=== PATIENT | female | born 1955 | race Caucasian/White ===

== ENCOUNTER 2019-02-11 11:15 | Outpatient (CLI) | payer BC, MEDICARE, SELFPAY ==
--- NOTE | 2019-02-11 13:00 | DI.RAD_ITS ---
SYMPTOMS/DIAGNOSIS: CHRONIC COUGH, R05 PA AND LATERAL CHEST: The heart is not enlarged. There appear to be multiple healed rib fracture on the left and there are associated changes of pleural and parenchymal scarring at the left lung base; no gross interval change in appearance in comparison with chest film of 03/13/2016. No new consolidation. Cardiac size is within normal limits. No pleural effusions seen. CONCLUSION: No evidence of acute process.
== END 2019-02-11 11:35 ==
PROVIDERS: PCP Nurse Practitioner Family; Visit Provider Nurse Practitioner Family
DX: R05 Cough (principal); J98.4 Other disorders of lung
CPT/HCPCS: 71046

== ENCOUNTER 2020-02-11 21:00 | Outpatient (REF) | payer BC, MEDICARE, SELFPAY ==
[2020-02-11 19:52] LABS: Anion Gap 9.6 mmol/L (3-11); BUN 15 mg/dL (7-18); CO2 27.4 mmol/L (21.0-32.0); CREATININE 0.85 mg/dL (0.55-1.02); Calcium 9.7 mg/dL (8.5-10.1); Calculated LDL 170 mg/dL (<100); Chloride 103 mmol/L (98-107); Cholesterol 232 mg/dL (<200); Glucose 132 mg/dL (74-106); HDL Cholesterol 40 mg/dL (40-60); Potassium 4.4 mmol/L (3.5-5.1); Sodium 140 mmol/L (136-145); Triglyceride 111 mg/dL (<150)
[2020-02-11 20:10] LABS: Hemoglobin A1C 6.4 % (3.8-5.6)
== END 2020-02-11 21:20 ==
LOC: LBN 21:00
PROVIDERS: PCP Nurse Practitioner Family; Visit Provider Nurse Practitioner Family
DX: E78.5 Hyperlipidemia, unspecified (principal)
CPT/HCPCS: 80048; 80061; 83036

== ENCOUNTER 2020-02-24 04:34 | Outpatient (CLI) | payer BC, MEDICARE, SELFPAY ==
--- NOTE | 2020-02-24 16:15 | DI.MAMMO_ITS ---
EXAM: MG MAMMO SCREENING CLINICAL HISTORY: screening, Z12.39 TECHNIQUE: Bilateral full field digital CC and MLO mammographic images were obtained with 3D tomosyn thesis and utilizing computer aided detection (CAD). COMPARISON: Available for comparison. FINDINGS: Masses/Architectural Distortion: Scattered fibronodular densities are seen in the breasts. Stable as ymmetric density in the central posterior left breast seen on the craniocaudal view. Microcalcifications: No suspicious pleomorphic-type are seen. Skin Thickening/Nipple Retraction: None. IMPRESSION: 1. No significant interval change with no specific features of malignancy noted. 2. Unless there is more urgent need, screening mammography is recommended, as per [employer] guidelines. BI-RADS Category 2 - Benign Findings Breast Density - Category B - Scattered areas of fibroglandular density A negative radiographic report should not delay biopsy if a dominant or clinically suspicious mass is present. Up to ten percent of cancers are not identified on mammography. A negative report may reinforce clinical impression. Adenosis and dense breasts may obscure an underlying neoplasm. False positive reports average 6 to 10%. Patient will receive a letter notifying them of these results.
== END 2020-02-24 04:54 ==
PROVIDERS: PCP Nurse Practitioner Family; Visit Provider Nurse Practitioner Family
DX: Z12.31 Encounter for screening mammogram for malignant neoplasm of breast (principal); R92.2 Inconclusive mammogram
CPT/HCPCS: 77063; 77067

== ENCOUNTER 2020-04-22 08:49 | Outpatient (CLI) | payer BC, MEDICARE, SELFPAY ==
[2020-04-26 23:15] LABS: Patient Race White; SARS-CoV-2 RNA Undetected (Undetected); SARS-CoV-2 Specimen Source Nasal
== END 2020-04-22 09:09 ==
PROVIDERS: PCP Nurse Practitioner Family; Visit Provider Nurse Practitioner Family
DX: R52 Pain, unspecified (principal); R50.9 Fever, unspecified
CPT/HCPCS: U0003

== ENCOUNTER 2020-08-11 02:37 | Outpatient (CLI) | payer BC, MEDICARE, SELFPAY ==
[2020-08-12 13:41] LABS: COVID-19 RT-PCR UVMMC Result Negative (Negative)
== END 2020-08-11 02:38 | disposition home or self-care (01) ==
LOC: LBO 02:37
PROVIDERS: PCP Nurse Practitioner Family; Visit Provider Surgery
DX: Z20.822 Contact with and (suspected) exposure to COVID-19 (principal); Z01.818 Encounter for other preprocedural examination
CPT/HCPCS: U0003

== ENCOUNTER 2020-08-15 06:12 | Day surgery (SDC) | payer BC, MEDICARE, SELFPAY ==
[2020-08-15 06:27] VITALS: BP 166/99; PULSE 96; RESP 18; TEMP 36.3; O2SAT 94
--- NOTE | 2020-08-15 06:42 | W.COLOREPORT ---
Date of service: 08/15/20 Time of Service: :19 Colonoscopy Report Date of procedure: 08/15/20 Pre-op diagnosis general: Hx of colon polyps Post-op diagnosis procedure note: same Procedure: Colonoscopy with polypectomy Surgeon: Jory Leblanc Anesthesia proc note operative: other (General/ ASA 3/Aldair Faye CRNA) Estimated blood loss (mL): 3 Pathology: other (Cecal polyps, descending polyp, sigmoid polyps and rectal polyps) Complications: None Disposition: same day Indications: The patient is here for Colonoscopy pre-op.Her last screening was in 2016, which was remarkable for tubulovillious, tubular adenomatous and hyperplastic polyps. She reports a family history of colon cancer in her sister. She has not had any bowel habit changes. -Discussed colonoscopy bowel prep as well as the procedure. Discussed possible complications of the procedure to include bleeding, pain, perforation, missed small lesion/polyp, sore throat, aspiration and adverse reaction to the medications. Questions were answered to patient?s satisfaction. No guarantees were implied or given. Prep: Miralax/Dulcolax Procedure Start Time: :19 Procedure End Time: 07:56 Retraction Time: 28 minutes Findings: multiple polyps emerson-diverticulosis Procedure Description: After informed consent was obtained the patient was taken to the procedure room and placed in a left decubitous position. Monitors were applied and a time out was done. The patients name, date of , procedure, allergies to medications and metal in their body was reviewed. The patient was then sedated. Once sedated and comfortable a rectal exam was done. External exam was normal. Internal exam revealed a normal sphincter tone and no palpable masses. The scope was then introduced and retro-flexed. No internal hemorrhoids, polyps or masses were identified on retro-flexion. The scope was then advanced to the cecum without difficulty. The ileocecal valve and appendiceal orifice were identified. The prep was good. The scope was then slowly retracted over 28 minutes back into the rectum. Polyps were removed with hot snare in the cecum and with cold forceps in the cecum, descending colon, sigmoid colon and rectum. There was emerson- diverticulosis noted. The scope was removed and the patient was woken up and taken back to Same day surgery in stable condition. The patient tolerated the procedure well and there were no immediate complications. Follow up: The patient should follow up in 3-5 years unless they develop changes in bowel habits or other new gastrointestinal complaints.
--- NOTE | 2020-08-15 06:44 | W.PM.DSUDISC ---
Discharge Plan Disposition Patient Disposition: HOME Condition: Good Discharge Details Reason For Visit: Colonoscopy Attending Provider: Jory Leblanc Primary Care Provider: Lis Millan Home Meds and New Rx's Prescriptions: Continued calcium carbonate-vitamin D3 1 EACH tablet 1 ea PO BID RF: 0 melatonin 5 mg Tablet 5 mg PO HS PRNRF: 0 diphenhydramine-acetaminophen [Tylenol PM Extra Strength] 25-500 mg Tablet 1 tab PO Q4H PRNRF: 0 Discontinued polyethylene glycol 3350 17 gram/dose powder 238 g PO ONCE Qty: 238 RF: 0 bisacodyl [Dulcolax (bisacodyl)] 5 mg tablet,delayed release (DR/EC) 5 mg PO ONCE Qty: 4 RF: 0 Discharge Instructions Instructions: Diverticulosis (DC), Colorectal Polyps (DC) Additional Instructions: Findings: polyps moderate diverticulosis Follow up: 3-5 years Please call if you develop: fevers >101.5 Nausea or Vomiting Abdominal pain that is not transient DAY SURGERY UNIT POST ENDOSCOPY INSTRUCTIONS 1. Because there will be medication in your system for the next 24 hours, you may feel a little sleepy. Your coordination will be affected. Therefore: a. Do not drive or operate dangerous equipment for 24 hours. b. Do not drink alcohol beverages for 24 hours (not even beer). c. Plan to go home and rest for the day. 2. Generally there are no restrictions on your activity after a day or so has gone by, but you may feel a bit fatigued for a few days. 3 After you arrive home you may have a light meal and return to a normal diet as you can tolerate it without feeling sick to your stomach. 4. After surgery, you may feel pain or discomfort. This should be only transient, but if it persists please contact your doctor. 5. If there are any questions regarding the findings of your procedure, please feel free to contact your doctor. 6. If you are unable to contact your doctor with a problem, contact the hospital at [phone]. 7. Continue all your regular medications unless directed otherwise. I understand the above instructions and have no questions. Signature of Patient or Responsible Adult Escort Date/Time Name of Responsible Adult Escort Signature of Nurse Date/Time Activity:: Activity as Tolerated Diet:: High Fiber Discharge Orders Discharge Orders: Discharge Order (Routine); Ordered 08/15/20 Ordered By: Jory Leblanc
[2020-08-15] MEDS: Lactated Ringers 1,000 ML 80 ML IV (06:45)
--- NOTE | 2020-08-15 07:30 | BOWEL_PTH ---
PATIENT: Macy Zhang LOC: [facility] U#:[id number] AGE/SX: 65/F ROOM: RE08/15/[address]: Jory Leblanc MD : [id number] BED: DIS: 08/15/2020 SPEC #: [id number] RECD: 08/15/20 12:39 STATUS: PAOLO REGil #: [id number] CHIQUI: 08/15/20 07:[address]: Jory Leblanc DEPT: Surgical Specimen RECD BY: Alisa Hicks ENTERED: 08/15/20 12:41 SP TYPE: Bowel OTHR DR: Lis Millan, ELOY Tissues: 1 - BIOPSY BOWEL 2 - BIOPSY BOWEL 3 - BIOPSY BOWEL 4 - BIOPSY BOWEL Procedures: GROSS AND MICRO LEVEL 4 Comments: [id number]
[2020-08-15 08:35] VITALS: BP 172/106; PULSE 77; RESP 22; TEMP 36.3; O2SAT 94
[2020-08-15] MEDS: Hyoscyamine 0.125 MG SL/ORAL/CHEW SL (08:39)
[2020-08-15 09:00] VITALS: BP 163/103; PULSE 70; RESP 22; TEMP 36.4; O2SAT 94
[2020-08-15 09:41] VITALS: BP 161/101; PULSE 88; RESP 20; TEMP 36.1; O2SAT 94
== END 2020-08-15 10:07 | disposition home or self-care (01) ==
PROVIDERS: PCP Nurse Practitioner Family; Visit Provider Surgery
PROC: 0DJD8ZZ Inspection of Lower Intestinal Tract, Via Natural or Artificial Opening Endoscopic (ICD-10-PCS; CPT 45378; principal; 2020-08-15 07:30)
DX: Z12.11 Encounter for screening for malignant neoplasm of colon (principal); K62.1 Rectal polyp; D12.5 Benign neoplasm of sigmoid colon; D12.4 Benign neoplasm of descending colon; D12.0 Benign neoplasm of cecum; K57.30 Diverticulosis of large intestine without perforation or abscess without bleeding; Z86.010 Personal history of colon polyps; Z80.0 Family history of malignant neoplasm of digestive organs; R73.03 Prediabetes; E66.9 Obesity, unspecified; E78.5 Hyperlipidemia, unspecified
CPT/HCPCS: 45385; 45380; 88305; J2001; J3490

== ENCOUNTER 2020-10-15 16:52 | Observation (INO) | payer BC, MEDICARE, SELFPAY ==
[2020-10-15] VITALS (35 sets, daily range): BP systolic 108–201; BP diastolic 55–108; PULSE 88–116; RESP 4–40; TEMP 36.4–36.5; O2SAT 87–99
--- NOTE | 2020-10-15 16:45 | RT.EKG_ITS ---
APPROVED REPORT Exam: Resting ECG Patient Location: E HR:111 bpm ECG Measurements Heart Rate 111 AXIS VA 189 P 66 QRSd 94 QRS -4 QT 334 T 77 QTc 455 Conclusion Sinus tachycardia...rate> 99 Inferior infarct, old...Q >35mS, II III aVF
--- NOTE | 2020-10-15 17:00 | ED.GENADUL_ITS ---
Discharge Plan Disposition Patient Disposition: [facility] INPATIENT Condition: Stable Discharge Details Chief Complaint: Dizzy/Sync Clinical Impression: Hypoxia Primary Care Provider: Lis Millan ED Provider: Jeff Garsia Home Meds and New Rx's Prescriptions: No Action calcium carbonate-vitamin D3 1 EACH tablet 1 ea PO BID RF: 0 melatonin 5 mg Tablet 10 mg PO HS PRNRF: 0 diphenhydramine-acetaminophen [Tylenol PM Extra Strength] 25-500 mg Tablet 1 tab PO Q4H PRNRF: 0 Medical Decision Making 65 yo female with hx of prior smoking, hyperlipidemia per chart review, who was sitting at home aroud 1500 when she had the sudden onset of dyspnea, lightheadedness, and upper back pain that was sharp and lasted a few minutes. She continues to feel short of breath and lightheaded. She denies chest pain or pressure, abdomeinal pain, vomit, or recent fevers. She did get her 2nd covid vaccine last week and since then hasn't felt great and states her energy has not been that high. She states she thinks she has had similar symptoms like this once years ago and was diagnosed with a panic attack. She does arrive appearing anxious. She has clear lung sounds on exam at the apices though diminished at the base, no chest or back tenderness or abdominal tenderness, no calf tenderness, no leg swelling, no jvd. Given how anxious she feels will try anxiolysis with ativan. She has a heart score of 3, will send troponin. Given her primary complaint is dyspnea and she does have mild tachycardia at 110 on exam will obtain CTA to evaluate for PE. No tearing back pain and normal vascular exam and no chest pain so doubt dissection pt seen after ct and appears much less anxious. She apparently did desaturate to the high 80s when going to the bedside commode and did on repeat exam with full deep breaths now have bilateral apical and lower lung wheezing. Will treat with duoneb and reassess. ct shows no PE but does have possible infection with opacities in the right middle lobe, continues to have hypoxia to the high 80's with movement otherwise stable. Spoke with Dr. Gonzalez who accepts for admission for hypoxia likely secondary to undiagnosed copd and possible pe. Pt updated and agrees with plan Differential Diagnosis Differential Diagnosis: nstemi, PE, pneumonia, anxiety Imaging Data Radiologic Study: Attestation: I personally reviewed and interpreted this imaging study as follows: Imaging: CT Scan Radiologist's impression: IMPRESSION: 1. No central/discrete pulmonary embolism identified. Evaluation for more peripheral PEs (small segmental/subsegmental) is limited secondary to motion and mixing artifact. 2. Scattered nodular densities in the right upper lobe with a clustering nodular densities in the medial aspect of the right upper lobe. These could be infectious or inflammatory. True pulmonary nodules are not excluded. Consider 3 month follow-up. 3. Mild opacities in the right middle lobe and lingula which could represent atelectasis or infection. Other findings/details as above ECG Data Attestation: I personally reviewed and interpreted this ECG (s) as follows: Prior ECG tracings: not available for review Interpretation: sinus tachycardia, rate of 111, pr 189, qtc 455, poor r wave progression HPI General Mode of arrival: wheelchair . Date/Time Provider Initiated Documentation: 10/15/20 16:54 . Limitations to Documentation: no limitations . Information obtained by: patient . History of Present Illness 65 year old F presents to the emergency department with the chief complaint of shortness of breath, described as moderate, Patient started experiencing this hour(s) (2) and it has been constant. No relieving factors improve symptom(s), No exacerbating factors reported . Patient notes denies chest pain. Patient did receive the following treatments prior to arrival, none Related Data Home Medications Medication Instructions Recorded Confirmed calcium carbonate-vitamin D3 1 ea PO BID 08/16/17 10/15/20 diphenhydramine-acetaminophen 1 tab PO Q4H PRN 08/15/20 10/15/20 [Tylenol PM Extra Strength] melatonin 10 mg PO HS PRN 08/15/20 08/15/20 Allergies Allergy/AdvReac Type Severity Reaction Status Date / Time Penicillins Allergy Severe Hives Unverified 10/15/20 16:59 metronidazole [From Flagyl] Allergy Unknown Unverified 10/15/20 16:59 adhesive AdvReac REDNESS Unverified 10/15/20 16:59 General Stated Complaint: Dizzy/Sync MICHELLE: 2 Review of Systems All systems reviewed & are unremarkable except as noted in HPI and below Constitutional Constitutional: Denies chills and Denies fever(s) Cardiovascular Cardiovascular: Denies chest pain Gastrointestinal Gastrointestinal: Denies abdominal pain, Denies nausea and Denies vomiting Musculoskeletal Musculoskeletal: Denies joint swelling Integumentary/Breasts Skin/Breast: Denies rash PENDING SALE TO [facility] Medical History (Updated 10/15/20 @ 19:02 by Jeff Garsia MD) BCC (basal cell carcinoma), arm Left upper arm Diverticulosis of colon Former cigarette smoker 90pack/yr hx Hyperlipidemia Obesity Osteopenia Dexa 06/09 Prediabetes Tubular adenoma of colon Tubulovillous adenoma of colon Surgical History History of bilateral tubal ligation History of section (01/05/83) 01/05/83 and 06/20/84 History of wisdom tooth extraction S/P colonoscopy (04/02/16) Family History Mother Hypertension Dementia Atrial fibrillation Father , at 59 of lung cancer Lung cancer Sister Rectal cancer metastasized to liver Hypertension Brother Alcohol abuse Daughter No problems noted. Daughter No problems noted. Maternal Grandfather No problems noted. Maternal Grandmother No problems noted. Paternal Grandfather , in his 70s Myocardial infarction Heart disease Alcohol abuse Paternal Grandmother Emphysema of lung Social History Smoking/Tobacco Use Status: Former Tobacco Use Quit Date: 06/24/13 Pack-years: 90 Tobacco: How many years used: 45 Second Hand Exposure: No Smoking risk assessment performed?: Yes Alcohol Intake: current Alcohol Intake frequency: holidays/special occasions only Alcohol type: hard liquor Drug use: Never Substance use type: does not use Details: alcohol: t-7 Caregiver/Support person: No Household members: spouse Housing: apartment Communication Needs: None Do you need help understanding health information?: Never Pets and animals: Yes Pets and animals: cat(s) and dog(s) Sexually active: Yes Do you think of yourself as: straight/heterosexual Current gender identity: female What is your relationship status?: How often do you talk on the phone with friends or family?: three or more times per week How often do you get together with friends or relatives?: decline to answer How often do you attend hoahaoism or zoroastrianism services?: decline to answer Do you belong to any clubs or organized social groups?: decline to answer Panel score (0-1 are the most socially isolated patients): 2 Duration: < 15 minutes/day Frequency: 1-2 times per week Guerita/Lutheran: None Special guerita needs: No Seatbelt use: always Helmet use: Yes Helmet use: always Drive intox or ride w/intox nascar driver: No Do you feel safe at home: Yes Do you feel safe in your relationship?: Yes Female Reproductive History Menstrual Menopause type: natural History History 2 Para 2 Hx # Term Pregnancies Multiple births Hx # Pregnancies Ectopic pregnancies AB induced Hx Number of Living Children 2 AB spontaneous Exam Const General: anxious Orientation: alert HENMT Head: normal to inspection Ears: external ears normal General nose exam: external nose normal Mouth: moist mucous membranes Eyes General: appearance normal, both eyes and all related structures Neck Neck: normal visual inspection Chest Chest: no tenderness Resp Effort & Inspection: no stridor and no use of accessory muscles Cardio Rate: regular rate GI Palpation: soft and nontender Skin General skin exam: no rashes or lesions noted Neuro General: patient alert and patient oriented x3 Extrem General: normal to inspection Psych Mental Status: mental status grossly normal Course Vital Signs Vital signs: Vital Signs Temperature 36.4 C L 10/15/20 16:55 Pulse 116 H 10/15/20 16:55 Respiratory Rate 39 H 10/15/20 16:55 Pulse Oximetry 95 10/15/20 16:55 Temperature 36.4 C L 10/15/20 16:55 Temperature Source Skin 10/15/20 16:55 Pulse 116 H 10/15/20 16:55 Respiratory Rate 39 H 10/15/20 16:55 Blood Pressure Position Sitting 10/15/20 16:55 Pulse Oximetry 95 10/15/20 16:55 Oxygen Delivery Method Room Air 10/15/20 16:55 Oxygen Flow Rate 0 10/15/20 16:55 Pain Level 0 10/15/20 16:55
[2020-10-15] MEDS: LORazepam 2 MG/ML VIAL 0.5 MG IVP (17:17)
[2020-10-15 17:18] LABS: Abs Immature Grans 0.06 10^3/uL (0.0-0.06); Absolute Eosinophil Count 0.32 10^3/uL (0.0-0.7); Absolute Monocyte Count 0.79 10^3/uL (0.1-0.8); Absolute Neutrophil Count 9.83 10^3/uL (1.2-6.7); Basophils % 0.6; Eosinophils % 2.5; HCT 48.7 % (36.0-46.0); HGB 15.8 g/dL (11.2-15.7); Immature Grans % 0.5; Lymphocytes % 12.6; MCH 33.3 pg (27.0-33.0); MCHC 32.4 % (32.0-36.0); MCV 102.7 fL (80-95); MPV 9.2 fL (8.0-11.0); Monocytes % 6.2; Neutrophils % 77.6; Nucleated RBC 0 %; Platelet Count 324 10^3/uL (130-400); RBC 4.74 10^6/uL (3.93-5.22); RDW 14.2 % (11.7-14.6); WBC 12.67 10^3/uL (4.4-10.8)
[2020-10-15] MEDS: Aspirin 81 MG CHEW 324 MG CH (17:18)
[2020-10-15 17:22] LABS: Absolute Basophil Count 0.08 10^3/uL (0.0-0.2)
[2020-10-15 17:33] LABS: PTT Activated 23.8 sec (21.0-27.5); Prothrombin Time 10.3 sec (9.3-11.0)
[2020-10-15 17:38] LABS: ALT 23 U/L (14-59); AST 12 U/L (15-37); Albumin 4.1 g/dL (3.4-5.0); Alkaline Phosphatase 134 U/L (46-116); Anion Gap 8.5 mmol/L (3-11); BUN 16 mg/dL (7-18); Bilirubin, Direct 0.2 mg/dL (0.0-0.2); Bilirubin, Total 0.5 mg/dL (0.2-1.0); CO2 29.5 mmol/L (21.0-32.0); CREATININE 0.9 mg/dL (0.55-1.02); Calcium 9.2 mg/dL (8.5-10.1); Chloride 103 mmol/L (98-107); Glucose 184 mg/dL (74-106); Lipase 94 U/L (73-393); Magnesium 2.1 mg/dL (1.8-2.4); Potassium 3.8 mmol/L (3.5-5.1); Sodium 141 mmol/L (136-145); Total Protein 8.5 g/dL (6.4-8.2)
--- NOTE | 2020-10-15 17:47 | DI.CT_ITS ---
EXAM: CT CHEST PE CTA CLINICAL HISTORY: shortness of breath. TECHNIQUE: Imaging Protocol: CT angiography of the chest was performed using pulmonary embolus oksana col. Multi planar reconstructions were performed. CONTRAST MATERIAL: Intravenous: Omnipaque 350 Contrast volume: 100 cc COMPARISON: No exams were available for comparison FINDINGS: CHEST: PULMONARY ARTERIES: Less than optimal bolus injection. No central pulmonary emboli. LUNGS: Although somewhat limited by motion artifact, there is subtle infiltrates also some infiltrate in the lateral segment left upper lobe and lingular segment left lung. No pleural effusion. No sig nificant focal findings in trachea and mainstem bronchi. In right upper and right middle lobe. No p leural effusion.. MEDIASTINUM: There is no hilar nor mediastinal adenopathy. Visualized thyroid unremarkable. CARDIAC: Heart size is upper normal. There is no pericardial effusion.Caliber of the thoracic aorta is within normal limits. There is no significant shift of the interventricular septum. PARTIALLY VISUALIZED UPPERMOST ABDOMEN: No obvious findings OSSEOUS: No significant osseous lesions.. IMPRESSION: 1. No evidence of acute pulmonary emboli. No evidence of pulmonary infarction.No pleural effusions. 2. However, there is subtle infiltrates in the right upper lobe left upper lobe. Recommend 3 month f ollow-up CT scan. 3. No evidence of aortic dissection. No pericardial effusion. RADIATION DOSE DELIVERED: 486.67mGy.cm Total DLP DATA REPOSITORY: All CT scans at this facility are submitted to the National Radiology Data Registry (NRDR) Dose Index Registry (DIR) with the [employer] (ACR). RADIATION OPTIMIZATION: All CT scans at this facility use at least one of these dose optimization te chniques: automated exposure control; mA and/or kV adjustment per patient size (includes targeted exa ms where dose is matched to clinical indication); or iterative reconstruction.
[2020-10-15 17:50] LABS: Troponin I < 0.05 ng/mL (<0.06)
[2020-10-15] MEDS: Normal Saline - Diluent 50 ML VIAL IV (17:55)
[2020-10-15] MEDS: Albuterol/Ipratropium 3 ML UPD VIAL UPD ×2 (18:04→19:19)
[2020-10-15] MEDS: methylPREDNISolone SUCC 125 MG VIAL IVP (18:23)
--- NOTE | 2020-10-15 18:47 | DI.VRAD_ITS ---
PROCEDURE INFORMATION: Exam: CTA Chest With Contrast Exam date and time: 10/15/2020 5:38 PM Age: 65 years old Clinical indication: Shortness of breath TECHNIQUE: Imaging protocol: Computed tomographic angiography of the chest with contrast. 3D rendering (Not supervised by radiologist): MIP and/or 3D reconstructed images were created by the technologist. Radiation optimization: All CT scans at this facility use at least one of these dose optimization techniques: automated exposure control; mA and/or kV adjustment per patient size (includes targeted exams where dose is matched to clinical indication); or iterative reconstruction. Contrast material: VISIPAQUE [id number]; Contrast route: INTRAVENOUS (IV); COMPARISON: CR XR CHEST 2V PA LATERAL 02/11/2019 12:55 PM FINDINGS: Limitations: Compromised examination secondary to significant respiratory motion and quantum mottle. Pulmonary arteries: No central pulmonary embolism identified. Evaluation for more peripheral PEs (segmental/subsegmental) is limited secondary to motion and mixing artifact. Aorta: Evaluation of the ascending thoracic aorta is limited secondary to motion. No aneurysm identified. There are mild vascular calcifications. Lungs: There are scattered nodular densities in the right upper lobe with a clustering of nodular densities in the medial aspect of the right upper lobe measuring up to 6 mm (series 8, image 53). These could be infectious or inflammatory. True pulmonary nodules are not excluded. There are also mild opacities in the right middle lobe and lingula which could represent atelectasis or infection. Pleural spaces: Unremarkable. No pneumothorax. No pleural effusion. Heart: No pericardial effusion. Lymph nodes: Unremarkable. No enlarged lymph nodes. Bones/joints: Old-appearing left-sided rib fractures are identified. One appears nonunionized, series 4, image 37. No acute fractures are appreciated. Skeletal degenerative changes. Soft tissues: The soft tissues are incompletely imaged on this exam. The adrenal glands have a bulky appearance bilaterally but are not well assessed secondary to motion. IMPRESSION: 1. No central/discrete pulmonary embolism identified. Evaluation for more peripheral PEs (small segmental/subsegmental) is limited secondary to motion and mixing artifact. 2. Scattered nodular densities in the right upper lobe with a clustering nodular densities in the medial aspect of the right upper lobe. These could be infectious or inflammatory. True pulmonary nodules are not excluded. Consider 3 month follow-up. 3. Mild opacities in the right middle lobe and lingula which could represent atelectasis or infection. Other findings/details as above. References: Brit Kaplan, et al. Guidelines for Management of Incidental Pulmonary Nodules Detected on CT Images: From the Fleischner Society 2017. Radiology. 2017;284(1):228-243. Dictated and Authenticated by: Danielle Gerard MD. Ordering:MARLENE Aguilar MD
[2020-10-15] MEDS: levoFLOXacin 750 MG/150 ML BAG 100 MG IVPB (19:54)
[2020-10-15 19:56] LABS: Source Nasal/Nares
[2020-10-15 20:21] LABS: Troponin I < 0.05 ng/mL (<0.06)
[2020-10-15 20:35] LABS: COVID-19 PCR Negative (Negative)
--- NOTE | 2020-10-15 21:20 | W.PM.HP.N ---
Date of service: 10/15/20 Time of Service: 21:28 Assessment and Plan Assessment and plan (1) Hypoxia: Status: Acute Assessment and plan: This is likely due to chronic obstructive lung disease. Hypoxia is mild at this time. Coronavirus testing is negative. We will continue IV steroids and ipratropium that are scheduled and albuterol nebulizers as needed. She should have ambulatory oximetry testing tomorrow. (2) Lung nodule: Status: Acute Assessment and plan: This will need follow-up as an outpatient. (3) Pneumonia: Status: Acute Assessment and plan: She was started on levofloxacin in the emergency department and this will be continued. History of Present Illness History of Present Illness Chief Complaint: Dyspnea Narrative: This 65-year-old female is here because of shortness of breath. This came on suddenly about 3:00 this afternoon. She also felt lightheaded. She said her just got home from the trip to [place] and they laid down to rest and she became very short of breath. She has had a cough for about 2 days. She did receive her second coronavirus vaccine 6 days ago had some fever from this for couple days but went to work last 2 days. She did receive a flu shot this flu season. She has not been around anyone else has been sick except she tripped school has had a sore throat. There is no Covid exposure that she is aware of nor she had any travel. She been coughing CLEAR sputum. There has been no hemoptysis. She does quit smoking about 4 5 years ago but her father well lives in a downstairs apartment with her home and does smoke regularly. She was evaluated emergency department and it was noted that she has some hypoxia with oxygen saturations in the high 80s. She had CT scan of her chest which showed some infiltrates as well as some possible nodules and was recommended that she have follow-up films in about 3 months. She says she thinks she probably gets short of breath if she ran upstairs and has no shortness of breath when she walks upstairs. 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 She says that she has had the pneumonia vaccine. Review of Systems Constitutional Constitutional: Denies chills, Denies fever(s) and Denies malaise Cardiovascular Cardiovascular: Denies chest pain, Reports lightheadedness and Reports dyspnea Respiratory Respiratory: Reports cough, Denies hemoptysis, Reports dyspnea and Denies wheezing Gastrointestinal Gastrointestinal: Denies diarrhea, Denies nausea and Denies vomiting Genitourinary Genitourinary: Denies difficulty voiding and Denies urinary urgency Allergic/Immunologic Allergic/Immunologic: Denies wheezing [facility] Medical History (Updated 10/15/20 @ 21:36 by Rubio Gonzalez MD) BCC (basal cell carcinoma), arm Left upper arm Diverticulosis of colon Former cigarette smoker 90pack/yr hx Hyperlipidemia Obesity Osteopenia Dexa 06/09 Prediabetes Tubular adenoma of colon Tubulovillous adenoma of colon Surgical History History of bilateral tubal ligation History of section (01/05/83) 01/05/83 and 06/20/84 History of wisdom tooth extraction S/P colonoscopy (04/02/16) Family History Mother Hypertension Dementia Atrial fibrillation Father , at 59 of lung cancer Lung cancer Sister Rectal cancer metastasized to liver Hypertension Brother Alcohol abuse Daughter No problems noted. Daughter No problems noted. Maternal Grandfather No problems noted. Maternal Grandmother No problems noted. Paternal Grandfather , in his 70s Myocardial infarction Heart disease Alcohol abuse Paternal Grandmother Emphysema of lung Social History Smoking/Tobacco Use Status: Former Tobacco Use Quit Date: 06/24/13 Pack-years: 90 Tobacco: How many years used: 45 Second Hand Exposure: No Smoking risk assessment performed?: Yes Alcohol Intake: current Alcohol Intake frequency: holidays/special occasions only Alcohol type: hard liquor Drug use: Never Substance use type: does not use Details: alcohol: t-7 Caregiver/Support person: No Household members: spouse Housing: apartment Communication Needs: None Do you need help understanding health information?: Never Pets and animals: Yes Pets and animals: cat(s) and dog(s) Sexually active: Yes Do you think of yourself as: straight/heterosexual Current gender identity: female What is your relationship status?: How often do you talk on the phone with friends or family?: three or more times per week How often do you get together with friends or relatives?: decline to answer How often do you attend jain or adventism services?: decline to answer Do you belong to any clubs or organized social groups?: decline to answer Panel score (0-1 are the most socially isolated patients): 2 Duration: < 15 minutes/day Frequency: 1-2 times per week Guerita/Pentecostal: None Special guerita needs: No Seatbelt use: always Helmet use: Yes Helmet use: always Drive intox or ride w/intox 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: No Do you feel safe at home: Yes Do you feel safe in your relationship?: Yes Female Reproductive History Menstrual Menopause type: natural History History 2 Para 2 Hx # Term Pregnancies Multiple births Hx # Pregnancies Ectopic pregnancies AB induced Hx Number of Living Children 2 AB spontaneous Meds Allergies and Home Medications Allergies Allergy/AdvReac Type Severity Reaction Status Date / Time Penicillins Allergy Severe Hives Unverified 10/15/20 16:59 metronidazole [From Flagyl] Allergy Unknown Unverified 10/15/20 16:59 adhesive AdvReac REDNESS Unverified 10/15/20 16:59 Home Medications Medication Instructions Recorded Confirmed Type calcium carbonate-vitamin D3 1 ea PO BID 08/16/17 10/15/20 History diphenhydramine-acetaminophen 1 tab PO Q4H PRN 08/15/20 10/15/20 History [Tylenol PM Extra Strength] melatonin 10 mg PO HS PRN 08/15/20 08/15/20 History Exam Const General: cooperative and well hydrated Nutritional Appearance: overweight Orientation: alert and awake HENTX Head: normal to inspection Eyes General: appearance normal, both eyes and all related structures Sclera: sclerae normal Neck Neck: normal visual inspection, trachea midline and no lymphadenopathy noted Resp Effort & Inspection: normal respiratory effort Auscultation: rales (Bilateral lower lung romero.), no rhonchi, no wheezes and no rubs Tactile Fremitus: tactile fremitus absent Cardio Jugular venous pressure: no JVD Rhythm: regular rhythm Heart Sounds: S1 normal, S2 normal, no gallops and no murmurs GI Inspection: normal to inspection Palpation: no hepatosplenomegaly, no masses and nontender Auscultation: bowels sounds normal Extrem Right lower extremity: no edema Left lower extremity: no edema Psych Appearance: grossly normal Mental Status: mental status grossly normal Attitude: cooperative Results Labs Result diagrams: 10/15/20 17:05 10/15/20 17:05 Labs: Laboratory Results - last 24 hr 10/15/20 10/15/20 10/15/20 17:05 17:05 17:05 WBC 12.67 H RBC 4.74 Hgb 15.8 H Hct 48.7 H MCV 102.7 H MCH 33.3 H MCHC 32.4 RDW 14.2 Plt Count 324 MPV 9.2 Immature Gran % 0.5 Neutrophils % 77.6 Lymphocytes % 12.6 Monocytes % 6.2 Eosinophils % 2.5 Basophils % 0.6 Nucleated RBC % 0 Absolute Neutrophils 9.83 H Absolute Lymphocytes 1.60 Absolute Monocytes 0.79 Absolute Eosinophils 0.32 Absolute Basophils 0.08 PT 10.3 INR 1.0 APTT 23.8 Sodium 141 Potassium 3.8 Chloride 103 Carbon Dioxide 29.5 Anion Gap 8.5 BUN 16 Creatinine 0.9 Estimated GFR/1.73 m2 >= 60.00 Glucose 184 H Calcium 9.2 Magnesium 2.1 Total Bilirubin 0.5 Conjugated Bilirubin 0.2 AST 12 L ALT 23 Alkaline Phosphatase 134 H Troponin I < 0.05 Total Protein 8.5 H Albumin 4.1 Lipase 94 COVID-19 Source SARS-CoV-2 (PCR) 10/15/20 10/15/20 19:10 19:42 WBC RBC Hgb Hct MCV MCH MCHC RDW Plt Count MPV Immature Gran % Neutrophils % Lymphocytes % Monocytes % Eosinophils % Basophils % Nucleated RBC % Absolute Neutrophils Absolute Lymphocytes Absolute Monocytes Absolute Eosinophils Absolute Basophils PT INR APTT Sodium Potassium Chloride Carbon Dioxide Anion Gap BUN Creatinine Estimated GFR/1.73 m2 Glucose Calcium Magnesium Total Bilirubin Conjugated Bilirubin AST ALT Alkaline Phosphatase Troponin I < 0.05 Total Protein Albumin Lipase COVID-19 Source Nasal/nares SARS-CoV-2 (PCR) Negative Last Vital Signs Temp 36.5 C 10/15/20 20:25 Pulse 101 H 10/15/20 20:25 Resp 20 10/15/20 20:25 BP 144/85 H 10/15/20 20:25 Pulse Ox 93 10/15/20 20:25 COVID-19 Screening Have you, or household traveled for leisure in last 14 days?: No Had IN PERSON contact w/suspected or confirmed C-19 person: No
[2020-10-15] MEDS: Normal Saline Flush 10 ML SYR IVP (21:49)
[2020-10-15] MEDS: Benzonatate 200 MG CAP PO (22:31)
[2020-10-16] VITALS: BP 165/84; PULSE 100; RESP 24; TEMP 36.2; O2SAT 93
[2020-10-16] MEDS: Albuterol/Ipratropium 3 ML UPD VIAL UPD ×3 (00:02→13:11)
[2020-10-16 04:20] VITALS: BP 137/84; PULSE 99; RESP 18; TEMP 36.7; O2SAT 92
[2020-10-16] MEDS: Benzonatate 200 MG CAP PO (06:10)
[2020-10-16 07:05] LABS: Abs Immature Grans 0.03 10^3/uL (0.0-0.06); Absolute Lymphocyte Count 0.52 10^3/uL (1.2-3.4); Absolute Monocyte Count 0.11 10^3/uL (0.1-0.8); Basophils % 0.2; HCT 43.9 % (36.0-46.0); HGB 14.6 g/dL (11.2-15.7); Immature Grans % 0.2; Lymphocytes % 4.1; MCH 33.6 pg (27.0-33.0); MCHC 33.3 % (32.0-36.0); MCV 100.9 fL (80-95); MPV 9.7 fL (8.0-11.0); Monocytes % 0.9; Neutrophils % 94.6; Nucleated RBC 0 %; Platelet Count 328 10^3/uL (130-400); RBC 4.35 10^6/uL (3.93-5.22); RDW 14.2 % (11.7-14.6); RDW-SD 51.5 fL; WBC 12.74 10^3/uL (4.4-10.8)
[2020-10-16 07:07] LABS: Absolute Basophil Count 0.03 10^3/uL (0.0-0.2); Absolute Neutrophil Count 12.05 10^3/uL (1.2-6.7)
[2020-10-16 07:16] LABS: BUN 13 mg/dL (7-18); CREATININE 0.8 mg/dL (0.55-1.02); Calcium 9.1 mg/dL (8.5-10.1); Chloride 104 mmol/L (98-107); Glucose 197 mg/dL (74-106); Potassium 3.9 mmol/L (3.5-5.1); Sodium 142 mmol/L (136-145)
[2020-10-16] MEDS: Enoxaparin 40 MG/0.4 ML SYR SC (08:00)
[2020-10-16] MEDS: levoFLOXacin 500 MG, levoFLOXacin 250 MG 750 MG PO (08:01)
[2020-10-16] MEDS: methylPREDNISolone SUCC 125 MG VIAL 80 MG IVP (08:01)
[2020-10-16 08:10] VITALS: BP 154/81; PULSE 102; RESP 19; TEMP 36.5; O2SAT 96
[2020-10-16] MEDS: Omeprazole 20 MG CAPCR PO (10:59)
--- NOTE | 2020-10-16 11:38 | W.PM.DS.N ---
Date of service: 10/16/20 Time of Service: 11:38 DS: Diagnosis Discharge Diagnosis (1) Hypoxia: Start date: 10/16/20 Start time: 11:38 Status: Resolved Asessment and Plan: 96% on RA. Ambulatory in the [address], [facility] likely she has COPD longer than 20 year smoker, quit 4 years ago but she did vape for a couple of years. She was placed on high dose steroids, levaquin po Today she feels great she is being discharged home She will need PFTs and follow up with pulmonology Will discharge on steroids, levaquin 10 day dosing and omeprazole (2) Lung nodule: Start date: 10/16/20 Start time: 11:44 Status: Acute Asessment and Plan: No central/discrete pulmonary embolism identified. Evaluation for more peripheral PEs (small segmental/subsegmental) is limited secondary to motion and mixing artifact. Scattered nodular densities in the right upper lobe with a clustering nodular densities in the medial aspect of the right upper lobe. These could be infectious or inflammatory. True pulmonary nodules are not excluded. Consider 3 month follow-up. Mild opacities in the right middle lobe and lingula which could represent atelectasis or infection. Other findings/details as above. Recommend 3 month imaging for f/u (3) Pneumonia: Start date: 10/16/20 Start time: 11:46 Status: Acute Asessment and Plan: as above treatment with levaquin for 10 days above case discussed with Dr. Campbell Discharge Plan Disposition Patient Disposition: HOME Condition: Improving Discharge Details Reason For Visit: HYPOXIA, PNEUMONIA Admit Date/Time: 10/15/20 18:59 Admit Provider: Rubio Gonzalez Attending Provider: Rubio Gonzalez [facility] Hospital Course: 65 y.o female with PMH of HLD, former 20+ year tobacco user quit approx 4-5 yrs ago but started vaping, diverticulosis, was admitted to [facility]/s for SOB on admission. In the ED she was found to be hypoxic in the 80's requiring oxygen. Given high dose steroids and started on levaquin. Today she is doing loops around the hospital floor, not requiring oxygen RA saturation is 96%, [facility], she states she feels great. She did reveal nodules by CT questioning inflammatory vs infectious, true pulmonary could not be excluded therefore 3 month follow up recommended. She has also never had any PFTs therefore this likely is COPD exacerbation, she will need outpatient PFT's. She is being discharged home on levaquin 10 day course, steroids, and omeprazole. Denies CP, SOB, N/v/D. Home Meds and New Rx's Prescriptions: New benzonatate 200 mg Capsule 200 mg PO QID PRN PRN (Reason: Cough) Qty: 20 RF: 0 omeprazole 20 mg Capsule,Delayed Release(Dr/Ec) 20 mg PO DAILY@0730 Qty: 30 RF: 0 levofloxacin 750 mg Tablet 750 mg PO QAM Qty: 10 RF: 0 prednisone 20 mg tablet 60 mg PO DAILY Qty: 15 RF: 0 Continued calcium carbonate-vitamin D3 1 EACH tablet 1 ea PO BID RF: 0 melatonin 5 mg Tablet 10 mg PO HS PRNRF: 0 diphenhydramine-acetaminophen [Tylenol PM Extra Strength] 25-500 mg Tablet 1 tab PO Q4H PRNRF: 0 Discharge Instructions Activity:: Activity as Tolerated Equipment/Supplies:: No Equipment Needed Diet:: Carb Counting Discharge Orders Discharge Orders: Discharge Order (Routine); Ordered 10/16/20 Ordered By: Lili Doss DS: Summary Time Spent with Patient providing and/or coordinating discharge services: Less than 30 minutes (approx 20 mins) Status at Discharge Functional status at discharge: independent ambulation Overall status at discharge: patient is back to baseline Mental Status: mental status grossly normal Speech and Movement: speech and movement normal Mood: congruent mood Affect: normal affect Exam Const General: cooperative and well hydrated Nutritional Appearance: overweight Orientation: alert and awake [facility] Head: normal to inspection Eyes General: appearance normal, both eyes and all related structures Sclera: sclerae normal Neck Neck: normal visual inspection, trachea midline and no lymphadenopathy noted Resp Effort & Inspection: normal respiratory effort and able to speak in complete sentences Auscultation: clear to auscultation bilaterally Cardio Jugular venous pressure: no JVD Rhythm: regular rhythm Heart Sounds: S1 normal, S2 normal, no gallops and no murmurs GI Inspection: normal to inspection Palpation: no hepatosplenomegaly, no masses and nontender Auscultation: bowels sounds normal Extrem Right lower extremity: no edema Left lower extremity: no edema Psych Appearance: grossly normal Mental Status: mental status grossly normal Speech and Movement: speech and movement normal Mood: congruent mood Affect: normal affect Attitude: cooperative DS: Data Vitals/I&O Vitals and I&O: Vital Signs Temperature 36.5 C 10/16/20 08:10 Temperature Source Tympanic 10/16/20 08:10 Pulse 102 H 10/16/20 08:10 Pulse Rhythm Regular 10/16/20 08:06 Pulse 97 H 10/15/20 20:02 Respiratory Rate 19 10/16/20 08:10 Respiratory Effort Non-Labored 10/16/20 08:06 Respiratory Depth Normal 10/16/20 08:06 Respiratory Pattern Normal 10/16/20 08:06 Blood Pressure 154/81 H 10/16/20 08:10 Blood Pressure Mean 77 10/15/20 20:02 Blood Pressure Position Sitting 10/15/20 16:55 Pulse Oximetry 96 10/16/20 08:10 Oxygen Delivery Method Room Air 10/16/20 08:10 Oxygen Flow Rate 0 10/16/20 08:10 Pain Level 0 10/16/20 08:10 Intake & Output 10/15/20 10/15/20 10/16/20 11:59 23:59 11:59 Intake Total 1110 / 1110 Output Total 1025 / 1025 Balance 80 85 / 85 Weight 95.254 kg Intake: IV 10 / 10 Oral 1100 / 1100 Output: Urine 1025 / 1025 Other: Urine Color Yellow Yellow Urine Appearance Clear Clear Urine Odor Normal Normal Comment per pt report patient also voided in toilet pt voids independently Voiding Methods Toilet Toilet Data Completed and Pending Completed studies during hospitalization [Text1]: Exam(s) PROCEDURE INFORMATION: Exam: CTA Chest With Contrast Exam date and time: 10/15/2020 5:38 PM Age: 65 years old Clinical indication: Shortness of breath TECHNIQUE: Imaging protocol: Computed tomographic angiography of the chest with contrast. 3D rendering (Not supervised by radiologist): MIP and/or 3D reconstructed images were created by the technologist. Radiation optimization: All CT scans at this facility use at least one of these dose optimization techniques: automated exposure control; mA and/or kV adjustment per patient size (includes targeted exams where dose is matched to clinical indication); or iterative reconstruction. Contrast material: VISIPAQUE [id number]; Contrast route: INTRAVENOUS (IV); COMPARISON: CR XR CHEST 2V PA LATERAL 02/11/2019 12:55 PM FINDINGS: Limitations: Compromised examination secondary to significant respiratory motion and quantum mottle. Pulmonary arteries: No central pulmonary embolism identified. Evaluation for more peripheral PEs (segmental/subsegmental) is limited secondary to motion and mixing artifact. Aorta: Evaluation of the ascending thoracic aorta is limited secondary to motion. No aneurysm identified. There are mild vascular calcifications. Lungs: There are scattered nodular densities in the right upper lobe with a clustering of nodular densities in the medial aspect of the right upper lobe measuring up to 6 mm (series 8, image 53). These could be infectious or inflammatory. True pulmonary nodules are not excluded. There are also mild opacities in the right middle lobe and lingula which could represent atelectasis or infection. Pleural spaces: Unremarkable. No pneumothorax. No pleural effusion. Heart: No pericardial effusion. Lymph nodes: Unremarkable. No enlarged lymph nodes. Bones/joints: Old-appearing left-sided rib fractures are identified. One appears nonunionized, series 4, image 37. No acute fractures are appreciated. Skeletal degenerative changes. Soft tissues: The soft tissues are incompletely imaged on this exam. The adrenal glands have a bulky appearance bilaterally but are not well assessed secondary to motion. IMPRESSION: 1. No central/discrete pulmonary embolism identified. Evaluation for more peripheral PEs (small segmental/subsegmental) is limited secondary to motion and mixing artifact. 2. Scattered nodular densities in the right upper lobe with a clustering nodular densities in the medial aspect of the right upper lobe. These could be infectious or inflammatory. True pulmonary nodules are not excluded. Consider 3 month follow-up. 3. Mild opacities in the right middle lobe and lingula which could represent atelectasis or infection. Other findings/details as above. Labs on day of discharge: Labs from last 24 hours 10/16/20 10/16/20 10/15/20 06:18 06:18 23:30 WBC 12.74 H RBC 4.35 Hgb 14.6 Hct 43.9 MCV 100.9 H MCH 33.6 H MCHC 33.3 RDW 14.2 Plt Count 328 MPV 9.7 Immature Gran % 0.2 Neutrophils % 94.6 Lymphocytes % 4.1 Monocytes % 0.9 Eosinophils % 0.0 Basophils % 0.2 Nucleated RBC % 0 Absolute Neutrophils 12.05 H Absolute Lymphocytes 0.52 L Absolute Monocytes 0.11 Absolute Eosinophils 0.00 Absolute Basophils 0.03 PT INR APTT Sodium 142 Potassium 3.9 Chloride 104 Carbon Dioxide 26.0 Anion Gap 12.0 H BUN 13 Creatinine 0.8 Estimated GFR/1.73 m2 >= 60.00 Glucose 197 H Calcium 9.1 Magnesium Total Bilirubin Conjugated Bilirubin AST ALT Alkaline Phosphatase Troponin I Total Protein Albumin Lipase COVID-19 Source SARS-CoV-2 (PCR) Urine Legionella Ag Pending 10/15/20 10/15/20 10/15/20 19:42 19:10 17:05 WBC RBC Hgb Hct MCV MCH MCHC RDW Plt Count MPV Immature Gran % Neutrophils % Lymphocytes % Monocytes % Eosinophils % Basophils % Nucleated RBC % Absolute Neutrophils Absolute Lymphocytes Absolute Monocytes Absolute Eosinophils Absolute Basophils PT 10.3 INR 1.0 APTT 23.8 Sodium Potassium Chloride Carbon Dioxide Anion Gap BUN Creatinine Estimated GFR/1.73 m2 Glucose Calcium Magnesium Total Bilirubin Conjugated Bilirubin AST ALT Alkaline Phosphatase Troponin I < 0.05 Total Protein Albumin Lipase COVID-19 Source Nasal/nares SARS-CoV-2 (PCR) Negative Urine Legionella Ag 10/15/20 10/15/20 17:05 17:05 WBC 12.67 H RBC 4.74 Hgb 15.8 H Hct 48.7 H MCV 102.7 H MCH 33.3 H MCHC 32.4 RDW 14.2 Plt Count 324 MPV 9.2 Immature Gran % 0.5 Neutrophils % 77.6 Lymphocytes % 12.6 Monocytes % 6.2 Eosinophils % 2.5 Basophils % 0.6 Nucleated RBC % 0 Absolute Neutrophils 9.83 H Absolute Lymphocytes 1.60 Absolute Monocytes 0.79 Absolute Eosinophils 0.32 Absolute Basophils 0.08 PT INR APTT Sodium 141 Potassium 3.8 Chloride 103 Carbon Dioxide 29.5 Anion Gap 8.5 BUN 16 Creatinine 0.9 Estimated GFR/1.73 m2 >= 60.00 Glucose 184 H Calcium 9.2 Magnesium 2.1 Total Bilirubin 0.5 Conjugated Bilirubin 0.2 AST 12 L ALT 23 Alkaline Phosphatase 134 H Troponin I < 0.05 Total Protein 8.5 H Albumin 4.1 Lipase 94 COVID-19 Source SARS-CoV-2 (PCR) Urine Legionella Ag 10/15/20 19:42 Blood Blood Culture - Pending 10/15/20 19:33 Blood Blood Culture - Pending Preliminary micro results at discharge 10/15/20 19:42 Blood Culture - Pending Blood 10/15/20 19:33 Blood Culture - Pending Blood [facility] Medical History BCC (basal cell carcinoma), arm Left upper arm Diverticulosis of colon Former cigarette smoker 90pack/yr hx Hyperlipidemia Obesity Osteopenia Dexa 06/09 Prediabetes Tubular adenoma of colon Tubulovillous adenoma of colon Surgical History History of bilateral tubal ligation History of section (01/05/83) 01/05/83 and 06/20/84 History of wisdom tooth extraction S/P colonoscopy (04/02/16) Family History Mother Hypertension Dementia Atrial fibrillation Father , at 59 of lung cancer Lung cancer Sister Rectal cancer metastasized to liver Hypertension Brother Alcohol abuse Daughter No problems noted. Daughter No problems noted. Maternal Grandfather No problems noted. Maternal Grandmother No problems noted. Paternal Grandfather , in his 70s Myocardial infarction Heart disease Alcohol abuse Paternal Grandmother Emphysema of lung Social History Smoking/Tobacco Use Status: Former Tobacco Use Quit Date: 06/24/13 Pack-years: 90 Tobacco: How many years used: 45 Second Hand Exposure: No Smoking risk assessment performed?: Yes Alcohol Intake: current Alcohol Intake frequency: holidays/special occasions only Alcohol type: hard liquor Drug use: Never Substance use type: does not use Details: alcohol: t-7 Caregiver/Support person: No Household members: spouse Housing: apartment Communication Needs: None Do you need help understanding health information?: Never Pets and animals: Yes Pets and animals: cat(s) and dog(s) Sexually active: Yes Do you think of yourself as: straight/heterosexual Current gender identity: female What is your relationship status?: How often do you talk on the phone with friends or family?: three or more times per week How often do you get together with friends or relatives?: decline to answer How often do you attend sabianism or church services?: decline to answer Do you belong to any clubs or organized social groups?: decline to answer Panel score (0-1 are the most socially isolated patients): 2 Duration: < 15 minutes/day Frequency: 1-2 times per week Guerita/Baptist: None Special guerita needs: No Seatbelt use: always Helmet use: Yes Helmet use: always Drive intox or ride w/intox 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
[2020-10-16 13:11] VITALS: PULSE 92; RESP 18; RESP 8; O2SAT 95
--- NOTE | 2020-10-16 17:11 | PDOC.CMPRO ---
- If Service Date Differs Date of service: 10/16/20 Time of Service: 17:11 Care Management Progress Note S/O: Macy was sitting up in bed when CM met with her. She has been walking around the halls on room air, and reported that she is feeling much better today. She stated that she is hoping to return home. She was pleasant and engaged in conversation, telling CM about her two children, who are both RN's, and she is very proud of. She discussed how Covid has affected her and her family through the last year, and is very happy that she has recently had her second Covid vaccine. During the conversation, the provider arrived and cleared her for discharge. She reported that her will drive her home when she is ready. She is independent at baseline, and does not require any services at this time. A: Macy is a 65 year old female admitted to [facility] on 10/15/20 with hypoxia, pneumonia. P: Macy was discharged home this morning with no services at this time. Her drove her home via private vehicle. She will follow up with her PCP and discharge plan of care.
[2020-10-16 22:52] LABS: Legionella Ag Detection Urine Negative (Negative)
== END 2020-10-16 14:37 | disposition home or self-care (01) ==
LOC: ER 19:52 → MS 20:14
PROVIDERS: Admitting Provider Family Medicine; Emergency Provider Emergency Medicine; PCP Nurse Practitioner Family; Visit Provider Family Medicine
DX: J18.9 Pneumonia, unspecified organism (principal); R09.02 Hypoxemia; R06.02 Shortness of breath; E78.5 Hyperlipidemia, unspecified; Z87.891 Personal history of nicotine dependence; K57.90 Diverticulosis of intestine, part unspecified, without perforation or abscess without bleeding; R91.8 Other nonspecific abnormal finding of lung field; R73.03 Prediabetes; M85.80 Other specified disorders of bone density and structure, unspecified site
CPT/HCPCS: 36415; 71275; 80048; 80053; 83690; 87040; 87077; 87449; 87635; 93005; 94640; 96365; 96375; 99222; 99285; J1650; 82248; 83735; 84484; 85025; 85610; 85730; 93010; 99217; 99219; G0378; J1956; J2060; J2930; J7620

== ENCOUNTER 2020-11-03 02:30 | Outpatient (CLI) | payer BC, MEDICARE, SELFPAY | END 2020-11-03 02:31 | disposition home or self-care (01) | LOC: DS 02:30 | PROVIDERS: PCP Nurse Practitioner Family; Visit Provider Dietitian, Registered | DX: E11.9 Type 2 diabetes mellitus without complications (principal); Z71.3 Dietary counseling and surveillance | CPT/HCPCS: 97802 ==

== ENCOUNTER 2020-11-06 16:08 | Observation (INO) | payer BC, MEDICARE, SELFPAY ==
[2020-11-06] VITALS (40 sets, daily range): BP systolic 107–169; BP diastolic 63–90; PULSE 86–111; RESP 8–38; TEMP 36.5–37; O2SAT 85–99
--- NOTE | 2020-11-06 16:00 | RT.EKG_ITS ---
APPROVED REPORT Exam: Resting ECG Reason for Exam: SOB Patient Location: E HR:88 bpm ECG Measurements Heart Rate 88 AXIS DE 153 P 89 QRSd 99 QRS -8 QT 357 T 73 QTc 433 Conclusion Sinus rhythm...normal P axis, V-rate 60- 99
--- NOTE | 2020-11-06 16:15 | DI.RAD_ITS ---
Exam(s) XR PORTABLE CHEST AP EXAM: XR PORTABLE CHEST AP CLINICAL HISTORY: cough, hypoxic. TECHNIQUE: 2D digital imaging was performed. COMPARISON: CR XR CHEST 2V PA LATERAL from 02/11/2019 FINDINGS: Heart size is normal. The mediastinum is not widened. Chest leads in place. Multiple healed left-sided rib fractures are again noted. There are no infiltrates nor pleural effusions. No pulmonary edema. No pneumothorax IMPRESSION: No acute pulmonary findings on this single AP portable view of the chest. DATA REPOSITORY: RADIATION DOSE DELIVERED: All CT scans at this facility use at least one of these dose optimization techniques: automated exposure control; mA and/or kV adjustment per patient size (includes targeted e xams where dose is matched to clinical indication); or iterative reconstruction.
--- NOTE | 2020-11-06 16:29 | ED.GENADUL_ITS ---
Discharge Plan Disposition Patient Disposition: [facility] INPATIENT Condition: Improving Discharge Details Chief Complaint: SOB Clinical Impression: Pneumonitis Admit Date/Time: 11/06/20 18:37 Admit Provider: Aldair Pardo Attending Provider: Aldair Pardo Primary Care Provider: Lis Millan ED Provider: Jaciel Bowers Discharge Instructions Activity:: Activity as Tolerated Equipment/Supplies:: No Equipment Needed Diet:: Normal Diet Discharge Data Discharge Date/Time-TO BE ENTERED AT DEPARTURE: 11/06/20 19:40 Medical Decision Making 65-year old female presents via EMS. She is a former smoker who had a history of pneumonia requiring hospitalization at the end of September. She was discharged 02/15 and treated with a 10-day course of Levaquin. She felt improved but has noted some mild left Achilles tendinitis which she has been seen in urgent care. Today, she presents via EMS for shortness of breath with congestion. She was noted to be hypoxic to 85% and responded to supplemental oxygen. She arrives with a temperature of 36.5, tachypnea, with a blood pressure 169/90. She has significantly diminished breath sounds throughout and rhonchi at the left base. Different diagnosis includes pneumonia, reactive airway disease exacerbation/COPD. Must exclude CHF and at least consideration of PE. Patient IV access established, placed on a monitor car operator, given DuoNeb updraft. Portable chest x-ray reveals bilateral lower lung field infiltrates. Left greater than right. Laboratories note a white count of 9, hematocrit 44, platelets 253. D-dimer is negative at 441. Chemistries reassuring, troponin negative and BNP negative at 119. Discussed with and patient admitted to Dr Pardo. HPI General Mode of arrival: EMS . Date/Time Provider Initiated Documentation: 11/06/20 16:29 . Limitations to Documentation: no limitations . Information obtained by: patient and EMS . History of Present Illness 65 year old F presents to the emergency department with the chief complaint of Shortness of breath, recurrent, described as similar to prior episodes, Quality is described as dull and constant, and is localized to the chest. Patient reports no radiation. Patient started experiencing this hour(s) and it has been constant. No relieving factors improve symptom(s), No exacerbating factors reported . Patient notes cough and shortness of breath; denies chest pain, fever/chills and syncope. Patient did receive the following treatments prior to arrival, none Related Data Home Medications Medication Instructions Recorded Confirmed calcium carbonate-vitamin D3 1 ea PO BID 08/16/17 11/06/20 melatonin 10 mg PO HS PRN 08/15/20 11/06/20 blood sugar diagnostic #200 ea 10/20/20 10/20/20 blood-glucose meter #1 ea 10/20/20 10/20/20 lancets 33 gauge #200 ea 10/20/20 10/20/20 azithromycin 250 mg PO DAILY 5 Days #5 tab 11/07/20 ipratropium-albuterol [Combivent 1 puff INHALATION QID #4 g 11/07/20 Respimat] prednisone 60 mg PO DAILY 5 Days #15 tab 11/07/20 Previous Rx's Medication Instructions Recorded blood sugar diagnostic #200 ea 10/20/20 blood-glucose meter #1 ea 10/20/20 lancets 33 gauge #200 ea 10/20/20 azithromycin 250 mg PO DAILY 5 Days #5 tab 11/07/20 ipratropium-albuterol [Combivent 1 puff INHALATION QID #4 g 11/07/20 Respimat] prednisone 60 mg PO DAILY 5 Days #15 tab 11/07/20 Allergies Allergy/AdvReac Type Severity Reaction Status Date / Time Penicillins Allergy Severe Hives Unverified 11/06/20 16:26 metronidazole [From Flagyl] Allergy Unknown Unverified 11/06/20 16:26 adhesive AdvReac REDNESS Unverified 11/06/20 16:26 General Stated Complaint: SOB MICHELLE: 2 Review of Systems Narrative: Patient notes recent left Achilles tendinitis, questionably due to recent fluoroquinolone. [place] she had improvement from pneumonia at the end of September. Denies chest pain. States she has had COVID-19 immunization. 6 systems reviewed and otherwise negative [facility] Medical History BCC (basal cell carcinoma), arm Left upper arm Diverticulosis of colon Former cigarette smoker 90pack/yr hx Hyperlipidemia Obesity Osteopenia Dexa 06/09 Prediabetes Tubular adenoma of colon Tubulovillous adenoma of colon Type 2 diabetes mellitus Surgical History History of bilateral tubal ligation History of section (01/05/83) 01/05/83 and 06/20/84 History of wisdom tooth extraction S/P colonoscopy (04/02/16) Family History Mother Hypertension Dementia Atrial fibrillation Father , at 59 of lung cancer Lung cancer Sister Rectal cancer metastasized to liver Hypertension Brother Alcohol abuse Daughter No problems noted. Daughter No problems noted. Maternal Grandfather No problems noted. Maternal Grandmother No problems noted. Paternal Grandfather , in his 70s Myocardial infarction Heart disease Alcohol abuse Paternal Grandmother Emphysema of lung Social History Smoking/Tobacco Use Status: Former Tobacco Use Quit Date: 06/24/13 Pack-years: 90 Tobacco: How many years used: 45 Second Hand Exposure: No Smoking risk assessment performed?: Yes Alcohol Intake: current Alcohol Intake frequency: holidays/special occasions only Alcohol type: hard liquor Drug use: Never Substance use type: does not use Caregiver/Support person: No Household members: spouse Housing: apartment Communication Needs: None Do you need help understanding health information?: Never Pets and animals: Yes Pets and animals: cat(s) and dog(s) Sexually active: Yes Do you think of yourself as: straight/heterosexual Current gender identity: female What is your relationship status?: How often do you talk on the phone with friends or family?: three or more times per week How often do you get together with friends or relatives?: decline to answer How often do you attend confucianism or worship services?: decline to answer Do you belong to any clubs or organized social groups?: decline to answer Panel score (0-1 are the most socially isolated patients): 2 Duration: < 15 minutes/day Frequency: 1-2 times per week Guerita/Yarsanism: None Special guerita needs: No Seatbelt use: always Helmet use: Yes Helmet use: always Drive intox 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 Pleasant, well groomed, interactive. HEAD: Normocephalic, atraumatic ENT: Mucous membranes moist, oropharynx unremarkable, External ear exam unremarkable EYES: PERRL, EOMI NECK: Full ROM, no RADHA, no menigismus CHEST/RESP: Nontender, diminished throughout, left base rhonchi CARDIOVASCULAR: RRR, no murmur, rub chacho. 2+ Rad pulse bilateral ABDOMEN: Soft, nontender, no mass. +Bowel sounds EXT: Full ROM, no edema, no rash Neuro: Grossly normal neurologic exam, conversant, interactive. Psych: Speech fluent, thoughts congruent, affect normal Course Vital Signs Vital signs: Vital Signs Temperature 36.5 C 11/06/20 16:09 Pulse 97 H 11/06/20 16:09 Respiratory Rate 36 H 11/06/20 16:09 Blood Pressure 169/90 H 11/06/20 16:09 Pulse Oximetry 85 L 11/06/20 16:09 Temperature 36.5 C 11/06/20 16:09 Temperature Source Temporal Artery Scan 11/06/20 16:09 Pulse 97 H 11/06/20 16:09 Respiratory Rate 36 H 11/06/20 16:24 Respiratory Effort Accessory Muscle Use 11/06/20 16:23 Respiratory Depth Shallow 11/06/20 16:24 Respiratory Pattern Tachypnea 11/06/20 16:24 Blood Pressure 169/90 H 11/06/20 16:09 Blood Pressure Position Sitting 11/06/20 16:09 Pulse Oximetry 85 L 11/06/20 16:09 Oxygen Delivery Method Room Air 11/06/20 16:09 Oxygen Flow Rate 0 11/06/20 16:09
[2020-11-06 16:39] LABS: Source Nasal/Nares
[2020-11-06] MEDS: Albuterol/Ipratropium 3 ML UPD VIAL UPD ×3 (16:42→23:24)
[2020-11-06 16:44] LABS: Abs Immature Grans 0.02 10^3/uL (0.0-0.06); Absolute Basophil Count 0.06 10^3/uL (0.0-0.2); Absolute Lymphocyte Count 0.98 10^3/uL (1.2-3.4); Absolute Monocyte Count 0.56 10^3/uL (0.1-0.8); Basophils % 0.7; Eosinophils % 3.3; HCT 44.3 % (36.0-46.0); HGB 14.6 g/dL (11.2-15.7); Immature Grans % 0.2; Lymphocytes % 10.6; MCH 33.6 pg (27.0-33.0); MCV 102.1 fL (80-95); MPV 10.2 fL (8.0-11.0); Monocytes % 6.1; Neutrophils % 79.1; Nucleated RBC 0 %; Platelet Count 253 10^3/uL (130-400); RBC 4.34 10^6/uL (3.93-5.22); RDW 13.6 % (11.7-14.6); WBC 9.22 10^3/uL (4.4-10.8)
[2020-11-06 17:04] LABS: ALT 18 U/L (14-59); AST 10 U/L (15-37); Albumin 3.8 g/dL (3.4-5.0); Alkaline Phosphatase 121 U/L (46-116); Anion Gap 6.3 mmol/L (3-11); BUN 13 mg/dL (7-18); Bilirubin, Total 0.6 mg/dL (0.2-1.0); CO2 30.7 mmol/L (21.0-32.0); CREATININE 0.8 mg/dL (0.55-1.02); Calcium 8.9 mg/dL (8.5-10.1); Chloride 106 mmol/L (98-107); Glucose 126 mg/dL (74-106); Magnesium 2.1 mg/dL (1.8-2.4); NT-proBNP 119 pg/mL (<300); Potassium 3.8 mmol/L (3.5-5.1); Sodium 143 mmol/L (136-145); Total Protein 7.6 g/dL (6.4-8.2)
[2020-11-06 17:08] LABS: Troponin I < 0.05 ng/mL (<0.06)
[2020-11-06 17:26] LABS: COVID-19 PCR Negative (Negative)
[2020-11-06 17:30] LABS: D-Dimer 441 ng/mlFEU (<500)
--- NOTE | 2020-11-06 17:30 | DI.VRAD_ITS ---
PROCEDURE INFORMATION: Exam: XR Chest Exam date and time: 11/06/2020 4:26 PM Age: 65 years old Clinical indication: Other: Cough, hypoxic TECHNIQUE: Imaging protocol: XR of the chest. Views: 1 view. COMPARISON: CT CHEST PE CTA 10/15/2020 5:41 PM FINDINGS: Lungs: There is suspicion of mild opacity in the bilateral lower lungs, left greater than right. Pleural spaces: No pleural effusion. No pneumothorax. Heart/Mediastinum: No cardiomegaly. Bones/joints: There are chronic fractures of the left mid to lower ribcage. IMPRESSION: There are faint opacities in the bilateral lower lungs left greater than right suspicious of infiltrates. Dictated and Authenticated by: Paul Pina MD. Ordering:HARDIK Grissom MD
[2020-11-06] MEDS: methylPREDNISolone SUCC 125 MG VIAL IVP (17:43)
--- NOTE | 2020-11-06 18:26 | HPE_ITS ---
Date of service: 11/06/20 Time of Service: 18:26 Assessment and Plan Assessment and plan (1) COPD (chronic obstructive pulmonary disease): Status: Chronic Assessment and plan: COPD exacerbation, unclear if infectious component is URI (bronchitis) or LRI (pneumonia); given absence of fever and leukocytosis, questionable CXR findings, and prompt response to inhalers I am inclined to favor the former. In any case will continue updrafts and steroids and add Zithromax (note h/o severe allergy to PCN so will avoid Cephalosporins; and h/o tendinitis form Levaquin). Reviewed ADs, requests Full Code. History of Present Illness History of Present Illness Chief Complaint: cough, SOB Narrative: 65 female former smoker, h/o bronchospasm, here with 2-3 days of cough productive of white sputum and one day of SOB, with O2 sats at home in 80s. Here in ER findings of note for diminished breath sounds, absence of fever, normal white count and CXR with conflicting readings -- per vRads negative, per in house faint bibasilar opacities. Covid is negative. Patient received updraft x 2, plus steroids, and states she feels much better. Review of Systems All systems reviewed & are unremarkable except as noted in HPI and below PFSH Medical History BCC (basal cell carcinoma), arm Left upper arm Diverticulosis of colon Former cigarette smoker 90pack/yr hx Hyperlipidemia Obesity Osteopenia Dexa 06/09 Prediabetes Tubular adenoma of colon Tubulovillous adenoma of colon Type 2 diabetes mellitus Surgical History History of bilateral tubal ligation History of section (01/05/83) 01/05/83 and 06/20/84 History of wisdom tooth extraction S/P colonoscopy (04/02/16) Family History Mother Hypertension Dementia Atrial fibrillation Father , at 59 of lung cancer Lung cancer Sister Rectal cancer metastasized to liver Hypertension Brother Alcohol abuse Daughter No problems noted. Daughter No problems noted. Maternal Grandfather No problems noted. Maternal Grandmother No problems noted. Paternal Grandfather , in his 70s Myocardial infarction Heart disease Alcohol abuse Paternal Grandmother Emphysema of lung Social History Smoking/Tobacco Use Status: Former Tobacco Use Quit Date: 06/24/13 Pack-years: 90 Tobacco: How many years used: 45 Second Hand Exposure: No Smoking risk assessment performed?: Yes Alcohol Intake: current Alcohol Intake frequency: holidays/special occasions only Alcohol type: hard liquor Drug use: Never Substance use type: does not use Caregiver/Support person: No Household members: spouse Housing: apartment Communication Needs: None Do you need help understanding health information?: Never Pets and animals: Yes Pets and animals: cat(s) and dog(s) Sexually active: Yes Do you think of yourself as: straight/heterosexual Current gender identity: female What is your relationship status?: How often do you talk on the phone with friends or family?: three or more times per week How often do you get together with friends or relatives?: decline to answer How often do you attend quaker or buddhism services?: decline to answer Do you belong to any clubs or organized social groups?: decline to answer Panel score (0-1 are the most socially isolated patients): 2 Duration: < 15 minutes/day Frequency: 1-2 times per week Guerita/Sabianist: None Special guerita needs: No Seatbelt use: always Helmet use: Yes Helmet use: always Drive intox or 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 w/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: No Do you feel safe at home: Yes Do you feel safe in your relationship?: Yes Female Reproductive History Menstrual Menopause type: natural History History 2 Para 2 Hx # Term Pregnancies Multiple births Hx # Pregnancies Ectopic pregnancies AB induced Hx Number of Living Children 2 AB spontaneous Meds Allergies and Home Medications Allergies Allergy/AdvReac Type Severity Reaction Status Date / Time Penicillins Allergy Severe Hives Unverified 11/06/20 16:26 metronidazole [From Flagyl] Allergy Unknown Unverified 11/06/20 16:26 adhesive AdvReac REDNESS Unverified 11/06/20 16:26 Home Medications Medication Instructions Recorded Confirmed Type calcium carbonate-vitamin D3 1 ea PO BID 08/16/17 11/06/20 History melatonin 10 mg PO HS PRN 08/15/20 11/06/20 History blood sugar diagnostic #200 ea 10/20/20 10/20/20 Rx blood-glucose meter #1 ea 10/20/20 10/20/20 Rx lancets 33 gauge #200 ea 10/20/20 10/20/20 Rx Exam Narrative Exam Narrative: 152/71, 96, 36.5, 23, 94% (2L). HEENT atraumatic; neck supple; lungs very diminished; heart distant, RRR; abdomen soft and NT; extremities w/o edema, MIKE left ankle; neuro Ox3, moves all 4s Results Labs Result diagrams: 11/06/20 16:22 11/06/20 16:22 Labs: Laboratory Results - last 24 hr 11/06/20 11/06/20 11/06/20 16:22 16:22 16:22 WBC 9.22 RBC 4.34 Hgb 14.6 Hct 44.3 MCV 102.1 H MCH 33.6 H MCHC 33.0 RDW 13.6 Plt Count 253 MPV 10.2 Immature Gran % 0.2 Neutrophils % 79.1 Lymphocytes % 10.6 Monocytes % 6.1 Eosinophils % 3.3 Basophils % 0.7 Nucleated RBC % 0 Absolute Neutrophils 7.30 H Absolute Lymphocytes 0.98 L Absolute Monocytes 0.56 Absolute Eosinophils 0.30 Absolute Basophils 0.06 D-Dimer 441 Sodium 143 Potassium 3.8 Chloride 106 Carbon Dioxide 30.7 Anion Gap 6.3 BUN 13 Creatinine 0.8 Estimated GFR/1.73 m2 >= 60.00 Glucose 126 H Calcium 8.9 Magnesium 2.1 Total Bilirubin 0.6 AST 10 L ALT 18 Alkaline Phosphatase 121 H Troponin I < 0.05 NT-Pro-B Natriuret Pep 119 Total Protein 7.6 Albumin 3.8 COVID-19 Source SARS-CoV-2 (PCR) 11/06/20 16:30 WBC RBC Hgb Hct MCV MCH MCHC RDW Plt Count MPV Immature Gran % Neutrophils % Lymphocytes % Monocytes % Eosinophils % Basophils % Nucleated RBC % Absolute Neutrophils Absolute Lymphocytes Absolute Monocytes Absolute Eosinophils Absolute Basophils D-Dimer Sodium Potassium Chloride Carbon Dioxide Anion Gap BUN Creatinine Estimated GFR/1.73 m2 Glucose Calcium Magnesium Total Bilirubin AST ALT Alkaline Phosphatase Troponin I NT-Pro-B Natriuret Pep Total Protein Albumin COVID-19 Source Nasal/nares SARS-CoV-2 (PCR) Negative Last Vital Signs Temp 36.5 C 11/06/20 16:09 Pulse 99 H 11/06/20 18:01 Resp 32 H 11/06/20 18:01 BP 167/69 H 11/06/20 18:01 Pulse Ox 97 11/06/20 18:01 COVID-19 Screening Have you, or household traveled for leisure in last 14 days?: No Had IN PERSON contact w/suspected or confirmed C-19 person: No
[2020-11-06 19:57] LABS: Troponin I < 0.05 ng/mL (<0.06)
[2020-11-06] MEDS: Albuterol 2.5 MG/3 ML INH SOLN VIAL UPD ×2 (20:23→23:50)
[2020-11-06] MEDS: Normal Saline Flush 10 ML SYR IVP ×2 (20:45→23:28)
[2020-11-06] MEDS: AZITHROMYCIN 500 MG in Normal Saline 250 ML 250 MG IVPB (20:45)
[2020-11-06] MEDS: methylPREDNISolone SUCC 40 MG VIAL IVP (23:28)
[2020-11-07] VITALS (7 sets, daily range): BP systolic 131–153; BP diastolic 71–83; PULSE 97–130; RESP 1–24; TEMP 36.8–36.9; O2SAT 90–99
[2020-11-07] MEDS: Albuterol 2.5 MG/3 ML INH SOLN VIAL UPD ×2 (03:49→08:48)
[2020-11-07] MEDS: Albuterol/Ipratropium 3 ML UPD VIAL UPD ×2 (05:28→13:02)
[2020-11-07] MEDS: methylPREDNISolone SUCC 40 MG VIAL IVP (07:59)
[2020-11-07] MEDS: Normal Saline Flush 10 ML SYR IVP (08:00)
--- NOTE | 2020-11-07 08:14 | W.NUTCONSULT ---
Date of service: 11/03/20 Time of Service: 14:00 Nutritional Consult ASSESSMENT: ASSESSMENT: Macy (65 F) presents with referral for DM new dx. She is on no DM meds at this time and stated that she was advised by her PCP to make an effort to manage her BG with diet. She was prescribed a glucometer, lancets and strips which she report the provider advised her to use at her discretion. She reports that she decided not to get? the glucometer. Both recommendations seem appropriate given that she was on steroids recently r/t an ER visit for SOB and difficulty breathing. This was one cause of her elevated BG. Documentation shows pre-DM escalated to a dx of DM ( 197 mg/dl) with A1c 6.7 on 10/20. Macy reports no breakfast today and having a vanilla yogurt and PB crackers for a mid-morning snack. Her lunch was a salad and a cookie along with an Atkins bar.? She drinks water and tea with honey.Random BG taken at this encounter was 121mg/dl ~ 3-4 hrs postprandial. Noted: she is apprehensive about using finger sticks and exhibits mild signs of orthorexia. Noted: she became emotional and slightly agitated as she discussed her food choices. She expressed a desire to lose weight which could be beneficial. she is currently ~ 200 lbs. INTERVENTION: Reviewed CHO counting to help with weight loss and prevent glycemic spikes. Discussed desired BG ranges. Recommended carbs and cals phone geri and demonstrated.. Explained benefits of 7% weight loss to lower A1c by 1%. Recommend ~1800 k/jarrett /day for weight loss. provided literature on CHO counting and reviewed principals. Recommend finger sticks 2x/day and metformin 500mg BID per MD approval and patient authorization to mitigate further progression of elevated BG and potential ad terminal makeup operator complications. MONITOR/EVAL: Macy has contact info and family members with medical experience. 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 She has contact info for this RD and is aware of the unintended consequences of long-term elevated BG levels. She has agreed to self manage and reach out for further assistance, support? and education from this RD at her discretion. ? Time Spent Face to face: 2 units/ 30 minutes. Time Spent in Nutritional Counseling and Treatment: 15 minutes/2 units
[2020-11-07] MEDS: predniSONE 20 MG TAB 60 MG PO (10:37)
--- NOTE | 2020-11-07 11:42 | CHAPLAIN ---
Macy was pleasant and polite but did not seem interested in a longer conversation. I explained my role and offered support.
--- NOTE | 2020-11-07 13:40 | PDOC.CMIN ---
- If Service Date Differs Date of service: 11/07/20 Time of Service: 13:40 Care Management Initial Assess REASON FOR HOSPITALIZATION:: COPD PAST MEDICAL HISTORY/PAST SURGICAL HISTORY:: Medical History . BCC (basal cell carcinoma), arm. Left upper arm. Diverticulosis of colon. Former cigarette smoker. 90pack/yr hx. Hyperlipidemia. Obesity. Osteopenia. Dexa 06/09. Prediabetes. Tubular adenoma of colon. Tubulovillous adenoma of colon. Type 2 diabetes mellitus. Surgical History . History of bilateral tubal ligation. History of section (01/05/83). 01/05/83 and 06/20/84. History of wisdom tooth extraction. S/P colonoscopy (04/02/16) PREVIOUS FUNCTIONAL STATUS/SOCIAL/FAMILY SUPPORTS:: Macy lives in [facility] apartment in [place] that she and her own. They live upstairs and her [id number] lives downstairs. Macy and her Ernst have 2 daughters, both nurses. One daughter lives locally and works at [employer] and the other lives in [place]. They have 6 grandchildren. 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 CURRENT FUNCTIONAL STATUS:: Macy was sitting up in a chair when CM met with her. She was pleasant and engaged readily with CM. Macy talked a lot about her daughters and their families. Each of her 2 daughters has 3 children and Macy shared that she just loves being a grandmother. She also talked about her job and how much she enjoys the work that she does. Macy is here with COPD and maintains that she is feeling much better. She is hoping to be able to go home later today. ADVANCE DIRECTIVES:: Has not completed. Given 2 copies of Vt. AD forms Has patient been provided with info about the portal/API?: Yes Did the patient sign up for the portal?: Yes (previously) CODE STATUS:: Full Code INSURANCE COVERAGE / FINANCIAL ISSUES:: Medicare. BC BS CURRENT HOME/COMMUNITY SERVICES/EQUIPMENT:: none PRIMARY CARE PHYSICIAN:: Xiomy Millan POTENTIAL DISCHARGE NEEDS:: follow up with PCP and plan of care PATIENT/FAMILY EDUCATION NEEDS:: Review of discharge instructons, medications, activity, limitations, follow up plan, Ask Me Three TRANSPORTATION:: via private vehicle with family PLAN:: Macy will likely be discharged home with no new services. She will follow up with her PCP and discharge plan of care. CM will continue to support Macy and her dscharge planning needs.
--- NOTE | 2020-11-07 14:11 | PGE_ITS ---
Date of Service Date of service: 11/07/20 Time of Service: 14:11 Assessment and Plan Assessment and plan (1) COPD (chronic obstructive pulmonary disease): Status: Chronic Assessment and plan: I think that she can be managed at home w/ combivent w/ spacer, prednisone and Zpack. She should have follow up PFT in 2 to 4 weeks and be referred to pulmonology for follow up. In the immediate future she ought to see her PCP in the next week. Patient states that she has been fully vaccinated for Covid-19 and prior to that she has had her pneumonia vaccine and she gets her annual influenza vaccines every fall. She no longer smokes (quit about 5 yrs ago after 40+ pack years). Qualifiers: COPD type: COPD with acute exacerbation Qualified Code(s): J44.1 - Chronic obstructive pulmonary disease with (acute) exacerbation Subjective Subjective Interval history since last seen: Patient is feeling markedly better. She has a cough that initially was nonproductive but now is becoming more productive of yellowish mucous. She is afebrile and she has not been hypoxemic today. She would like to go home. 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 I will send her home on a Z-pack and 5 day course of prednisone along w/ Combivent inhaler. She has been given a diagnosis of COPD although she has had no formal PFT's. She would like to see the new middle or intermediate school principal this summer. I will order a PFT to be done in couple of weeks after she has recovered from her exacerbation. Exam Narrative Exam Narrative: Pleasant white female sitting up in her chair talking in complete sentences w/out dyspnea. Patient states that she has been walking around the nursing floor w/out dyspnea Lungs w/ left basilar rales; upper romero are clear although w/ forceful exhalation she has some end expiratory wheezing Heart is RRR Objective Last Vital Signs Temp 36.8 C 11/07/20 08:38 Pulse 109 H 11/07/20 13:03 Resp 18 11/07/20 13:03 BP 131/71 11/07/20 08:38 Pulse Ox 99 11/07/20 13:03 Laboratory Results - last 24 hr 11/06/20 11/06/20 11/06/20 16:22 16:22 16:22 WBC 9.22 RBC 4.34 Hgb 14.6 Hct 44.3 MCV 102.1 H MCH 33.6 H MCHC 33.0 RDW 13.6 Plt Count 253 MPV 10.2 Immature Gran % 0.2 Neutrophils % 79.1 Lymphocytes % 10.6 Monocytes % 6.1 Eosinophils % 3.3 Basophils % 0.7 Nucleated RBC % 0 Absolute Neutrophils 7.30 H Absolute Lymphocytes 0.98 L Absolute Monocytes 0.56 Absolute Eosinophils 0.30 Absolute Basophils 0.06 D-Dimer 441 Sodium 143 Potassium 3.8 Chloride 106 Carbon Dioxide 30.7 Anion Gap 6.3 BUN 13 Creatinine 0.8 Estimated GFR/1.73 m2 >= 60.00 Glucose 126 H Calcium 8.9 Magnesium 2.1 Total Bilirubin 0.6 AST 10 L ALT 18 Alkaline Phosphatase 121 H Troponin I < 0.05 NT-Pro-B Natriuret Pep 119 Total Protein 7.6 Albumin 3.8 COVID-19 Source SARS-CoV-2 (PCR) 11/06/20 11/06/20 16:30 19:31 WBC RBC Hgb Hct MCV MCH MCHC RDW Plt Count MPV Immature Gran % Neutrophils % Lymphocytes % Monocytes % Eosinophils % Basophils % Nucleated RBC % Absolute Neutrophils Absolute Lymphocytes Absolute Monocytes Absolute Eosinophils Absolute Basophils D-Dimer Sodium Potassium Chloride Carbon Dioxide Anion Gap BUN Creatinine Estimated GFR/1.73 m2 Glucose Calcium Magnesium Total Bilirubin AST ALT Alkaline Phosphatase Troponin I < 0.05 NT-Pro-B Natriuret Pep Total Protein Albumin COVID-19 Source Nasal/nares SARS-CoV-2 (PCR) Negative
--- NOTE | 2020-11-07 14:38 | PHA.REVIEW ---
Pharmacy Admission Review - Admission Clinical Review Penicillins Allergy (Severe, Unverified 11/06/20 16:26) Hives metronidazole [From Flagyl] Allergy (Unknown, Unverified 11/06/20 16:26) adhesive Adverse Reaction (Unverified 11/06/20 16:26) REDNESS Height 5 ft 7 in Weight 36.5 kg - Renal Dosing Renal Dosing: BUN 13 mg/dL (7-18) 11/06/20 16: Creatinine 0.8 mg/dL (0.55-1.02) 11/06/20 16:22 Medications needing adjustments: Reviewed (Crcl ~39.31 mL/min current meds okay.) - Anticoagulation Anticoagulation: Hgb 14.6 g/dL (11.2-15.7) 11/06/20 16: Hct 44.3 % (36.0-46.0) 11/06/20 16: Plt Count 253 10^3/uL (130-400) 11/06/20 16: Creatinine 0.8 mg/dL (0.55-1.02) 11/06/20 16: DVT Prohphylaxis: Intervened (Mentioned to provider, but patient has been mobile and wants to go home per progress note so likely not needed.) Therapeutic Anticoagulation: N/A - Opiate Usage Evaluate Pain Scale/Pains Meds: N/A - Relevant Labs Sodium 143 mmol/L (136-145) 11/06/20 16: Potassium 3.8 mmol/L (3.5-5.1) 11/06/20 16: Chloride 106 mmol/L (98-107) 11/06/20 16: Magnesium 2.1 mg/dL (1.8-2.4) 11/06/20 16:22 Electrolytes, C-Reactive P, ESR: Reviewed - DM Control DM Control: Glucose 126 mg/dL (74-106) H 11/06/20 16:22 Insulin Dosing: Intervened (Prediabetic per medical history, no monitoring ordered. Will mention to provider.) - Heart Failure/TX Heart Failure/TX: Troponin I < 0.05 ng/mL (<0.06) 11/06/20 19:31 NT-Pro-B Natriuret Pep 119 pg/mL (<300) 11/06/20 16:22 EF%, MIKE's, B-Blockers, Diuretics: Reviewed - BP Control BP Control: Blood Pressure 131/71 If elevated: Reviewed (mostly elevated so far this admission, no BP meds ordered. Will mention to provider.) - Qtc Review If Elevated: N/A (QTc 433 on admission) - IV to PO Switch IV Medications: Reviewed - Home Meds Home Med List reviewed: Reviewed Relevent Home Meds Not ordered & why?: calcium/vit D - Current meds Current Medication Order Review: Reviewed - Comments Comments/Follow Ups: Watch BP, HR, BG, labs and for med changes (possible renal dose adjustments). Antibiotic Activity - Pharmacy Antibiotic Review Pharmacy Antibiotic Activity: Reviewed, no change (Azithromycin continues (day 2 starts tonight).)
--- NOTE | 2020-11-07 15:27 | DSE_ITS ---
Date of service: 11/07/20 Time of Service: 15:27 DS: Diagnosis Discharge Diagnosis (1) COPD (chronic obstructive pulmonary disease): Status: Chronic Asessment and Plan: Patient presented w/ acute dyspnea and cough initially minimally productive of white mucous but now more purulent and hypoxemia SPO2 85%. CXR read by ER as showing bilateral basilar infiltrates but official read by radiologist said no acute pulmonary findings. Patient had no fever and no leukocytosis. Patient was treated w/ DuoNeb aerosols and started on methylprednisolone and azithromycin. This afternoon patient has felt improved although still dyspneic w/ prolonged walking. Ambulatory pulse oximetry (done by myself) demonstrated resting SPO2 93% w/ no lower than 92% w/ ambulation. Patient was walked around the nursing station and back to her room. Her HR did get up to 120 bpm but quickly declined to low 100's at rest. Patient is discharged home on continued azithromycin 250 mg daily for 4 more days along w/ prednisone 60 mg daily x 4 more days. She will have follow up PFT in 3 weeks. Family is getting her a pulse oximetry to monitor her oxygen saturation at home. Discharge Plan Disposition Patient Disposition: HOME Condition: Improving Discharge Details Reason For Visit: copd Admit Date/Time: 11/06/20 18:37 Admit Provider: Aldair Pardo Attending Provider: Aldair Pardo Primary Care Provider: [facility] Hospital Course Hospital Course: Patient was admitted with COPD exacerbation with symptoms of wheezing and productive cough and dyspnea. Patient had been hospitalized last month with pneumonia and was treated with Levaquin for 10 days along with prednisone. This was complicated by development of Achilles tendinitis. Current evaluation in the ER included chest x-ray which was officially read as showing no infiltrates. CBC showed no leukocytosis and patient had no fever although she had hypoxemia with SPO2 85% on room air. She was placed on supplemental oxygen and given DuoNeb treatments and started on IV Solu-Medrol. The next morning she was switched to prednisone 60 mg daily. She was also started on azithromycin 250 mg IV daily beginning on the evening of her admission. The next day she was no longer requiring supplemental oxygen. She is made a few walks around the nursing station with only mild increased dyspnea but no oxygen desaturation. Her care was discussed with the patient as well as the patient's daughter both of whom are nurses. Family is going to get her home pulse oximeter to monitor her oxygen level. Patient will be continued on azithromycin 2 or 50 mg orally daily for 4 more days along with prednisone 60 mg daily for 5 more days. Follow-up PFTs been ordered to be done in 3 weeks. It is recommended she be referred to a airport operations duty manager for follow-up. Home Meds and New Rx's Prescriptions: New prednisone 20 mg tablet 60 mg PO DAILY 5 Days Qty: 15 RF: 0 Combivent Respimat 20-100 mcg/actuation mist 1 puff inhalation QID Qty: 4 RF: 0 azithromycin 250 mg tablet 250 mg PO DAILY 5 Days Qty: 5 RF: 0 Continued (DME) blood-glucose meter [Sighteruch Ultra2 Meter] Kit See Rx Instructions .ROUTE .MEDSUPPLY Qty: 1 RF: 2 (DME) OneTouch Ultra Blue Test Strip Strip See Rx Instructions .ROUTE .MEDSUPPLY Qty: 200 RF: 4 (DME) lancets [OneTouch Delica Plus Lancet] 33 gauge misc See Rx Instructions .ROUTE .MEDSUPPLY Qty: 200 RF: 4 calcium carbonate-vitamin D3 1 EACH tablet 1 ea PO BID RF: 0 melatonin 5 mg Tablet 10 mg PO HS PRNRF: 0 Discharge Instructions Instructions: Chronic Bronchitis (DC), Chronic Lung Disease and Infection Prevention (DC), Pulmonary Rehabilitation (DC), Dyspnea Scale and Exercise (DC), Nutrition Guidelines for People with COPD (DC) Additional Instructions: take your prednisone and azithromycin until completed. Use your Combivent w/ spacer device 4 x per day for the few days then you can decrease to 4 x per day prn dyspnea or wheezing. You should have follow up pulmonary function testing in couple of weeks. Talk with your primary care provider about getting a referral to a airport operations duty manager to reveiw your PFT and medications and to consider pulmonary rehab. Monitor your oxygen levels w/ a finger pulse oximeter. Return to ER if fever, shaking chills, severe dyspnea or oxygen saturations lower than 88% Stand Alone Forms: Nursing Discharge Form Referrals: Lis Millan NP [Primary Care Provider] - Activity:: Activity as Tolerated Equipment/Supplies:: No Equipment Needed Diet:: Normal Diet Discharge Orders Discharge Orders: Discharge Order (Routine); Ordered 11/07/20 Ordered By: Jesús Stranathan Other Ambulatory Orders: PFT (Chuy/DLCO/Volumes) (Outpt) (ONCE) Timeframe: [id number] Facility: [facility] - Location: Respiratory Therapy Ordered By: Jesús Bañuelos DS: Summary Time Spent with Patient providing and/or coordinating discharge services: Greater than 30 minutes Status at Discharge Functional status at discharge: independent ambulation Overall status at discharge: patient is progressing back to baseline Mental Status: mental status grossly normal Speech and Movement: speech and movement normal Mood: congruent mood Affect: normal affect Exam Narrative Exam Narrative: Pleasant white female sitting up in her chair talking in complete sentences w/out dyspnea. Patient states that she has been walking around the nursing floor w/out dyspnea Lungs w/ left basilar rales; upper romero are clear w/ quiet breathing although w/ forceful exhalation she has some end expiratory wheezing Heart is RRR Psych Mental Status: mental status grossly normal Speech and Movement: speech and movement normal Mood: congruent mood Affect: normal affect DS: Data Vitals/I&O Vitals and I&O: Vital Signs Temperature 36.8 C 11/07/20 08:38 Temperature Source Temporal Artery Scan 11/07/20 08:38 Pulse 109 H 11/07/20 13:03 Pulse Rhythm Regular 11/07/20 07:55 Pulse 101 H 11/06/20 19:16 Respiratory Rate 18 11/07/20 13:03 Respiratory Effort Non-Labored 11/07/20 07:55 Respiratory Depth Normal 11/07/20 07:55 Respiratory Pattern Normal 11/07/20 07:55 Blood Pressure 131/71 11/07/20 08:38 Blood Pressure Mean 91 11/06/20 19:16 Blood Pressure Position Sitting 11/06/20 16:09 Pulse Oximetry 99 11/07/20 13:03 Oxygen Delivery Method Room Air 11/07/20 13:02 Oxygen Flow Rate 0 11/07/20 13:02 Pain Level 0 11/07/20 08:38 Intake & Output 11/06/20 11/07/20 11/07/20 23:59 11:59 23:59 Intake Total 250 / 250 1091 / 1151 60 / 1151 Output Total 100 / 100 800 / 800 Balance 150 / 150 291 / 351 60 / 351 Weight 36.5 kg Intake: IV 250 / 250 Oral 1080 / 1140 60 / 1140 Output: Urine 100 / 100 800 / 800 Other: Urine Color Light Korina Light Korina Urine Appearance Clear Clear Urine Odor Normal Normal Voiding Methods Toilet Toilet Data Completed and Pending Labs on day of discharge: Labs from last 24 hours 11/06/20 11/06/20 11/06/20 19:31 16:30 16:22 WBC RBC Hgb Hct MCV MCH MCHC RDW Plt Count MPV Immature Gran % Neutrophils % Lymphocytes % Monocytes % Eosinophils % Basophils % Nucleated RBC % Absolute Neutrophils Absolute Lymphocytes Absolute Monocytes Absolute Eosinophils Absolute Basophils D-Dimer 441 Sodium Potassium Chloride Carbon Dioxide Anion Gap BUN Creatinine Estimated GFR/1.73 m2 Glucose Calcium Magnesium Total Bilirubin AST ALT Alkaline Phosphatase Troponin I < 0.05 NT-Pro-B Natriuret Pep Total Protein Albumin COVID-19 Source Nasal/nares SARS-CoV-2 (PCR) Negative 11/06/20 11/06/20 16:22 16:22 WBC 9.22 RBC 4.34 Hgb 14.6 Hct 44.3 MCV 102.1 H MCH 33.6 H MCHC 33.0 RDW 13.6 Plt Count 253 MPV 10.2 Immature Gran % 0.2 Neutrophils % 79.1 Lymphocytes % 10.6 Monocytes % 6.1 Eosinophils % 3.3 Basophils % 0.7 Nucleated RBC % 0 Absolute Neutrophils 7.30 H Absolute Lymphocytes 0.98 L Absolute Monocytes 0.56 Absolute Eosinophils 0.30 Absolute Basophils 0.06 D-Dimer Sodium 143 Potassium 3.8 Chloride 106 Carbon Dioxide 30.7 Anion Gap 6.3 BUN 13 Creatinine 0.8 Estimated GFR/1.73 m2 >= 60.00 Glucose 126 H Calcium 8.9 Magnesium 2.1 Total Bilirubin 0.6 AST 10 L ALT 18 Alkaline Phosphatase 121 H Troponin I < 0.05 NT-Pro-B Natriuret Pep 119 Total Protein 7.6 Albumin 3.8 COVID-19 Source SARS-CoV-2 (PCR) [facility] Medical History BCC (basal cell carcinoma), arm Left upper arm Diverticulosis of colon Former cigarette smoker 90pack/yr hx Hyperlipidemia Obesity Osteopenia Dexa 06/09 Prediabetes Tubular adenoma of colon Tubulovillous adenoma of colon Type 2 diabetes mellitus Surgical History History of bilateral tubal ligation History of section (01/05/83) 01/05/83 and 06/20/84 History of wisdom tooth extraction S/P colonoscopy (04/02/16) Family History Mother Hypertension Dementia Atrial fibrillation Father , at 59 of lung cancer Lung cancer Sister Rectal cancer metastasized to liver Hypertension Brother Alcohol abuse Daughter No problems noted. Daughter No problems noted. Maternal Grandfather No problems noted. Maternal Grandmother No problems noted. Paternal Grandfather , in his 70s Myocardial infarction Heart disease Alcohol abuse Paternal Grandmother Emphysema of lung Social History Smoking/Tobacco Use Status: Former Tobacco Use Quit Date: 06/24/13 Pack-years: 90 Tobacco: How many years used: 45 Second Hand Exposure: No Smoking risk assessment performed?: Yes Alcohol Intake: current Alcohol Intake frequency: holidays/special occasions only Alcohol type: hard liquor Drug use: Never Substance use type: does not use Caregiver/Support person: No Household members: spouse Housing: apartment Communication Needs: None Do you need help understanding health information?: Never Pets and animals: Yes Pets and animals: cat(s) and dog(s) Sexually active: Yes Do you think of yourself as: straight/heterosexual Current gender identity: female What is your relationship status?: How often do you talk on the phone with friends or family?: three or more times per week How often do you get together with friends or relatives?: decline to answer How often do you attend latter day or orthodox services?: decline to answer Do you belong to any clubs or organized social groups?: decline to answer Panel score (0-1 are the most socially isolated patients): 2 Duration: < 15 minutes/day Frequency: 1-2 times per week Guerita/Lutheran: None Special guerita needs: No Seatbelt use: always Helmet use: Yes Helmet use: always Drive intox or ride w/intox parts delivery driver: No Do you feel safe at home: Yes Do you feel safe in your relationship?: Yes Female Reproductive History Menstrual Menopause type: natural History History 2 Para 2 Hx # Term Pregnancies Multiple births Hx # Pregnancies Ectopic pregnancies AB induced Hx Number of Living Children 2 AB spontaneous
== END 2020-11-07 17:11 | disposition home or self-care (01) ==
LOC: ER 18:55 → MS 19:35
PROVIDERS: Admitting Provider General Practice; Emergency Provider Emergency Medicine; PCP Nurse Practitioner Family; Visit Provider General Practice
DX: J44.1 Chronic obstructive pulmonary disease with (acute) exacerbation (principal); R09.02 Hypoxemia; Z87.891 Personal history of nicotine dependence; E78.5 Hyperlipidemia, unspecified; E11.9 Type 2 diabetes mellitus without complications; M85.88 Other specified disorders of bone density and structure, other site; Z20.822 Contact with and (suspected) exposure to COVID-19
CPT/HCPCS: 80053; 87635; 93005; 94618; 96365; 96366; 99285; 71045; 83735; 83880; 84484; 85025; 85379; 93010; 94640; 99217; 99219; 99283; G0378; J0456; J2930; J7512; J7613; J7620

== ENCOUNTER 2020-12-12 03:34 | Outpatient (CLI) | payer BC, MEDICARE, SELFPAY ==
[2020-12-12] MEDS: Albuterol HFA 18 GM 200 PUFF INH IH (13:50)
[2020-12-12] MEDS: Inhaler, Assist Device 1 EACH MC (13:51)
--- NOTE | 2020-12-12 19:52 | W.PFT ---
Date of service: 12/12/20 Time of Service: 01:02 Pulmonary Function Test Result Interpretation Spirometry: Mild obstructive airways disease with no bronchodilator response Lung Volumes: No evidence of restriction Diffusion Capacity: Poor patient effort. Moderate diffusion defect, which is mild when corrected to alveolar volume Airway Pressure: Normal Impression Mild obstructive airways disease, no bronchodilator response. The diffusion capacity maneuver did not meet acceptability criteria by ATS. Clinical Correlation therefore is recommended.
== END 2020-12-12 03:35 | disposition home or self-care (01) ==
LOC: RT 03:34
PROVIDERS: PCP Nurse Practitioner Family; Visit Provider Nurse Practitioner Family
DX: J44.9 Chronic obstructive pulmonary disease, unspecified (principal)
CPT/HCPCS: 94060; 94726; 94729

== ENCOUNTER 2022-06-13 09:57 | Outpatient (REF) | payer MEDICARE, SELFPAY ==
[2022-06-13 15:24] LABS: Anion Gap 6.6 mmol/L (3-11); BUN 20 mg/dL (7-18); CO2 29.4 mmol/L (21.0-32.0); Calcium 9.2 mg/dL (8.5-10.1); Calculated LDL 123 mg/dL (<100); Chloride 107 mmol/L (98-107); Cholesterol 181 mg/dL (<200); Estimated GFR 60.98 (mL/min/1.73m2); Glucose 128 mg/dL (74-106); HDL Cholesterol 43 mg/dL (40-60); Potassium 4.2 mmol/L (3.5-5.1); Sodium 143 mmol/L (136-145); Triglyceride 75 mg/dL (<150)
[2022-06-13 16:41] LABS: Hemoglobin A1C 5.9 % (<5.7)
== END 2022-06-13 09:58 | disposition home or self-care (01) ==
LOC: NCHCN 09:57
PROVIDERS: Visit Provider Physician Assistant
DX: E78.5 Hyperlipidemia, unspecified (principal); R73.03 Prediabetes
CPT/HCPCS: 80048; 80061; 83036

== ENCOUNTER 2022-06-29 06:29 | Day surgery (SDC) | payer MEDICARE, SELFPAY ==
[2022-06-29] MEDS: Tropicam./Phenyleph. (1/2.5%) 5 ML BTL OD ×3 (06:48→07:02)
[2022-06-29 06:50] VITALS: BP 150/83; PULSE 67; RESP 16; TEMP 36.4; O2SAT 95
--- NOTE | 2022-06-29 07:06 | ANES.PREOP_ITS ---
General Info Date of Service Date Performed: 06/29/22 Height: 5 ft 7.5 in Weight: 96.2 kg Body Mass Index (BMI): 32.7 Surgical Procedure: Operation Date: 06/29/22 07:40 Proposed Procedure Side Surgeon p Cataract Extraction with IOL Implant Right Zac Watson MD Meds Allergies and Home Medications Allergies Allergy/AdvReac Type Severity Reaction Status Date / Time Penicillins Allergy Severe Hives Verified 06/29/22 06:50 metronidazole [From Flagyl] Allergy Unknown Verified 06/29/22 06:50 adhesive AdvReac REDNESS Verified 06/29/22 06:50 Home Medication Medication Instructions Recorded calcium carbonate 600 mg-vitamin 1 ea PO BID 08/16/17 D3 20 mcg (800 unit) tablet melatonin 5 mg tablet 10 mg PO HS PRN 08/15/20 blood sugar diagnostic (Vaughn BurtonTouch #200 ea 10/20/20 Ultra Blue Test Strip) blood-glucose meter (Vaughn BurtonTouch #1 ea 10/20/20 Ultra2 Meter kit) lancets 33 gauge (OneTouch Delica #200 ea 10/20/20 Plus Lancet) tiotropium bromide 2.5 2 inh inhalation DAILY #3 ea 12/05/20 mcg/actuation mist for inhalation (Spiriva Respimat) albuterol sulfate 90 mcg/actuation 2 inh inhalation Q6H PRN shortness 11/24/21 aerosol inhaler of breath or wheezing #18 grams Current Visit Medications: Current Medications Generic Name Dose Route Start Last Admin Trade Name Freq PRN Reason Stop Dose Admin Acetaminophen 1,000 mg 06/29/22 06:00 Acetaminophen 500 Mg Tab PO Q4H PRN PRN Miscellaneous Medication 0 ml 06/29/22 06:00 Prednisolone 1%, Moxifloxacin 0.5%, Nepafenac 0.1% 5ml Btl OD DIRECTED [facility] Miscellaneous Medication 0 ml 06/29/22 06:00 06/29/22 07:02 Tropicam./Phenyleph. (1/2.5%) 5 Ml Btl OD 1 drp DIRECTED [facility] Administration Tetracaine HCl 0 ml 06/29/22 06:00 Tetracaine 0.5% 4 Ml Btl OD DIRECTED [facility] PFSH Active Problems Active Problems: Problem Status Onset Code Nuclear sclerotic cataract of right eye H25.11 NAFLD (nonalcoholic fatty liver disease) K76.0 Elevated BP without diagnosis of hypertension R03.0 COPD (chronic obstructive pulmonary disease) J44.9 Type 2 diabetes mellitus E11.9 Hyperlipidemia E78.5 Osteopenia M85.80 Prediabetes R73.03 Obesity Tubulovillous adenoma of colon D12.6 Serrated adenoma of colon ~07/2020 D12.6 Medical History Medical History BCC (basal cell carcinoma), arm Left upper arm Surgical History Surgical History History of bilateral tubal ligation History of section (01/05/83) 01/05/83 and 06/20/84 History of wisdom tooth extraction S/P colonoscopy (04/02/16) Tobacco Smoking/Tobacco Use Status: Former Tobacco Use Passive smoking exposure: Yes Second hand exposure: No Alcohol Alcohol Intake: current Alcohol intake frequency: holidays/special occasions only Alcohol type: hard liquor Substance Use Substance use: Never Substance use type: does not use Prental History History 2 Para 2 Hx # Term Pregnancies Multiple births Hx # Pregnancies Ectopic pregnancies AB induced Hx Number of Living Children 2 AB spontaneous Vital Signs and Lab Results Vital Signs Most Recent Vital Signs in EMR: Most Recent Vital Signs Temp Pulse Resp BP Pulse Ox 36.4 C L 67 16 150/83 H 95 06/29/22 06:50 06/29/22 06:50 06/29/22 06:50 06/29/22 06:50 06/29/22 06:50 Lab Results Blood Type / Crossmatch: No Data to Display Complete Blood Count: No Data to Display Complete Metabolic Panel: Sodium 143 mmol/L (136-145) 06/13/22 08:00 Potassium 4.2 mmol/L (3.5-5.1) 06/13/22 08:00 Chloride 107 mmol/L (98-107) 06/13/22 08:00 Carbon Dioxide 29.4 mmol/L (21.0-32.0) 06/13/22 08:00 BUN 20 mg/dL (7-18) H 06/13/22 08:00 Creatinine 1.0 mg/dL (0.55-1.02) 06/13/22 08:00 Est GFR (CKD-EPI 2020) 60.98 (mL/min/1.73m2) 06/13/22 08:00 Calcium 9.2 mg/dL (8.5-10.1) 06/13/22 08:00 Glucose 128 mg/dL (74-106) H 06/13/22 08:00 Hemoglobin A1c 5.9 % (<5.7) H 06/13/22 08:00 Liver Function Panel: No Data to Display Coagulation Panel: No Data to Display Cardiac Panel: No Data to Display Arterial Blood Gas: No Data to Display Venous Blood Gas: No Data to Display Pancreas Panel: No Data to Display Thyroid Panel: No Data to Display Infectious Disease: No Data to Display Blood Cultures: No Data to Display Toxicology Panel: No Data to Display Imaging and Studies Imaging and Studies Study information below may be from another EMR and interpreted by another provider. Please see original notes in EMR for more complete details. EKG Summary: Sinus rhythm...normal P axis, V-rate 60- 99 I have reviewed and I agree with the emergency room physician's ECG interpretation.11/06/20 Pulmonary Function Summary: Impression Mild obstructive airways disease, no bronchodilator response. The diffusion capacity maneuver did not meet acceptability criteria by ATS. 12/12/20 Anesthesia Assessment and Plan Anesthesia History Personal History: No History of Anesthesia Complications Family History: No Family History of Anesthesia Complications Exercise Tolerance Exercise Tolerance: Metabolic Equivalents>4 Pertinent Negatives Pertinent Negatives: No Symptoms of GERD, No Major Cardiovascular Symptoms or Complaints, No Major Pulmonary Symptoms or Complaints and No History of CVA/TIA Cardiac & Pulmonary Exam Cardiac Exam: Normal S1/S2 Heart Sounds Pulmonary Exam: Clear Bilateral Breath Sounds Implantable Cardiac Device Does patient have a Pacemaker or an ICD?: No Airway Exam Known Difficult Airway: No Mallampati Class: 2 Mouth Opening: Normal (> 3cm) Thyromental Distance: Greater than 3 cm Neck Range of Motion: Full ROM Neck Circumference: Thick Teeth Condition: Normal Dentition ASA Classification ASA Score: ASA 2 Emergency Case?: No NPO Status NPO Status: NPO Clears >2 hours, Solids >8 hours Anesthesia Plan Resuscitation Status: Full Code Anesthesia Technique: MAC Anesthesia Airway Planned: Natural Airway Monitors Used: Standard Monitors Preoperative Comments:: Prediabetic does not check sugars. Claustrophobic
[2022-06-29 07:17] VITALS: BMI 32.7
[2022-06-29] MEDS: Balanced Salt Soln.-PLUS 500 ML BAG (07:51)
[2022-06-29] MEDS: Lidocaine 1% Pres-Free 5 ML VIAL (07:51)
[2022-06-29] MEDS: Duovisc Viscoelastic System EACH 1 EACH (07:53)
[2022-06-29] MEDS: Povidone-Iodine Ophth 30 ML BTL (07:53)
[2022-06-29] MEDS: Lidocaine 2% Jelly 6 ML SYR (07:53)
[2022-06-29] MEDS: Tetracaine 0.5% 4 ML BTL OD (07:54)
[2022-06-29 08:22] VITALS: BP 130/69; PULSE 64; RESP 16; TEMP 36.5; O2SAT 97
--- NOTE | 2022-06-29 08:27 | W.PM.DSUDISC ---
Date of service: 06/29/22 Time of Service: 08:27 Discharge Plan Disposition Patient Disposition: Home Discharge Details Attending Provider: Zac Watson Primary Care Provider: Unknown,Unknown Home Meds and New Rx's Prescriptions: No Action Spiriva Respimat 2.5 mcg/actuation mist 2 inh inhalation DAILY Qty: 3 4RF (DME) blood-glucose meter [OneTouch Ultra2 Meter] Kit See Rx Instructions .ROUTE .MEDSUPPLY Qty: 1 2RF Rx Instructions: Check blood sugar twice a day (DME) OneTouch Ultra Blue Test Strip Strip See Rx Instructions .ROUTE .MEDSUPPLY Qty: 200 4RF Rx Instructions: Check blood sugar twice a day (DME) lancets [OneTouch Delica Plus Lancet] 33 gauge misc See Rx Instructions .ROUTE .MEDSUPPLY Qty: 200 4RF Rx Instructions: Check blood sugar twice a day calcium carbonate-vitamin D3 1 EACH tablet 1 ea PO BID albuterol sulfate 90 mcg/actuation HFA aerosol inhaler 2 inh inhalation Q6H PRN (Reason: shortness of breath or wheezing) Qty: 18 4RF melatonin 5 mg Tablet 10 mg PO HS PRN Discharge Instructions Stand Alone Forms: Post-op Topical Cataract, Laine Belle (DSU) Discharge Orders Discharge Orders: Discharge Order (Routine); Ordered 06/29/22 Ordered By: Zac Watson DS: Diagnosis Discharge Diagnosis (1) Nuclear sclerotic cataract of right eye: Status: Resolved (2) Posterior subcapsular age-related cataract, right eye: Status: Resolved
--- NOTE | 2022-06-29 08:28 | W.PM.OP ---
Date of service: 06/29/22 Time of Service: 08:28 Operative Note Operative Note DATE OF PROCEDURE: 06/29/22 PRE-OP DIAGNOSIS: Nuclear/posterior subcapsular cataract, right eye POST-OP DIAGNOSIS: same PROCEDURE: Cataract extraction using phacoemulsification with intraocular lens implant, right eye SURGEON: Zac Watson ANESTHESIA TYPE: Local By Surgeon and MAC Refer to Anesthesia Record ESTIMATED BLOOD LOSS: 0 PATHOLOGY: none sent COMPLICATIONS: None Patient was transported to: same day Patient's condition: stable Implants: Michael & Michael/KITTY Tecnis [id number] Indications: Progressive visual loss due to cataract, right eye Procedure Description: CATARACT SURGERY OPERATIVE REPORT PREOPERATIVE DIAGNOSIS: 1. Dense nuclear/posterior subcapsular cataract, right eye POSTOPERATIVE DIAGNOSIS: Same OPERATION: 1. Cataract extraction using phacoemulsification with posterior chamber intraocular lens implant, right eye. IOL: IOL [employer] Supervisor/Model: Michael & Michael / KITTY Tecnis [id number] IOL Power: + 23.0 diopters IOL Serial Number: [id number] Optic Diameter: 6.0mm Haptic/Overall Diameter: 13.0mm PHACO INFO: Vladimir [employer]ve Networksurion Vision System with OZil and Active Fluidics Cumulative Dispersed Energy (CDE): 31.53 seconds SURGEON: Zac Watson MD, POOJA ANESTHESIA: Monitored Anesthesia Care (MAC), with local sub-tenon's anesthetic infiltration COMPLICATIONS: None SPECIMENS: None INDICATIONS FOR PROCEDURE: The patient is a 67-year-old lady with history of diminished visual acuity in her right eye secondary to the development of significant nuclear cataract. She also has a dense posterior subcapsular cataract as well. The option of cataract surgery was offered to the patient and she felt she was symptomatic enough that she wished to proceed. PROCEDURE: The correct surgical eye was identified and marked as the right eye and the pupil was dilated in the preoperative area using mydriatics and cycloplegics. The dilated pupil size was 7.0 mm. Oral sedation was administered in the form of an Imprimis MKO Melt (midazolam 3mg/ketamine 25mg/ondansetron 2mg). The patient elected to proceed without oral sedation. The patient was brought to the operating room where cardiopulmonary monitoring was instituted and surgical time-out was performed, confirming the correct operative eye and IOL power. Topical anesthesia was administered and ophthalmic povidone-iodine 5% was instilled into the conjunctival fornices. Lidocaine gel was applied to the cornea and the nehemias-ocular area was prepped with Betadine 10% solution and draped in the usual sterile fashion for intraocular surgery, including an aperture drape. A Tegaderm transparent film dressing was cut in half and used to cover the lashes and lid margins. Care was taken to sequester the lashes and lid margins under the Tegaderm dressing. A lid speculum was placed between the lids of the operative eye and the Vladimir LuxOR Revalia operating microscope was maneuvered into position. Jessica scissors were then used to make a conjunctival buttonhole approximately 6mm posterior to the limbus in the inferonasal quadrant. Blunt dissection was carried out to expose bare sclera, and a blunt-tipped sub-tenon?s anesthesia cannula was introduced and passed posteriorly along the globe where non-preserved plain lidocaine was injected into posterior sub-Tenon?s space. A sideport knife was used to make a paracentesis port inferotemporally. Intraocular phenylephrine/lidocaine was injected into the anterior chamber. The anterior chamber was filled with viscoelastic. A keratome knife was used to construct a 2-plane near-clear corneal tunnel extending 2.0mm into clear cornea superiortemporally. A flap was raised on the anterior capsule and capsulorhexis forceps were used to complete a continuous curvilinear capsulorhexis of 5.0 mm. Balanced salt solution was then used to perform cortical cleaving hydrodissection and nuclear hydrodelineation until the lens could be freely rotated within the capsular bag. The lens nucleus was then disassembled and removed within the capsular bag and iris plane using phacoemulsification. The nucleus was noted to be quite dense. Residual cortical material was removed using the I/A handpiece. The posterior capsule was carefully polished to remove as much residual lens epithelial cells as safely possible. There was some residual posterior subcapsular plaque which could not be safely removed despite extensive polishing. The capsular bag was then inflated and the anterior chamber deepened with viscoelastic. The lens implant described above was inserted into the capsular bag using the KITTY [place] Injector. A Kuglen hook was used to dial the IOL into position. Residual viscoelastic was then removed first from posterior to the IOL, then from the anterior chamber using the I/A handpiece. The lens implant was noted to center nicely within the capsular bag. The incisions were stromally hydrated, and the anterior chamber was reformed using BSS. Then 0.5cc of moxifloxacin 1.0mg/ml were injected into the capsular bag and anterior chamber. The incisions were checked with a Weck spear and found to be secure. Several drops of ophthalmic povidone-iodine 5% were then applied to the eye followed by two drops of Imprimis combination prednisolone/moxifloxacin/nepafenac solution. The drapes were removed and a clear plastic protective eye shield was placed over the eye. The patient was then returned to Same Day Surgery in stable condition.
[2022-06-29 08:49] VITALS: BP 135/79; PULSE 64; RESP 16; TEMP 36.2; O2SAT 99
--- NOTE | 2022-06-29 09:14 | W.ANESPOSTOP ---
Postoperative Evaluation Date, Time and Location Date Performed: 06/29/22 Time Performed: 08:52 Patient Location: Day Surgery Unit Vital Signs Most Recent Imported Vital Signs: Most Recent Vital Signs Temp Pulse Resp BP Pulse Ox 36.2 C L 64 16 135/79 99 06/29/22 08:49 06/29/22 08:49 06/29/22 08:49 06/29/22 08:49 06/29/22 08:49 Pain Score Most Recent Pain Score: Most Recent Pain Score Pain Level 0 06/29/22 08:49 Assessment Mental Status: Awake (Alert & Oriented to Patient Baseline) Airway and Respiratory Function: Patent airway with normal (patient baseline) respiratory exam Cardiovascular Function: Hemodynamically Stable Hydration Status: Adequately Hydrated Nausea & Vomiting: No Nausea or Vomiting Pain: Pt. Denies Any Pain Peripheral Nerve Block: Patient did not receive a nerve block
== END 2022-06-29 09:01 | disposition home or self-care (01) ==
LOC: SUR 06:31
PROVIDERS: Visit Provider Ophthalmology
PROC: (CPT 66984; principal; 2022-06-29 07:30)
DX: H25.041 Posterior subcapsular polar age-related cataract, right eye (principal); E11.9 Type 2 diabetes mellitus without complications
CPT/HCPCS: 66984; V2632

== ENCOUNTER 2022-07-09 06:56 | Day surgery (SDC) | payer MEDICARE, SELFPAY ==
--- NOTE | 2022-07-09 06:31 | W.ANESPRE ---
General Info Date of Service Date Performed: 07/09/22 Height: 5 ft 7.5 in Weight: 96.2 kg Body Mass Index (BMI): 32.7 Surgical Procedure: Operation Date: 07/09/22 08:25 Proposed Procedure Side Surgeon p Cataract Extraction with IOL Implant Left Zac Watson MD Meds Allergies and Home Medications Allergies Allergy/AdvReac Type Severity Reaction Status Date / Time Penicillins Allergy Severe Hives Verified 07/09/22 07:11 metronidazole [From Flagyl] Allergy Unknown Verified 07/09/22 07:11 adhesive AdvReac REDNESS Verified 07/09/22 07:11 Home Medication Medication Instructions Recorded calcium carbonate 600 mg-vitamin 1 ea PO BID 08/16/17 D3 20 mcg (800 unit) tablet melatonin 5 mg tablet 10 mg PO HS PRN 08/15/20 blood sugar diagnostic (OneTouch #200 ea 10/20/20 Ultra Blue Test Strip) blood-glucose meter (OneTouch #1 ea 10/20/20 Ultra2 Meter kit) lancets 33 gauge (OneTouch Delica #200 ea 10/20/20 Plus Lancet) tiotropium bromide 2.5 2 inh inhalation DAILY #3 ea 12/05/20 mcg/actuation mist for inhalation (Spiriva Respimat) albuterol sulfate 90 mcg/actuation 2 inh inhalation Q6H PRN shortness 11/24/21 aerosol inhaler of breath or wheezing #18 grams Current Visit Medications: Current Medications Generic Name Dose Route Start Last Admin Trade Name Freq PRN Reason Stop Dose Admin Acetaminophen 1,000 mg 07/09/22 06:00 Acetaminophen 500 Mg Tab PO Q4H PRN PRN Miscellaneous Medication 0 ml 07/09/22 06:00 Prednisolone 1%, Moxifloxacin 0.5%, Nepafenac 0.1% 5ml Btl OS DIRECTED CLEMENTE Miscellaneous Medication 0 ml 07/09/22 06:00 Tropicam./Phenyleph. (1/2.5%) 5 Ml Btl OS DIRECTED CLEMENTE Tetracaine HCl 0 ml 07/09/22 06:00 Tetracaine 0.5% 4 Ml Btl OS DIRECTED CLEMENTE PFSH Active Problems Active Problems: Problem Status Onset Code Nuclear sclerotic cataract of left eye H25.12 Posterior subcapsular age-related cataract, right eye H25.041 Nuclear sclerotic cataract of right eye H25.11 NAFLD (nonalcoholic fatty liver disease) K76.0 Elevated BP without diagnosis of hypertension R03.0 COPD (chronic obstructive pulmonary disease) J44.9 Type 2 diabetes mellitus E11.9 Hyperlipidemia E78.5 Osteopenia M85.80 Prediabetes R73.03 Obesity Tubulovillous adenoma of colon D12.6 Serrated adenoma of colon ~07/2020 D12.6 Medical History Medical History BCC (basal cell carcinoma), arm Left upper arm Surgical History Surgical History History of bilateral tubal ligation History of section (01/05/83) 01/05/83 and 06/20/84 History of wisdom tooth extraction S/P colonoscopy (04/02/16) Tobacco Smoking/Tobacco Use Status: Former Tobacco Use Passive smoking exposure: Yes Second hand exposure: No Alcohol Alcohol Intake: current Alcohol intake frequency: holidays/special occasions only Alcohol type: hard liquor Substance Use Substance use: Never Substance use type: does not use Prental History History 2 Para 2 Hx # Term Pregnancies Multiple births Hx # Pregnancies Ectopic pregnancies AB induced Hx Number of Living Children 2 AB spontaneous Vital Signs and Lab Results Lab Results Blood Type / Crossmatch: No Data to Display Complete Blood Count: No Data to Display Complete Metabolic Panel: Sodium 143 mmol/L (136-145) 06/13/22 08:00 Potassium 4.2 mmol/L (3.5-5.1) 06/13/22 08:00 Chloride 107 mmol/L (98-107) 06/13/22 08:00 Carbon Dioxide 29.4 mmol/L (21.0-32.0) 06/13/22 08:00 BUN 20 mg/dL (7-18) H 06/13/22 08:00 Creatinine 1.0 mg/dL (0.55-1.02) 06/13/22 08:00 Est GFR (CKD-EPI 2020) 60.98 (mL/min/1.73m2) 06/13/22 08:00 Calcium 9.2 mg/dL (8.5-10.1) 06/13/22 08:00 Glucose 128 mg/dL (74-106) H 06/13/22 08:00 Hemoglobin A1c 5.9 % (<5.7) H 06/13/22 08:00 Liver Function Panel: No Data to Display Coagulation Panel: No Data to Display Cardiac Panel: No Data to Display Arterial Blood Gas: No Data to Display Venous Blood Gas: No Data to Display Pancreas Panel: No Data to Display Thyroid Panel: No Data to Display Infectious Disease: No Data to Display Blood Cultures: No Data to Display Toxicology Panel: No Data to Display Imaging and Studies Imaging and Studies Study information below may be from another EMR and interpreted by another provider. Please see original notes in EMR for more complete details. EKG Summary: 10/2020: Sinus rhythm...normal P axis, V-rate 60- 99 Pulmonary Function Summary: 11/2020: Mild obstructive airways disease, no bronchodilator response. The diffusion capacity maneuver did not meet acceptability criteria by ATS. Anesthesia Assessment and Plan Anesthesia History Personal History: No History of Anesthesia Complications Family History: No Family History of Anesthesia Complications Exercise Tolerance Exercise Tolerance: Metabolic Equivalents>4 Cardiac & Pulmonary Exam Cardiac Exam: Normal S1/S2 Heart Sounds Pulmonary Exam: Clear Bilateral Breath Sounds Implantable Cardiac Device Does patient have a Pacemaker or an ICD?: No Airway Exam Known Difficult Airway: No Mallampati Class: 2 Mouth Opening: Normal (> 3cm) Thyromental Distance: Greater than 3 cm Neck Range of Motion: Full ROM Neck Circumference: Thick Teeth Condition: Normal Dentition ASA Classification ASA Score: ASA 2 Emergency Case?: No NPO Status NPO Status: NPO Clears >2 hours, Solids >8 hours Anesthesia Plan Resuscitation Status: Full Code Anesthesia Technique: MAC Anesthesia Airway Planned: Natural Airway Monitors Used: Standard Monitors Preoperative Comments:: 67 yo female for repeat cataract removal. Would like MKO again. no health history change. Sig PMHx: COPD, DM2, NAFLD, former smoker, occ etoh, claustrophobic. Previous Anes: - colo prop without issues x 2. - last cataract with MKO.
[2022-07-09 07:00] VITALS: BP 149/91; PULSE 75; RESP 18; TEMP 36.2; O2SAT 97
[2022-07-09] MEDS: Tropicam./Phenyleph. (1/2.5%) 5 ML BTL OS ×3 (07:10→07:20)
[2022-07-09 07:24] VITALS: BMI 32.7
[2022-07-09] MEDS: Povidone-Iodine Ophth 30 ML BTL (08:19)
[2022-07-09] MEDS: Tetracaine 0.5% 4 ML BTL OS (08:20)
[2022-07-09] MEDS: Lidocaine 2% Jelly 6 ML SYR (08:20)
[2022-07-09] MEDS: Balanced Salt Soln.-PLUS 500 ML BAG (08:27)
[2022-07-09] MEDS: Duovisc Viscoelastic System EACH 1 EACH (08:27)
[2022-07-09] MEDS: Trypan Blue 0.06% 0.5 ML SYR (08:27)
[2022-07-09] MEDS: Lidocaine 1% Pres-Free 5 ML VIAL (08:29)
[2022-07-09 08:48] VITALS: BP 130/81; PULSE 74; RESP 16; TEMP 36.5; O2SAT 97
--- NOTE | 2022-07-09 08:49 | W.PM.DSUDISC ---
Date of service: 07/09/22 Time of Service: 08:49 Discharge Plan Disposition Patient Disposition: Home Discharge Details Attending Provider: Zac Watson Primary Care Provider: Unknown,Unknown Home Meds and New Rx's Prescriptions: No Action Spiriva Respimat 2.5 mcg/actuation mist 2 inh inhalation DAILY Qty: 3 4RF (DME) blood-glucose meter [OneTouch Ultra2 Meter] Kit See Rx Instructions .ROUTE .MEDSUPPLY Qty: 1 2RF Rx Instructions: Check blood sugar twice a day (DME) OneTouch Ultra Blue Test Strip Strip See Rx Instructions .ROUTE .MEDSUPPLY Qty: 200 4RF Rx Instructions: Check blood sugar twice a day (DME) lancets [OneTouch Delica Plus Lancet] 33 gauge misc See Rx Instructions .ROUTE .MEDSUPPLY Qty: 200 4RF Rx Instructions: Check blood sugar twice a day calcium carbonate-vitamin D3 1 EACH tablet 1 ea PO BID albuterol sulfate 90 mcg/actuation HFA aerosol inhaler 2 inh inhalation Q6H PRN (Reason: shortness of breath or wheezing) Qty: 18 4RF melatonin 5 mg Tablet 10 mg PO HS PRN Discharge Instructions Stand Alone Forms: Post-op Topical Cataract, Laine Belle (DSU) Discharge Orders Discharge Orders: Discharge Order (Routine); Ordered 07/09/22 Ordered By: Zac Watson DS: Diagnosis Discharge Diagnosis (1) Nuclear sclerotic cataract of left eye: Status: Resolved
--- NOTE | 2022-07-09 08:52 | W.PM.OP ---
Date of service: 07/09/22 Time of Service: 08:52 Operative Note Operative Note DATE OF PROCEDURE: 07/09/22 PRE-OP DIAGNOSIS: Dense nuclear cataract, left eye Poor red reflex, left eye secondary to cataract POST-OP DIAGNOSIS: same PROCEDURE: Cataract extraction using phacoemulsification with intraocular lens implant, left eye, using capsular staining with Vision Blue SURGEON: Zac Watson ANESTHESIA TYPE: Local By Surgeon and MAC Refer to Anesthesia Record COMPLICATIONS: None Patient was transported to: same day Patient's condition: stable Implants: Michael and Michael / [employer] Tecnis [id number] Indications: Progressive decreased vision due to cataract, left eye, with poor red reflex Procedure Description: CATARACT SURGERY OPERATIVE REPORT PREOPERATIVE DIAGNOSIS: 1. Dense nuclear cataract, left eye 2. Poor red reflex secondary to #1 POSTOPERATIVE DIAGNOSIS: Same OPERATION: 1. Cataract extraction using phacoemulsification with posterior chamber intraocular lens implant, left eye. 2. Capsular staining with Vision Blue IOL: IOL Elementary Educator/Model: Michael & Michael / KITTY Tecnis [id number] IOL Power: + 22.5 diopters IOL Serial Number: [id number] Optic Diameter: 6.0 mm Haptic/Overall Diameter: 13.0 mm PHACO INFO: Vladimir [employer] Vision System with OZil and Active Fluidics Cumulative Dispersed Energy (CDE): 15.60 seconds SURGEON: Zac Watson MD, POOJA ANESTHESIA: Monitored A [facility] (MAC), with local sub-tenon's anesthetic infiltration COMPLICATIONS: None SPECIMENS: None INDICATIONS FOR PROCEDURE: The patient is a 67-year-old lady with history of diminished visual acuity in her left eye secondary to the development of dense nuclear cataract. She has already undergone cataract surgery in the right eye to remove a dense cataract there. She is doing well postoperatively. She now presents for cataract surgery in the left eye. PROCEDURE: The correct surgical eye was identified and marked as the left eye and the pupil was dilated in the preoperative area using mydriatics and cycloplegics. The dilated pupil size was 6.5 mm. Oral sedation was administered in the form of an Imprimis MKO Melt (midazolam 3mg/ketamine 25mg/ondansetron 2mg). . The patient was brought to the operating room where cardiopulmonary monitoring was instituted and surgical time-out was performed, confirming the correct operative eye and IOL power. Topical anesthesia was administered and ophthalmic povidone-iodine 5% was instilled into the conjunctival fornices. Lidocaine gel was applied to the cornea and the nehemias-ocular area was prepped with Betadine 10% solution and draped in the usual sterile fashion for intraocular surgery, including an aperture drape. A Tegaderm transparent film dressing was cut in half and used to cover the lashes and lid margins. Care was taken to sequester the lashes and lid margins under the Tegaderm dressing. A lid speculum was placed between the lids of the operative eye and the Vladimir LuxOR Revalia operating microscope was maneuvered into position. Jessica scissors were then used to make a conjunctival buttonhole approximately 6mm posterior to the limbus in the inferonasal quadrant. Blunt dissection was carried out to expose bare sclera, and a blunt-tipped sub-tenon?s anesthesia cannula was introduced and passed posteriorly along the globe where non-preserved plain lidocaine was injected into posterior sub-Tenon?s space. A sideport knife was used to make a paracentesis port superiorly/superiortemporally. Intraocular phenylephrine/lidocaine was injected int the anterior chamber.. Air was then injected into the anterior chamber, followed by Vision Blue, which was painted over the anterior capsule and then irrigated out using BSS. The anterior chamber was filled with viscoelastic. A keratome knife was used to create a 2-plane near clear corneal tunnel extending approximately 2 mm into clear cornea temporally. A flap was raised on the anterior capsule and capsulorhexis forceps were used to complete a continuous curvilinear capsulorhexis of 5.0 mm. Balanced salt solution was then used to perform cortical cleaving hydrodissection and nuclear hydrodelineation until the lens could be freely rotated within the capsular bag. The lens nucleus was then disassembled and removed within the capsular bag and iris plane using phacoemulsification. Residual cortical material was removed using the 45-degree angled silicone I/A tip with 0.3mm port. The posterior capsule was carefully polished to remove as much residual lens epithelial cells as safely possible. The capsular bag was then inflated and the anterior chamber deepened with viscoelastic. The lens implant described above was inserted into the capsular bag using the KITTY [place] Injector. A Kuglen hook was used to dial the IOL into position. Residual viscoelastic was then removed first from posterior to the IOL, then from the anterior chamber using the I/A handpiece. The lens implant was noted to center nicely within the capsular bag. The incisions were stromally hydrated, and the anterior chamber was reformed using BSS. Then 0.5cc of moxifloxacin 1.0mg/ml were injected into the capsular bag and anterior chamber. The incisions were checked with a Weck spear and found to be secure. Several drops of ophthalmic povidone-iodine 5% were then applied to the eye followed by two drops of Imprimis combination prednisolone/moxifloxacin/nepafenac solution. The drapes were removed and a clear plastic protective eye shield was placed over the eye. The patient was then returned to Same Day Surgery in stable condition.
--- NOTE | 2022-07-09 08:56 | W.ANESPOSTOP ---
Postoperative Evaluation Date, Time and Location Date Performed: 07/09/22 Time Performed: 08:56 Patient Location: Day Surgery Unit Vital Signs Most Recent Imported Vital Signs: Most Recent Vital Signs Temp Pulse Resp BP Pulse Ox 36.5 C 74 16 130/81 97 07/09/22 08:48 07/09/22 08:48 07/09/22 08:48 07/09/22 08:48 07/09/22 08:48 Pain Score Most Recent Pain Score: Most Recent Pain Score Pain Level 0 07/09/22 08:48 Assessment Mental Status: Awake (Alert & Oriented to Patient Baseline) Airway and Respiratory Function: Patent airway with normal (patient baseline) respiratory exam Cardiovascular Function: Hemodynamically Stable Hydration Status: Adequately Hydrated Nausea & Vomiting: No Nausea or Vomiting Pain: Pt. Denies Any Pain Peripheral Nerve Block: Patient did not receive a nerve block
[2022-07-09 09:14] VITALS: BP 135/79; PULSE 69; RESP 16; TEMP 36.4; O2SAT 98
== END 2022-07-09 09:16 | disposition home or self-care (01) ==
LOC: SUR 06:57
PROVIDERS: Visit Provider Ophthalmology
PROC: (CPT 66982; principal; 2022-07-09 08:15)
DX: H25.12 Age-related nuclear cataract, left eye (principal); H26.8 Other specified cataract
CPT/HCPCS: 66982; V2632

== ENCOUNTER 2022-07-24 01:41 | Outpatient (CLI) | payer MEDICARE, SELFPAY ==
--- NOTE | 2022-07-24 | DI.MAMMO_ITS ---
Exam(s) MAMMO SCREENING EXAM: MAMMO SCREENING CLINICAL HISTORY: SCREENING, Z12.39 TECHNIQUE: Bilateral full field digital CC and MLO mammographic images were obtained with 3D tomosyn thesis and utilizing computer aided detection (CAD). COMPARISON: Available for comparison. FINDINGS: Masses/Architectural Distortion: There are several small well-circumscribed nodules in both breasts. No suspicious masses or areas of architectural distortion are present. Microcalcifications: No suspicious pleomorphic-type are seen. Skin Thickening/Nipple Retraction: None. IMPRESSION: 1. No significant interval change with no specific features of malignancy noted. 2. Unless there is more urgent need, screening mammography is recommended, as per [employer] guidelines. BI-RADS Category 2 - Benign Findings Breast Density - Category B - Scattered areas of fibroglandular density Breast density category C or D implies that the patient has dense breast tissue. Dense breast tissue is very common and is not abnormal but dense breast tissue can make it harder to find cancer on a ma mmogram. Also, dense breast tissue may increase their breast cancer risk. This information about the result of the mammogram report was provided to the patient to raise their awareness. Use this report when you speak with the patient about their risks for breast cancer, which includes their family hist ory. At that time, you may recommend for more screening tests (Ultrasound or MRI) as they might be us eful based on their risk. A negative radiographic report should not delay biopsy if a dominant or clinically suspicious mass is present. Up to ten percent of cancers are not identified on mammography. A negative report may reinforce clinical impression. Adenosis and dense breasts may obscure an underlying neoplasm. False positive reports average 6 to 10%. Patient will receive a letter notifying them of these results.
== END 2022-07-24 02:01 ==
LOC: DI 01:41
PROVIDERS: Visit Provider Physician Assistant
DX: Z12.31 Encounter for screening mammogram for malignant neoplasm of breast (principal)
CPT/HCPCS: 77063; 77067

== ENCOUNTER 2023-04-01 17:27 | Emergency (ER) | payer MEDICARE, SELFPAY ==
[2023-04-01] VITALS (18 sets, daily range): BP systolic 150–200; BP diastolic 70–94; PULSE 82–85; RESP 16–18; TEMP 36.8; O2SAT 90–96
--- NOTE | 2023-04-01 17:45 | DI.CT_ITS ---
Exam(s) CT ABDOMEN PELVIS W EXAM: CT ABDOMEN PELVIS W CLINICAL HISTORY: LLQ pain TECHNIQUE: Imaging Protocol: Axial computed tomography images with coronal and sagittal reformatted images were created and reviewed CONTRAST MATERIAL: Intravenous: Omnipaque 350 Contrast volume:100 mL Oral: No COMPARISON: CT CT CHEST PE CTA from 10/15/[address] CHEST WO from 04/14/2021 FINDINGS: ABDOMEN: Lung Bases: There is stable scarring again seen in the right middle lobe and left lingula. Liver: Normal density. No measurable mass. Portal, Superior Mesenteric, and Splenic Veins: Unremarkable. Gallbladder and Biliary Tract: No radiodense calculus or dilation. Pancreas: Normal density, no abnormal calcifications or inflammatory process. Spleen: Normal. Adrenals: No masses seen. Kidneys: Normal size, contour and axis. There is a 9 mm stone in the left UPJ causing marked hydronep hrosis. There is a nonobstructing 8 mm stone in the lower pole of the left kidney. There is decreas ed attenuation of the left kidney consistent with obstruction. There is mild enhancement of the wall of the renal pelvis and the secondary infection cannot be excluded. No masses seen. Abdominal Aorta: Abdominal portion non-dilated. Atherosclerosis is present. Bowel: There is diverticulosis in the colon but no evidence of acute diverticulitis. There is no leeanne dence of bowel obstruction or bowel wall thickening. Appendix is unremarkable. Peritoneal Cavity: No ascites, collection or mesenteric inflammatory response. No free air. Lymph Nodes: Within normal limits. Bones: Within normal limits for the patient's age. There is an old left rib fracture. Soft Tissues: Unremarkable. PELVIS: Bladder: Symmetric distention, no gross wall thickening. Reproductive Organs: Unremarkable as visualized. Lymph Nodes: Within normal limits. Bones: Within normal limits for the patient's age. IMPRESSION: 1. Marked left hydronephrosis secondary to a 9 mm stone at the left UPJ. 2. Left nephrolithiasis. 3. Mild enhancement of the wall of the left renal pelvis. Infection cannot be excluded. Please ramo elate clinically. 4. Colonic diverticulosis without evidence of acute diverticulitis. RADIATION DOSE DELIVERED: Total DLP DATA REPOSITORY: All CT scans at this facility are submitted to the National Radiology Data Registry (NRDR) Dose Index Registry (DIR) with the [employer] (ACR). RADIATION OPTIMIZATION: All CT scans at this facility use at least one of these dose optimization te chniques: automated exposure control; mA and/or kV adjustment per patient size (includes targeted exa ms where dose is matched to clinical indication); or iterative reconstruction.
--- NOTE | 2023-04-01 17:55 | W.ED.GENAD ---
Discharge Plan Disposition Patient Disposition: Home Discharge Details Clinical Impression: Hydronephrosis with urinary obstruction due to ureteral calculus, Acute kidney insufficiency Primary Care Provider: Kalpesh Saucedo ED Provider: Erik Shah Home Meds and New Rx's Prescriptions: New tamsulosin [Flomax] 0.4 mg capsule 0.4 mg PO QHS Qty: 14 0RF ondansetron 4 mg tablet,disintegrating 4 mg PO Q8H PRN (Reason: nausea and vomiting) Qty: 10 0RF ibuprofen 400 mg tablet 400 mg PO Q6H PRN (Reason: pain) Qty: 20 0RF Continued (DME) blood-glucose meter [OneTouch Ultra2 Meter] Kit See Rx Instructions .ROUTE .MEDSUPPLY Qty: 1 2RF Rx Instructions: Check blood sugar twice a day (DME) OneTouch Ultra Blue Test Strip Strip See Rx Instructions .ROUTE .MEDSUPPLY Qty: 200 4RF Rx Instructions: Check blood sugar twice a day (DME) lancets [OneTouch Delica Plus Lancet] 33 gauge misc See Rx Instructions .ROUTE .MEDSUPPLY Qty: 200 4RF Rx Instructions: Check blood sugar twice a day calcium carbonate-vitamin D3 1 EACH tablet 1 ea PO DAILY albuterol sulfate 90 mcg/actuation HFA aerosol inhaler 2 inh inhalation Q6H PRN (Reason: shortness of breath or wheezing) Qty: 18 4RF melatonin 5 mg Tablet 10 mg PO HS PRN Incruse Ellipta 62.5 mcg/actuation blister with device 1 inh INHALATION DAILY Patient Comments: Inhale 1 puff as directed once a day Discharge Instructions Instructions: Kidney Stones (ED) Additional Instructions: Please stay well-hydrated to help your kidney function while you are trying to pass this kidney stone. We have put in for an urgent referral to urology office and feel free to contact them tomorrow afternoon for arrangement of your follow-up appointment. If you develop any new or significant worsening of symptoms including uncontrollable pain, uncontrollable vomiting, fever, or other concerns feel free to return the emergency department for reassessment. Please take the Flomax at night before bed as this may cause a drop in blood pressure and some lightheadedness. You have been given a limited supply of narcotic and please take for severe pain only otherwise you may take the prescribed ibuprofen as directed along with [id number] acetaminophen/Tylenol no greater than 3000 mg in a 24-hour period. Referrals: [facility] [Provider Group] - 5 days Discharge Data Discharge Date/Time-TO BE ENTERED AT DEPARTURE: 04/01/23 20:40 Medical Decision Making Patient presenting to the emergency department for chief complaint of left-sided abdominal pain. Patient in moderate to severe distress secondary to pain. She states that this started yesterday evening after dinner. Patient denies any injury or trauma, does state history of diverticulitis but is never felt like this when she has had a flareup. Patient has significant past medical history of noted elevated blood pressure reading without diagnosis of hypertension, diabetes, obesity, diverticulosis. Physical exam somewhat limited due to patient's pain and discomfort but only finding was noted left lower quadrant tenderness to palpation but abdomen was otherwise soft, no peritoneal findings noted. We will continue with labs, CT imaging, pain and nausea control along with fluids. Reviewed patient's labs and she is fairly hemoconcentrated given elevation of WBC along with RBC and hemoglobin also showing elevation. Patient does have some elevated neutrophils and monocytes with low lymphocytes. CMP reviewed and does show creatinine of 1.5 with a GFR of 37, glucose slightly elevated at 145, remainder of labs are otherwise noncontributory. I do feel that patient may have a component of dehydration with the given CBC findings along with the decreased renal function. Will give additional liter of fluids. Urinalysis was reviewed and does show some blood and ketones but does not appear to have any signs of infection. Reviewed CT imaging along with radiologist interpretation that does show a marked Moderate left obstructive uropathy with calculus at the ureteropelvic junction measuring 8 x 7 mm. Perinephric stranding evident. Reassessed patient and patient's pain was more controlled. Patient given Flomax and to go bottle of narcotic for severe pain. Otherwise patient to continue use of [id number] medications, and hydration. Did place patient on urgent referral list to follow-up with urology given size of stone along with the acute renal insufficiency and some of the perinephric stranding I feel that this may be a difficult stone for her to pass. Did inform patient have a low threshold to return for worsening symptoms, uncontrollable pain or nausea, or fever or UTI type symptoms. After discussion of diagnosis and plan of care patient and significant other has no further needs, questions, or concerns and states clear understanding to return to the emergency department for any worsening symptoms. This documentation was generated using [employer] dictation system, please disregard any oddities of phrase or misspellings. Imaging Data Radiologic Study: Imaging: CT Scan Radiologist's impression: Exam(s) PROCEDURE INFORMATION: Exam: CT Abdomen And Pelvis With Contrast Exam date and time: 04/01/2023 6:58 PM Age: 67 years old Clinical indication: Abdominal pain; Localized; Left lower quadrant (llq); Prior surgery; Surgery date: 6+ months; Surgery type: Tubal ligation, ; Patient HX: Llq pain TECHNIQUE: Imaging protocol: Computed tomography of the abdomen and pelvis with contrast. Radiation optimization: All CT scans at this facility use at least one of these dose optimization techniques: automated exposure control; mA and/or kV adjustment per patient size (includes targeted exams where dose is matched to clinical indication); or iterative reconstruction. Contrast material: OMNIPAQUE 350; Contrast volume: 100 ml; Contrast route: INTRAVENOUS (IV); COMPARISON: CT CHEST WO 04/14/2021 4:07 PM FINDINGS: Liver: Normal. No mass. Gallbladder and bile ducts: Normal. No calcified stones. No ductal dilation. Pancreas: Normal. No ductal dilation. Spleen: Normal. No splenomegaly. Adrenal glands: Normal. No mass. Kidneys and ureters: Moderate left obstructive uropathy with calculus at the ureteropelvic junction measuring 8 x 7 mm. Perinephric stranding evident. Nonobstructing renal calculus in the inferior pole left kidney measures 10 mm. No right hydronephrosis. Stomach and bowel: Colonic diverticulosis without CT evidence of diverticulitis. Appendix: No evidence of appendicitis. Intraperitoneal space: Unremarkable. No free air. No significant fluid collection. Vasculature: Unremarkable. No abdominal aortic aneurysm. Lymph nodes: Unremarkable. No enlarged lymph nodes. Urinary bladder: Unremarkable as visualized. Reproductive: Unremarkable as visualized. Bones/joints: Unremarkable. No acute fracture. Soft tissues: Unremarkable. IMPRESSION: 1. Moderate left obstructive uropathy with calculus at the ureteropelvic junction measuring 8 x 7 mm. Perinephric stranding evident. 2. Nonobstructing renal calculus in the inferior pole left kidney measures 10 mm. Lab Data Lab results reviewed: Yes I reviewed the patient's lab results. HPI General Mode of arrival: ambulatory. Date/Time Provider Initiated Documentation: 04/01/23 17:30. Limitations to Documentation: no limitations. Information obtained by: patient, family and RN notes reviewed. History of Present Illness 67 year old F presents to the emergency department with the chief complaint of Left-sided abdominal pain, described as moderate and severe, Quality is described as sharp, and is localized to the abdomen. Patient reports no radiation. Patient started experiencing this day(s) (1) and it has been constant. No relieving factors improve symptom(s), No exacerbating factors reported . Patient notes nausea/vomiting. Patient did receive the following treatments prior to arrival, none Related Data Home Medications Medication Instructions Recorded Confirmed calcium carbonate 600 mg-vitamin 1 ea PO DAILY 08/16/17 04/01/23 D3 20 mcg (800 unit) tablet melatonin 5 mg tablet 10 mg PO HS PRN 08/15/20 04/01/23 blood sugar diagnostic (OneTouch #200 ea 10/20/20 07/06/22 Ultra Blue Test Strip) blood-glucose meter (OneTouch #1 ea 10/20/20 07/06/22 Ultra2 Meter kit) lancets 33 gauge (OneTouch Delica #200 ea 10/20/20 07/06/22 Plus Lancet) albuterol sulfate 90 mcg/actuation 2 inh inhalation Q6H PRN shortness 11/24/21 04/01/23 aerosol inhaler of breath or wheezing #18 grams ibuprofen 400 mg tablet 400 mg PO Q6H PRN pain #20 tabs 04/01/23 ondansetron 4 mg disintegrating 4 mg PO Q8H PRN nausea and 04/01/23 tablet vomiting #10 tabs tamsulosin 0.4 mg capsule (Flomax) 0.4 mg PO QHS #14 caps 04/01/23 umeclidinium 62.5 mcg/actuation 1 inh inhalation DAILY 04/01/23 04/01/23 blister powder for inhalation (Incruse Ellipta) Previous Rx's Medication Instructions Recorded blood sugar diagnostic (OneTouch #200 ea 10/20/20 Ultra Blue Test Strip) blood-glucose meter (OneTouch #1 ea 10/20/20 Ultra2 Meter kit) lancets 33 gauge (OneTouch Delica #200 ea 10/20/20 Plus Lancet) albuterol sulfate 90 mcg/actuation 2 inh inhalation Q6H PRN shortness 11/24/21 aerosol inhaler of breath or wheezing #18 grams ibuprofen 400 mg tablet 400 mg PO Q6H PRN pain #20 tabs 04/01/23 ondansetron 4 mg disintegrating 4 mg PO Q8H PRN nausea and 04/01/23 tablet vomiting #10 tabs tamsulosin 0.4 mg capsule (Flomax) 0.4 mg PO QHS #14 caps 04/01/23 Allergies Allergy/AdvReac Type Severity Reaction Status Date / Time Penicillins Allergy Severe Hives Verified 04/01/23 17:40 metronidazole [From Flagyl] Allergy Unknown Verified 04/01/23 17:40 adhesive AdvReac REDNESS Verified 04/01/23 17:40 General Stated Complaint: Abd Prob MICHELLE: 3 Review of Systems Constitutional Constitutional: Denies chills, Denies fever(s) and Reports poor appetite Cardiovascular Cardiovascular: Denies chest pain and Denies dyspnea Respiratory Respiratory: Denies cough and Denies dyspnea Gastrointestinal Gastrointestinal: Reports as per HPI, Reports abdominal pain, Denies melena, Denies change in bowel habits, Denies constipation, Denies diarrhea, Reports nausea and Reports vomiting Genitourinary Genitourinary: Denies hematuria and Denies dysuria Integumentary/Breasts Skin/Breast: Denies rash PFSH All Active Problems Hydronephrosis with urinary obstruction due to ureteral calculus (Acute) Acute kidney insufficiency (Acute) NAFLD (nonalcoholic fatty liver disease) (Chronic) Elevated BP without diagnosis of hypertension (Acute) COPD (chronic obstructive pulmonary disease) (Chronic) Type 2 diabetes mellitus (Acute) Hyperlipidemia (Chronic) Osteopenia (Chronic) Dexa 06/09 Prediabetes (Chronic) Obesity (Chronic) Tubulovillous adenoma of colon (Chronic) Serrated adenoma of colon (Acute ~07/2020) Medical History BCC (basal cell carcinoma), arm Left upper arm Surgical History History of bilateral tubal ligation History of section (01/05/83) 01/05/83 and 06/20/84 History of wisdom tooth extraction S/P colonoscopy (04/02/16) Family History Mother Hypertension Dementia Atrial fibrillation Father , at 59 of lung cancer Lung cancer Sister Rectal cancer metastasized to liver Hypertension Brother Alcohol abuse Daughter No problems noted. Daughter No problems noted. Maternal Grandfather No problems noted. Maternal Grandmother No problems noted. Paternal Grandfather , in his 70s Myocardial infarction Heart disease Alcohol abuse Paternal Grandmother Emphysema of lung Social History Smoking/Tobacco Use Status: Former Tobacco Use Quit Date: 06/24/13 Pack-years: 90 Tobacco: How many years used: 45 Second Hand Exposure: No Smoking risk assessment performed?: Yes Alcohol Intake: current Alcohol Intake frequency: holidays/special occasions only Alcohol type: hard liquor Drug use: Never Substance use type: does not use Caregiver/Support person: No Household members: spouse Housing: apartment Communication Needs: None Do you need help understanding health information?: Never Pets and animals: Yes Pets and animals: cat(s) and dog(s) Sexually active: Yes Do you think of yourself as: straight/heterosexual Current gender identity: female What is your relationship status?: How often do you talk on the phone with friends or family?: three or more times per week How often do you get together with friends or relatives?: decline to answer How often do you attend rastafarian or christianity services?: decline to answer Do you belong to any clubs or organized social groups?: decline to answer Panel score (0-1 are the most socially isolated patients): 2 Duration: < 15 minutes/day Frequency: 1-2 times per week Guerita/Hinduism: None Special guerita needs: No Seatbelt use: always Helmet use: Yes Helmet use: always Drive intox or ride 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: No Do you feel safe at home: Yes Do you feel safe in your relationship?: Yes Female Reproductive History Menstrual Menopause type: natural History History 2 Para 2 Hx # Term Pregnancies Multiple births Hx # Pregnancies Ectopic pregnancies AB induced Hx Number of Living Children 2 AB spontaneous Exam Const General: cooperative and acute distress moderate Orientation: alert, awake and oriented x3 Resp Effort & Inspection: normal respiratory effort and able to speak in complete sentences Auscultation: clear to auscultation bilaterally Cardio Rate: regular rate Rhythm: regular rhythm Heart Sounds: S1 normal and S2 normal GI Palpation: soft, no hepatosplenomegaly, not firm, no guarding, no masses, no pulsatile masses, not rigid, no splenomegaly and tender in the LLQ and in the LUQ Auscultation: normal bowel sounds Back/Spine/Pelvis Back: no CVA tenderness Neuro General: patient alert, patient awake, patient oriented x3, gait normal and moves all extremities Course Vital Signs Vital signs: Vital Signs Temperature 36.8 C 04/01/23 17:36 Pulse 82 04/01/23 17:36 Respiratory Rate 18 04/01/23 17:36 Blood Pressure 200/94 H 04/01/23 17:36 Pulse Oximetry 94 04/01/23 17:36 Temperature 36.8 C 04/01/23 17:53 Temperature Source Skin 04/01/23 17:53 Pulse 82 04/01/23 17:53 Respiratory Rate 18 04/01/23 17:53 Respiratory Effort Normal, Non-Labored 04/01/23 17:52 Blood Pressure 200/94 H 04/01/23 17:53 Blood Pressure Position Sitting 04/01/23 17:53 Pulse Oximetry 94 04/01/23 17:53 Oxygen Delivery Method Room Air 04/01/23 17:53 Oxygen Flow Rate 0 04/01/23 17:53 Pain Level 8 04/01/23 17:53 PAWSS Have you Been Recently Intoxicated or Drunk Within the Last 30 days?: No Have you Ever Experienced Previous Episodes of Alcohol Withdrawal?: No Have you ever Experienced Withdrawal Seizures?: No Have you ever Experienced Delirium Tremens(DT)s?: No Have you ever undergone Alcohol Rehabilitation Treatment (i.e, inpt ot outpatient treatment programs)?: No Have you ever Experienced Blackouts?: No Have you ever Combined Alcohol with other Downers within the last 90 days?: No Have you ever Combined Alcohol with any other Substance of Abuse during the last 90 days?: No Positive Blood Alcohol level on Presentation? [PCS.BAL]: No Evidence of Increased Autonomic Activity (i.e. HR>120, tremor, sweating, agitation, nausea)?: No Result: 0
[2023-04-01] MEDS: Ondansetron 4 MG/2 ML VIAL IVP (18:01)
[2023-04-01] MEDS: Normal Saline 1,000 ML 1000 ML IV ×2 (18:01→19:15)
[2023-04-01] MEDS: ACETAMINOPHEN 1,000 MG/100 ML BTL 400 MG IVPB (18:07)
[2023-04-01 18:12] LABS: Abs Immature Grans 0.05 10^3/uL (0.0-0.06); Absolute Lymphocyte Count 0.93 10^3/uL (1.2-3.4); Basophils % 0.6; Eosinophils % 0.4; HCT 52.2 % (36.0-46.0); HGB 17.3 g/dL (11.2-15.7); Immature Grans % 0.3; Lymphocytes % 5.9; MCH 32.9 pg (27.0-33.0); MCHC 33.1 % (32.0-36.0); MCV 99 fL (80-95); MPV 10.8 fL (8.0-11.0); Neutrophils % 85.8; Platelet Count 235 10^3/uL (130-400); RBC 5.26 10^6/uL (3.93-5.22); RDW-SD 47.9 fL; WBC 15.68 10^3/uL (4.4-10.8)
[2023-04-01 18:13] LABS: Absolute Basophil Count 0.09 10^3/uL (0.0-0.2); Absolute Eosinophil Count 0.06 10^3/uL (0.0-0.7); Absolute Neutrophil Count 13.45 10^3/uL (1.2-6.7)
[2023-04-01 18:26] LABS: Lipase 23 U/L (16-77)
[2023-04-01 18:29] LABS: ALT 16 U/L (14-59); AST 14 U/L (15-37); Alkaline Phosphatase 114 U/L (46-116); Anion Gap 9.2 mmol/L (3-11); BUN 18 mg/dL (7-18); CO2 28.8 mmol/L (21.0-32.0); CREATININE 1.5 mg/dL (0.55-1.02); Calcium 9.7 mg/dL (8.5-10.1); Chloride 99 mmol/L (98-107); Estimated GFR 37.49 (mL/min/1.73m2); Glucose 145 mg/dL (74-106); Potassium 3.5 mmol/L (3.5-5.1); Sodium 137 mmol/L (136-145); Total Protein 8.5 g/dL (6.4-8.2)
[2023-04-01] MEDS: HYDROmorphone 2 MG/ML SYR 0.5 MG IVP (18:40)
[2023-04-01] MEDS: Omnipaque 350 MG/ML 100 ML BTL IJ (18:57)
[2023-04-01] MEDS: Normal Saline - Diluent 50 ML VIAL IJ (18:58)
[2023-04-01] MEDS: Normal Saline Flush 10 ML SYR IVP (18:59)
--- NOTE | 2023-04-01 19:41 | DI.VRAD_ITS ---
PROCEDURE INFORMATION: Exam: CT Abdomen And Pelvis With Contrast Exam date and time: 04/01/2023 6:58 PM Age: 67 years old Clinical indication: Abdominal pain; Localized; Left lower quadrant (llq); Prior surgery; Surgery date: 6+ months; Surgery type: Tubal ligation, ; Patient HX: Llq pain TECHNIQUE: Imaging protocol: Computed tomography of the abdomen and pelvis with contrast. Radiation optimization: All CT scans at this facility use at least one of these dose optimization techniques: automated exposure control; mA and/or kV adjustment per patient size (includes targeted exams where dose is matched to clinical indication); or iterative reconstruction. Contrast material: OMNIPAQUE 350; Contrast volume: 100 ml; Contrast route: INTRAVENOUS (IV); COMPARISON: CT CHEST WO 04/14/2021 4:07 PM FINDINGS: Liver: Normal. No mass. Gallbladder and bile ducts: Normal. No calcified stones. No ductal dilation. Pancreas: Normal. No ductal dilation. Spleen: Normal. No splenomegaly. Adrenal glands: Normal. No mass. Kidneys and ureters: Moderate left obstructive uropathy with calculus at the ureteropelvic junction measuring 8 x 7 mm. Perinephric stranding evident. Nonobstructing renal calculus in the inferior pole left kidney measures 10 mm. No right hydronephrosis. Stomach and bowel: Colonic diverticulosis without CT evidence of diverticulitis. Appendix: No evidence of appendicitis. Intraperitoneal space: Unremarkable. No free air. No significant fluid collection. Vasculature: Unremarkable. No abdominal aortic aneurysm. Lymph nodes: Unremarkable. No enlarged lymph nodes. Urinary bladder: Unremarkable as visualized. Reproductive: Unremarkable as visualized. Bones/joints: Unremarkable. No acute fracture. Soft tissues: Unremarkable. IMPRESSION: 1. Moderate left obstructive uropathy with calculus at the ureteropelvic junction measuring 8 x 7 mm. Perinephric stranding evident. 2. Nonobstructing renal calculus in the inferior pole left kidney measures 10 mm. Dictated and Authenticated by: Melissa Rodriguez MD. Ordering:INOCENCIO Valencia MD
[2023-04-01 19:51] LABS: Bilirubin Negative (Negative); Blood Trace-intact (Negative); Clarity Clear (Clear); Glucose Negative (Negative); Ketones Trace mg/dL (Negative); Leukocyte Esterase Trace (Negative); Nitrite Negative (Negative); Specific Gravity 1.015 (1.005-1.025); Urobilinogen 0.2 mg/dL (Up to 0.2)
[2023-04-01 20:07] LABS: Bacteria Negative HPF (Negative); C & S Indicated? No; Crystals Negative HPF (Negative); Epithelial Cells Few HPF (Negative); Mucus Negative (Negative); Other Cells Rare Transitional (Negative); RBC 0-2 HPF (0-2)
--- NOTE | 2023-04-01 20:25 | NUR.NOTE ---
Pt placed on care management list for Urology to be seen within 1-2 weeks for 8mm kidney stone, obstructed nephropathy, and acute [place] insufficiency.
[2023-04-01] MEDS: Tamsulosin 0.4 MG CAPCR PO (20:30)
[2023-04-01] MEDS: oxyCODONE 5 MG TAB PO (20:30)
[2023-04-01] MEDS: Ondansetron O.D.T. 4 MG TABEF, 3 TABS/BTL PO (20:30)
== END 2023-04-01 20:40 | disposition home or self-care (01) ==
PROVIDERS: Emergency Provider Nurse Practitioner Family; PCP Physician Assistant
DX: N28.9 Disorder of kidney and ureter, unspecified (principal); N13.2 Hydronephrosis with renal and ureteral calculous obstruction
CPT/HCPCS: 80053; 83690; 96360; 99285; 74177; 81003; 81015; 83735; 85025; 99284; J0131; J1170; J2405; J3490

== ENCOUNTER → 2023-04-09 10:47 | Outpatient (BNVA) | payer MEDICARE, SELFPAY | PROVIDERS: PCP Physician Assistant; Referring Provider Physician Assistant; Visit Provider Nurse Practitioner Gerontology | DX: R31.9 Hematuria, unspecified (principal); N13.2 Hydronephrosis with renal and ureteral calculous obstruction | CPT/HCPCS: 81003; 99215 ==

== ENCOUNTER 2023-04-09 13:29 | Outpatient (REF) | payer MEDICARE, SELFPAY | END 2023-04-09 13:30 | disposition home or self-care (01) | LOC: LBN 13:29 | PROVIDERS: PCP Physician Assistant; Visit Provider Nurse Practitioner Gerontology | DX: R31.9 Hematuria, unspecified (principal) | CPT/HCPCS: 87077; 87086 ==

== ENCOUNTER 2023-04-15 16:39 | Observation (INO) | payer MEDICARE, SELFPAY ==
[2023-04-15] VITALS (11 sets, daily range): BP systolic 112–210; BP diastolic 80–118; PULSE 62–85; RESP 16–25; TEMP 35.8–36.6; O2SAT 48–97; BMI 33.3
[2023-04-15] MEDS: Lactated Ringers 1,000 ML 80 ML IV (09:45)
[2023-04-15] MEDS: Normal Saline Flush 10 ML SYR IV ×5 (10:50→17:35)
[2023-04-15] MEDS: CIPROFLOXACIN 400 MG/200 ML BAG 200 MG IVPB (10:52)
--- NOTE | 2023-04-15 11:23 | ANES.PREOP_ITS ---
General Info Date of Service Date Performed: 04/15/23 Height: 5 ft 7 in Weight: 96.7 kg Body Mass Index (BMI): 33.3 Surgical Procedure: Operation Date: 04/15/23 11:10 Proposed Procedure Side Surgeon p Cystoscopy/Laser/Retrograde/Ureteroscopy/ Stone Manipulation/? Stent Left Silas Morejon MD Meds Allergies and Home Medications Allergies Allergy/AdvReac Type Severity Reaction Status Date / Time Penicillins Allergy Severe Hives Verified 04/15/23 09:03 metronidazole [From Flagyl] Allergy Unknown Verified 04/15/23 09:03 adhesive AdvReac REDNESS Verified 04/15/23 09:03 Home Medication Medication Instructions Recorded calcium carbonate 600 mg-vitamin 1 ea PO DAILY 08/16/17 D3 20 mcg (800 unit) tablet blood sugar diagnostic (OneTouch #200 ea 10/20/20 Ultra Blue Test Strip) blood-glucose meter (Green Dot CorporationTouch #1 ea 10/20/20 Ultra2 Meter kit) lancets 33 gauge (OneTouch Delica #200 ea 10/20/20 Plus Lancet) albuterol sulfate 90 mcg/actuation 2 inh inhalation Q6H PRN shortness 11/24/21 aerosol inhaler of breath or wheezing #18 grams ibuprofen 400 mg tablet 400 mg PO Q6H PRN pain #20 tabs 04/01/23 tamsulosin 0.4 mg capsule (Flomax) 0.4 mg PO QHS #14 caps 04/01/23 umeclidinium 62.5 mcg/actuation 1 inh inhalation DAILY 04/01/23 blister powder for inhalation (Incruse Ellipta) ondansetron 4 mg disintegrating 4 mg PO TID PRN 04/15/23 tablet oxycodone 5 mg tablet 5 mg PO Q6H 04/15/23 Current Visit Medications: Current Medications Generic Name Dose Route Start Last Admin Trade Name Freq PRN Reason Stop Dose Admin Ringer's Solution 1,000 mls @ 80 mls/hr 04/15/23 06:00 04/15/23 10:52 IV 05/12/23 23:59 0 mls/hr INFUSION CLE[facility]E Infusion Ciprofloxacin 400 mg in 200 mls @ 200 mls/hr 04/15/23 06:00 04/15/23 11:10 Cipro I.V. IVPB 04/15/23 18:00 0 mls/hr PREOP [facility] Infusion IV Miscellaneous Supplies 1 each 04/15/23 06:00 Iv Access IV 05/12/23 23:59 DIRECTED CLEMENTE Sodium Chloride 0 ml 04/15/23 06:00 04/15/23 10:50 Normal Saline Flush 10 Ml Syr IV 05/12/23 23:59 10 ml PRN PRN Administration Sodium Chloride 0 ml 04/15/23 06:00 Normal Saline 10 Ml Vial IJ 05/12/23 23:59 DIRECTED PRN Sterile Water 0 ml 04/15/23 06:00 Water,Injection,Sterile 10 Ml Vial IJ 05/12/23 23:59 DIRECTED PRN PFSH Active Problems Active Problems: Problem Status Onset Code Acute kidney insufficiency N28.9 Hydronephrosis with urinary obstruction due to ureteral calculus N13.2 Nuclear sclerotic cataract of left eye H25.12 Posterior subcapsular age-related cataract, right eye H25.041 Nuclear sclerotic cataract of right eye H25.11 NAFLD (nonalcoholic fatty liver disease) K76.0 Elevated BP without diagnosis of hypertension R03.0 COPD (chronic obstructive pulmonary disease) J44.9 Type 2 diabetes mellitus E11.9 Hyperlipidemia E78.5 Osteopenia M85.80 Prediabetes R73.03 Obesity Tubulovillous adenoma of colon D12.6 Serrated adenoma of colon ~07/2020 D12.6 Medical History Medical History BCC (basal cell carcinoma), arm Left upper arm Medical History Comments:: Reports having had MAYA after surgery; even with colonoscopy Surgical History Surgical History History of wisdom tooth extraction S/P colonoscopy (04/02/16) History of bilateral tubal ligation History of section (01/05/83) 01/05/83 and 06/20/84 Tobacco Smoking/Tobacco Use Status: Former Tobacco Use Passive smoking exposure: Yes Second hand exposure: No Alcohol Alcohol Intake: current Alcohol intake frequency: holidays/special occasions only Alcohol type: hard liquor Substance Use Substance use: Never Substance use type: does not use Prental History History 2 Para 2 Hx # Term Pregnancies Multiple births Hx # Pregnancies Ectopic pregnancies AB induced Hx Number of Living Children 2 AB spontaneous Vital Signs and Lab Results Vital Signs Most Recent Vital Signs in EMR: Most Recent Vital Signs Temp Pulse Resp BP Pulse Ox 36.1 C L 72 16 167/87 H 94 04/15/23 09:05 04/15/23 09:05 04/15/23 09:05 04/15/23 09:05 04/15/23 09:05 Lab Results Blood Type / Crossmatch: No Data to Display Complete Blood Count: White Blood Count 15.68 10^3/uL (4.4-10.8) H 04/01/23 17:48 Red Blood Count 5.26 10^6/uL (3.93-5.22) H 04/01/23 17:48 Hemoglobin 17.3 g/dL (11.2-15.7) H 04/01/23 17:48 Hematocrit 52.2 % (36.0-46.0) H 04/01/23 17:48 Platelet Count 235 10^3/uL (130-400) 04/01/23 17:48 Complete Metabolic Panel: Sodium 137 mmol/L (136-145) 04/01/23 17:48 Potassium 3.5 mmol/L (3.5-5.1) 04/01/23 17:48 Chloride 99 mmol/L (98-107) 04/01/23 17:48 Carbon Dioxide 28.8 mmol/L (21.0-32.0) 04/01/23 17:48 BUN 18 mg/dL (7-18) 04/01/23 17:48 Creatinine 1.5 mg/dL (0.55-1.02) H 04/01/23 17:48 Est GFR (CKD-EPI 2020) 37.49 (mL/min/1.73m2) 04/01/23 17:48 Magnesium 2.0 mg/dL (1.8-2.4) 04/01/23 17:48 Calcium 9.7 mg/dL (8.5-10.1) 04/01/23 17:48 Albumin 4.0 g/dL (3.4-5.0) 04/01/23 17:48 Glucose 145 mg/dL (74-106) H 04/01/23 17:48 Liver Function Panel: Alanine Aminotransferase (ALT/SGPT) 16 U/L (14-59) 04/01/23 17: 48 Aspartate Amino Transf (AST/SGOT) 14 U/L (15-37) L 04/01/23 17: 48 Coagulation Panel: No Data to Display Cardiac Panel: No Data to Display Arterial Blood Gas: No Data to Display Venous Blood Gas: No Data to Display Pancreas Panel: Lipase 23 U/L (16-77) 04/01/23 17:48 Thyroid Panel: No Data to Display Infectious Disease: No Data to Display Blood Cultures: No Data to Display Toxicology Panel: No Data to Display Imaging and Studies Imaging and Studies Study information below may be from another EMR and interpreted by another provider. Please see original notes in EMR for more complete details. EKG Summary: 10/2020: Sinus rhythm...normal P axis, V-rate 60- 99 Pulmonary Function Summary: 11/2020: Mild obstructive airways disease, no bronchodilator response. The diffusion capacity maneuver did not meet acceptability criteria by ATS. Anesthesia Assessment and Plan Anesthesia History Personal History: Other Family History: No Family History of Anesthesia Complications Exercise Tolerance Exercise Tolerance: Metabolic Equivalents>4 Pertinent Negatives Pertinent Negatives: No Symptoms of GERD and No Major Cardiovascular Symptoms or Complaints Cardiac & Pulmonary Exam Cardiac Exam: Normal S1/S2 Heart Sounds Pulmonary Exam: Clear Bilateral Breath Sounds Implantable Cardiac Device Does patient have a Pacemaker or an ICD?: No Airway Exam Known Difficult Airway: No Mallampati Class: 2 Mouth Opening: Normal (> 3cm) Thyromental Distance: Greater than 3 cm Neck Range of Motion: Full ROM Neck Circumference: Thick Teeth Condition: Normal Dentition ASA Classification ASA Score: ASA 2 Emergency Case?: No NPO Status NPO Status: NPO Clears >2 hours, Solids >8 hours Anesthesia Plan Resuscitation Status: Full Code Anesthesia Technique: General Anesthesia Airway Planned: Natural Airway Monitors Used: Standard Monitors Preoperative Comments:: 67 yo female for cystoscopy. No health history change. Sig PMHx: COPD, DM2, NAFLD, former smoker, occ etoh, claustrophobic. Previous Anes: - colo prop without issues x 2. - last two cataracts with MKO.
--- NOTE | 2023-04-15 11:45 | HPE_ITS ---
Date of service: 04/15/23 Time of Service: 11:45 Assessment and Plan Assessment and plan (1) Hydronephrosis with urinary obstruction due to ureteral calculus: Status: Acute (2) Kidney stones: Status: Chronic Assessment and plan: We will perform cystoscopy, left retrograde pyelogram, left ureteroscopy with holmium laser lithotripsy of the obstructing ureteral stone. If successful and if our visibility remains good, we will attempt to address the lower pole kidney stone as well. History of Present Illness History of Present Illness Chief Complaint: Left ureteral stone Narrative: Macy is a 67 y/o female referred to urology by the ER due to kidney stones. She was seen in the emergency room approximately a week ago related to left flank pain. Imaging noted large stone in the left UPJ. She reports that she has had a few twinges of left renal colic concerns. She is not consistently taking any pain medication. She is taking the tamsulosin. She denies dysuria, gross hematuria, suprapubic discomfort or change in her LUTS. She notes this is her first kidney stone. She does not history of gout or parathyroid disease. He does not recall prior to developing the left flank pain having some pink- tinged blood on the toilet tissue. She also did experience this after flank pain. She has not seen any recently. Review of Systems Narrative: No fevers or chills Hx cataracts. No vision change or dysphasia Hx diabetes. No thyroid dysfunction Hx COPD. No cough or hemoptysis No chest pain or palpitations No nausea, vomiting, ulcers, jaundice No seizures, strokes or peripheral neuropathy No bleeding disorders or anemia Osteopenia. No gout PFSH All Active Problems (Updated 04/15/23 @ 11:46 by Silas Morejon MD) Kidney stones (Chronic) Acute kidney insufficiency (Acute) Hydronephrosis with urinary obstruction due to ureteral calculus (Acute) NAFLD (nonalcoholic fatty liver disease) (Chronic) Elevated BP without diagnosis of hypertension (Acute) COPD (chronic obstructive pulmonary disease) (Chronic) Type 2 diabetes mellitus (Acute) Hyperlipidemia (Chronic) Osteopenia (Chronic) Dexa 06/09 Prediabetes (Chronic) Obesity (Chronic) Tubulovillous adenoma of colon (Chronic) Serrated adenoma of colon (Acute ~07/2020) Medical History BCC (basal cell carcinoma), arm Left upper arm Surgical History History of wisdom tooth extraction S/P colonoscopy (04/02/16) History of bilateral tubal ligation History of section (01/05/83) 01/05/83 and 06/20/84 Family History Mother Hypertension Dementia Atrial fibrillation Father , at 59 of lung cancer Lung cancer Sister Rectal cancer metastasized to liver Hypertension Brother Alcohol abuse Daughter No problems noted. Daughter No problems noted. Maternal Grandfather No problems noted. Maternal Grandmother No problems noted. Paternal Grandfather , in his 70s Myocardial infarction Heart disease Alcohol abuse Paternal Grandmother Emphysema of lung Social History Smoking/Tobacco Use Status: Former Tobacco Use Quit Date: 06/24/13 Pack-years: 90 Tobacco: How many years used: 45 Second Hand Exposure: No Smoking risk assessment performed?: Yes Alcohol Intake: current Alcohol Intake frequency: holidays/special occasions only Alcohol type: hard liquor Drug use: Never Substance use type: does not use Caregiver/Support person: No Household members: spouse Housing: apartment Communication Needs: None Do you need help understanding health information?: Never Pets and animals: Yes Pets and animals: cat(s) and dog(s) Sexually active: Yes Do you think of yourself as: straight/heterosexual Current gender identity: female What is your relationship status?: How often do you talk on the phone with friends or family?: three or more times per week How often do you get together with friends or relatives?: decline to answer How often do you attend gnosticist or congregational services?: decline to answer Do you belong to any clubs or organized social groups?: decline to answer Panel score (0-1 are the most socially isolated patients): 2 Duration: < 15 minutes/day Frequency: 1-2 times per week Guerita/Synagogue: None Special guerita needs: No Seatbelt use: always Helmet use: Yes Helmet use: always Drive intox or ride w/intox 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: No Do you feel safe at home: Yes Do you feel safe in your relationship?: Yes Female Reproductive History Menstrual Menopause type: natural History History 2 Para 2 Hx # Term Pregnancies Multiple births Hx # Pregnancies Ectopic pregnancies AB induced Hx Number of Living Children 2 AB spontaneous Meds Allergies and Home Medications Allergies Allergy/AdvReac Type Severity Reaction Status Date / Time Penicillins Allergy Severe Hives Verified 04/15/23 09:03 metronidazole [From Flagyl] Allergy Unknown Verified 04/15/23 09:03 adhesive AdvReac REDNESS Verified 04/15/23 09:03 Home Medications Medication Instructions Recorded Confirmed Type calcium carbonate 600 mg-vitamin 1 ea PO DAILY 08/16/17 04/15/23 History D3 20 mcg (800 unit) tablet blood sugar diagnostic (LeafTouch #200 ea 10/20/20 07/06/22 Rx Ultra Blue Test Strip) blood-glucose meter (LeafTouch #1 ea 10/20/20 07/06/22 Rx Ultra2 Meter kit) lancets 33 gauge (OneTouch Delica #200 ea 10/20/20 07/06/22 Rx Plus Lancet) albuterol sulfate 90 mcg/actuation 2 inh inhalation Q6H PRN shortness 11/24/21 04/15/23 Rx aerosol inhaler of breath or wheezing #18 grams ibuprofen 400 mg tablet 400 mg PO Q6H PRN pain #20 tabs 04/01/23 04/15/23 Rx tamsulosin 0.4 mg capsule (Flomax) 0.4 mg PO QHS #14 caps 04/01/23 04/15/23 Rx umeclidinium 62.5 mcg/actuation 1 inh inhalation DAILY 04/01/23 04/15/23 History blister powder for inhalation (Incruse Ellipta) ondansetron 4 mg disintegrating 4 mg PO TID PRN 04/15/23 04/15/23 History tablet oxycodone 5 mg tablet 5 mg PO Q6H 04/15/23 04/15/23 History Exam Const General: cooperative Neck Neck: supple Resp Effort & Inspection: normal respiratory effort Auscultation: clear to auscultation bilaterally Cardio Rate: regular rate Rhythm: regular rhythm GI Inspection: obesity Palpation: soft Neuro General: patient alert, patient awake and patient oriented x3 Results Last Vital Signs Temp 36.1 C L 04/15/23 09:05 Pulse 72 04/15/23 09:05 Resp 16 04/15/23 09:05 BP 167/87 H 04/15/23 09:05 Pulse Ox 94 04/15/23 09:05 Time Spent Time spent with Patient: <40 minutes Time was spent: other
--- NOTE | 2023-04-15 11:45 | DI.RAD_ITS ---
Exam(s) XR RETROGRADE IN OR EXAM: XR RETROGRADE IN OR CLINICAL HISTORY: KIDNEY STONES. TECHNIQUE: Fluoroscopy was provided for the referring physician for guidance with performing retrog rade procedure. COMPARISON: CT CT ABDOMEN PELVIS W from 04/01/2023 FINDINGS: Please see procedure note for details. Fluoro time: 2 minutes 33 seconds RADIATION DOSE DELIVERED: xiomara Armenta=73.3 mGy
[2023-04-15] MEDS: Lidocaine 2% Jelly 6 ML SYR (12:40)
[2023-04-15] MEDS: Omnipaque 300 MG/ML 50 ML BTL (13:42)
--- NOTE | 2023-04-15 13:48 | ROE_ITS ---
Date of service: 04/15/23 Time of Service: 13:49 Operative Note Operative Note DATE OF PROCEDURE: 04/15/23 PRE-OP DIAGNOSIS: Left renal stone POST-OP DIAGNOSIS: same PROCEDURE: cystoscopy, left retrograde pyelogram, left ureteroscopy with holmium laser lithotripsy, stone fragment extraction, insert left ureteral stent SURGEON: Silas Morejon ANESTHESIA TYPE: General LMA/ETT Refer to Anesthesia Record ESTIMATED BLOOD LOSS: 20 PATHOLOGY: other (stone for chemical analysis) COMPLICATIONS: Other (extravasation of contrast from proximal ureter) Patient was transported to: same day Patient's condition: stable Implants: 7 yi by 22 to 30 cm left ureteral stent Indications: This is a 67-year-old woman who presented to the emergency department with renal colic. She was found to have a proximal left ureteral/UPJ stone that was causing obstruction. She had a second nonobstructing stone in the lower pole calyx. She presents for stone manipulation Findings: Large stone in the renal pelvis Second large stone in lower pole calyx Procedure Description: The patient was brought to the operating room on 04/15/2023. She was given preoperative IV antibiotics. After successful induction of general anesthesia, she was placed in the dorsal lithotomy position. Her genitalia was prepped and draped. 2% Xylocaine jelly was instilled into the urethra to act as a local anesthetic. The 22 Vincentian rigid cystoscope was passed through the urethra into the bladder. The bladder was inspected with a 30 degree lens. Both ureteral orifices appeared normal with no blood coming from either side. The left ureteral orifice was cannulated with a 5 Vincentian access catheter and a retrograde pyelogram was obtained. Large filling defects were identified in the renal pelvis and in the lower pole calyx. I passed a guidewire through the lumen of the access catheter and removed the catheter. I then attempted to pass a dual-lumen catheter but was not successful due to a narrowing in the distal ureter. I performed balloon dilation using a UroMax balloon. The dual-lumen catheter was then advanced up the remainder of the ureter and a second wire was positioned. One of the wires was chosen as a working wire and the other as a safety wire. I passed the ureteral access sheath over the working wire leaving the safety wire in place. Flexible ureteroscopy was then performed and the 2 large stones were identified. We then treated the stone in the renal pelvis with a 272 ?m holmium laser fiber. We fragmented the stone using a dusting setting of 0.3 with a rate of 8. Stone fragments were then grasped in a 0 tip stone basket and removed. This stone fragments were sent for chemical analysis. Visibility became difficult so I then did a retrograde pyelogram and some extravasation of contrast was found from the proximal ureter/renal pelvis. We then elected to place a ureteral stent and make a return trip to the operating room to remove any residual fragments. We passed a 7 Vincentian variable length stent over the safety wire. The proximal end was positioned in the renal pelvis and the distal end was positioned in the bladder. The patient tolerated this procedure well with no complications. She was taken back to the day surgery unit in stable condition.
--- NOTE | 2023-04-15 13:53 | W.PM.DSUDISC ---
Date of service: 04/15/23 Time of Service: 13:53 Discharge Plan Disposition Patient Disposition: Home Condition: Stable Discharge Details Attending Provider: Silas Morejon Primary Care Provider: Kalpesh Saucedo Home Meds and New Rx's Prescriptions: No Action (DME) blood-glucose meter [OneTouch Ultra2 Meter] Kit See Rx Instructions .ROUTE .MEDSUPPLY Qty: 1 2RF Rx Instructions: Check blood sugar twice a day (DME) OneTouch Ultra Blue Test Strip Strip See Rx Instructions .ROUTE .MEDSUPPLY Qty: 200 4RF Rx Instructions: Check blood sugar twice a day (DME) lancets [OneTouch Delica Plus Lancet] 33 gauge misc See Rx Instructions .ROUTE .MEDSUPPLY Qty: 200 4RF Rx Instructions: Check blood sugar twice a day calcium carbonate-vitamin D3 1 EACH tablet 1 ea PO DAILY albuterol sulfate 90 mcg/actuation HFA aerosol inhaler 2 inh inhalation Q6H PRN (Reason: shortness of breath or wheezing) Qty: 18 4RF ondansetron 4 mg tablet,disintegrating 4 mg PO TID PRN Patient Comments: DISSOLVE ONE TABLET ON THE TONGUE EVERY 8 HOURS NEEDED FOR NAUSEA AND VOMITING oxycodone 5 mg tablet 5 mg PO Q6H Patient Comments: Pt states she received at ER visit but has not used. Incruse Ellipta 62.5 mcg/actuation blister with device 1 inh INHALATION DAILY Patient Comments: Inhale 1 puff as directed once a day tamsulosin [Flomax] 0.4 mg capsule 0.4 mg PO QHS Qty: 14 0RF ibuprofen 400 mg tablet 400 mg PO Q6H PRN (Reason: pain) Qty: 20 0RF Discharge Instructions Additional Instructions: no need to strain urine my office will contact pt to arrange return to OR for cystoscopy, stent removal and repeat ureteroscopy to remove any remaining stone fragments you may have blood in the urine, urinary frequency and pain with urination as long as stent is in place Activity:: Activity as Tolerated Shower/Bathe:: 24 hours Diet:: As Tolerated Discharge Orders Discharge Orders: Discharge Order (Routine); Ordered 04/15/23 Ordered By: Silas Morejon DS: Diagnosis Discharge Diagnosis (1) Hydronephrosis with urinary obstruction due to ureteral calculus: Status: Acute (2) Kidney stones: Status: Chronic
[2023-04-15] MEDS: Phenazopyridine 200 MG TAB PO (14:20)
--- NOTE | 2023-04-15 14:57 | W.ANESPOSTOP ---
Postoperative Evaluation Date, Time and Location Date Performed: 04/15/23 Time Performed: 14:57 Patient Location: Day Surgery Unit Vital Signs Most Recent Imported Vital Signs: Most Recent Vital Signs Temp Pulse Resp BP Pulse Ox 36.3 C L 62 16 137/93 H 97 04/15/23 14:39 04/15/23 14:39 04/15/23 14:39 04/15/23 14:39 04/15/23 14:39 Pain Score Most Recent Pain Score: Most Recent Pain Score Pain Level 0 04/15/23 14:39 Assessment Mental Status: Awake (Alert & Oriented to Patient Baseline) Airway and Respiratory Function: Patent airway with normal (patient baseline) respiratory exam (Considerable irritability was seen on end of the anesthetic requiring O2 for a short period of time. Patient now back at baseline. ) Cardiovascular Function: Hemodynamically Stable Hydration Status: Adequately Hydrated Nausea & Vomiting: No Nausea or Vomiting Pain: Pt. Denies Any Pain Peripheral Nerve Block: Patient did not receive a nerve block
[2023-04-15] MEDS: Ondansetron 4 MG/2 ML VIAL IVP ×2 (15:29→21:33)
[2023-04-15] MEDS: Droperidol 5 MG/2 ML VIAL 1.25 MG IVP (16:00)
[2023-04-15] MEDS: Ketorolac 15 MG/ML VIAL IVP (16:47)
[2023-04-15] MEDS: Prochlorperazine 10 MG/2 ML VIAL 5 MG IVP (16:50)
[2023-04-15] MEDS: HYDROmorphone 2 MG/ML SYR IVP ×2 (17:34→21:33)
[2023-04-15] MEDS: Lactated Ringers 1,000 ML 100 ML IV (17:38)
--- NOTE | 2023-04-15 18:14 | PDOC.ANES ---
Date of service: 04/15/23 Time of Service: 17:00 Anesthesia Note Report Anesthesia Note: Called to assess Macy for PONV that suddenly started after a period of feeling fine. Arrived to find Macy actively vomiting repeatedly. At 1600, she was given 1.25mg droperidol with some relief reducing frequency of vomiting/dry heaving but not completely relieved. Later she received a dose of 5mg IV compazine with nausea and vomiting relief, but now has post surgical pain 6/10 for which she was given 15mg toradol. Vital signs obtained and noted SpO2 87%. She has no SOB but does appear tired now with eyes closed. She was placed on 2LPM NC with improvement to 92%. The plan is to be admitted for observation until nausea, pain, and oxygenation are improved. I think her desaturation is related to her now being sleepy as well as the anesthetics still on board given her COPD. and her agree to plan and will discharge when criteria met. Dr. Morejon present and aware of plan.
[2023-04-15] MEDS: traMADol 50 MG TAB PO (22:30)
[2023-04-16] MEDS: Prochlorperazine 10 MG/2 ML VIAL IVP (00:12)
[2023-04-16] MEDS: Oxybutynin 5 MG TAB PO (00:12)
[2023-04-16 02:15] VITALS: BP 139/74; PULSE 74; RESP 16; TEMP 36; O2SAT 93
[2023-04-16] MEDS: Lactated Ringers 1,000 ML 100 ML IV (04:00)
--- NOTE | 2023-04-16 07:04 | W.PM.DS.N ---
Date of service: 04/16/23 Time of Service: 07:04 DS: Diagnosis Discharge Diagnosis (1) Hydronephrosis with urinary obstruction due to ureteral calculus: Status: Acute (2) Kidney stones: Status: Chronic Discharge Plan Disposition Condition: Stable Discharge Details Reason For Visit: Kidney Stones Admit Date/Time: 04/15/23 16:39 Admit Provider: Silas Morejon Attending Provider: Silas Morejon Primary Care Provider: Kalpesh Saucedo Hospital Course Hospital Course: The patient was taken to the operating room on 04/15/2023. She underwent ureteroscopy and holmium laser lithotripsy of kidney stones. We were able to treat and extract multiple stone fragments, but there was some extravasation of contrast from her renal pelvis. We placed a 7 [place] ureteral stent. We planned on sending her home from the day surgery unit, but the patient had increased nausea and pain. We sent her up to the medical surgical unit for IV fluids hydration, antiemetics and pain management. The following morning, she felt back to baseline. She was able to tolerate oral medications and nutrition. She is voiding without problems. She will be discharged to home. Home Meds and New Rx's Prescriptions: Continued (DME) blood-glucose meter [OneTouch Ultra2 Meter] Kit See Rx Instructions .ROUTE .MEDSUPPLY Qty: 1 2RF Rx Instructions: Check blood sugar twice a day (DME) OneTouch Ultra Blue Test Strip Strip See Rx Instructions .ROUTE .MEDSUPPLY Qty: 200 4RF Rx Instructions: Check blood sugar twice a day (DME) lancets [OneTouch Delica Plus Lancet] 33 gauge misc See Rx Instructions .ROUTE .MEDSUPPLY Qty: 200 4RF Rx Instructions: Check blood sugar twice a day tramadol 50 mg tablet 50 mg PO Q6H PRN (Reason: pain) Qty: 20 0RF Rx Instructions: may take along with NSAIDS/Tylenol oxybutynin chloride 5 mg tablet 5 mg PO TID PRN (Reason: bladder spasms) Qty: 20 0RF calcium carbonate-vitamin D3 1 EACH tablet 1 ea PO DAILY albuterol sulfate 90 mcg/actuation HFA aerosol inhaler 2 inh inhalation Q6H PRN (Reason: shortness of breath or wheezing) Qty: 18 4RF ondansetron 4 mg tablet,disintegrating 4 mg PO TID PRN Patient Comments: DISSOLVE ONE TABLET ON THE TONGUE EVERY 8 HOURS NEEDED FOR NAUSEA AND VOMITING Incruse Ellipta 62.5 mcg/actuation blister with device 1 inh INHALATION DAILY Patient Comments: Inhale 1 puff as directed once a day ibuprofen 400 mg tablet 400 mg PO Q6H PRN (Reason: pain) Qty: 20 0RF Discontinued tamsulosin [Flomax] 0.4 mg capsule 0.4 mg PO QHS Qty: 14 0RF Discharge Instructions Additional Instructions: no need to strain urine my office will contact pt to arrange return to OR for cystoscopy, stent removal and repeat ureteroscopy to remove any remaining stone fragments you may have blood in the urine, urinary frequency and pain with urination as long as stent is in place Call our office if your pain or nausea returns. We will then arrange for nephrostomy tube to be placed as an alternative to your ureteral stent. Stand Alone Forms: Anesthesia Discharge Inst., [facility] L[facility] Patricio ([facility]) Activity:: Activity as Tolerated Shower/Bathe:: 24 hours Diet:: As Tolerated DS: Summary Time Spent with Patient providing and/or coordinating discharge services: Less than 30 minutes Status at Discharge Functional status at discharge: independent ambulation Overall status at discharge: patient is back to baseline Mental Status: mental status grossly normal Speech and Movement: speech and movement normal Mood: congruent mood Affect: normal affect Exam Narrative Exam Narrative: On the morning of disc charge, she looks much more comfortable than she did yesterday Her vital signs are documented elsewhere Her abdomen is soft with no guarding or rebound tenderness Her cardiac exam shows a regular rate and rhythm She is awake and alert Psych Mental Status: mental status grossly normal Speech and Movement: speech and movement normal Mood: congruent mood Affect: normal affect DS: Data Vitals/I&O Vitals and I&O: Vital Signs Temperature 36 C L 04/16/23 02:15 Temperature Source Tympanic 04/16/23 02:15 Pulse 74 04/16/23 02:15 Pulse Rhythm Regular 04/15/23 17:30 Respiratory Rate 16 04/16/23 02:15 Respiratory Effort Normal 04/15/23 22:15 Respiratory Depth Normal 04/15/23 22:15 Respiratory Pattern Normal 04/15/23 22:15 Blood Pressure 139/74 04/16/23 02:15 Pulse Oximetry 93 04/16/23 02:15 Oxygen Delivery Method Nasal Cannula 04/16/23 02:15 Oxygen Flow Rate 2 04/16/23 02:15 Pain Level 2 04/16/23 02:15 Comment weaned pt to 2l @ 2230. SPO2 maintaining low 90s. 04/15/23 23:42 Intake & Output 04/15/23 04/15/23 04/16/23 11:59 23:59 11:59 Intake Total 149.333 / 1070.000 920.667 / 5536.754 5811 / 1000 Output Total 200 / 200 Balance 149.333 / 870.000 720.667 / 384.736 5466 / 1000 Weight 96.7 kg Intake: IV 149.333 / 950.000 800.667 / 216.881 2568 / 1000 Oral 120 / 120 Output: Urine 200 / 200 Other: Urine Color [place] Yellow Urine Appearance Clear Urine Odor None Normal Stool Size Small Stool Characteristics Soft Emesis Description None Voiding Methods Bedpan Bedside Commode Data Completed and Pending Labs on day of discharge: Labs from last 24 hours 04/16/23 05:35 Sodium Pending Potassium Pending Chloride Pending Carbon Dioxide Pending Anion Gap Pending BUN Pending Creatinine Pending Est GFR (CKD-EPI 2020) Pending Glucose Pending Calcium Pending PFSH All Active Problems Kidney stones (Chronic) Acute kidney insufficiency (Acute) Hydronephrosis with urinary obstruction due to ureteral calculus (Acute) NAFLD (nonalcoholic fatty liver disease) (Chronic) Elevated BP without diagnosis of hypertension (Acute) COPD (chronic obstructive pulmonary disease) (Chronic) Type 2 diabetes mellitus (Acute) Hyperlipidemia (Chronic) Osteopenia (Chronic) Dexa 06/09 Prediabetes (Chronic) Obesity (Chronic) Tubulovillous adenoma of colon (Chronic) Serrated adenoma of colon (Acute ~07/2020) Medical History PONV (postoperative nausea and vomiting) With every anesthetic, even TIVA. Responds well to IV Compazine. BCC (basal cell carcinoma), arm Left upper arm Surgical History History of wisdom tooth extraction S/P colonoscopy (04/02/16) History of bilateral tubal ligation History of section (01/05/83) 01/05/83 and 06/20/84 Family History Mother Hypertension Dementia Atrial fibrillation Father , at 59 of lung cancer Lung cancer Sister Rectal cancer metastasized to liver Hypertension Brother Alcohol abuse Daughter No problems noted. Daughter No problems noted. Maternal Grandfather No problems noted. Maternal Grandmother No problems noted. Paternal Grandfather , in his 70s Myocardial infarction Heart disease Alcohol abuse Paternal Grandmother Emphysema of lung Social History Smoking/Tobacco Use Status: Former Tobacco Use Quit Date: 06/24/13 Pack-years: 90 Tobacco: How many years used: 45 Second Hand Exposure: No Smoking risk assessment performed?: Yes Alcohol Intake: current Alcohol Intake frequency: holidays/special occasions only Alcohol type: hard liquor Drug use: Never Substance use type: does not use Caregiver/Support person: No Household members: spouse Housing: house Communication Needs: None Do you need help understanding health information?: Never Pets and animals: Yes Pets and animals: cat(s) and dog(s) Sexually active: Yes Do you think of yourself as: straight/heterosexual Current gender identity: female What is your relationship status?: How often do you talk on the phone with friends or family?: three or more times per week How often do you get together with friends or relatives?: decline to answer How often do you attend latter-day or mormon services?: decline to answer Do you belong to any clubs or organized social groups?: decline to answer Panel score (0-1 are the most socially isolated patients): 2 Duration: < 15 minutes/day Frequency: 1-2 times per week Guerita/Oriental Orthodox: None Special guerita needs: No Seatbelt use: always Helmet use: Yes Helmet use: always Drive intox or ride w/intox petrol 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
--- NOTE | 2023-04-16 07:11 | W.PM.PROGNOT ---
Date of Service Date of service: 04/16/23 Time of Service: 07:11 Assessment and Plan Assessment and plan (1) Kidney stones: Status: Chronic Assessment and plan: I suspect her symptoms are related to her ureteral stent. If her symptoms recur or worsen, she may do better with a nephrostomy tube instead of her stent. Her symptoms are well controlled and we will go ahead and discharge her today. We will plan to bring her back to the operating room in about 2 weeks for stent removal and follow-up ureteroscopy. Subjective Subjective Interval history since last seen: She feels much improved from yesterday afternoon. As she was preparing to go home from the day surgery unit, she developed increasing nausea, dry heaves and pain. We then transferred her up to the medical surgical unit for hydration, antiemetics and pain control. She tells me she feels like a new woman this morning. She has no nausea or pain. She has been able to tolerate liquids through the night and will attempt breakfast this morning. Exam Narrative Exam Narrative: She looks comfortable Her vital signs are documented elsewhere She is awake and alert Objective Last Vital Signs Temp 36 C L 04/16/23 02:15 Pulse 74 04/16/23 02:15 Resp 16 04/16/23 02:15 BP 139/74 04/16/23 02:15 Pulse Ox 93 04/16/23 02:15 Time Spent with Patient Time Spent with Patient: <25 minutes Time was spent: other
[2023-04-16 07:26] LABS: Anion Gap 10.8 mmol/L (3-11); BUN 19 mg/dL (7-18); CO2 26.2 mmol/L (21.0-32.0); CREATININE 1.3 mg/dL (0.55-1.02); Calcium 8.9 mg/dL (8.5-10.1); Chloride 104 mmol/L (98-107); Estimated GFR 44.51 (mL/min/1.73m2); Glucose 116 mg/dL (74-106); Potassium 4.3 mmol/L (3.5-5.1); Sodium 141 mmol/L (136-145)
[2023-04-16 07:42] VITALS: BP 133/80; PULSE 63; RESP 18; TEMP 36; O2SAT 94
[2023-04-16] MEDS: Umeclidinium 7 CAP INHALER IH (07:59)
[2023-04-16 08:01] VITALS: O2SAT 94
--- NOTE | 2023-04-16 09:00 | PDOC.CMDIS ---
Date of service: 04/16/23 Time of Service: 09:00 LACE Index Scoring Tool Questions: Length of Stay (in days): 1 Was the patient admitted via the E.D.?: No Comorbidities: Chronic Pulmonary Disease E.D. Visits: 1 Answers: Total Score: 4 Risk of Readmission: Low Risk Care Management Discharge Plan Reason for Hospitalization: Kidney Stones Discharge Plan: Macy will be discharged home via private vehicle with family. She will follow up with Dr. Morejon and her PCP and discharge plan of care as instructed. No new services are ordered at the time of discharge. Patient/Family Education Needs: Review discharge instructions, limitations, medications and plan to follow up with community providers. Discuss ask me three.
[2023-04-22 13:35] LABS: Source: Left Kidney
== END 2023-04-16 10:21 | disposition home or self-care (01) ==
LOC: MS 04-16 07:38
PROVIDERS: Admitting Provider Urology; PCP Physician Assistant; Visit Provider Urology
DX: N13.2 Hydronephrosis with renal and ureteral calculous obstruction (principal); K76.0 Fatty (change of) liver, not elsewhere classified; E66.9 Obesity, unspecified; E78.5 Hyperlipidemia, unspecified; J44.9 Chronic obstructive pulmonary disease, unspecified; E11.9 Type 2 diabetes mellitus without complications; M85.80 Other specified disorders of bone density and structure, unspecified site
CPT/HCPCS: 52356; 36415; 80048; 94640; 96361; 96365; 96375; 96376; 99238; 74420; 82365; 94664; 94760; G0378; J0744; J0780; J1100; J1170; J1790; J1885; J2001; J2405; Q9967

== ENCOUNTER 2023-04-29 06:13 | Day surgery (SDC) | payer MEDICARE, SELFPAY ==
[2023-04-29] VITALS (12 sets, daily range): BP systolic 94–204; BP diastolic 55–82; PULSE 73–91; RESP 15–20; TEMP 36–36.7; O2SAT 92–99; BMI 32.2
--- NOTE | 2023-04-29 06:37 | HPE_ITS ---
Date of service: 04/29/23 Time of Service: 06:37 Assessment and Plan Assessment and plan (1) Kidney stones: Status: Chronic Assessment and plan: We will plan to remove the stent and possibly repeat ureteroscopy and holmium laser lithotripsy. As we have already tested her stone fragments at the time of her first surgery, I would not expect to send any additional specimen today. History of Present Illness History of Present Illness Chief Complaint: Left kidney stones Narrative: This is a 68-year-old woman who has a history of left-sided kidney stones. One of the stones migrated to the UPJ and caused renal colic and hydronephrosis. She was treated with ureteroscopy and holmium laser lithotripsy of the UPJ stone. Her stone fragments were 100% calcium oxalate monohydrate. We placed a ureteral stent. She presents now for stent removal and possible ureteroscopy and treatment of the residual lower pole stone Following her initial procedure, she had quite a bit of nausea and pain. She stayed in the hospital overnight for IV analgesics and antiemetics. We will be prepared for an admission after this procedure as well should her symptoms recur. She has had intermittent pain, nausea and bleeding since her discharge, but none of these symptoms have been severe enough that she required a return trip to the hospital. Review of Systems Narrative: No fevers or chills No vision change or dysphasia No diabetes or thyroid Shortness of breath with COPD. No hemoptysis No chest pain or palpitations No hepatitis, ulcers, jaundice, diarrhea or constipation No seizures, strokes or peripheral neuropathy No bleeding disorders or anemia No gout PFSH All Active Problems (Updated 04/26/23 @ 09:03 by Lilia Stewart RN) Kidney stones (Chronic) Acute kidney insufficiency (Acute) NAFLD (nonalcoholic fatty liver disease) (Chronic) Elevated BP without diagnosis of hypertension (Acute) COPD (chronic obstructive pulmonary disease) (Chronic) Type 2 diabetes mellitus (Acute) Per Patient pre diabetes Serrated adenoma of colon (Acute ~07/2020) Prediabetes (Chronic) Tubulovillous adenoma of colon (Chronic) Osteopenia (Chronic) Dexa 06/09 Hyperlipidemia (Chronic) Obesity (Chronic) Medical History (Updated 04/26/23 @ 09:03 by Lilia Stewart RN) Hydronephrosis with urinary obstruction due to ureteral calculus PONV (postoperative nausea and vomiting) With every anesthetic, even TIVA. Responds well to IV Compazine. BCC (basal cell carcinoma), arm Left upper arm Surgical History (Updated 04/26/23 @ 09:24 by Lilia Stewart RN) History of surgery kidney stone extraction w/ stent History of wisdom tooth extraction S/P colonoscopy (04/02/16) History of bilateral tubal ligation History of section (01/05/83) 01/05/83 and 06/20/84 Family History Mother Hypertension Dementia Atrial fibrillation Father , at 59 of lung cancer Lung cancer Sister Rectal cancer metastasized to liver Hypertension Brother Alcohol abuse Daughter No problems noted. Daughter No problems noted. Maternal Grandfather No problems noted. Maternal Grandmother No problems noted. Paternal Grandfather , in his 70s Myocardial infarction Heart disease Alcohol abuse Paternal Grandmother Emphysema of lung Social History Smoking/Tobacco Use Status: Former Tobacco Use Quit Date: 06/24/13 Pack-years: 90 Tobacco: How many years used: 45 Second Hand Exposure: No Smoking risk assessment performed?: Yes Alcohol Intake: current Alcohol Intake frequency: holidays/special occasions only Alcohol type: hard liquor Drug use: Never Substance use type: does not use Caregiver/Support person: No Household members: spouse Housing: house Communication Needs: None Do you need help understanding health information?: Never Pets and animals: Yes Pets and animals: cat(s) and dog(s) Sexually active: Yes Do you think of yourself as: straight/heterosexual Current gender identity: female What is your relationship status?: How often do you talk on the phone with friends or family?: three or more times per week How often do you get together with friends or relatives?: decline to answer How often do you attend adventist or mandaeism services?: decline to answer Do you belong to any clubs or organized social groups?: decline to answer Panel score (0-1 are the most socially isolated patients): 2 Duration: < 15 minutes/day Frequency: 1-2 times per week Guerita/Yarsani: None Special guerita needs: No Seatbelt use: always Helmet use: Yes Helmet use: always Drive intox or ride w/intox feeder driver: No Do you feel safe at home: Yes Do you feel safe in your relationship?: Yes Female Reproductive History Menstrual Menopause type: natural History History 2 Para 2 Hx # Term Pregnancies Multiple births Hx # Pregnancies Ectopic pregnancies AB induced Hx Number of Living Children 2 AB spontaneous Meds Allergies and Home Medications Allergies Allergy/AdvReac Type Severity Reaction Status Date / Time Penicillins Allergy Severe Hives Verified 04/29/23 06:22 metronidazole [From Flagyl] Allergy Unknown Verified 04/29/23 06:22 adhesive AdvReac REDNESS Verified 04/29/23 06:22 Home Medications Medication Instructions Recorded Confirmed Type calcium carbonate 600 mg-vitamin 1 ea PO DAILY 08/16/17 04/29/23 History D3 20 mcg (800 unit) tablet blood sugar diagnostic (OneTouch #200 ea 10/20/20 07/06/22 Rx Ultra Blue Test Strip) blood-glucose meter ([employer] SensorsTouch #1 ea 10/20/20 07/06/22 Rx Ultra2 Meter kit) lancets 33 gauge (OneTouch Delica #200 ea 10/20/20 07/06/22 Rx Plus Lancet) albuterol sulfate 90 mcg/actuation 2 inh inhalation Q6H PRN shortness 11/24/21 04/29/23 Rx aerosol inhaler of breath or wheezing #18 grams ibuprofen 400 mg tablet 400 mg PO Q6H PRN pain #20 tabs 04/01/23 04/29/23 Rx umeclidinium 62.5 mcg/actuation 1 inh inhalation DAILY 04/01/23 04/29/23 History blister powder for inhalation (Incruse Ellipta) ondansetron 4 mg disintegrating 4 mg PO TID PRN 04/15/23 04/29/23 History tablet oxybutynin chloride 5 mg tablet 5 mg PO TID PRN bladder spasms #20 04/15/23 04/29/23 Rx tabs tramadol 50 mg tablet 50 mg PO Q6H PRN pain #20 tabs 04/15/23 04/29/23 Rx Exam Const General: cooperative Neck Neck: supple Resp Effort & Inspection: normal respiratory effort Auscultation: clear to auscultation bilaterally Cardio Rate: regular rate Rhythm: regular rhythm GI Inspection: obesity Palpation: soft Neuro General: patient alert, patient awake and patient oriented x3 Results Last Vital Signs Temp 36.6 C 04/29/23 06:26 Pulse 79 04/29/23 06:26 Resp 16 04/29/23 06:26 BP 135/65 04/29/23 06:26 Pulse Ox 94 04/29/23 06:26 Time Spent Time spent with Patient: <40 minutes Time was spent: other
[2023-04-29] MEDS: Lactated Ringers 1,000 ML 80 ML IV (06:57)
--- NOTE | 2023-04-29 07:00 | DI.RAD_ITS ---
Exam(s) XR RETROGRADE IN OR EXAM: XR RETROGRADE IN OR CLINICAL HISTORY: Left kidney stones TECHNIQUE: 2D and realtime digital imaging was performed. CONTRAST MATERIAL: Refer to procedure report. COMPARISON: CT CT ABDOMEN PELVIS W from 04/01/2023 FINDINGS: Fluoroscopy was provided for Dr. Morejon during the performance of a evaluation of the left renal maximus ecting system. A left nephroureteral stent is identified. Please refer to the procedure report for complete details. Ka,r=1.29 mGy IMPRESSION: RADIATION DOSE DELIVERED:
--- NOTE | 2023-04-29 07:13 | ANES.PREOP_ITS ---
General Info Date of Service Date Performed: 04/29/23 Height: 5 ft 7 in Weight: 93.3 kg Body Mass Index (BMI): 32.2 Surgical Procedure: Operation Date: 04/29/23 07:40 Proposed Procedure Side Surgeon p Cystoscopy/Laser/Ureteroscopy/Stent Removal/Removal of Residual Stone Fragments Left Silas Morejon MD Actual Procedure Side Surgeon p Cystoscopy/Laser/Ureteroscopy/Stent Removal/Removal of Residual Stone Fragments Left Silas Morejon MD Pre-Op Diagnosis Post-Op Diagnosis Left kidney stones Meds Allergies and Home Medications Allergies Allergy/AdvReac Type Severity Reaction Status Date / Time Penicillins Allergy Severe Hives Verified 04/29/23 06:22 metronidazole [From Flagyl] Allergy Unknown Verified 04/29/23 06:22 adhesive AdvReac REDNESS Verified 04/29/23 06:22 Home Medication Medication Instructions Recorded calcium carbonate 600 mg-vitamin 1 ea PO DAILY 08/16/17 D3 20 mcg (800 unit) tablet blood sugar diagnostic (OneTouch #200 ea 10/20/20 Ultra Blue Test Strip) blood-glucose meter (OneTouch #1 ea 10/20/20 Ultra2 Meter kit) lancets 33 gauge (OneTouch Delica #200 ea 10/20/20 Plus Lancet) albuterol sulfate 90 mcg/actuation 2 inh inhalation Q6H PRN shortness 11/24/21 aerosol inhaler of breath or wheezing #18 grams ibuprofen 400 mg tablet 400 mg PO Q6H PRN pain #20 tabs 04/01/23 umeclidinium 62.5 mcg/actuation 1 inh inhalation DAILY 04/01/23 blister powder for inhalation (Incruse Ellipta) ondansetron 4 mg disintegrating 4 mg PO TID PRN 04/15/23 tablet oxybutynin chloride 5 mg tablet 5 mg PO TID PRN bladder spasms #20 04/15/23 tabs tramadol 50 mg tablet 50 mg PO Q6H PRN pain #20 tabs 04/15/23 Current Visit Medications: Current Medications Generic Name Dose Route Start Last Admin Trade Name Freq PRN Reason Stop Dose Admin Ringer's Solution 1,000 mls @ 80 mls/hr 04/29/23 06:00 04/29/23 06:57 IV 05/26/23 23:59 80 mls/hr INFUSION CLEMENTE Administration Ciprofloxacin 400 mg in 200 mls @ 200 mls/hr 04/29/23 06:00 Cipro I.V. IVPB 04/29/23 16:00 PREOP CLEMENTE IV Miscellaneous Supplies 1 each 04/29/23 06:00 Iv Access IV 05/26/23 23:59 DIRECTED CLEMENTE Sodium Chloride 0 ml 04/29/23 06:00 Normal Saline Flush 10 Ml Syr IV 05/26/23 23:59 PRN PRN Sodium Chloride 0 ml 04/29/23 06:00 Normal Saline 10 Ml Vial IJ 05/26/23 23:59 DIRECTED PRN Sterile Water 0 ml 04/29/23 06:00 Water,Injection,Sterile 10 Ml Vial IJ 05/26/23 23:59 DIRECTED PRN PFSH Active Problems Active Problems: Problem Status Onset Code Kidney stones N20.0 Acute kidney insufficiency N28.9 Nuclear sclerotic cataract of left eye H25.12 Posterior subcapsular age-related cataract, right eye H25.041 Nuclear sclerotic cataract of right eye H25.11 NAFLD (nonalcoholic fatty liver disease) K76.0 Elevated BP without diagnosis of hypertension R03.0 COPD (chronic obstructive pulmonary disease) J44.9 Type 2 diabetes mellitus E11.9 Serrated adenoma of colon ~07/2020 D12.6 Prediabetes R73.03 Tubulovillous adenoma of colon D12.6 Osteopenia M85.80 Hyperlipidemia E78.5 Obesity Medical History Medical History (Updated 04/26/23 @ 09:03 by Lilia Stewart RN) Hydronephrosis with urinary obstruction due to ureteral calculus PONV (postoperative nausea and vomiting) With every anesthetic, even TIVA. Responds well to IV Compazine. BCC (basal cell carcinoma), arm Left upper arm Medical History Comments:: Reports having had MAYA after surgery; even with colonoscopy. Per patient was admitted after last cysto w/ kidney stone extraction d/t severe PONV. Surgical History Surgical History (Updated 04/26/23 @ 09:24 by Lilia Stewart RN) History of surgery kidney stone extraction w/ stent History of wisdom tooth extraction S/P colonoscopy (04/02/16) History of bilateral tubal ligation History of section (01/05/83) 01/05/83 and 06/20/84 Tobacco Smoking/Tobacco Use Status: Former Tobacco Use Passive smoking exposure: Yes Second hand exposure: No Alcohol Alcohol Intake: current Alcohol intake frequency: holidays/special occasions only Alcohol type: hard liquor Substance Use Substance use: Never Substance use type: does not use Prental History History 2 Para 2 Hx # Term Pregnancies Multiple births Hx # Pregnancies Ectopic pregnancies AB induced Hx Number of Living Children 2 AB spontaneous Vital Signs and Lab Results Vital Signs Most Recent Vital Signs in EMR: Most Recent Vital Signs Temp Pulse Resp BP Pulse Ox 36.6 C 79 16 135/65 94 04/29/23 06:26 04/29/23 06:26 04/29/23 06:26 04/29/23 06:26 04/29/23 06:26 Lab Results Blood Type / Crossmatch: No Data to Display Complete Blood Count: White Blood Count 15.68 10^3/uL (4.4-10.8) H 04/01/23 17:48 Red Blood Count 5.26 10^6/uL (3.93-5.22) H 04/01/23 17:48 Hemoglobin 17.3 g/dL (11.2-15.7) H 04/01/23 17:48 Hematocrit 52.2 % (36.0-46.0) H 04/01/23 17:48 Platelet Count 235 10^3/uL (130-400) 04/01/23 17:48 Complete Metabolic Panel: Sodium 141 mmol/L (136-145) 04/16/23 06:43 Potassium 4.3 mmol/L (3.5-5.1) 04/16/23 06:43 Chloride 104 mmol/L (98-107) 04/16/23 06:43 Carbon Dioxide 26.2 mmol/L (21.0-32.0) 04/16/23 06:43 BUN 19 mg/dL (7-18) H 04/16/23 06:43 Creatinine 1.3 mg/dL (0.55-1.02) H 04/16/23 06:43 Est GFR (CKD-EPI 2020) 44.51 (mL/min/1.73m2) 04/16/23 06:43 Magnesium 2.0 mg/dL (1.8-2.4) 04/01/23 17:48 Calcium 8.9 mg/dL (8.5-10.1) 04/16/23 06:43 Albumin 4.0 g/dL (3.4-5.0) 04/01/23 17:48 Glucose 116 mg/dL (74-106) H 04/16/23 06:43 Liver Function Panel: Alanine Aminotransferase (ALT/SGPT) 16 U/L (14-59) 04/01/23 17: 48 Aspartate Amino Transf (AST/SGOT) 14 U/L (15-37) L 04/01/23 17: 48 Coagulation Panel: No Data to Display Cardiac Panel: No Data to Display Arterial Blood Gas: No Data to Display Venous Blood Gas: No Data to Display Pancreas Panel: Lipase 23 U/L (16-77) 04/01/23 17:48 Thyroid Panel: No Data to Display Infectious Disease: No Data to Display Blood Cultures: No Data to Display Toxicology Panel: No Data to Display Imaging and Studies Imaging and Studies Study information below may be from another EMR and interpreted by another provider. Please see original notes in EMR for more complete details. EKG Summary: 10/2020: Sinus rhythm...normal P axis, V-rate 60- 99 Pulmonary Function Summary: 11/2020: Mild obstructive airways disease, no bronchodilator response. The diffusion capacity maneuver did not meet acceptability criteria by ATS. Anesthesia Assessment and Plan Anesthesia History Personal History: PONV Family History: No Family History of Anesthesia Complications Exercise Tolerance Exercise Tolerance: Metabolic Equivalents>4 Pertinent Negatives Pertinent Negatives: No Symptoms of GERD Cardiac & Pulmonary Exam Cardiac Exam: Normal S1/S2 Heart Sounds Pulmonary Exam: Clear Bilateral Breath Sounds Implantable Cardiac Device Does patient have a Pacemaker or an ICD?: No Airway Exam Known Difficult Airway: No Mallampati Class: 2 Mouth Opening: Normal (> 3cm) Thyromental Distance: Greater than 3 cm Neck Range of Motion: Full ROM Neck Circumference: Thick Teeth Condition: Normal Dentition ASA Classification ASA Score: ASA 2 Emergency Case?: No NPO Status NPO Status: NPO Clears >2 hours, Solids >8 hours Anesthesia Plan Resuscitation Status: Full Code Anesthesia Technique: General Anesthesia Airway Planned: Natural Airway Monitors Used: Standard Monitors
[2023-04-29] MEDS: CIPROFLOXACIN 400 MG/200 ML BAG 200 MG IVPB (07:35)
[2023-04-29] MEDS: Lidocaine 2% Jelly 6 ML SYR (08:02)
--- NOTE | 2023-04-29 08:15 | W.PM.DSUDISC ---
Date of service: 04/29/23 Time of Service: 08:15 Discharge Plan Disposition Patient Disposition: Home Condition: Stable Discharge Details Reason For Visit: kidney stone Attending Provider: Silas Morejon Primary Care Provider: Kalpesh Saucedo Home Meds and New Rx's Prescriptions: No Action (DME) blood-glucose meter [OneTouch Ultra2 Meter] Kit See Rx Instructions .ROUTE .MEDSUPPLY Qty: 1 2RF Rx Instructions: Check blood sugar twice a day (DME) OneTouch Ultra Blue Test Strip Strip See Rx Instructions .ROUTE .MEDSUPPLY Qty: 200 4RF Rx Instructions: Check blood sugar twice a day (DME) lancets [OneTouch Delica Plus Lancet] 33 gauge misc See Rx Instructions .ROUTE .MEDSUPPLY Qty: 200 4RF Rx Instructions: Check blood sugar twice a day tramadol 50 mg tablet 50 mg PO Q6H PRN (Reason: pain) Qty: 20 0RF Rx Instructions: may take along with NSAIDS/Tylenol oxybutynin chloride 5 mg tablet 5 mg PO TID PRN (Reason: bladder spasms) Qty: 20 0RF calcium carbonate-vitamin D3 1 EACH tablet 1 ea PO DAILY albuterol sulfate 90 mcg/actuation HFA aerosol inhaler 2 inh inhalation Q6H PRN (Reason: shortness of breath or wheezing) Qty: 18 4RF ondansetron 4 mg tablet,disintegrating 4 mg PO TID PRN Patient Comments: DISSOLVE ONE TABLET ON THE TONGUE EVERY 8 HOURS NEEDED FOR NAUSEA AND VOMITING Incruse Ellipta 62.5 mcg/actuation blister with device 1 inh INHALATION DAILY Patient Comments: Inhale 1 puff as directed once a day ibuprofen 400 mg tablet 400 mg PO Q6H PRN (Reason: pain) Qty: 20 0RF Discharge Instructions Additional Instructions: no need to strain urine followup @ 6 weeks for renal US to be done in office Activity:: Activity as Tolerated Shower/Bathe:: 24 hours Diet:: As Tolerated Discharge Orders Discharge Orders: Discharge Order (Routine); Ordered 04/29/23 Ordered By: Silas Morejon DS: Diagnosis Discharge Diagnosis (1) Kidney stones: Status: Chronic
--- NOTE | 2023-04-29 08:18 | W.PM.OP ---
Date of service: 04/29/23 Time of Service: 08:18 Operative Note Operative Note PRE-OP DIAGNOSIS: left kidney stone POST-OP DIAGNOSIS: same PROCEDURE: cystoscopy, remove left ureteral stent, left ureteroscopy SURGEON: Silas Morejon ANESTHESIA TYPE: Local By Surgeon and Spinal Refer to Anesthesia Record ESTIMATED BLOOD LOSS: 0 PATHOLOGY: none sent COMPLICATIONS: None Patient was transported to: PACU Patient's condition: stable Implants: none Indications: This is a 68-year-old woman who has a history of left-sided kidney stones. She had undergone ureteroscopy and holmium laser lithotripsy of her stones. I was not certain that I extracted all of her stone fragments. I placed a ureteral stent. She presents now for stent removal and repeat ureteroscopy with possible stone manipulation Findings: No large stone fragments visualized Procedure Description: The patient was brought to the operating room on 04/29/2023. She was given preoperative antibiotics. After successful induction of spinal anesthesia, she was placed in the dorsal lithotomy position. Her genitalia was prepped. 2% Xylocaine jelly was instilled into the urethra to act as a local anesthetic. A 22 [place] rigid cystoscope was passed through the urethra into the bladder. The urethra and bladder were inspected with a 30 degree lens. The stent could be seen protruding from the left ureteral orifice. The stent was grasped and alligator forceps and brought out to the level of the urethral meatus. A guidewire was then passed through the lumen of the stent and the stent was removed leaving the wire in place. Flexible ureteroscopy was then performed over the wire and the ureter and collecting system were inspected. No ureteral strictures were encountered. Upon entering the renal pelvis, there were inflammatory changes consistent with stent irritation, but I did not visualize any large stone fragments. The scope was removed and the wire was removed. The patient tolerated this procedure well with no complications.
[2023-04-29] MEDS: Phenazopyridine 200 MG TAB PO (09:17)
--- NOTE | 2023-04-29 11:12 | W.ANESPOSTOP ---
Postoperative Evaluation Date, Time and Location Date Performed: 04/29/23 Time Performed: 11:12 Patient Location: Day Surgery Unit Vital Signs Most Recent Imported Vital Signs: Most Recent Vital Signs Temp Pulse Resp BP Pulse Ox 36.4 C L 84 16 137/63 98 04/29/23 09:15 04/29/23 10:13 04/29/23 10:13 04/29/23 10:13 04/29/23 10:13 Pain Score Most Recent Pain Score: Most Recent Pain Score Pain Level 0 04/29/23 09:15 Assessment Mental Status: Awake (Alert & Oriented to Patient Baseline) Airway and Respiratory Function: Patent airway with normal (patient baseline) respiratory exam Cardiovascular Function: Hemodynamically Stable Hydration Status: Adequately Hydrated Nausea & Vomiting: No Nausea or Vomiting Pain: Pt. Denies Any Pain Peripheral Nerve Block: Patient did not receive a nerve block
[2023-04-29] MEDS: Prochlorperazine 10 MG/2 ML VIAL 5 MG IM (11:21)
[2023-04-29] MEDS: Ketorolac 15 MG/ML VIAL IVP (12:10)
[2023-04-29] MEDS: Normal Saline Flush 10 ML SYR IV (12:14)
[2023-04-29] MEDS: fentaNYL 100 MCG/2 ML VIAL IVP (12:18)
[2023-04-29] MEDS: ACETAMINOPHEN 1,000 MG/100 ML BTL 400 MG IVPB (12:21)
== END 2023-04-29 06:14 | disposition home or self-care (01) ==
PROVIDERS: PCP Physician Assistant; Visit Provider Urology
PROC: (CPT 52310; principal; 2023-04-29 07:30)
DX: N20.0 Calculus of kidney (principal)
CPT/HCPCS: 52310; 96365; 74420; J0131; J0744; J0780; J1170; J1885; J2250; J2405; J3010; Q9967

== ENCOUNTER 2023-05-25 17:24 | Emergency (ER) | payer MEDICARE, SELFPAY ==
[2023-05-25] VITALS (35 sets, daily range): BP systolic 125–181; BP diastolic 53–102; PULSE 79–98; RESP 20; TEMP 36.7–37.8; O2SAT 91–99
--- NOTE | 2023-05-25 17:45 | DI.CT_ITS ---
Exam(s) CT CHEST/ABD/PEL W EXAM: CT CHEST/ABD/PEL W CLINICAL HISTORY: cough, fever, left flank pain, hx of divertic. TECHNIQUE: Imaging Protocol: Axial computed tomography images with coronal and sagittal reformatted images were created and reviewed CONTRAST MATERIAL: Intravenous: Omnipaque 350 Contrast volume:100 ml Oral: None COMPARISON: CT CT ABDOMEN PELVIS W from 04/01/2023 FINDINGS: CHEST: LUNGS: Mild infiltrate in the lingular segment of the left lung. Also at junction of right upper and right middle lobes. No pleural effusions. No findings in the trachea and mainstem bronchi.. MEDIASTINUM: There is no hilar nor mediastinal adenopathy. No axillary adenopathy. Partially visuali zed thyroid unremarkable CARDIAC: Heart size is normal. There is no pericardial effusion.Caliber of the thoracic aorta is wit hin normal limits. OSSEOUS: No significant osseous lesions.Healed left-sided rib fractures noted.. ABDOMEN: There is no ascites. LIVER: There are no focal hepatic lesions nor dilatation of intrahepatic ducts. GALLBLADDER/BILIARY: No obvious gallbladder pathology. CBD is not dilated. PANCREAS: No evidence of pancreatic mass nor dilatation of the pancreatic duct. SPLEEN: Spleen is not enlarged. There are no intrasplenic lesions. Splenic and portal veins are ludwig nt. ADRENALS: There are no significant adrenal masses. KIDNEYS: Right kidney unremarkable.. In left kidney the calculus which was previously present at the UPJ is now in the renal pelvis along the posterior wall. There are multiple calculi in the lower po le calices of the left kidney. There is a smaller 2 millimeter calculus at the ureteropelvic junctio n. There are abnormal fluid collections the-probable abscess is anterior to the left psoas muscle no w evident, extending for a cephalocaudal length of 5.5 cm by 3.8 cm wide by 5.5 cm AP. The ipsilater al left the distal left ureter is not dilated. The left ureter is difficult to locate is a separate structure. There are no calculi at the UVJ nor in the urinary bladder lumen. The bladder is collaps ed. ABDOMINAL AORTA: Calcified upper normal diameter. LYMPH NODES: There is no retroperitoneal nor paraaortic adenopathy. ABDOMINAL WALL: No evidence of significant anterior abdominal wall nor inguinal hernia. GI: There is diverticulosis of the left side of the colon as well as the sigmoid. PELVIS: LYMPH NODES: There is no intrapelvic nor inguinal adenopathy. GI: No evidence of appendicitis.There is sigmoid diverticulosis. URINARY BLADDER: Bladder is collapsed. REPRODUCTIVE: Uterus and adnexal regions unremarkable. No free fluid. OSSEOUS: No significant osseous lesions. IMPRESSION: 1. Compared to the prior CT scan of 04/01/2023 there has been significant deterioration in that there are now multiple contiguous abscesses along the course of the left ureter at and below the UPJ level . Measurements as above. There is a 2 millimeter calculus at the left UPJ with dilatation left maximus ecting system above this level. The previously present larger calculus at the UPJ location on 2022 is now on the dependent wall of the dilated ipsilateral left renal pelvis and there are still re maining calculi in the left kidney lower pole calyx region. Urology consultation recommended. 2. Sigmoid diverticulosis. No obvious acute diverticulitis no acute findings in the opposite-right k idney. 3. Other findings as above. 4. RADIATION DOSE DELIVERED: Total DLP DATA REPOSITORY: All CT scans at this facility are submitted to the National Radiology Data Registry (NRDR) Dose Index Registry (DIR) with the [employer] (ACR). RADIATION OPTIMIZATION: All CT scans at this facility use at least one of these dose optimization te chniques: automated exposure control; mA and/or kV adjustment per patient size (includes targeted exa ms where dose is matched to clinical indication); or iterative reconstruction.
--- NOTE | 2023-05-25 17:51 | W.ED.GENAD ---
Discharge Plan Disposition Patient Disposition: Transfer-Acute Inpatient Care Specific Acute Inpt Facility: [facility] Condition: Improving Discharge Details Clinical Impression: Acute pyelonephritis, Left flank pain, Psoas abscess, left, Abscess of left kidney Primary Care Provider: Kalpesh Saucedo ED Provider: Rl Goldstein Home Meds and New Rx's Prescriptions: No Action (DME) blood-glucose meter [OneTouch Ultra2 Meter] Kit See Rx Instructions .ROUTE .MEDSUPPLY Qty: 1 2RF Rx Instructions: Check blood sugar twice a day (DME) OneTouch Ultra Blue Test Strip Strip See Rx Instructions .ROUTE .MEDSUPPLY Qty: 200 4RF Rx Instructions: Check blood sugar twice a day (DME) lancets [OneTouch Delica Plus Lancet] 33 gauge misc See Rx Instructions .ROUTE .MEDSUPPLY Qty: 200 4RF Rx Instructions: Check blood sugar twice a day tramadol 50 mg tablet 50 mg PO Q6H PRN (Reason: pain) Qty: 20 0RF Rx Instructions: may take along with NSAIDS/Tylenol oxybutynin chloride 5 mg tablet 5 mg PO TID PRN (Reason: bladder spasms) Qty: 20 0RF calcium carbonate-vitamin D3 1 EACH tablet 1 ea PO DAILY albuterol sulfate 90 mcg/actuation HFA aerosol inhaler 2 inh inhalation Q6H PRN (Reason: shortness of breath or wheezing) Qty: 18 4RF ondansetron 4 mg tablet,disintegrating 4 mg PO TID PRN Patient Comments: DISSOLVE ONE TABLET ON THE TONGUE EVERY 8 HOURS NEEDED FOR NAUSEA AND VOMITING Incruse Ellipta 62.5 mcg/actuation blister with device 1 inh INHALATION DAILY Patient Comments: Inhale 1 puff as directed once a day ibuprofen 400 mg tablet 400 mg PO Q6H PRN (Reason: pain) Qty: 20 0RF Medical Decision Making 68-year-old female with a past medical history of diabetes mellitus, COPD, previous kidney stone, previous diverticulitis, high cholesterol, presents today for 4 to 6 weeks of intermittent fevers and left flank pain. Patient states that over the last few weeks she has had intermittent fevers, the first occurred after a kidney stone procedure which then subsequently resolved, week or so later she developed a fever after getting her flu and COVID shot, then over the last few days she has had a mild upper respiratory infection, minimal cough, then over the last 24 hours she has developed left flank pain. She denies vomiting or diarrhea but does admit to nausea. She denies any dysuria or urinary frequency or hematuria. She denies any hematochezia melena or acholic stool. She states the pain feels similar to her previous kidney stone and her previous diverticulitis. No other complaints at this time. No other modifying factors. Exam demonstrates left lower quadrant tenderness. No guarding or rebound. No right-sided tenderness. Lung sounds are clear. Differential is highest for diverticulitis, kidney stone with potential UTI. Less likely tickborne illness however we will check for this. Will gently rehydrate, evaluate for abnormalities, get a CT scan of the abdomen chest and pelvis to rule out these acute etiologies as well as evaluate for pneumonia, monitor closely and reassess. Of note, upon review of records, patient had her kidney stone evaluated by urology on 04/15/23 and at that time underwent ureteroscopy and holmium laser lithotripsy of her left-sided stones, stent was placed at that time. Repeat cystoscopy and ureteroscopy was performed on 04/29/2023 at the time of stent removal. The renal pelvis was evaluated and the collecting system and ureter was evaluated, and per postoperative report there was no evidence of stony fragments or obstructing stone at that time. 8:54 PM Laboratory work-up is returned, patient demonstrates elevated white count of 13, mild left shift. Lactate normal though. Electrolytes stable, renal function demonstrates a creatinine of 1.4 which appears to be stable. Urinalysis is positive for nitrites, negative leuk esterase, small amount of RBCs and WBCs. CT scan results have returned and demonstrate evidence of a 7 m calculus is now present at the ureteropelvic junction with layering and a severely distended left renal pelvis, there is also evidence of a 6 x 4 x 4 cm abscess anterior to the left ureteropelvic junction indistinguishable from ureteropelvic junction in the ureter. There is notable edema. Some smaller abscesses in the retroperitoneal area, there is also a dominant left retroperitoneal abscess anterior to the left psoas muscle. Levofloxacin and vancomycin have been administered. Patient does have penicillin allergy. We have reached out to Dr. Morejon, unfortunately it is the weekend and he is not on-call or reachable at this time. We will reach out to [facility]. [facility] is currently full. 9:44 PM We did contact [facility], and discussed the case with urology Dr. Lopez, he agrees with the plan for transfer. Levaquin has already been given, vancomycin has been started. Discussed the plan also with the [facility] ED Dr. Gonzalez, he agrees with the plan. Patient will be transferred. I have extensively reviewed the treatment plan with the patient. I have addressed all patient concerns at this time. I have also discussed the plan with the admitting physician and they agree with the current assessment and plan and have agreed to assume responsibility for the patient. All parties demonstrate verbal understanding and agreement with our assessment and plan at this time. The documentation in this chart was dictated using [employer] dictation software. Please excuse any dictation errors. At time of transfer the patient was reassessed and continued to demonstrate No signs of acute respiratory distress requiring intubation, hemodynamic instability requiring pressor support, or rapidly declining mental status. FINDINGS: Liver: No mass. Gallbladder and bile ducts: No calcified stones. No ductal dilation. Pancreas: No ductal dilation. No masses. Spleen: No splenomegaly or focal lesions. Adrenal glands: No mass. Kidneys and ureters: No right hydronephrosis. The 7 mm calculus previously in the left UPJ is now layering in the dependent severely distended left renal pelvis. 2 mm calculus in the left UPJ. Increased severe left hydronephrosis. New peripherally enhancing 6 x 4 x 4 cm abscess, anterior to the left UPJ indistinguishable from portions of UPJ and ureter, with moderate surrounding edema. Additional smaller peripherally enhancing fluid collection mid left retroperitoneum likely an additional abscess also in close proximity to the left ureter. Generalized enhancement of the left collecting system is much more pronounced than prior. Stomach and bowel: Colonic diverticulosis without diverticulitis. No focal pathology in the small bowel. Appendix: No evidence of appendicitis. Intraperitoneal space: No free air. No significant fluid collection. Vasculature: No abdominal aortic aneurysm. Lymph nodes: No significantly enlarged lymph nodes. Urinary bladder: The bladder is decompressed and the wall is not well assessed. Reproductive: Unremarkable as visualized. Bones/joints: Minor lumbar spondylosis. No acute fracture or subluxation. Soft tissues: The dominant left retroperitoneal abscess involves the anterior left psoas musculature. New edema draping over the left psoas. IMPRESSION: 1. The 7 mm calculus previously in the left UPJ is now layering in the dependent severely distended left renal pelvis. 2. 2 mm calculus in the left UPJ. Increased severe left hydronephrosis. 3. New 6 x 4 x 4 cm abscess, anterior to the left UPJ indistinguishable from portions of UPJ and ureter, with moderate surrounding edema. Additional smaller abscess in the mid left retroperitoneum also in close proximity to the left ureter. 4. The dominant left retroperitoneal abscess involves the anterior left psoas musculature. New edema draping over the left psoas. 5. Additional findings as described. Thank you for allowing us to participate in the care of your patient. Dictated and Authenticated by: Joann Escalante MD 05/25/2023 7:52 PM Eastern Time ([place] & [place]) HPI General Date/Time Provider Initiated Documentation: 05/25/23 17:39. HPI Narrative: 68-year-old female with a past medical history of diabetes mellitus, COPD, previous kidney stone, previous diverticulitis, high cholesterol, presents today for 4 to 6 weeks of intermittent fevers and left flank pain. Patient states that over the last few weeks she has had intermittent fevers, the first occurred after a kidney stone procedure which then subsequently resolved, week or so later she developed a fever after getting her flu and COVID shot, then over the last few days she has had a mild upper respiratory infection, minimal cough, then over the last 24 hours she has developed left flank pain. She denies vomiting or diarrhea but does admit to nausea. She denies any dysuria or urinary frequency or hematuria. She denies any hematochezia melena or acholic stool. She states the pain feels similar to her previous kidney stone and her previous diverticulitis. No other complaints at this time. No other modifying factors. Related Data Home Medications Medication Instructions Recorded Confirmed calcium carbonate 600 mg-vitamin 1 ea PO DAILY 08/16/17 05/25/23 D3 20 mcg (800 unit) tablet blood sugar diagnostic (High Performance SmarteBuildingTouch #200 ea 10/20/20 07/06/22 Ultra Blue Test Strip) blood-glucose meter (Orbit Minder Limiteduch #1 ea 10/20/20 07/06/22 Ultra2 Meter kit) lancets 33 gauge (OneTouch Delica #200 ea 10/20/20 07/06/22 Plus Lancet) albuterol sulfate 90 mcg/actuation 2 inh inhalation Q6H PRN shortness 11/24/21 05/25/23 aerosol inhaler of breath or wheezing #18 grams ibuprofen 400 mg tablet 400 mg PO Q6H PRN pain #20 tabs 04/01/23 05/25/23 umeclidinium 62.5 mcg/actuation 1 inh inhalation DAILY 04/01/23 05/25/23 blister powder for inhalation (Incruse Ellipta) ondansetron 4 mg disintegrating 4 mg PO TID PRN 04/15/23 05/25/23 tablet oxybutynin chloride 5 mg tablet 5 mg PO TID PRN bladder spasms #20 04/15/23 05/25/23 tabs tramadol 50 mg tablet 50 mg PO Q6H PRN pain #20 tabs 04/15/23 05/25/23 Previous Rx's Medication Instructions Recorded blood sugar diagnostic (OneTouch #200 ea 10/20/20 Ultra Blue Test Strip) blood-glucose meter (OneTouch #1 ea 10/20/20 Ultra2 Meter kit) lancets 33 gauge (OneTouch Delica #200 ea 10/20/20 Plus Lancet) albuterol sulfate 90 mcg/actuation 2 inh inhalation Q6H PRN shortness 11/24/21 aerosol inhaler of breath or wheezing #18 grams ibuprofen 400 mg tablet 400 mg PO Q6H PRN pain #20 tabs 04/01/23 oxybutynin chloride 5 mg tablet 5 mg PO TID PRN bladder spasms #20 04/15/23 tabs tramadol 50 mg tablet 50 mg PO Q6H PRN pain #20 tabs 04/15/23 Allergies Allergy/AdvReac Type Severity Reaction Status Date / Time Penicillins Allergy Severe Hives Verified 05/25/23 17:32 metronidazole [From Flagyl] Allergy Unknown Verified 05/25/23 17:32 adhesive AdvReac REDNESS Verified 05/25/23 17:32 General Stated Complaint: FlankPain MICHELLE: 3 Review of Systems All systems reviewed & are unremarkable except as noted in HPI and below PFSH All Active Problems (Updated 05/25/23 @ 21:47 by Rl Goldstein DO) Abscess of left kidney (Acute) Psoas abscess, left (Acute) Left flank pain (Acute) Acute pyelonephritis (Acute) Kidney stones (Chronic) Acute kidney insufficiency (Acute) NAFLD (nonalcoholic fatty liver disease) (Chronic) Elevated BP without diagnosis of hypertension (Acute) COPD (chronic obstructive pulmonary disease) (Chronic) Type 2 diabetes mellitus (Acute) Per Patient pre diabetes Serrated adenoma of colon (Acute ~07/2020) Prediabetes (Chronic) Tubulovillous adenoma of colon (Chronic) Osteopenia (Chronic) Dexa 06/09 Hyperlipidemia (Chronic) Obesity (Chronic) Medical History Hydronephrosis with urinary obstruction due to ureteral calculus PONV (postoperative nausea and vomiting) With every anesthetic, even TIVA. Responds well to IV Compazine. BCC (basal cell carcinoma), arm Left upper arm Surgical History History of surgery kidney stone extraction w/ stent History of wisdom tooth extraction S/P colonoscopy (04/02/16) History of bilateral tubal ligation History of section (01/05/83) 01/05/83 and 06/20/84 Family History Mother Hypertension Dementia Atrial fibrillation Father , at 59 of lung cancer Lung cancer Sister Rectal cancer metastasized to liver Hypertension Brother Alcohol abuse Daughter No problems noted. Daughter No problems noted. Maternal Grandfather No problems noted. Maternal Grandmother No problems noted. Paternal Grandfather , in his 70s Myocardial infarction Heart disease Alcohol abuse Paternal Grandmother Emphysema of lung Social History Smoking/Tobacco Use Status: Former Tobacco Use Quit Date: 06/24/13 Pack-years: 90 Tobacco: How many years used: 45 Second Hand Exposure: No Smoking risk assessment performed?: Yes Alcohol Intake: current Alcohol Intake frequency: holidays/special occasions only Alcohol type: hard liquor Drug use: Never Substance use type: does not use Caregiver/Support person: No Household members: spouse Housing: house Communication Needs: None Do you need help understanding health information?: Never Pets and animals: Yes Pets and animals: cat(s) and dog(s) Sexually active: Yes Do you think of yourself as: straight/heterosexual Current gender identity: female What is your relationship status?: How often do you talk on the phone with friends or family?: three or more times per week How often do you get together with friends or relatives?: decline to answer How often do you attend scientologist or mormon services?: decline to answer Do you belong to any clubs or organized social groups?: decline to answer Panel score (0-1 are the most socially isolated patients): 2 Duration: < 15 minutes/day Frequency: 1-2 times per week Guerita/Evangelical: None Special guerita needs: No Seatbelt use: always Helmet use: Yes Helmet use: always Drive intox 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 3.ENT: Atraumatic external nose and ears. Moist MM. Neck: Symmetric, trachea midline, No thyromegaly. 4.CVS: +S1/S2, No murmurs or gallops. Peripheral pulses 2+ and equal in all extremities. Brisk capillary refill in all extremities. 5.RESP: Unlabored respiratory effort. Clear to auscultation bilaterally. No wheezes rales or rhonchi 6.GI: Soft, nondistended. No guarding or rebound. Mild left-sided abdominal tenderness on palpation. No CVA tenderness. No right-sided or suprapubic tenderness. No epigastric tenderness. 7.MSK: Normocephalic/Atraumatic, Extremities w/o deformity or ttp No cyanosis or clubbing, Normal movement of all extremities 8.Skin: Warm, Dry. No rashes or lesions. 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 Sensation grossly intact, no focal neurologic deficits. 10.Psych: (AAO) x3. Appropriate mood and affect Course Vital Signs Vital signs: Vital Signs Temperature 36.7 C 05/25/23 17:32 Pulse 98 H 05/25/23 17:32 Respiratory Rate 20 05/25/23 17:32 Blood Pressure 166/75 H 05/25/23 17:32 Pulse Oximetry 99 05/25/23 17:32 Temperature 36.7 C 05/25/23 17:32 Temperature Source Oral 05/25/23 17:32 Pulse 98 H 05/25/23 17:32 Respiratory Rate 20 05/25/23 17:32 Blood Pressure 166/75 H 05/25/23 17:32 Blood Pressure Position Sitting 05/25/23 17:32 Pulse Oximetry 99 05/25/23 17:32 Oxygen Delivery Method Room Air 05/25/23 17:32 Oxygen Flow Rate 0 05/25/23 17:32 Pain Level 5 05/25/23 17:32 Lab/Test Results Lab/Test Results: 05/25/23 17:46 Blood Blood Culture - Pending 05/25/23 17:46 Blood Blood Culture - Pending
[2023-05-25] MEDS: Ketorolac 15 MG/ML VIAL IVP (18:08)
[2023-05-25] MEDS: Normal Saline 500 ML IV (18:08)
[2023-05-25 18:14] LABS: Lactate 1.1 mmol/L (0.6-1.4)
[2023-05-25 18:18] LABS: Abs Immature Grans 0.05 10^3/uL (0.0-0.06); Absolute Eosinophil Count 0.12 10^3/uL (0.0-0.7); Absolute Lymphocyte Count 1.12 10^3/uL (1.2-3.4); Absolute Monocyte Count 0.91 10^3/uL (0.1-0.8); Basophils % 0.5; Eosinophils % 0.9; HGB 10.1 g/dL (11.2-15.7); Immature Grans % 0.4; Lymphocytes % 8.5; MCH 29.5 pg (27.0-33.0); MCHC 31.6 % (32.0-36.0); MCV 94 fL (80-95); MPV 9.5 fL (8.0-11.0); Monocytes % 6.9; Neutrophils % 82.8; Platelet Count 474 10^3/uL (130-400); RBC 3.42 10^6/uL (3.93-5.22); RDW 12.8 % (11.7-14.6); RDW-SD 44.4 fL; WBC 13.19 10^3/uL (4.4-10.8)
[2023-05-25 18:20] LABS: Absolute Basophil Count 0.07 10^3/uL (0.0-0.2); Absolute Neutrophil Count 10.92 10^3/uL (1.2-6.7)
[2023-05-25 18:31] LABS: ALT 10 U/L (14-59); AST 9 U/L (15-37); Albumin 2.5 g/dL (3.4-5.0); Alkaline Phosphatase 128 U/L (46-116); Anion Gap 10.8 mmol/L (3-11); BUN 18 mg/dL (7-18); Bilirubin, Total 0.8 mg/dL (0.2-1.0); CO2 27.2 mmol/L (21.0-32.0); CREATININE 1.4 mg/dL (0.55-1.02); Calcium 9.6 mg/dL (8.5-10.1); Chloride 98 mmol/L (98-107); Estimated GFR 40.47 (mL/min/1.73m2); Glucose 122 mg/dL (74-106); Potassium 3.6 mmol/L (3.5-5.1); Sodium 136 mmol/L (136-145); Total Protein 8.6 g/dL (6.4-8.2)
[2023-05-25 19:01] LABS: Procalcitonin 0.2 ng/mL
[2023-05-25 19:08] LABS: Bilirubin Small (Negative); Blood Trace-intact (Negative); Clarity Turbid (Clear); Glucose 100 mg/dL (Negative); Ketones 15 mg/dL (Negative); Leukocyte Esterase Negative (Negative); Nitrite Positive (Negative); Specific Gravity >= 1.030 (1.005-1.025); Urobilinogen >=8.0 mg/dL (Up to 0.2)
[2023-05-25] MEDS: Normal Saline - Diluent 50 ML VIAL IJ (19:17)
[2023-05-25] MEDS: Omnipaque 350 MG/ML 100 ML BTL IJ (19:18)
[2023-05-25] MEDS: Normal Saline Flush 10 ML SYR IVP (19:19)
[2023-05-25 19:20] LABS: Bacteria Few HPF (Negative); C & S Indicated? Yes; Casts Negative LPF (Negative); Crystals Many Amorphous HPF (Negative); Epithelial Cells Few HPF (Negative); Mucus Negative (Negative); RBC 0-2 HPF (0-2); WBC 0-2 HPF (0-5)
[2023-05-25] MEDS: levoFLOXacin 750 MG/150 ML BAG 100 MG IVPB (19:38)
--- NOTE | 2023-05-25 19:52 | DI.VRAD_ITS ---
PROCEDURE INFORMATION: Exam: CT Chest With Contrast; Diagnostic Exam date and time: 05/25/2023 7:07 PM Age: 68 years old Clinical indication: Other: Cough, fever, left flank pain, HX of divertic TECHNIQUE: Imaging protocol: Diagnostic computed tomography of the chest with contrast. 3D rendering (Not supervised by radiologist): MIP and/or 3D reconstructed images were created by the technologist. Contrast material: OMNIPAQUE 350; Contrast volume: 100 ml; Contrast route: INTRAVENOUS (IV); COMPARISON: CT CHEST WO 04/14/2021 4:07 PM FINDINGS: Lungs: Mild pulmonary emphysema. Tiny clusters of centrilobular pattern nodules in the right upper lobe. No airspace consolidation. Scattered microatelectasis. Pleural spaces: No pneumothorax. No pleural effusion. Heart: No cardiomegaly. No pericardial effusion. Lymph nodes: No enlarged lymph nodes. Vasculature: No aortic aneurysm. Bones/joints: Chronic bony changes with no acute fracture. No acute fracture or subluxation. Soft tissues: No suspicious lesions. IMPRESSION: 1. Mild pulmonary emphysema. Tiny clusters of centrilobular pattern nodules in the right upper lobe may be acute or chronic depending on the clinical scenario. 2. Incidental findings as described. PROCEDURE INFORMATION: Exam: CT Abdomen And Pelvis With Contrast Exam date and time: 05/25/2023 7:07 PM Age: 68 years old Clinical indication: Other: Cough, fever, left flank pain, HX of divertic TECHNIQUE: Imaging protocol: Computed tomography of the abdomen and pelvis with contrast. 3D rendering (Not supervised by radiologist): MIP and/or 3D reconstructed images were created by the technologist. Contrast material: OMNIPAQUE 350; Contrast volume: 100 ml; Contrast route: INTRAVENOUS (IV); COMPARISON: CT ABDOMEN PELVIS W 04/01/2023 6:58 PM FINDINGS: Liver: No mass. Gallbladder and bile ducts: No calcified stones. No ductal dilation. Pancreas: No ductal dilation. No masses. Spleen: No splenomegaly or focal lesions. Adrenal glands: No mass. Kidneys and ureters: No right hydronephrosis. The 7 mm calculus previously in the left UPJ is now layering in the dependent severely distended left renal pelvis. 2 mm calculus in the left UPJ. Increased severe left hydronephrosis. New peripherally enhancing 6 x 4 x 4 cm abscess, anterior to the left UPJ indistinguishable from portions of UPJ and ureter, with moderate surrounding edema. Additional smaller peripherally enhancing fluid collection mid left retroperitoneum likely an additional abscess also in close proximity to the left ureter. Generalized enhancement of the left collecting system is much more pronounced than prior. Stomach and bowel: Colonic diverticulosis without diverticulitis. No focal pathology in the small bowel. Appendix: No evidence of appendicitis. Intraperitoneal space: No free air. No significant fluid collection. Vasculature: No abdominal aortic aneurysm. Lymph nodes: No significantly enlarged lymph nodes. Urinary bladder: The bladder is decompressed and the wall is not well assessed. Reproductive: Unremarkable as visualized. Bones/joints: Minor lumbar spondylosis. No acute fracture or subluxation. Soft tissues: The dominant left retroperitoneal abscess involves the anterior left psoas musculature. New edema draping over the left psoas. IMPRESSION: 1. The 7 mm calculus previously in the left UPJ is now layering in the dependent severely distended left renal pelvis. 2. 2 mm calculus in the left UPJ. Increased severe left hydronephrosis. 3. New 6 x 4 x 4 cm abscess, anterior to the left UPJ indistinguishable from portions of UPJ and ureter, with moderate surrounding edema. Additional smaller abscess in the mid left retroperitoneum also in close proximity to the left ureter. 4. The dominant left retroperitoneal abscess involves the anterior left psoas musculature. New edema draping over the left psoas. 5. Additional findings as described. Dictated and Authenticated by: Joann Escalante MD. Ordering:GEOVANI Shine MD
[2023-05-27 10:27] LABS: Lyme Ab w Rflx to Lyme Confirm Negative (Negative)
[2023-05-29 00:14] LABS: Anaplasma phagocytophilum Negative (Negative); B. miyamotoi PCR Negative (Negative); Babesia divergens/MO-1 Negative (Negative); Babesia duncani Negative (Negative); Babesia microti Negative (Negative); Ehrlichia chaffeensis Negative (Negative); Ehrlichia ewingii/canis Negative (Negative); Ehrlichia muris eauclairensis Negative (Negative)
== END 2023-05-25 22:19 | disposition short-term general hospital (02) ==
PROVIDERS: Emergency Provider Student in an Organized Health Care Education/Training Program; PCP Physician Assistant
DX: N10 Acute pyelonephritis; K68.12 Psoas muscle abscess; R10.32 Left lower quadrant pain; N15.1 Renal and perinephric abscess; E11.9 Type 2 diabetes mellitus without complications; Z87.442 Personal history of urinary calculi; J44.9 Chronic obstructive pulmonary disease, unspecified
CPT/HCPCS: 36415; 74177; 80053; 84145; 87040; 87798; 96361; 96365; 96366; 96368; 96375; 99285; 71260; 81003; 81015; 83605; 85025; 86618; 87086; J1885; J1956; J3490

== ENCOUNTER 2023-07-16 14:54 | Outpatient (REF) | payer MEDICARE, SELFPAY | END 2023-07-16 14:55 | disposition home or self-care (01) | LOC: LBN 14:54 | PROVIDERS: PCP Physician Assistant; Visit Provider Urology | DX: N13.5 Crossing vessel and stricture of ureter without hydronephrosis (principal) | CPT/HCPCS: 87086 ==

== ENCOUNTER 2023-11-20 10:00 | Outpatient (REF) | payer MEDICARE, SELFPAY | END 2023-11-20 10:01 | disposition home or self-care (01) | LOC: LBN 10:00 | PROVIDERS: PCP Physician Assistant; Visit Provider Urology | DX: R30.0 Dysuria (principal); R39.89 Other symptoms and signs involving the genitourinary system | CPT/HCPCS: 87077; 87086 ==

== ENCOUNTER 2024-04-01 00:51 | Outpatient (CLI) | payer MEDICARE, SELFPAY ==
--- NOTE | 2024-04-01 | DI.CTLCSR_ITS ---
Exam(s) CT CHEST LUNG CANCER SCREEN EXAM: CT CHEST LUNG CANCER SCREEN CLINICAL HISTORY: EX SMOKER, Z87.891, SCREENING FOR LUNG CANCER TECHNIQUE: Imaging Protocol: Axial computed tomography images with coronal and sagittal reformatted images were created and reviewed. Low dose screening protocol. COMPARISON: CT CT CHEST WO from 04/14/[address] CHEST/ABD/PEL W from 05/25/2023 FINDINGS: Tracheobronchial tree: No bronchiectasis or mucus plugging. Mediastinum and Millicent: No dominant adenopathy or fluid collection. Pulmonary parenchyma: No consolidation or dominant measurable mass. [id number] emphysematous ch anges, greater in the upper lobes. Stable appearance of right upper lobe scarring. Stable scarring adjacent to fissures at right middle lobe and lingula. Lung Nodules: Stable 4 x 5 millimeter nodule right middle lobe above right major fissure in right mid dle lobe. Stable tiny peripheral nodules in the right upper lobe. Multiple tiny peripheral nodules right lower lobe, largest 4 millimeters diameter. Pleura: No effusion. No pneumothorax. Heart: The heart is not dilated. Mild coronary artery calcifications are seen. No pericardial effusio n. Aorta: Thoracic aorta non-dilated. Upper abdomen: Mild left hydronephrosis. Appears improved from prior exam. Only the upper pole is included on the exam. Bones: Old left rib fractures. Soft Tissues: Unremarkable. IMPRESSION: No suspicious pulmonary nodules. Lung RADS Cat 2 - Benign Appearance / Behavior: Nodules with a very low likelihood of becoming a clin ically active cancer due to size or lack of growth Lung-RADS 1.0 CATEGORIES: Category 0 - Prior chest CT exam(s) being located for comparison. Category 1 - Annual screening in 12 months. No nodules or definitely benign nodules. Category 2 - Annual screening in 12 months. Benign appearance. Nodules with low likelihood of becomin g active cancer. Category 3 - 6-month follow-up. Probably benign. Short-term follow-up suggested. Nodules with low lik elihood of becoming active cancer. Category 4A - 3-month follow-up and CT/PET if >8 mm in size. Suspicious finding. Findings which requi re additional testing. Category 4B - Findings which require additional testing and tissue sampling. Category 4X - Category 3 or 4 nodules with additional features or imaging findings that increases the suspicion of malignancy. Modifier S- Potentially clinically significant findings (non lung cancer) RADIATION DOSE DELIVERED: !Error Total DLP DATA REPOSITORY: All CT scans at this facility are submitted to the National Radiology Data Registry (NRDR) Dose Index Registry (DIR) with the [employer] (ACR). RADIATION OPTIMIZATION: All CT scans at this facility use at least one of these dose optimization te chniques: automated exposure control; mA and/or kV adjustment per patient size (includes targeted exa ms where dose is matched to clinical indication); or iterative reconstruction.
--- NOTE | 2024-04-01 13:20 | DI.RAD_ITS ---
Exam(s) XR KNEE LT 3V AP,LAT,QUEENIE EXAM: XR KNEE LT 3V AP,LAT,QUEENIE CLINICAL HISTORY: CHRONIC SLOWLY PROGRESSIVE PAIN LT KNEE, M25.562, NO TRAUMA. TECHNIQUE: 2D digital imaging was performed. COMPARISON: CT CT CHEST/ABD/PEL W from 05/25/2023 FINDINGS: 3 views No evidence of acute fracture. There does appear to be a small amount of increased joint fluid as se en on the lateral view. No joint space narrowing nor osteophytes. Slight lateral position of the pa tella noted. No osteochondral defects. No osseous lesions. Prominent subcutaneous soft tissue medi ally is probably just adipose tissue. IMPRESSION: No acute osseous findings but there does appear to be a small joint effusion. This may signify inter nal derangement. DATA REPOSITORY: RADIATION DOSE DELIVERED:
== END 2024-04-01 01:11 ==
PROVIDERS: PCP Physician Assistant; Visit Provider Physician Assistant
DX: Z87.891 Personal history of nicotine dependence (principal); Z12.2 Encounter for screening for malignant neoplasm of respiratory organs; M25.562 Pain in left knee
CPT/HCPCS: 71271; 73562

== ENCOUNTER 2024-04-17 08:11 | Outpatient (REF) | payer MEDICARE, SELFPAY | END 2024-04-17 08:12 | disposition home or self-care (01) | LOC: LBN 08:11 | PROVIDERS: PCP Physician Assistant; Visit Provider Urology | DX: R30.0 Dysuria (principal) | CPT/HCPCS: 87077; 87086; 87186 ==

== ENCOUNTER 2024-05-05 11:48 | Outpatient (CLI) | payer MEDICARE, SELFPAY ==
--- NOTE | 2024-05-05 11:06 | DI.RAD_ITS ---
Exam(s) XR CHEST 2V PA LATERAL EXAM: XR CHEST 2V PA LATERAL CLINICAL HISTORY: ACUTE BRONCHITIS, J20.9 TECHNIQUE: 2D digital imaging was performed. Two views. COMPARISON: CT CT CHEST LUNG CANCER SCREEN from 04/01/2024 FINDINGS: HEART: Normal size. Aorta: Not dilated. PULMONARY VASCULATURE: Normal. MEDIASTINUM: Unremarkable. LUNGS: Fibrotic changes. Right middle lobe and lingular scarring. No focal area of consolidation. PLEURAL SPACE: No pleural effusion or pneumothorax. BONE:Old left rib fractures. SOFT TISSUES: Unremarkable. IMPRESSION: No acute abnormality. DATA REPOSITORY: RADIATION DOSE DELIVERED:
== END 2024-05-05 12:08 ==
LOC: DI 11:50
PROVIDERS: PCP Physician Assistant; Visit Provider Family Medicine
DX: J20.9 Acute bronchitis, unspecified (principal)
CPT/HCPCS: 71046

== ENCOUNTER 2024-05-07 22:20 | Inpatient (IN) | payer MEDICARE, SELFPAY ==
[2024-05-07] VITALS (18 sets, daily range): BP systolic 118–246; BP diastolic 63–97; PULSE 73–98; RESP 18–40; O2SAT 90–98
--- NOTE | 2024-05-07 22:15 | RT.EKG_ITS ---
APPROVED REPORT Exam: Resting ECG Reason for Exam: PULSE Patient Location: E HR:84 bpm ECG Measurements Heart Rate 84 AXIS HI 145 P 57 QRSd 102 QRS -7 QT 371 T 75 QTc 440 Conclusion Sinus rhythm 84 bigeminy no stemi
--- NOTE | 2024-05-07 22:45 | DI.RAD_ITS ---
Exam(s) XR PORTABLE CHEST AP EXAM: XR PORTABLE CHEST AP CLINICAL HISTORY: cough, shortness of breath TECHNIQUE: 2D digital imaging was performed. COMPARISON: CR XR CHEST 2V PA LATERAL from 05/05/2024 FINDINGS: Exam limited by under penetration and poor pulmonary inflation. LUNGS: Pulmonary vascular prominence. Question increased density laterally in the right upper lobe c ompared to the prior exam. Question tiny pleural effusions although there is overlying abdominal sof t tissues partially obscuring the lung bases.. HEART: Normal size. AORTA: Normal diameter. BONES: Old left rib fractures. Soft tissues: Unremarkable. IMPRESSION: Limited exam. Question of right upper lobe infiltrate. DATA REPOSITORY: RADIATION DOSE DELIVERED:
[2024-05-07 23:03] LABS: BE (Venous) -1 mmol/L (-2-3); HCO3 (Venous) 25 mmol/L (23-28); O2 Sat (Venous) 78 %; TCO2 (Venous) 22 mmol/L (24-29); pCO2 (Venous) 46 mmHg (41-51); pH (Venous) 7.34 (7.31-7.41); pO2 (Venous) 44 mmHg
[2024-05-07 23:05] LABS: Absolute Eosinophil Count 0.69 10^3/uL (0.0-0.7); Absolute Lymphocyte Count 1.55 10^3/uL (1.2-3.4); Absolute Monocyte Count 0.78 10^3/uL (0.1-0.8); Basophils % 0.4 %; Eosinophils % 6.1 %; HCT 42.3 % (36.0-46.0); HGB 13.5 g/dL (11.2-15.7); Immature Grans % 0.6 %; Lymphocytes % 13.7 %; MCH 31.2 pg (27.0-33.0); MCHC 31.9 % (32.0-36.0); MCV 98 fL (80-95); MPV 10.2 fL (8.0-11.0); Monocytes % 6.9 %; Neutrophils % 72.3 %; Platelet Count 332 10^3/uL (130-400); RBC 4.33 10^6/uL (3.93-5.22); RDW 12.9 % (11.7-14.6); WBC 11.33 10^3/uL (4.4-10.8)
[2024-05-07 23:06] LABS: Abs Immature Grans 0.07 10^3/uL (0.0-0.06); Absolute Basophil Count 0.05 10^3/uL (0.0-0.2); Absolute Neutrophil Count 8.19 10^3/uL (1.2-6.7)
[2024-05-07] MEDS: Albuterol/Ipratropium 3 ML UPD VIAL UPD (23:12)
[2024-05-07] MEDS: methylPREDNISolone SUCC 125 MG VIAL IM (23:13)
[2024-05-07 23:16] LABS: Anion Gap 9.6 mmol/L (3-11); BUN 26 mg/dL (7-18); CO2 26.4 mmol/L (21.0-32.0); CREATININE 1.4 mg/dL (0.55-1.02); Calcium 9.3 mg/dL (8.5-10.1); Chloride 107 mmol/L (98-107); Estimated GFR 40.22 (mL/min/1.73m2); Glucose 149 mg/dL (74-106); Potassium 3.8 mmol/L (3.5-5.1); Sodium 143 mmol/L (136-145)
[2024-05-07 23:25] LABS: Troponin I 11 ng/L (<or=51)
[2024-05-07 23:30] LABS: NT-proBNP 443 pg/mL (<300)
--- NOTE | 2024-05-07 23:48 | ED.GENADUL_ITS ---
Discharge Plan Disposition Patient Disposition: Admit to [facility] Condition: Improving Discharge Details Chief Complaint: RespSymp Clinical Impression: Acute exacerbation of chronic obstructive pulmonary disease, Frequent unifocal PVCs, COPD with hypoxia Primary Care Provider: Kalpesh Saucedo ED Provider: Petros Tavarez Home Meds and New Rx's Prescriptions: No Action calcium carbonate-vitamin D3 1 EACH tablet 1 ea PO DAILY albuterol sulfate 90 mcg/actuation HFA aerosol inhaler 2 inh inhalation Q6H PRN (Reason: shortness of breath or wheezing) Qty: 18 4RF Incruse Ellipta 62.5 mcg/actuation blister with device 1 inh INHALATION DAILY Patient Comments: Inhale 1 puff as directed once a day ibuprofen 400 mg tablet 400 mg PO Q6H PRN (Reason: pain) Qty: 20 0RF HPI General Date/Time Provider Initiated Documentation: 05/07/24 22:22 . HPI Narrative: The patient is a 69-year-old female, with a past medical history significant for likely mild COPD, who complains that she began to experience respiratory symptoms with a cough and some difficulty breathing over the weekend last weekend. She was seen by her primary care doctor on the (2 days ago) and was started on oral Tessalon, oral Zithromax, and oral cefpodoxime. The patient reports that she has been having fevers and chills every night and has been having progressively worsening difficulty breathing. She states that she now has problems walking around her house without developing shortness of breath. She has bronchospastic coughing fits that leave her breathless. The patient denies any sore throat, runny nose, ear pain, or facial congestion. Likewise the patient denies any nausea, vomiting, diarrhea, or constipation. Related Data Home Medications ?Medication ?Instructions ?Recorded ?Confirmed calcium 600 mg (as 1 ea PO DAILY 08/16/17 05/07/24 carbonate)-vitamin D3 20 mcg (800 unit) tablet albuterol sulfate 90 mcg/actuation 2 inh inhalation Q6H PRN shortness 11/24/21 05/07/24 aerosol inhaler of breath or wheezing #18 grams ibuprofen 400 mg tablet 400 mg PO Q6H PRN pain #20 tabs 04/01/23 05/07/24 umeclidinium 62.5 mcg/actuation 1 inh inhalation DAILY 04/01/23 05/07/24 blister powder for inhalation (Incruse Ellipta) Previous Rx's ?Medication ?Instructions ?Recorded albuterol sulfate 90 mcg/actuation 2 inh inhalation Q6H PRN shortness 11/24/21 aerosol inhaler of breath or wheezing #18 grams ibuprofen 400 mg tablet 400 mg PO Q6H PRN pain #20 tabs 04/01/23 Allergies Allergy/AdvReac Type Severity Reaction Status Date / Time Penicillins Allergy Severe Hives Verified 05/25/23 17:32 metronidazole (From Flagyl) Allergy Unknown Verified 05/25/23 17:32 adhesive AdvReac REDNESS Verified 05/25/23 17:32 General Stated Complaint: RespSymp MICHELLE: 3 Exam Const General: cooperative and acute distress moderate Orientation: alert, awake and oriented x3 Neck Neck: normal visual inspection, full ROM and no JVD Resp Effort & Inspection: cough Quality of cough: actively coughing, labored, tachypneic and uses accessory muscles Auscultation: diminished lung sounds bilaterally and wheezes scattered wheezes Cardio Rate: regular rate Rhythm: abnormal rhythm with ectopic beats GI Palpation: soft Auscultation: normal bowel sounds Skin General skin exam: no rashes or lesions noted and turgor normal Neuro Cranial Nerves: CN's II-XI intact bilaterally Motor: muscle tone normal throughout and strength 5/5 throughout Sensory Exam: no sensory deficits noted Course Vital Signs Vital signs: Vital Signs Pulse 98 H 05/07/24 22:24 Respiratory Rate 28 H 05/07/24 22:24 Blood Pressure 246/97 H 05/07/24 22:24 Pulse Oximetry 94 05/07/24 22:24 Pulse 79 05/07/24 23:32 Pulse 88 05/07/24 23:40 Respiratory Rate 19 05/07/24 23:40 Respiratory Effort Short of Breath, Labored 05/07/24 23:00 Respiratory Depth Shallow 05/07/24 23:00 Blood Pressure 118/63 05/07/24 23:32 Blood Pressure Mean 78 05/07/24 23:32 Blood Pressure Position Supine 05/07/24 22:24 Pulse Oximetry 96 05/07/24 23:40 Oxygen Delivery Method Nasal Cannula 05/07/24 22:48 Oxygen Flow Rate 2 05/07/24 22:48 Pain Level 0 05/07/24 22:24 Lab/Test Results Lab/Test Results: Laboratory Tests Range/Units 05/07/ 22:55 WBC (4.4-10.8) 10^3/uL 11.33 H RBC (3.93-5.22) 10^6/uL 4.33 Hgb (11.2-15.7) g/dL 13.5 Hct (36.0-46.0) % 42.3 MCV (80-95) fL 98 H MCH (27.0-33.0) pg 31.2 MCHC (32.0-36.0) % 31.9 L RDW (11.7-14.6) % 12.9 Plt Count (130-400) 10^3/uL 332 MPV (8.0-11.0) fL 10.2 Immature Gran % % 0.6 Neutrophils % % 72.3 Lymphocytes % % 13.7 Monocytes % % 6.9 Eosinophils % % 6.1 Basophils % % 0.4 Nucleated RBC % (0.0-0.3) % 0.0 Absolute Neutrophils (1.2-6.7) 10^3/uL 8.19 H Absolute Lymphocytes (1.2-3.4) 10^3/uL 1.55 Absolute Monocytes (0.1-0.8) 10^3/uL 0.78 Absolute Eosinophils (0.0-0.7) 10^3/uL 0.69 Absolute Basophils (0.0-0.2) 10^3/uL 0.05 VBG pH (7.31-7.41) 7.34 VBG pCO2 (41-51) mmHg 46 VBG pO2 mmHg 44 VBG HCO3 (23-28) mmol/L 25 VBG Total CO2 (24-29) mmol/L 22 L VBG O2 Saturation % 78 VBG Base Excess (-2-3) mmol/L -1 Sodium (136-145) mmol/L 143 Potassium (3.5-5.1) mmol/L 3.8 Chloride (98-107) mmol/L 107 Carbon Dioxide (21.0-32.0) mmol/L 26.4 Anion Gap (3-11) mmol/L 9.6 BUN (7-18) mg/dL 26 H Creatinine (0.55-1.02) mg/dL 1.4 H Est GFR (CKD-EPI 2020) (mL/min/1.73m2) 40.22 Glucose (74-106) mg/dL 149 H Calcium (8.5-10.1) mg/dL 9.3 Troponin I (<or=51) ng/L 11 NT-Pro-B Natriuret Pep (<300) pg/mL 443 H Medical Decision Making The patient was seen and examined. She is in a mild amount of respiratory distress and was hypoxic on my arrival to the room with an oxygen saturation of 89% on room air. Her initial respiratory rate when I went into see the patient was in the mid 40s. The patient's auscultation reveals markedly diminished air exchange with some scattered wheezes in the bases. The patient was given a DuoNeb treatment shortly after arrival and placed on supplemental oxygen by n aimee cannula. This did significantly improve her symptoms. She is now saturating in the mid 90s with a respiratory rate in the upper 20s. She continues to have intermittent bronchospastic coughing. The prior ectopy seen on her EKG has improved significantly. Although there are still some occasional PVCs, the bigeminy has significantly improved. Likewise, the patient has better air exchange on auscultation after her DuoNeb treatment here in the emergency room. There is still some relatively diminished lung sounds bilaterally. The patient's chest x-ray appears underinflated and there may be some airspace disease in the left lower lobe. The patient was given some IV steroids here in the emergency room to help improve her lung compliance. I feel at this point in time, the patient has failed outpatient therapy for this chronic bronchitis/COPD exacerbation with or without some airspace disease. I feel like the patient could benefit from admission for respiratory supportive care including supplemental oxygen, serial nebulizer treatments, ongoing steroid treatment, and continuation of antibiotic therapy. I will be discussing the case with the hospitalist service for admission. Quality:SDOH Health Related Social Needs: No Data to Display PFSH All Active Problems (Updated 05/08/24 @ 00:07 by Petros Tavarez MD) COPD with hypoxia (Acute) Frequent unifocal PVCs (Acute) Acute exacerbation of chronic obstructive pulmonary disease (Acute) Bilateral hearing loss (Acute) Kidney stones (Chronic) Acute kidney insufficiency (Acute) NAFLD (nonalcoholic fatty liver disease) (Chronic) Elevated BP without diagnosis of hypertension (Acute) COPD (chronic obstructive pulmonary disease) (Chronic) Type 2 diabetes mellitus (Acute) Per Patient pre diabetes Serrated adenoma of colon (Acute ~07/2020) Prediabetes (Chronic) Tubulovillous adenoma of colon (Chronic) Osteopenia (Chronic) Dexa 06/09 Hyperlipidemia (Chronic) Obesity (Chronic) Medical History (Updated 05/08/24 @ 00:07 by Petros Tavarez MD) Tinea pedis Hydronephrosis with urinary obstruction due to ureteral calculus PONV (postoperative nausea and vomiting) With every anesthetic, even TIVA. Responds well to IV Compazine. BCC (basal cell carcinoma), arm Left upper arm Surgical History History of surgery kidney stone extraction w/ stent History of wisdom tooth extraction S/P colonoscopy (04/02/16) History of bilateral tubal ligation History of section (01/05/83) 01/05/83 and 06/20/84 Family History Mother Hypertension Dementia Atrial fibrillation Father , at 59 of lung cancer Lung cancer Sister Rectal cancer metastasized to liver Hypertension Brother Alcohol abuse Daughter No problems noted. Daughter No problems noted. Maternal Grandfather No problems noted. Maternal Grandmother No problems noted. Paternal Grandfather , in his 70s Myocardial infarction Heart disease Alcohol abuse Paternal Grandmother Emphysema of lung Social History Smoking/Tobacco Use Status: Former Tobacco Use Quit Date: 06/24/13 Pack-years: 90 Tobacco: How many years used: 45 Second Hand Exposure: No Smoking risk assessment performed?: Yes Alcohol Intake: current Alcohol Intake frequency: holidays/special occasions only Alcohol type: hard liquor Drug use: Never Substance use type: does not use Caregiver/Support person: No Household members: spouse Housing: house Communication Needs: None Do you need help understanding health information?: Never Pets and animals: Yes Pets and animals: cat(s) and dog(s) Sexually active: Yes Do you think of yourself as: straight/heterosexual Current gender identity: female What is your relationship status?: How often do you talk on the phone with friends or family?: three or more times per week How often do you get together with friends or relatives?: decline to answer How often do you attend orthodox or temple services?: decline to answer Do you belong to any clubs or organized social groups?: decline to answer Panel score (0-1 are the most socially isolated patients): 2 Duration: < 15 minutes/day Frequency: 1-2 times per week Guerita/Islam: None Special guerita needs: No Seatbelt use: always Helmet use: Yes Helmet use: always Drive intox or ride w/intox pick up and delivery driver: No Do you feel safe at home: Yes Do you feel safe in your relationship?: Yes Female Reproductive History Menstrual Menopause type: natural History History 2 Para 2 Hx # Term Pregnancies Multiple births Hx # Pregnancies Ectopic pregnancies AB induced Hx Number of Living Children 2 AB spontaneous
[2024-05-08] VITALS (18 sets, daily range): BP systolic 133–166; BP diastolic 59–99; PULSE 71–92; RESP 2–34; TEMP 35.7–36.5; O2SAT 88–94
--- NOTE | 2024-05-08 00:05 | W.PM.HP.N ---
Date of service: 05/08/24 Time of Service: 00:05 Assessment and Plan Assessment and plan (1) Acute hypoxic respiratory failure: Start date: 05/08/24 Status: Acute Assessment and plan: This is a 69-year-old lady with a long history of smoking quitting about 15 years ago though by charting it was in 2013, presenting with new oxygen requirements and COPD exacerbation. She has had a recent URI with fever which at first responded to Zithromax orally but now is exacerbating with hypoxemia but no CO2 retention. She will be admitted with aggressive nebulizer treatments and IV antibiotic coverage for community-acquired pneumonia. She has failed outpatient therapy. As she improves she should return home. She is a full code. (2) Acute exacerbation of chronic obstructive pulmonary disease: Start date: 05/08/24 Status: Acute Assessment and plan: IV Solu-Medrol with nebulizer treatments. Antibiotic coverage for possible pneumonia. (3) Frequent unifocal PVCs: Start date: 05/08/24 Status: Acute Assessment and plan: No ischemic changes and negative troponins. Continue cardiac monitoring while aggressively treating COPD exacerbation with hypoxemia and respiratory failure. BNP was elevated and patient may have increased PA pressures with no previous echocardiogram to compare. (4) Pneumonia: Status: Acute Assessment and plan: Bilateral infiltrates possible with possible effusions as well. Her BNP is elevated and echocardiogram will be followed up. No IV fluid resuscitation for her mild CKD and possible dehydration with acute illness. Increase oral intake if possible. Monitor for fluid overload. Qualifiers: Laterality: bilateral Lung location: unspecified part of lung Pneumonia type: due to unspecified organism Qualified Code(s): J18.9 - Pneumonia, unspecified organism (5) CKD (chronic kidney disease) stage 3, GFR 30-59 ml/min: Status: Chronic Assessment and plan: Slightly exacerbated the patient will be encouraged to have oral rehydration pending echocardiogram with elevated BNP. Qualifiers: Chronic kidney disease stage 3 subtype: stage 3b (GFR 30-44) Qualified Code(s): N18.32 - Chronic kidney disease, stage 3b (6) Type 2 diabetes mellitus: Status: Chronic Assessment and plan: Glucometer checks before meals and at bedtime with sliding scale coverage. Qualifiers: Diabetes mellitus complication status: without complication Diabetes mellitus detention insulin use: without buttermaker continuous churn use Qualified Code(s): E11.9 - Type 2 diabetes mellitus without complications History of Present Illness History of Present Illness Chief Complaint: Fever, shortness of breath and cough with palpitations. Narrative: This is a 69-year-old female patient who is on minimal medical therapy other than inhalers and has a history of smoking but not active, quitting in 2013 after a [id number] history, presents today to the ED with failed outpatient therapy for COPD exacerbation without steroid treatment having continued fever at home with cough and palpitations. She has had a 10-day history of URI symptoms with fever up to 101 at 1 time but improved after being started on Zithromax 4 days ago without prednisone pulse. She is up-to-date with all of her immunizations including flu and COVID but not RSV secondary to cost. She continues with a low-grade fever. She also has a productive cough. She is currently not on oxygen at home. She denies any significant chest pain or discomfort with her cough. She was having palpitations with frequent PVCs improving as her respiratory status improved. Her troponins were negative. She is not having hemoptysis. In the ED she was found to have new onset hypoxemia but no CO2 retention by VBG and slightly elevated WBC with question of left infiltrates on portable chest x-ray. She did respond to nebulizer treatments and was initiated on IV's steroids. She slightly improved air movement with decreased wheezing but still requiring oxygen and will be admitted for exacerbation with continued aggressive respiratory treatment an expanded d IV antibiotic therapy for possible community-acquired pneumonia. Her BNP is slightly elevated from her previous measurements and echocardiogram should be updated with no previous echo available. She does have a history of CKD which appears stable. She also has a history of type 2 diabetes mellitus which appears to be diet controlled and is exacerbated with steroid treatment requiring glucometer measurements before meals and at bedtime with sliding scale insulin coverage while hospitalized. Patient does have a history of recurrent UTIs status post left ureteral stenting which cause disruption of the ureter requiring [place] [facility] [place] has no back pain or urinary symptoms with this illness. She will have viral screening. Her ectopy did improve in the ED and she will be monitored with telemetry while hospitalized. She is a full code. Review of Systems Narrative: 13 point review of systems otherwise unrevealing or stable. Patient is chronically overweight. PFSH All Active Problems (Updated 05/08/24 @ 06:29 by Aldair Aguilar) CKD (chronic kidney disease) stage 3, GFR 30-59 ml/min (Chronic) Pneumonia (Acute) Acute hypoxic respiratory failure (Acute) COPD with hypoxia (Acute) Frequent unifocal PVCs (Acute) Acute exacerbation of chronic obstructive pulmonary disease (Acute) Bilateral hearing loss (Acute) Kidney stones (Chronic) Acute kidney insufficiency (Acute) NAFLD (nonalcoholic fatty liver disease) (Chronic) Elevated BP without diagnosis of hypertension (Acute) COPD (chronic obstructive pulmonary disease) (Chronic) Type 2 diabetes mellitus (Chronic) Per Patient pre diabetes Serrated adenoma of colon (Acute ~07/2020) Prediabetes (Chronic) Tubulovillous adenoma of colon (Chronic) Osteopenia (Chronic) Dexa 06/09 Hyperlipidemia (Chronic) Obesity (Chronic) Medical History Tinea pedis Hydronephrosis with urinary obstruction due to ureteral calculus PONV (postoperative nausea and vomiting) With every anesthetic, even TIVA. Responds well to IV Compazine. BCC (basal cell carcinoma), arm Left upper arm Surgical History History of surgery kidney stone extraction w/ stent History of wisdom tooth extraction S/P colonoscopy (04/02/16) History of bilateral tubal ligation History of section (01/05/83) 01/05/83 and 06/20/84 Family History Mother Hypertension Dementia Atrial fibrillation Father , at 59 of lung cancer Lung cancer Sister Rectal cancer metastasized to liver Hypertension Brother Alcohol abuse Daughter No problems noted. Daughter No problems noted. Maternal Grandfather No problems noted. Maternal Grandmother No problems noted. Paternal Grandfather , in his 70s Myocardial infarction Heart disease Alcohol abuse Paternal Grandmother Emphysema of lung Social History Smoking/Tobacco Use Status: Former Tobacco Use Quit Date: 06/24/13 Pack-years: 90 Tobacco: How many years used: 45 Second Hand Exposure: No Smoking risk assessment performed?: Yes Alcohol Intake: current Alcohol Intake frequency: holidays/special occasions only Alcohol type: hard liquor Drug use: Never Substance use type: does not use Caregiver/Support person: No Household members: spouse Housing: apartment Communication Needs: None Do you need help understanding health information?: Never Pets and animals: Yes Pets and animals: cat(s) and dog(s) Sexually active: Yes Do you think of yourself as: straight/heterosexual Current gender identity: female What is your relationship status?: How often do you talk on the phone with friends or family?: three or more times per week How often do you get together with friends or relatives?: decline to answer How often do you attend tenriism or shinto services?: decline to answer Do you belong to any clubs or organized social groups?: decline to answer Panel score (0-1 are the most socially isolated patients): 2 Duration: < 15 minutes/day Frequency: 1-2 times per week Guerita/Congregation: None Special guerita needs: No Seatbelt use: always Helmet use: Yes Helmet use: always Drive intox or ride w/intox truck driver 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: No Do you feel safe at home: Yes Do you feel safe in your relationship?: Yes Female Reproductive History Menstrual Menopause type: natural History History 2 Para 2 Hx # Term Pregnancies Multiple births Hx # Pregnancies Ectopic pregnancies AB induced Hx Number of Living Children 2 AB spontaneous Meds Allergies and Home Medications Allergies Allergy/AdvReac Type Severity Reaction Status Date / Time Penicillins Allergy Severe Hives Verified 05/25/23 17:32 metronidazole (From Flagyl) Allergy Unknown Verified 05/25/23 17:32 adhesive AdvReac REDNESS Verified 05/25/23 17:32 Home Medications ?Medication ?Instructions ?Recorded ?Confirmed ?Type calcium 600 mg (as 1 ea PO DAILY 08/16/17 05/07/24 History carbonate)-vitamin D3 20 mcg (800 unit) tablet albuterol sulfate 90 mcg/actuation 2 inh inhalation Q6H PRN shortness 11/24/21 05/07/24 Rx aerosol inhaler of breath or wheezing #18 grams ibuprofen 400 mg tablet 400 mg PO Q6H PRN pain #20 tabs 04/01/23 05/07/24 Rx umeclidinium 62.5 mcg/actuation 1 inh inhalation DAILY 04/01/23 05/07/24 History blister powder for inhalation (Incruse Ellipta) Exam Narrative Exam Narrative: General: Patient is morbidly obese, comfortable sitting in bed with her head elevated at 45 degree angle, alert and oriented x 3 and in no acute distress. He speaks in full sentences. No pursed lip breathing. HEENT: Normocephalic, eyes with pupils equal and reactive light symmetrically, extraocular movement intact and sclera anicteric. Oropharynx with dry mucosa. Fair dentition. Neck: Supple without JVD. Back: Kyphotic without CVA tenderness. Lungs: Poor aeration with poor air movement bilaterally, increased expiratory phase but no expiratory wheeze. Occasional scattered crackle with no focalizing rales. No intercostal retractions. Bronchovesicular breath sounds diffusely. Breast: Exam deferred. Heart: Regular rate with irregular rhythm, no murmurs or gallops appreciated. Abdomen: Obese contour, soft and nontender to palpation with no palpable hepatosplenomegaly. Bowel sounds positive all quadrants. Genitalia/rectal: Exam deferred. Extremities: No clubbing, cyanosis or grossly pitting edema.. Capillary refill. Skin: Normal color, warm and dry. Neuro: Cranial nerves II through XII gross intact, no focalized motor deficits or tremor. Psych: Normal affect and mood. No abnormal thought processes. Remote and recent memory intact. Results Imaging Imaging Studies: Exam: XR Chest Exam date and time: 05/07/2024 11:13 PM Age: 69 years old Clinical indication: Cough and shortness of breath; Additional info: Cough, shortness of breath TECHNIQUE: Imaging protocol: Radiologic exam of the chest. Views: 1 view. COMPARISON: CR XR CHEST 2V PA LATERAL 05/05/2024 10:53 AM FINDINGS: Lungs: Patchy bilateral airspace opacities more prominent on the right may represent pneumonia. Pleural spaces: Trace effusions, [id number]-[id number]-right versus pleural thickening. Heart/Mediastinum: No cardiomegaly or pericardial effusion. Bones/joints: Old left mid rib fractures. Soft tissues: Soft tissues are unremarkable as visualized. IMPRESSION: Trace effusions, [id number]-[id number]-[id number]-right versus pleural thickening. Patchy bilateral airspace opacities more prominent on the right may represent pneumonia. Labs 05/08/24 03:41 05/08/24 03:41 Labs: Laboratory Results - last 24 hr 05/07/24 22:55 WBC 11.33 H RBC 4.33 Hgb 13.5 Hct 42.3 MCV 98 H MCH 31.2 MCHC 31.9 L RDW 12.9 Plt Count 332 MPV 10.2 Immature Gran % 0.6 Neutrophils % 72.3 Lymphocytes % 13.7 Monocytes % 6.9 Eosinophils % 6.1 Basophils % 0.4 Nucleated RBC % 0.0 Absolute Neutrophils 8.19 H Absolute Lymphocytes 1.55 Absolute Monocytes 0.78 Absolute Eosinophils 0.69 Absolute Basophils 0.05 VBG pH 7.34 VBG pCO2 46 VBG pO2 44 VBG HCO3 25 VBG Total CO2 22 L VBG O2 Saturation 78 VBG Base Excess -1 Sodium 143 Potassium 3.8 Chloride 107 Carbon Dioxide 26.4 Anion Gap 9.6 BUN 26 H Creatinine 1.4 H Est GFR (CKD-EPI 2020) 40.22 Glucose 149 H Calcium 9.3 Troponin I 11 NT-Pro-B Natriuret Pep 443 H Last Vital Signs Pulse 79 05/07/24 23:32 Resp 19 05/07/24 23:40 BP 118/63 05/07/24 23:32 Pulse Ox 96 05/07/24 23:40 Time Spent Time spent with Patient: >75 minutes Time was spent: preparing to see the patient(eg.review tests), obtaining and/or reviewing separately otained hiistory, ordering medications,tests, procedures, indepentently interpreting results and counseling the patient
--- NOTE | 2024-05-08 00:24 | DI.VRAD_ITS ---
PROCEDURE INFORMATION: Exam: XR Chest Exam date and time: 05/07/2024 11:13 PM Age: 69 years old Clinical indication: Cough and shortness of breath; Additional info: Cough, shortness of breath TECHNIQUE: Imaging protocol: Radiologic exam of the chest. Views: 1 view. COMPARISON: CR XR CHEST 2V PA LATERAL 05/05/2024 10:53 AM FINDINGS: Lungs: Patchy bilateral airspace opacities more prominent on the right may represent pneumonia. Pleural spaces: Trace effusions, fmhy-rpvyapz-tjct-right versus pleural thickening. Heart/Mediastinum: No cardiomegaly or pericardial effusion. Bones/joints: Old left mid rib fractures. Soft tissues: Soft tissues are unremarkable as visualized. IMPRESSION: Trace effusions, zrhu-zonabwo-nbhx-right versus pleural thickening. Patchy bilateral airspace opacities more prominent on the right may represent pneumonia. Dictated and Authenticated by: Sabine Stephen MD. Ordering:KEYSHAWN Morrell MD
[2024-05-08 00:55] LABS: Troponin I 12 ng/L (<or=51)
--- NOTE | 2024-05-08 00:59 | W.PC.ACHO ---
Registration Status: Primary Language: Preferred Language: ED Information & Data Chief Complaint RespSymp 05/07/24 23:56 Other Complaint GenMedical 05/07/24 22:24 Triage Note Pt was diagnosed on Saturday05/07/24 22:24 with bronchitis, tonight started feeling weird and reports heart rate is irregular. Pt SOB with exertion which is new since bronchitis. Denies CP. Medical / Surgical History (Last Reviewed 05/08/24 @ 00:10 by Aldair Aguilar) Tinea pedis Hydronephrosis with urinary obstruction due to ureteral calculus PONV (postoperative nausea and vomiting) BCC (basal cell carcinoma), arm (Last Reviewed 05/08/24 @ 00:10 by Aldair Aguilar) History of surgery History of wisdom tooth extraction S/P colonoscopy (04/02/16) History of bilateral tubal ligation History of section (01/05/83) Most Recent Vital Signs Pulse 76 05/08/24 00:17 Pulse 88 05/08/24 00:51 Respiratory Rate 32 H 05/08/24 00:51 Respiratory Effort Short of Breath, Labored 05/07/24 23:00 Respiratory Depth Shallow 05/07/24 23:00 Blood Pressure 166/97 H 05/08/24 00:50 Blood Pressure Mean 123 05/08/24 00:50 Blood Pressure Position Supine 05/07/24 22:24 Pulse Oximetry 93 05/08/24 00:51 Oxygen Delivery Method Nasal Cannula 05/07/24 22:48 Oxygen Flow Rate 2 05/07/24 22:48 Pain Level 0 05/07/24 22:24 Allergies Penicillins Allergy (Severe, Verified 05/25/23 17:32) Hives metronidazole (From Flagyl) Allergy (Unknown, Verified 05/25/23 17:32) pt. reports taking at same time as PCN adhesive Adverse Reaction (Verified 05/25/23 17:32) REDNESS Precautions Isolation PUI 05/07/24 22:29 IV IV Catheter Type [Left Forearm Peripheral IV ] IV Catheter Gauge [Left 20 Forearm] Diagnostics 05/08/24 05/08/24 05/08/24 Range/Units 01:54 00:29 00:21 WBC (4.4-10.8) 10^3/uL RBC (3.93-5.22) 10^6/uL Hgb (11.2-15.7) g/dL Hct (36.0-46.0) % MCV (80-95) fL MCH (27.0-33.0) pg MCHC (32.0-36.0) % RDW (11.7-14.6) % Plt Count (130-400) 10^3/uL MPV (8.0-11.0) fL Immature Gran % % Neutrophils % % Lymphocytes % % Monocytes % % Eosinophils % % Basophils % % Nucleated RBC % (0.0-0.3) % Absolute Neutrophils (1.2-6.7) 10^3/uL Absolute Lymphocytes (1.2-3.4) 10^3/uL Absolute Monocytes (0.1-0.8) 10^3/uL Absolute Eosinophils (0.0-0.7) 10^3/uL Absolute Basophils (0.0-0.2) 10^3/uL VBG pH (7.31-7.41) VBG pCO2 (41-51) mmHg VBG pO2 mmHg VBG HCO3 (23-28) mmol/L VBG Total CO2 (24-29) mmol/L VBG O2 Saturation % VBG Base Excess (-2-3) mmol/L Sodium (136-145) mmol/L Potassium (3.5-5.1) mmol/L Chloride (98-107) mmol/L Carbon Dioxide (21.0-32.0) mmol/L Anion Gap (3-11) mmol/L BUN (7-18) mg/dL Creatinine (0.55-1.02) mg/dL Est GFR (CKD-EPI 2020) (mL/min/1.73m2) Glucose (74-106) mg/dL Calcium (8.5-10.1) mg/dL Troponin I Pending Pending (<or=51) ng/L NT-Pro-B Natriuret Pep (<300) pg/mL COVID-19 Source Pending SARS-CoV-2 (PCR) Pending Influenza Type A (PCR) Pending Influenza Type B (PCR) Pending RSV (PCR) Pending 05/07/24 Range/Units 22:55 WBC 11.33 H (4.4-10.8) 10^3/uL RBC 4.33 (3.93-5.22) 10^6/uL Hgb 13.5 (11.2-15.7) g/dL Hct 42.3 (36.0-46.0) % MCV 98 H (80-95) fL MCH 31.2 (27.0-33.0) pg MCHC 31.9 L (32.0-36.0) % RDW 12.9 (11.7-14.6) % Plt Count 332 (130-400) 10^3/uL MPV 10.2 (8.0-11.0) fL Immature Gran % 0.6 % Neutrophils % 72.3 % Lymphocytes % 13.7 % Monocytes % 6.9 % Eosinophils % 6.1 % Basophils % 0.4 % Nucleated RBC % 0.0 (0.0-0.3) % Absolute Neutrophils 8.19 H (1.2-6.7) 10^3/uL Absolute Lymphocytes 1.55 (1.2-3.4) 10^3/uL Absolute Monocytes 0.78 (0.1-0.8) 10^3/uL Absolute Eosinophils 0.69 (0.0-0.7) 10^3/uL Absolute Basophils 0.05 (0.0-0.2) 10^3/uL VBG pH 7.34 (7.31-7.41) VBG pCO2 46 (41-51) mmHg VBG pO2 44 mmHg VBG HCO3 25 (23-28) mmol/L VBG Total CO2 22 L (24-29) mmol/L VBG O2 Saturation 78 % VBG Base Excess -1 (-2-3) mmol/L Sodium 143 (136-145) mmol/L Potassium 3.8 (3.5-5.1) mmol/L Chloride 107 (98-107) mmol/L Carbon Dioxide 26.4 (21.0-32.0) mmol/L Anion Gap 9.6 (3-11) mmol/L BUN 26 H (7-18) mg/dL Creatinine 1.4 H (0.55-1.02) mg/dL Est GFR (CKD-EPI 2020) 40.22 (mL/min/1.73m2) Glucose 149 H (74-106) mg/dL Calcium 9.3 (8.5-10.1) mg/dL Troponin I 11 (<or=51) ng/L NT-Pro-B Natriuret Pep 443 H (<300) pg/mL COVID-19 Source SARS-CoV-2 (PCR) Influenza Type A (PCR) Influenza Type B (PCR) RSV (PCR) Intake and Output - 24 Hour Total 05/07/24 22:20 thru 05/07/24 23:00 Intake Total 10 Balance 10 Weight 92.986 kg Intake: IV 10 Falls Risk Assessment History of Falls No History 05/07/24 23:00 Contributing Factors No Factors 05/07/24 23:00 Ambulatory Aids Independent 05/07/24 23:00 Tubes/Lines None 05/07/24 23:00 Gait Evaluation No gait disturbance 05/07/24 23:00 Cognition No cognitive impairment 05/07/24 23:00 Fall Total Score 0 05/07/24 23:00 Level of Risk Standard/Low Risk 05/07/24 23:00 Problems (Last Reviewed 05/08/24 @ 00:10 by Aldair Aguilar) CKD (chronic kidney disease) stage 3, GFR 30-59 ml/min (Chronic) Pneumonia (Acute) Acute hypoxic respiratory failure (Acute) COPD with hypoxia (Acute) Frequent unifocal PVCs (Acute) Acute exacerbation of chronic obstructive pulmonary disease (Acute) Type 2 diabetes mellitus (Chronic) v v v v v v v v v Sending and/or Receiving Nurses: Please use comment section below to note any information pertinent to the patient hand-off not included above. Information / Comments: Patient diagnosed with bronchitis on Saturday. Came to ED with increased SOB. Patient utilized home SpO2 monitor and showed irregular HR. Patient suffering from frequent PVC's. Short of breath with exertion. Patient saturated down into high 80's on room air, placed on 2L/min nasal cannula and saturating at 93. Patient 26-30 respirations per minute. Patient has 20 in left forearm. Patient ambulated independently. Report received from:JESSEE Giraldo
[2024-05-08] MEDS: cefTRIAXone 1 GM/50 ML BAG IVPB (01:54)
[2024-05-08 02:48] LABS: Bilirubin Negative (Negative); Blood Trace-intact (Negative); Clarity Clear (Clear); Glucose Negative (Negative); Ketones Negative (Negative); Leukocyte Esterase Small (Negative); Nitrite Negative (Negative); Specific Gravity 1.025 (1.005-1.025)
[2024-05-08 02:53] LABS: Epithelial Cells Rare HPF (Negative); RBC 0-2 HPF (0-2); WBC >50 HPF (0-5)
[2024-05-08 02:54] LABS: Bacteria Few HPF (Negative); C & S Indicated? Yes; Casts Negative LPF (Negative); Crystals Negative HPF (Negative); Mucus Negative (Negative)
[2024-05-08] MEDS: AZITHROMYCIN 500 MG in Normal Saline 250 ML 250 MG IVPB (03:33)
[2024-05-08] MEDS: Water,Injection,Sterile 10 ML VIAL (03:35)
[2024-05-08 03:56] LABS: HCT 44.2 % (36.0-46.0); HGB 14.2 g/dL (11.2-15.7); MCH 31.2 pg (27.0-33.0); MCHC 32.1 % (32.0-36.0); MCV 97 fL (80-95); MPV 10.1 fL (8.0-11.0); Platelet Count 336 10^3/uL (130-400); RBC 4.55 10^6/uL (3.93-5.22); RDW 12.9 % (11.7-14.6); RDW-SD 46.5 fL; WBC 11.13 10^3/uL (4.4-10.8)
[2024-05-08 04:28] LABS: ALT 25 U/L (14-59); AST 21 U/L (15-37); Alkaline Phosphatase 138 U/L (46-116); Anion Gap 11.5 mmol/L (3-11); BUN 24 mg/dL (7-18); Bilirubin, Total 0.28 mg/dL (0.2-1.0); CO2 23.5 mmol/L (21.0-32.0); CREATININE 1.3 mg/dL (0.55-1.02); Calcium 8.9 mg/dL (8.5-10.1); Chloride 107 mmol/L (98-107); Estimated GFR 43.96 (mL/min/1.73m2); Glucose 189 mg/dL (74-106); Magnesium 2.1 mg/dL (1.8-2.4); Potassium 4.2 mmol/L (3.5-5.1); Sodium 142 mmol/L (136-145); Total Protein 8.1 g/dL (6.4-8.2)
[2024-05-08 04:35] LABS: Troponin I 9 ng/L (<or=51)
[2024-05-08 04:40] LABS: TSH (W/Ref FT4) 0.35 uIU/mL (0.36-3.74)
[2024-05-08] MEDS: Albuterol/Ipratropium 3 ML UPD VIAL UPD (05:26)
[2024-05-08] MEDS: methylPREDNISolone SUCC 125 MG VIAL 80 MG IVP ×3 (05:50→20:39)
[2024-05-08] MEDS: Normal Saline Flush 10 ML SYR IVP ×4 (05:52→20:38)
[2024-05-08 06:23] LABS: COVID-19 PCR Negative (Negative); Influenza A PCR Negative (Negative); Influenza B PCR Negative (Negative); RSV PCR Negative (Negative)
[2024-05-08 06:26] LABS: Source Nasopharynx
[2024-05-08] MEDS: Enoxaparin 40 MG/0.4 ML SYR SC (08:12)
[2024-05-08] MEDS: Insulin Aspart 300 UNITS/3 ML PEN SC ×4 (08:22→20:38)
--- NOTE | 2024-05-08 09:30 | DI.US_ITS ---
APPROVED REPORT EXAM: Comprehensive 2D, Doppler, and color-flow Echocardiogram Patient Location: Out-Patient [facility] Tester: Elijah Marks RDCS (AE) Indications: Frequent PVCs with elevated BNP Conclusion Normal left ventricular wall thickness and chamber size. Ejection fraction is 55 to 60%. Wall motio n is normal. Diastolic function is normal for age Normal right ventricular size and function Both atria are normal in size There is no structural or hemodynamically significant valvular disease Wall motion Left Ventricle The left ventricle is normal size. The left ventricular systolic function is normal. The left ventric ular ejection fraction is within the normal range. There is normal left ventricular wall thickness. T here is normal LV segmental wall motion. There is no ventricular septal defect visualized. LVEF is 55 -60%. Right Ventricle The right ventricle is normal size. The right ventricular systolic function is normal. Atria The left atrium size is normal. The right atrium size is normal. The interatrial septum is intact wit h no evidence for an atrial septal defect. Aortic Valve The aortic valve is normal in structure. Aortic valve is trileaflet. There is no aortic valvular sten osis. No aortic regurgitation is present. Mitral Valve The mitral valve is normal in structure. No evidence of mitral valve stenosis. Trace mitral regurgita tion. Tricuspid Valve The tricuspid valve is normal in structure. There is no tricuspid valve stenosis. Trace tricuspid reg urgitation. The RVSP is 10.8 mmHg. Pulmonic Valve The pulmonary valve is normal in structure. There is no pulmonic valvular stenosis. There is no pulmo dominique valvular regurgitation. Great Vessels The aortic root is normal in size. The ascending aorta is normal Aortic arch is not well visualized. IVC is normal in size and collapses >50% with inspiration. Pericardium There is no pericardial effusion. 2D Dimensions IVSD d PLAX 0.65 cm F: 0.6-1.0 Ao Root d 2.29 cm F: 2.7 - 3.3 LVPW d PLAX 0.60 cm F: 0.6 - 1.0 Ao Asc Diam d 3.25 cm F: 2.3 - 3.1 LVID d PLAX 5.18 cm F: 3.8 - 5.2 LVDs 3.51 cm F: 2.2 - 3.5 LV EF Teichholz 60.2 % FS 32.31 % LV EDV (Teich) 128.3 mL LV ESV (Teich) 51.0 mL Stroke Vol Index (Teich) 37.49 M-Mode TAPSE 2.39 cm (M/F) >1.7 Auto EF LV EDV A4C 104.1 mL LV EDV A2C 99.4 mL LV EDV BP 106.0 mL LV ESV A4C 46.4 mL LV ESV A2C 41.1 mL LV ESV BP 43.6 mL LVEF(%) A4C 55.4 % LVEF(%) A2C 58.6 % LVEF(%) BP 58.9 % LV SV A4C 57.6 ml LV SV A2C 58.3 ml LV SV BP 62.4 ml LV CO A4C 4.5 L/min LV CO A2C 4.8 L/min LV CO BP 4.6 L/min HR A4C 77.93 BPM HR A2C 81.63 BPM LV EDV Index (BP) LA Volume LA Length A4C 5.1 cm LA Length A2C 5.1 cm LA Area A4C s 14.46 cm2 LA Area A2C s 13.11 cm2 LA Vol A4C A-L 34.51 mL LA Vol A2C A-L 28.54 mL LA Vol Biplane A-L 31.5 mL LA Vol/BSA A4C A-L LA Vol/BSA A2C A-L LA Vol/BSA BP A-L 15.3 mL/m2 LA Vol A4C MOD 31.5 mL LA Vol A2C MOD 26.5 mL LA Vol BP MOD 28.9 mL RA Volume RA Area A4C 8.5 cm2 RA ESV A4C (A-L) 14.8mL RA Vol/BSA A4C A-L RA Length A4C 4.2 cm RA ESV A4C (MOD) 14.8mL LV Diastology MV E' medial 0.085 (>0.07 m/s) MV E Vmax 0.78 (0.4-1.3 m/s) MV E/E' MED 9.11 (<14) MV A Vmax 1.10 (0.4-1.3 m/s) MV E' lateral 0.087 (>0.1 m/s) E/A Ratio 0.7 MV E/E' LAT 8.95 (<14) MV E' Average 0.086 m/s MV E/E'(average) 9.03 Aortic Valve AoV Vmax 1.62 m/s LVOT Vmax 0.98 m/s AoV Peak Grad 10.5 mmHg LVOT Peak Grad 3.8 mmHg AoV Area (Vmax) 1.59 cm2 LVOT VTI 0.207 m AoV VTI 0.333 m LVOT Mean Grad 2.1 mmHg AoV Mean Pepe. 1.07 m/s LVOT SV 54.75 mL AoV Mean Grad 5.3 mmHg LVOT Diam s 1.80 cm AoV Area (VTI) 1.65 cm2 AV Regurg Peak Gr. 10.55 mmHg Velocity Ratio 0.60 Mitral Valve MV DT 171 (160-240 msec) MV Vmax TIPS 1.11 m/s MV Mean Grad 2.0 (<2mmHg) MV VTI 0.271 m Pulmonary Valve PV Vmax 1.28 (0.5-1.5 m/s) RVOT Vmax 0.89 m/s PV Peak Grad 6.6 mmHg RVOT Peak Gr. 3.2 mmHg PV Mean Pepe 0.85 m/s RVOT VTI 0.191 m PV Mean Grad 3.3 mmHg RVOT Mean Gr. 2.0 mmHg Tricuspid Valve RA Pressure 3.00 mmHg TR Vmax 1.40 m/s TR Peak Grad 7.7 mmHg RVSP (TR) 10.8 mmHg
--- NOTE | 2024-05-08 09:41 | DI.RAD_ITS ---
Exam(s) XR CHEST 2V PA LATERAL EXAM: XR CHEST 2V PA LATERAL CLINICAL HISTORY: bilateral pneumonia with COPD TECHNIQUE: 2D digital imaging was performed. Two views. COMPARISON: CT CT CHEST LUNG CANCER SCREEN from 04/01/2024 CR XR CHEST 2V PA LATERAL from 05/05/2024 CR,XR XR PORTABLE CHEST AP from 05/07/2024 FINDINGS: HEART: Normal size. Aorta: Mildly tortuous. PULMONARY VASCULATURE: Normal. MEDIASTINUM: Unremarkable. LUNGS: Question of increased density seen at the left lung base. Previously questioned area of of de nsity in the right upper lobe is not present and likely artifactual. PLEURAL SPACE: No pleural effusion or pneumothorax. Large epicardial fat pad at the left lung base. Left lateral pleural thickening in region of old rib fractures.. BONE:Old left rib fractures. SOFT TISSUES: Unremarkable. IMPRESSION: Findings suspicious for left lower lobe infiltrate. DATA REPOSITORY: RADIATION DOSE DELIVERED:
--- NOTE | 2024-05-08 09:49 | INITIAL_ITS ---
Date of service: 05/08/24 Time of Service: 09:49 Care Management Initial Assmt Initial Assessment Reason for Hospitalization: acute hypoxic respiratory failure Functional Status/Living Situation Patient Presentation: Macy was lying in bed visiting with her , Ernst, when CM met with her. She was pleasant and engaged well in conversation. She stated that per MD, she will likely remain inpatient for another 24-48H, depending on her progress. She is not on O2 at baseline, and needed supplemental O2 when she was admitted. She has been weaned off of supplemental O2. She stated that she is looking forward to going home, but feels it is important to adhere to the MD's recommendation, as she is worried about readmitting if she goes home too early. Macy is retired, and is independent at baseline. Her and daughters are supportive; one is local and one lives out of state. She stated that she does not feel that she will require any additional community support upon discharge. CM will continue to follow. Town of Residence: [place] Resides with: Spouse Significant Other/Family: Local Natural Supports: , Ernst Daughters, Debi and Magdalena She has six grandchildren as well. 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) Instrumental Activities of Daily Living (ADLs): Independent Medications Medication Management: No Issues/Barriers identified Advance Directives Advance Directives: Do you have an Advance Directive: N 03/04/20 15:50 AD On File at [facility]: N 03/04/20 15:50 Date Asked 05/07/24 05/07/24 22:36 AD Date Reviewed COLST On File at [facility] COLST Date Scanned Code Status Resuscitation Status Full Code Insurance Coverage/Financial Issues Insurance: [facility] [employer] supplement Care Team Visit Care Team Role Provider Type Kalpesh Saucedo Primary Care Provider NON-[facility] STAFF PHYSICIAN Petros Tavarez MD Emergency Provider [facility] STAFF PHYSICIAN Aldair Aguilar Admit Provider NON-[facility] STAFF PHYSICIAN Attending Provider Discharge Potential Discharge Needs: PCP F/U Appt Anticipated Barriers to Discharge: None Identified Patient/Family Education Needs: Review discharge instructions, discuss Ask Me Three Transportation: Private vehicle Plan: Anticipate Macy will return home once medically cleared. Her will drive her home via private vehicle. She will follow up with her PCP and discharge plan of care. CM will continue to follow. PFSH All Active Problems (Updated 05/08/24 @ 06:29 by Aldair Aguilar) CKD (chronic kidney disease) stage 3, GFR 30-59 ml/min (Chronic) Pneumonia (Acute) Acute hypoxic respiratory failure (Acute) COPD with hypoxia (Acute) Frequent unifocal PVCs (Acute) Acute exacerbation of chronic obstructive pulmonary disease (Acute) Bilateral hearing loss (Acute) Kidney stones (Chronic) Acute kidney insufficiency (Acute) NAFLD (nonalcoholic fatty liver disease) (Chronic) Elevated BP without diagnosis of hypertension (Acute) COPD (chronic obstructive pulmonary disease) (Chronic) Type 2 diabetes mellitus (Chronic) Per Patient pre diabetes Serrated adenoma of colon (Acute ~07/2020) Prediabetes (Chronic) Tubulovillous adenoma of colon (Chronic) Osteopenia (Chronic) Dexa 06/09 Hyperlipidemia (Chronic) Obesity (Chronic) Medical History Tinea pedis Hydronephrosis with urinary obstruction due to ureteral calculus PONV (postoperative nausea and vomiting) With every anesthetic, even TIVA. Responds well to IV Compazine. BCC (basal cell carcinoma), arm Left upper arm Surgical History History of surgery kidney stone extraction w/ stent History of wisdom tooth extraction S/P colonoscopy (04/02/16) History of bilateral tubal ligation History of section (01/05/83) 01/05/83 and 06/20/84 Family History Mother Hypertension Dementia Atrial fibrillation Father , at 59 of lung cancer Lung cancer Sister Rectal cancer metastasized to liver Hypertension Brother Alcohol abuse Daughter No problems noted. Daughter No problems noted. Maternal Grandfather No problems noted. Maternal Grandmother No problems noted. Paternal Grandfather , in his 70s Myocardial infarction Heart disease Alcohol abuse Paternal Grandmother Emphysema of lung Social History Smoking/Tobacco Use Status: Former Tobacco Use Quit Date: 06/24/13 Pack-years: 90 Tobacco: How many years used: 45 Second Hand Exposure: No Smoking risk assessment performed?: Yes Alcohol Intake: current Alcohol Intake frequency: holidays/special occasions only Alcohol type: hard liquor Drug use: Never Substance use type: does not use Caregiver/Support person: No Household members: spouse Housing: apartment Communication Needs: None Do you need help understanding health information?: Never Pets and animals: Yes Pets and animals: cat(s) and dog(s) Sexually active: Yes Do you think of yourself as: straight/heterosexual Current gender identity: female What is your relationship status?: How often do you talk on the phone with friends or family?: three or more times per week How often do you get together with friends or relatives?: decline to answer How often do you attend religious or jain services?: decline to answer Do you belong to any clubs or organized social groups?: decline to answer Panel score (0-1 are the most socially isolated patients): 2 Duration: < 15 minutes/day Frequency: 1-2 times per week Guerita/Hindu: None Special guerita needs: No Seatbelt use: always Helmet use: Yes Helmet use: always Drive intox or ride w/intox courtesy bus driver: No Do you feel safe at home: Yes Do you feel safe in your relationship?: Yes Female Reproductive History Menstrual Menopause type: natural History History 2 Para 2 Hx # Term Pregnancies Multiple births Hx # Pregnancies Ectopic pregnancies AB induced Hx Number of Living Children 2 AB spontaneous SDOH(Care Management) Screening Will the Patient Participate in the Screening?: Yes Do you worry about having a steady place to live?: no Problems where you live: no known problems In the past 12 months, have you had to go without electric, gas, oil or water in your home?: no Have you or anyone in your house had to go without enough food to eat?: no Has lack of transportation kept you from medical appointments or from doing things needed for daily living?: no Has anyone in your support network made you feel unsafe for any reason?: no
--- NOTE | 2024-05-08 12:00 | CHAPLAIN ---
I visited with Macy and her , Ernst, explained my role and offered support. One of Macy's daughters, Magdalena Waldron, is a former [employer] nurse now works as a nurse at [employer].
--- NOTE | 2024-05-08 14:29 | W.PM.PROGNOT ---
Date of Service Date of service: 05/08/24 Time of Service: 14:29 Assessment and Plan Assessment and plan (1) Acute hypoxic respiratory failure: Start date: 05/08/24 Status: Acute Assessment and plan: This is a 69-year-old lady with a long history of smoking quitting about 15 years ago though by charting it was in 2014, presenting with new oxygen requirements and COPD exacerbation. She has had a recent URI with fever which at first responded to Zithromax orally but now is exacerbating with hypoxemia but no CO2 retention. She will be admitted with aggressive nebulizer treatments and IV antibiotic coverage for community-acquired pneumonia. She has failed outpatient therapy. As she improves she should return home. She is a full code. (2) Acute exacerbation of chronic obstructive pulmonary disease: Start date: 05/08/24 Status: Acute Assessment and plan: IV Solu-Medrol with nebulizer treatments. Antibiotic coverage for possible pneumonia. (3) Frequent unifocal PVCs: Start date: 05/08/24 Status: Acute Assessment and plan: No ischemic changes and negative troponins. Continue cardiac monitoring while aggressively treating COPD exacerbation with hypoxemia and respiratory failure. BNP was elevated and patient may have increased PA pressures with no previous echocardiogram to compare. (4) Pneumonia: Status: Acute Assessment and plan: Bilateral infiltrates possible with possible effusions as well. Her BNP is elevated and echocardiogram will be followed up. No IV fluid resuscitation for her mild CKD and possible dehydration with acute illness. Increase oral intake if possible. Monitor for fluid overload. Qualifiers: Pneumonia type: due to unspecified organism Laterality: bilateral Lung location: unspecified part of lung Qualified Code(s): J18.9 - Pneumonia, unspecified organism (5) CKD (chronic kidney disease) stage 3, GFR 30-59 ml/min: Status: Chronic Assessment and plan: Slightly exacerbated the patient will be encouraged to have oral rehydration pending echocardiogram with elevated BNP. Qualifiers: Chronic kidney disease stage 3 subtype: stage 3b (GFR 30-44) Qualified Code(s): N18.32 - Chronic kidney disease, stage 3b (6) Type 2 diabetes mellitus: Status: Chronic Assessment and plan: Glucometer checks before meals and at bedtime with sliding scale coverage. Qualifiers: Diabetes mellitus long-term insulin use: without long-term use Diabetes mellitus complication status: without complication Qualified Code(s): E11.9 - Type 2 diabetes mellitus without complications Subjective Subjective Interval history since last seen: THIS IS A NONBILLABLE ENCOUNTER. EARLY AM ADMISSION. Pt states that she feels much better. Plan on changing to oral steroids tomorrow. Notes/labs/rads/meds reviewed Exam Narrative Exam Narrative: no apparent distress no wheeze/no amu/speaking in complete sentences Objective Last Vital Signs Temp 36.2 C L 05/08/24 12:04 Pulse 71 05/08/24 12:04 Resp 17 05/08/24 12:04 BP 162/99 H 05/08/24 12:04 Pulse Ox 93 05/08/24 12:04 Laboratory Results - last 24 hr 05/07/24 05/08/24 05/08/24 22:55 00:29 02:00 WBC 11.33 H RBC 4.33 Hgb 13.5 Hct 42.3 MCV 98 H MCH 31.2 MCHC 31.9 L RDW 12.9 Plt Count 332 MPV 10.2 Immature Gran % 0.6 Neutrophils % 72.3 Lymphocytes % 13.7 Monocytes % 6.9 Eosinophils % 6.1 Basophils % 0.4 Nucleated RBC % 0.0 Absolute Neutrophils 8.19 H Absolute Lymphocytes 1.55 Absolute Monocytes 0.78 Absolute Eosinophils 0.69 Absolute Basophils 0.05 VBG pH 7.34 VBG pCO2 46 VBG pO2 44 VBG HCO3 25 VBG Total CO2 22 L VBG O2 Saturation 78 VBG Base Excess -1 Sodium 143 Potassium 3.8 Chloride 107 Carbon Dioxide 26.4 Anion Gap 9.6 BUN 26 H Creatinine 1.4 H Est GFR (CKD-EPI 2020) 40.22 Glucose 149 H Calcium 9.3 Magnesium Total Bilirubin AST ALT Alkaline Phosphatase Troponin I 11 12 NT-Pro-B Natriuret Pep 443 H Total Protein Albumin TSH Free T4 Urine Color Yellow Urine Clarity Clear Urine pH 6.0 Ur Specific Dalton 1.025 Urine Protein Negative Urine Ketones Negative Urine Blood Trace-intact H Urine Nitrite Negative Urine Bilirubin Negative Urine Urobilinogen 1.0 H Ur Leukocyte Esterase Small H Urine RBC 0-2 Urine WBC >50 H Ur Epithelial Cells Rare Urine Crystals Negative Urine Bacteria Few Urine Casts Negative Urine Mucus Negative Ur Culture Indicated? Yes Urine Glucose Negative COVID-19 Source SARS-CoV-2 (PCR) Influenza Type A (PCR) Influenza Type B (PCR) RSV (PCR) 05/08/24 05/08/24 03:41 05:30 WBC 11.13 H RBC 4.55 Hgb 14.2 Hct 44.2 MCV 97 H MCH 31.2 MCHC 32.1 RDW 12.9 Plt Count 336 MPV 10.1 Immature Gran % Neutrophils % Lymphocytes % Monocytes % Eosinophils % Basophils % Nucleated RBC % Absolute Neutrophils Absolute Lymphocytes Absolute Monocytes Absolute Eosinophils Absolute Basophils VBG pH VBG pCO2 VBG pO2 VBG HCO3 VBG Total CO2 VBG O2 Saturation VBG Base Excess Sodium 142 Potassium 4.2 Chloride 107 Carbon Dioxide 23.5 Anion Gap 11.5 H BUN 24 H Creatinine 1.3 H Est GFR (CKD-EPI 2020) 43.96 Glucose 189 H Calcium 8.9 Magnesium 2.1 Total Bilirubin 0.28 AST 21 ALT 25 Alkaline Phosphatase 138 H Troponin I 9 NT-Pro-B Natriuret Pep Total Protein 8.1 Albumin 3.0 L TSH 0.35 L Free T4 1.20 Urine Color Urine Clarity Urine pH Ur Specific Dalton Urine Protein Urine Ketones Urine Blood Urine Nitrite Urine Bilirubin Urine Urobilinogen Ur Leukocyte Esterase Urine RBC Urine WBC Ur Epithelial Cells Urine Crystals Urine Bacteria Urine Casts Urine Mucus Ur Culture Indicated? Urine Glucose COVID-19 Source Nasopharynx SARS-CoV-2 (PCR) Negative Influenza Type A (PCR) Negative Influenza Type B (PCR) Negative RSV (PCR) Negative Time Spent with Patient Time Spent with Patient: <25 minutes Time was spent: preparing to see the patient(eg.review tests), obtaining and/or reviewing separately otained hiistory, ordering medications,tests, procedures, referring, communicating with other health healthcare sales representative, indepentently interpreting results, counseling the patient and care coordination
[2024-05-09] MEDS: cefTRIAXone 1 GM/50 ML BAG IVPB (02:42)
[2024-05-09 02:44] VITALS: BP 143/80; PULSE 75; RESP 16; TEMP 35.7; O2SAT 93
[2024-05-09] MEDS: AZITHROMYCIN 500 MG in Normal Saline 250 ML 250 MG IVPB (03:33)
[2024-05-09] MEDS: methylPREDNISolone SUCC 125 MG VIAL 80 MG IVP (05:43)
[2024-05-09 06:43] LABS: Abs Immature Grans 0.22 10^3/uL (0.0-0.06); Absolute Basophil Count 0.02 10^3/uL (0.0-0.2); Absolute Lymphocyte Count 0.76 10^3/uL (1.2-3.4); Absolute Monocyte Count 0.32 10^3/uL (0.1-0.8); Basophils % 0.1 %; HGB 13.1 g/dL (11.2-15.7); Immature Grans % 1.3 %; Lymphocytes % 4.5 %; MCH 31.4 pg (27.0-33.0); MCHC 32.8 % (32.0-36.0); MCV 96 fL (80-95); MPV 10.1 fL (8.0-11.0); Monocytes % 1.9 %; Neutrophils % 92.2 %; Platelet Count 342 10^3/uL (130-400); RBC 4.17 10^6/uL (3.93-5.22); RDW 12.7 % (11.7-14.6); RDW-SD 44.7 fL
[2024-05-09 06:47] LABS: Absolute Neutrophil Count 15.49 10^3/uL (1.2-6.7)
[2024-05-09 07:17] LABS: ALT 15 U/L (14-59); AST 11 U/L (15-37); Albumin 2.8 g/dL (3.4-5.0); Alkaline Phosphatase 116 U/L (46-116); Anion Gap 6.4 mmol/L (3-11); BUN 31 mg/dL (7-18); Bilirubin, Total 0.25 mg/dL (0.2-1.0); CO2 25.6 mmol/L (21.0-32.0); CREATININE 1.1 mg/dL (0.55-1.02); Calcium 9.1 mg/dL (8.5-10.1); Chloride 109 mmol/L (98-107); Estimated GFR 53.72 (mL/min/1.73m2); Glucose 173 mg/dL (74-106); Potassium 4.2 mmol/L (3.5-5.1); Sodium 141 mmol/L (136-145); Total Protein 7.2 g/dL (6.4-8.2)
[2024-05-09] MEDS: Enoxaparin 40 MG/0.4 ML SYR SC (07:59)
[2024-05-09] MEDS: Insulin Aspart 300 UNITS/3 ML PEN SC ×4 (07:59→20:58)
[2024-05-09] MEDS: Normal Saline Flush 10 ML SYR IVP ×2 (08:00→19:03)
[2024-05-09 08:56] VITALS: BP 128/79; PULSE 77; RESP 18; TEMP 36.9; O2SAT 90
[2024-05-09 09:54] VITALS: O2SAT 91
[2024-05-09 11:24] VITALS: BP 120/71; PULSE 74; RESP 22; TEMP 36.4; O2SAT 92
[2024-05-09 15:25] VITALS: BP 155/89; PULSE 76; RESP 18; TEMP 36.4; O2SAT 94
--- NOTE | 2024-05-09 15:59 | W.PM.PROGNOT ---
Date of Service Date of service: 05/09/24 Time of Service: 16:00 Assessment and Plan Assessment and plan (1) Acute hypoxic respiratory failure: Start date: 05/08/24 Status: Acute Assessment and plan: This is a 69-year-old lady with a long history of smoking quitting about 15 years ago though by charting it was in 2014, presenting with new oxygen requirements and COPD exacerbation. She has had a recent URI with fever which at first responded to Zithromax orally but now is exacerbating with hypoxemia but no CO2 retention. She will be admitted with aggressive nebulizer treatments and IV antibiotic coverage for community-acquired pneumonia. She has failed outpatient therapy. As she improves she should return home. She is a full code. (2) Acute exacerbation of chronic obstructive pulmonary disease: Start date: 05/08/24 Status: Acute Assessment and plan: IV Solu-Medrol with nebulizer treatments. Antibiotic coverage for possible pneumonia. Switch patient over to oral steroids today for a planned discharge tomorrow. (3) Frequent unifocal PVCs: Start date: 05/08/24 Status: Acute Assessment and plan: No ischemic changes and negative troponins. Continue cardiac monitoring while aggressively treating COPD exacerbation with hypoxemia and respiratory failure. BNP was elevated and patient may have increased PA pressures with no previous echocardiogram to compare. (4) Pneumonia: Status: Acute Assessment and plan: Bilateral infiltrates possible with possible effusions as well. Her BNP is elevated and echocardiogram will be followed up. No IV fluid resuscitation for her mild CKD and possible dehydration with acute illness. Increase oral intake if possible. Monitor for fluid overload. Qualifiers: Pneumonia type: due to unspecified organism Laterality: bilateral Lung location: unspecified part of lung Qualified Code(s): J18.9 - Pneumonia, unspecified organism (5) CKD (chronic kidney disease) stage 3, GFR 30-59 ml/min: Status: Chronic Assessment and plan: Slightly exacerbated the patient will be encouraged to have oral rehydration pending echocardiogram with elevated BNP. Qualifiers: Chronic kidney disease stage 3 subtype: stage 3b (GFR 30-44) Qualified Code(s): N18.32 - Chronic kidney disease, stage 3b (6) Type 2 diabetes mellitus: Status: Chronic Assessment and plan: Glucometer checks before meals and at bedtime with sliding scale coverage. Patient was very anxious about steroids causing her sugars to get too high. I told him it is very common side effect of steroids is to have mildly to moderately elevated sugar. I will order an A1c at the patient's request as well. Qualifiers: Diabetes mellitus credit verification clerk insulin use: without mcc use Diabetes mellitus complication status: without complication Qualified Code(s): E11.9 - Type 2 diabetes mellitus without complications Subjective Subjective Interval history since last seen: Patient seen and examined in her room this morning. Plan of care discussed with patient as well as her who is at bedside. Patient was also discussed during multidisciplinary rounds. Patient was a little anxious about being discharged as she noted that she was mildly hyperglycemic. Exam Narrative Exam Narrative: HEENT: Normocephalic atraumatic mucous membranes moist oropharynx is clear ocular motions are intact Neck: No lymphadenopathy no JVD no thyromegaly Cardiac: Regular rate and rhythm no murmur rubs or gallops are appreciated Lungs: Clear to auscultation bilaterally no accessory muscle use noted speaking in complete sentences Abdomen: Soft nontender nondistended bowel sounds active Extremities: No cyanosis, edema bilaterally Neurologic: Cranial nerves II through XII intact as tested reflexes in upper lower extremity normal as tested Psych: Mildly anxious and tearful. Objective Last Vital Signs Temp 36.4 C L 05/09/24 15:25 Pulse 76 05/09/24 15:25 Resp 18 05/09/24 15:25 BP 155/89 H 05/09/24 15:25 Pulse Ox 94 05/09/24 15:25 Laboratory Results - last 24 hr 05/09/24 06:27 WBC 16.80 H RBC 4.17 Hgb 13.1 Hct 40.0 MCV 96 H MCH 31.4 MCHC 32.8 RDW 12.7 Plt Count 342 MPV 10.1 Immature Gran % 1.3 Neutrophils % 92.2 Lymphocytes % 4.5 Monocytes % 1.9 Eosinophils % 0.0 Basophils % 0.1 Nucleated RBC % 0.0 Absolute Neutrophils 15.49 H Absolute Lymphocytes 0.76 L Absolute Monocytes 0.32 Absolute Eosinophils 0.00 Absolute Basophils 0.02 Sodium 141 Potassium 4.2 Chloride 109 H Carbon Dioxide 25.6 Anion Gap 6.4 BUN 31 H Creatinine 1.1 H Est GFR (CKD-EPI 2020) 53.72 Glucose 173 H Calcium 9.1 Total Bilirubin 0.25 AST 11 L ALT 15 Alkaline Phosphatase 116 Total Protein 7.2 Albumin 2.8 L Time Spent with Patient Time Spent with Patient: 35-49 minutes Time was spent: preparing to see the patient(eg.review tests), obtaining and/or reviewing separately otained hiistory, ordering medications,tests, procedures, referring, communicating with other health hearing care practitioner, indepentently interpreting results, counseling the patient and care coordination
[2024-05-09 19:00] VITALS: BP 127/65; PULSE 83; RESP 14; TEMP 36.4; O2SAT 91
[2024-05-09] MEDS: Docusate Sodium 100 MG CAP PO (20:59)
[2024-05-10 02:13] VITALS: BP 135/91; PULSE 66; RESP 14; TEMP 36.2; O2SAT 93
[2024-05-10] MEDS: cefTRIAXone 1 GM/50 ML BAG IVPB (02:15)
[2024-05-10] MEDS: AZITHROMYCIN 500 MG in Normal Saline 250 ML 250 MG IVPB (03:45)
[2024-05-10 06:13] LABS: HCT 39.4 % (36.0-46.0); MCH 31.3 pg (27.0-33.0); MCV 95 fL (80-95); MPV 11.1 fL (8.0-11.0); Platelet Count 288 10^3/uL (130-400); RBC 4.15 10^6/uL (3.93-5.22); RDW-SD 45.5 fL; WBC 14.67 10^3/uL (4.4-10.8)
[2024-05-10 06:30] LABS: ALT 13 U/L (14-59); AST 16 U/L (15-37); Albumin 2.7 g/dL (3.4-5.0); Alkaline Phosphatase 107 U/L (46-116); Anion Gap 9.7 mmol/L (3-11); BUN 42 mg/dL (7-18); Bilirubin, Total 0.27 mg/dL (0.2-1.0); CO2 23.3 mmol/L (21.0-32.0); CREATININE 1.2 mg/dL (0.55-1.02); Calcium 8.8 mg/dL (8.5-10.1); Chloride 108 mmol/L (98-107); Estimated GFR 48.39 (mL/min/1.73m2); Glucose 112 mg/dL (74-106); Potassium 4.4 mmol/L (3.5-5.1); Sodium 141 mmol/L (136-145)
[2024-05-10] MEDS: Umeclidinium 7 CAP INHALER 1 CAP IH (07:59)
[2024-05-10 08:27] VITALS: BP 149/77; PULSE 71; RESP 19; TEMP 36.4; O2SAT 94
[2024-05-10] MEDS: Enoxaparin 40 MG/0.4 ML SYR SC (08:29)
[2024-05-10] MEDS: Normal Saline Flush 10 ML SYR IVP (08:29)
[2024-05-10] MEDS: predniSONE 20 MG TAB PO (08:29)
[2024-05-10 11:15] VITALS: BP 130/81; PULSE 72; RESP 18; TEMP 36.3; O2SAT 92
[2024-05-10] MEDS: Insulin Aspart 300 UNITS/3 ML PEN SC (11:46)
--- NOTE | 2024-05-10 13:02 | DSE_ITS ---
Date of service: 05/10/24 Time of Service: 13:02 DS: Diagnosis Discharge Diagnosis (1) Acute hypoxic respiratory failure: Status: Acute (2) Acute exacerbation of chronic obstructive pulmonary disease: Status: Acute (3) Frequent unifocal PVCs: Status: Acute (4) Pneumonia: Status: Acute (5) CKD (chronic kidney disease) stage 3, GFR 30-59 ml/min: Status: Chronic (6) Type 2 diabetes mellitus: Status: Chronic Discharge Plan Disposition Patient Disposition: Home Condition: Good Discharge Details Reason For Visit: Acute hypoxic respiratory failure with COPD.... Admit Date/Time: 05/08/24 00:21 Admit Provider: Aldair Aguilar Attending Provider: Aldair Aguilar Primary Care Provider: Kalpesh Saucedo Hospital Course Hospital Course: This is a 69-year-old female with a known history of COPD who was admitted on 05/08/2024 for COPD exacerbation. Over the ensuing 48 hours she was treated with steroids, inhalers, and antibiotics. Patient's symptomology had almost completely resolved on the she has to be discharged home. In reviewing her old labs though I have noticed that she has chronic hematuria and I am recommending that she follow-up in 4 to 6 weeks to ensure resolution. If not she does follow-up with a urologist at [facility] and I recommend a evaluation there. Patient stated understanding. While she was here an echocardiogram and chest x-ray were performed and they were available for review. She was also noted to have episodes of PVCs but no symptomology. Urine culture showed contamination. Prescriptions will be sent over to her pharmacy on record. Home Meds and New Rx's Prescriptions: New prednisone 20 mg Tablet 20 mg PO DAILY Qty: 7 0RF azithromycin 250 mg tablet 250 mg PO DAILY 6 Days Qty: 6 0RF Rx Instructions: start on day 2 of therapy Continued calcium carbonate-vitamin D3 1 EACH tablet 1 ea PO DAILY albuterol sulfate 90 mcg/actuation HFA aerosol inhaler 2 inh inhalation Q6H PRN (Reason: shortness of breath or wheezing) Qty: 18 4RF Incruse Ellipta 62.5 mcg/actuation blister with device 1 inh INHALATION DAILY Patient Comments: Inhale 1 puff as directed once a day ibuprofen 400 mg tablet 400 mg PO Q6H PRN (Reason: pain) Qty: 20 0RF Discharge Instructions Referrals: Kalpesh Saucedo [Primary Care Provider] - (3-5 days) Activity:: Activity as Tolerated Equipment/Supplies:: No Equipment Needed Diet:: As Tolerated DS: Summary Time Spent with Patient providing and/or coordinating discharge services: Greater than 30 minutes Status at Discharge Functional status at discharge: independent ambulation Overall status at discharge: patient is back to baseline Mental Status: mental status grossly normal Speech and Movement: speech and movement normal Mood: congruent mood Affect: normal affect Quality:SDOH Health Related Social Needs: No Data to Display Exam Narrative Exam Narrative: HEENT: Normocephalic atraumatic mucous membranes moist oropharynx is clear ocular motions are intact Neck: No lymphadenopathy no JVD no thyromegaly Cardiac: Regular rate and rhythm no murmur rubs or gallops are appreciated Lungs: Clear to auscultation bilaterally no accessory muscle use noted speaking in complete sentences Abdomen: Soft nontender nondistended bowel sounds active Extremities: No cyanosis, edema bilaterally Neurologic: Cranial nerves II through XII intact as tested reflexes in upper lower extremity normal as tested Psych: Mildly anxious and tearful. Psych Mental Status: mental status grossly normal Speech and Movement: speech and movement normal Mood: congruent mood Affect: normal affect DS: Data Vitals/I&O Vitals and I&O: Vital Signs Temperature 36.3 C L 05/10/24 11:15 Temperature Source Temporal Artery Scan 05/10/24 11:15 Pulse 72 05/10/24 11:15 Pulse Rhythm Irregular 05/08/24 01:14 Pulse 88 05/08/24 00:51 Respiratory Rate 18 05/10/24 11:15 Respiratory Effort Short of Breath, Incrsd Work of Breathing 05/08/24 01:14 Respiratory Depth Normal 05/08/24 01:14 Respiratory Pattern Tachypnea 05/08/24 01:14 Blood Pressure 130/81 05/10/24 11:15 Blood Pressure Mean 123 05/08/24 00:50 Blood Pressure Position Supine 05/07/24 22:24 Pulse Oximetry 92 05/10/24 11:15 Oxygen Delivery Method Room Air 05/10/24 11:15 Oxygen Flow Rate 0 05/10/24 11:15 Pain Level 0 05/09/24 15:25 Comment RN notified. 05/09/24 15:25 Intake & Output 05/09/24 05/10/2424 23:59 11:59 23:59 Intake Total 338 / 338 Output Total 1999 Balance -1662 / -1662 Intake: IV 250 / 250 Oral 88 / 88 Output: Urine 1999 Other: Urine Color Yellow Urine Appearance Clear Urine Odor None Data Completed and Pending Labs on day of discharge: Labs from last 24 hours 05/10/24 05/10/24 19:00 05:51 WBC 14.67 H RBC 4.15 Hgb 13.0 Hct 39.4 MCV 95 MCH 31.3 MCHC 33.0 RDW 13.0 Plt Count 288 MPV 11.1 H Sodium 141 Potassium 4.4 Chloride 108 H Carbon Dioxide 23.3 Anion Gap 9.7 BUN 42 H Creatinine 1.2 H Est GFR (CKD-EPI 2020) 48.39 Glucose 112 H Hemoglobin A1c Pending Calcium 8.8 Total Bilirubin 0.27 AST 16 ALT 13 L Alkaline Phosphatase 107 Total Protein 7.0 Albumin 2.7 L PFSH All Active Problems (Updated 05/10/24 @ 13:02 by Austen Camargo MD) CKD (chronic kidney disease) stage 3, GFR 30-59 ml/min (Chronic) Pneumonia (Acute) Acute hypoxic respiratory failure (Acute) COPD with hypoxia (Acute) Frequent unifocal PVCs (Acute) Acute exacerbation of chronic obstructive pulmonary disease (Acute) Bilateral hearing loss (Acute) Kidney stones (Chronic) Acute kidney insufficiency (Acute) NAFLD (nonalcoholic fatty liver disease) (Chronic) Elevated BP without diagnosis of hypertension (Acute) COPD (chronic obstructive pulmonary disease) (Chronic) Type 2 diabetes mellitus (Chronic) Per Patient pre diabetes Serrated adenoma of colon (Acute ~07/2020) Prediabetes (Chronic) Tubulovillous adenoma of colon (Chronic) Osteopenia (Chronic) Dexa 06/09 Hyperlipidemia (Chronic) Obesity (Chronic) Medical History Tinea pedis Hydronephrosis with urinary obstruction due to ureteral calculus PONV (postoperative nausea and vomiting) With every anesthetic, even TIVA. Responds well to IV Compazine. BCC (basal cell carcinoma), arm Left upper arm Surgical History History of surgery kidney stone extraction w/ stent History of wisdom tooth extraction S/P colonoscopy (04/02/16) History of bilateral tubal ligation History of section (01/05/83) 01/05/83 and 06/20/84 Family History Mother Hypertension Dementia Atrial fibrillation Father , at 59 of lung cancer Lung cancer Sister Rectal cancer metastasized to liver Hypertension Brother Alcohol abuse Daughter No problems noted. Daughter No problems noted. Maternal Grandfather No problems noted. Maternal Grandmother No problems noted. Paternal Grandfather , in his 70s Myocardial infarction Heart disease Alcohol abuse Paternal Grandmother Emphysema of lung Social History Smoking/Tobacco Use Status: Former Tobacco Use Quit Date: 06/24/13 Pack-years: 90 Tobacco: How many years used: 45 Second Hand Exposure: No Smoking risk assessment performed?: Yes Alcohol Intake: current Alcohol Intake frequency: holidays/special occasions only Alcohol type: hard liquor Drug use: Never Substance use type: does not use Caregiver/Support person: No Household members: spouse Housing: apartment Communication Needs: None Do you need help understanding health information?: Never Pets and animals: Yes Pets and animals: cat(s) and dog(s) Sexually active: Yes Do you think of yourself as: straight/heterosexual Current gender identity: female What is your relationship status?: How often do you talk on the phone with friends or family?: three or more times per week How often do you get together with friends or relatives?: decline to answer How often do you attend presybeterian or holiness services?: decline to answer Do you belong to any clubs or organized social groups?: decline to answer Panel score (0-1 are the most socially isolated patients): 2 Duration: < 15 minutes/day Frequency: 1-2 times per week Guerita/Hindu: None Special guerita needs: No Seatbelt use: always Helmet use: Yes Helmet use: always Drive intox or ride w/intox driver/refuse collector: No Do you feel safe at home: Yes Do you feel safe in your relationship?: Yes Female Reproductive History Menstrual Menopause type: natural History History 2 Para 2 Hx # Term Pregnancies Multiple births Hx # Pregnancies Ectopic pregnancies AB induced Hx Number of Living Children 2 AB spontaneous Time Spent with Patient Time Spent with Patient: 45-69 minutes Time was spent: preparing to see the patient(eg.review tests), obtaining and/or reviewing separately otained hiistory, ordering medications,tests, procedures, referring, communicating with other health direct support professional caregiver, indepentently interpreting results, counseling the patient and care coordination
--- NOTE | 2024-05-10 13:30 | PDOC.CMDIS ---
Date of service: 05/10/24 Time of Service: 13:30 LACE Index Scoring Tool Questions: Length of Stay (in days): 2 Was the patient admitted via the E.D.?: Yes Comorbidities: Diabetes w/o Complication, Chronic Pulmonary Disease and Liver or Renal Disease E.D. Visits: 1 Answers: Total Score: 11 Risk of Readmission: High Risk Care Management Discharge Plan Reason for Hospitalization: COPD with acute respiratory failure Discharge Plan: Discharge home via private vehicle with family. Follow up with community providers and d/c plan of care as instructed. No new services are ordered prior to discharge. Patient/Family Education Needs: Review discharge instructions, discuss [facility] Related Social Needs: No Data to Display
== END 2024-05-10 13:48 | disposition home or self-care (01) | DRG 193 ==
LOC: ER 05-08 01:06 → MS 05-08 01:09
PROVIDERS: Hospitalist; Admitting Provider Family Medicine; Emergency Provider Emergency Medicine Emergency Medical Services; PCP Physician Assistant; Visit Provider Family Medicine
DX: J18.9 Pneumonia, unspecified organism (principal); J96.01 Acute respiratory failure with hypoxia; J44.1 Chronic obstructive pulmonary disease with (acute) exacerbation; J44.0 Chronic obstructive pulmonary disease with (acute) lower respiratory infection; I49.3 Ventricular premature depolarization; N18.32 Chronic kidney disease, stage 3b; R31.9 Hematuria, unspecified; E11.22 Type 2 diabetes mellitus with diabetic chronic kidney disease; Z87.891 Personal history of nicotine dependence; E78.5 Hyperlipidemia, unspecified; E66.9 Obesity, unspecified; K76.0 Fatty (change of) liver, not elsewhere classified
CPT/HCPCS: 00123; 36415; 80048; 80053; 82805; 85027; 87637; 93005; 93306; 94640; 96374; 99285; J1650; 71045; 71046; 81003; 81015; 83036; 83735; 83880; 84439; 84443; 84484; 85025; 87086; 93010; 94664; 94760; 99223; 99232; 99239; J0456; J0696; J1815; J2919; J7512; J7620

== ENCOUNTER 2024-07-16 22:36 | Observation (INO) | payer MEDICARE, SELFPAY ==
[2024-07-16] VITALS (19 sets, daily range): BP systolic 167–253; BP diastolic 96–157; PULSE 67–114; RESP 4–32; TEMP 36.1; O2SAT 88–100
--- NOTE | 2024-07-16 22:30 | RT.EKG_ITS ---
APPROVED REPORT Exam: Resting ECG Reason for Exam: Difficulty breathing Patient Location: E HR:99 bpm ECG Measurements Heart Rate 99 AXIS NC 144 P 69 QRSd 104 QRS -24 QT 343 T 90 QTc 440 Conclusion Sinus rhythm...normal P axis, V-rate 60- [address] segment or T wave abnormalities to suggest occlusive AR
--- NOTE | 2024-07-16 22:51 | W.ED.GENAD ---
Discharge Plan Disposition Patient Disposition: Admit to [facility] Condition: Serious Discharge Details Chief Complaint: SOB Clinical Impression: COPD exacerbation, Acute hypercapnic respiratory failure, Acute hypoxemic respiratory failure Primary Care Provider: Kalpesh Saucedo ED Provider: Danielle Singh Home Meds and New Rx's Prescriptions: No Action calcium carbonate-vitamin D3 1 EACH tablet 1 ea PO DAILY albuterol sulfate 90 mcg/actuation HFA aerosol inhaler 2 inh inhalation Q6H PRN (Reason: shortness of breath or wheezing) Qty: 18 4RF Incruse Ellipta 62.5 mcg/actuation blister with device 1 inh INHALATION DAILY Patient Comments: Inhale 1 puff as directed once a day ibuprofen 400 mg tablet 400 mg PO Q6H PRN (Reason: pain) Qty: 20 0RF prednisone 20 mg Tablet 20 mg PO DAILY Qty: 7 0RF HPI General Mode of arrival: EMS. Date/Time Provider Initiated Documentation: 07/16/24 22:41. Limitations to Documentation: no limitations. Information obtained by: patient, EMS and old records reviewed. HPI Narrative: 69yo F with hx COPD not on home O2, CKD, recent hospitalization in April for COPD exacerbation, presenting for shortness of breath. Has has several days of progressively worsening shortness of breath, worse this evening. Called EMS; O2 sat mid 80's on room air. Given duoneb from EMS. Arrives on 1L NC; upon transfer to ED stretcher is satting 84% on room air. No chest pain at any point, though breathing feels 'tight'. Cough for about a week. No fevers, chills, rash, nausea, vomiting, LE edema, lightheadedness, palpitations, or other concerns. Related Data Home Medications ?Medication ?Instructions ?Recorded ?Confirmed calcium 600 mg (as 1 ea PO DAILY 08/16/17 05/07/24 carbonate)-vitamin D3 20 mcg (800 unit) tablet albuterol sulfate 90 mcg/actuation 2 inh inhalation Q6H PRN shortness 11/24/21 05/07/24 aerosol inhaler of breath or wheezing #18 grams ibuprofen 400 mg tablet 400 mg PO Q6H PRN pain #20 tabs 04/01/23 05/07/24 umeclidinium 62.5 mcg/actuation 1 inh inhalation DAILY 04/01/23 05/07/24 blister powder for inhalation (Incruse Ellipta) prednisone 20 mg tablet 20 mg PO DAILY #7 tabs 05/10/24 Previous Rx's ?Medication ?Instructions ?Recorded albuterol sulfate 90 mcg/actuation 2 inh inhalation Q6H PRN shortness 11/24/21 aerosol inhaler of breath or wheezing #18 grams ibuprofen 400 mg tablet 400 mg PO Q6H PRN pain #20 tabs 04/01/23 prednisone 20 mg tablet 20 mg PO DAILY #7 tabs 05/10/24 Allergies Allergy/AdvReac Type Severity Reaction Status Date / Time Penicillins Allergy Severe Hives Verified 05/25/23 17:32 metronidazole (From Flagyl) Allergy Unknown Verified 05/25/23 17:32 adhesive AdvReac REDNESS Verified 05/25/23 17:32 General Stated Complaint: SOB MICHELLE: 3 Review of Systems Narrative: see HPI Exam Narrative Exam Narrative: General: Alert, dyspneic, speaking in 3-4 word sentences. Head: Normocephalic, atraumatic Neck: Trachea midline, ?Neck supple. ENT: ?MMM.? Cardiac: ?RRR, no murmurs appreciated Resp: Increased work of breathing, poor air movement. Abd: ?Non-distended Extremities: ?No deformities.? No peripheral edema. Neurologic: GCS 15. ? Moves all extremities freely against gravity Course Vital Signs Vital signs: Vital Signs Temperature 36.1 C L 07/16/24 22:36 Pulse 104 H 07/16/24 22:36 Respiratory Rate 22 07/16/24 22:36 Blood Pressure 253/125 H 07/16/24 22:36 Pulse Oximetry 92 07/16/24 22:36 Temperature 36.1 C L 07/16/24 22:36 Temperature Source Temporal Artery Scan 07/16/24 22:36 Pulse 104 H 07/16/24 22:36 Respiratory Rate 22 07/16/24 22:36 Respiratory Effort Short of Breath, Labored, Accessory Muscle Use 07/16/24 22:44 Respiratory Depth Retractive 07/16/24 22:44 Respiratory Pattern Tachypnea 07/16/24 22:44 Blood Pressure 253/125 H 07/16/24 22:36 Blood Pressure Position Supine 07/16/24 22:36 Pulse Oximetry 92 07/16/24 22:36 Oxygen Delivery Method Nasal Cannula 07/16/24 22:36 Oxygen Flow Rate 2 07/16/24 22:36 Pain Level 0 07/16/24 22:36 Medical Decision Making 69yo F with hx COPD not on home O2, CKD, recent hospitalization in April for COPD exacerbation, presenting for shortness of breath. Cough x 1 week, several days of progressively worsening shortness of breath, worse this evening. Called EMS; O2 sat mid 80's on room air. Given duoneb from EMS. Arrives on 1L NC; upon transfer to ED stretcher is satting 84% on room air. Markedly hypertensive on arrival with significantly increased work of breathing. Poor air movement on exam. O2 sat improves to 93+% on 2L NC. Strongly suspect COPD exacerbation. Will give steroids, abx, two additional duonebs followed by albuterol while awaiting results of workup. Given poor air movement, will start pt on BiPAP. Patient unable to tolerate BiPAP mask; reports difficultly/anxiety with any masks in the past. Will try IV ativan. Oxygenation and blood pressure improved after nebs however still wtih increased WOB and poor air movement. After ativan pt remains unable to tolerate biPAP. Will plan to start low-dose precedex gtt and try biPAP again after one hour. Regrettably no nasal biPAP/CPAP available. Labs reviewed as below, CBC wtih leukocytosis at 14.9, CMP with no actionable abnormalities, VBG with respiratory acidosis pH 7.25 pCO2 63, coags normal, dimer normal, troponins 21. 27 (would not further pursue ACS), BNP normal (not suggestive of acute heart failure). Respiratory viral panel negative. CXR independently reviewed, no focal pneumonia or signifcant pulmonary edema on my view, agree with radiology read below. Repeat VBG on hour after treatment improved, with pCO2 of 49 and PH 7.27. Patient continues with poor air movement and dyspnea and I do feel she would still benefit from biPAP; attempted again and pt is able to tolerate well while on precedex. Subsequent VBG after one hour on biPAP stable. On reassessment she is breathing much more comfortably, good air movement bilaterally. Appears to be sleeping comfortably. Will maintain on BiPAP for an additional hour and continue with albuterol, then trial off biPAP (regrettably no ICU beds here and all other hospitals within ~2.5 hours are capacity). On reassessment pt doing acceptably well off biPAP. Continuing to get q2 albuterol with good effect. Discussed with [facility] hospitalist Dr. Coffey and pt accepted to medicine service for further workup and management. Awaiting admission orders and transfer to the floor. Imaging Data Radiologic Study: Imaging: X-Ray Radiologist's impression: IMPRESSION: Mild hyperinflation without airspace consolidation. Lab Data Lab results reviewed: Yes I reviewed the patient's lab results. Labs: Laboratory Tests Range/Units 07/16/24 07/16/24 07/16/24 22:53 23:51 23:57 WBC (4.4-10.8) 10^3/uL 14.94 H RBC (3.93-5.22) 10^6/uL 4.95 Hgb (11.2-15.7) g/dL 15.7 Hct (36.0-46.0) % 49.7 H MCV (80-95) fL 100 H MCH (27.0-33.0) pg 31.7 MCHC (32.0-36.0) % 31.6 L RDW (11.7-14.6) % 13.2 Plt Count (130-400) 10^3/uL 278 MPV (8.0-11.0) fL 10.3 Immature Gran % % 0.3 Neutrophils % % 81.1 Lymphocytes % % 10.8 Monocytes % % 5.2 Eosinophils % % 1.9 Basophils % % 0.7 Nucleated RBC % (0.0-0.3) % 0.0 Absolute Neutrophils (1.2-6.7) 10^3/uL 12.12 H Absolute Lymphocytes (1.2-3.4) 10^3/uL 1.61 Absolute Monocytes (0.1-0.8) 10^3/uL 0.78 Absolute Eosinophils (0.0-0.7) 10^3/uL 0.28 Absolute Basophils (0.0-0.2) 10^3/uL 0.10 PT (9.1-11.1) sec 9.4 INR (0.9-1.1) 0.9 APTT (20.6-30.2) sec 23.5 D-Dimer (<500) ng/mlFEU 395 VBG pH (7.31-7.41) 7.25 L VBG pCO2 (41-51) mmHg 63 H* VBG pO2 mmHg 30 VBG HCO3 (23-28) mmol/L 27 VBG Total CO2 (24-29) mmol/L 25 VBG O2 Saturation % 51 VBG Base Excess (-2-3) mmol/L 0 Sodium (136-145) mmol/L 142 Potassium (3.5-5.1) mmol/L 4.3 Chloride (98-107) mmol/L 106 Carbon Dioxide (21.0-32.0) mmol/L 30.1 Anion Gap (3-11) mmol/L 5.9 BUN (7-18) mg/dL 20 H Creatinine (0.55-1.02) mg/dL 1.2 H Est GFR (CKD-EPI 2020) (mL/min/1.73m2) 48.39 Glucose (74-106) mg/dL 170 H Calcium (8.5-10.1) mg/dL 9.1 Total Bilirubin (0.2-1.0) mg/dL 0.38 AST (15-37) U/L 15 ALT (14-59) U/L 21 Alkaline Phosphatase (46-116) U/L 140 H Troponin I (<or=51) ng/L 10 21 NT-Pro-B Natriuret Pep (<300) pg/mL 199 Total Protein (6.4-8.2) g/dL 8.0 Albumin (3.4-5.0) g/dL 3.9 COVID-19 Source Nasopharynx SARS-CoV-2 (PCR) (Negative) Negative Influenza Type A (PCR) (Negative) Negative Influenza Type B (PCR) (Negative) Negative RSV (PCR) (Negative) Negative Range/Units 07/17/24 01:18 WBC (4.4-10.8) 10^3/uL RBC (3.93-5.22) 10^6/uL Hgb (11.2-15.7) g/dL Hct (36.0-46.0) % MCV (80-95) fL MCH (27.0-33.0) pg MCHC (32.0-36.0) % RDW (11.7-14.6) % Plt Count (130-400) 10^3/uL MPV (8.0-11.0) fL Immature Gran % % Neutrophils % % Lymphocytes % % Monocytes % % Eosinophils % % Basophils % % Nucleated RBC % (0.0-0.3) % Absolute Neutrophils (1.2-6.7) 10^3/uL Absolute Lymphocytes (1.2-3.4) 10^3/uL Absolute Monocytes (0.1-0.8) 10^3/uL Absolute Eosinophils (0.0-0.7) 10^3/uL Absolute Basophils (0.0-0.2) 10^3/uL PT (9.1-11.1) sec INR (0.9-1.1) APTT (20.6-30.2) sec D-Dimer (<500) ng/mlFEU VBG pH (7.31-7.41) 7.27 L VBG pCO2 (41-51) mmHg 49 VBG pO2 mmHg 56 VBG HCO3 (23-28) mmol/L 22 L VBG Total CO2 (24-29) mmol/L 20 L VBG O2 Saturation % 88 VBG Base Excess (-2-3) mmol/L -5 L Sodium (136-145) mmol/L Potassium (3.5-5.1) mmol/L Chloride (98-107) mmol/L Carbon Dioxide (21.0-32.0) mmol/L Anion Gap (3-11) mmol/L BUN (7-18) mg/dL Creatinine (0.55-1.02) mg/dL Est GFR (CKD-EPI 2020) (mL/min/1.73m2) Glucose (74-106) mg/dL Calcium (8.5-10.1) mg/dL Total Bilirubin (0.2-1.0) mg/dL AST (15-37) U/L ALT (14-59) U/L Alkaline Phosphatase (46-116) U/L Troponin I (<or=51) ng/L 27 NT-Pro-B Natriuret Pep (<300) pg/mL Total Protein (6.4-8.2) g/dL Albumin (3.4-5.0) g/dL COVID-19 Source SARS-CoV-2 (PCR) (Negative) Influenza Type A (PCR) (Negative) Influenza Type B (PCR) (Negative) RSV (PCR) (Negative) Quality:SDOH Health Related Social Needs: No Data to Display Critical Care Time Critical Care Time Total Critical Care Time: 31 Attestation: Due to a high probability of clinically significant, life threatening deterioration, the patient required my highest level of preparedness to intervene emergently and I personally spent this critical care time directly and personally managing the patient. This critical care time included obtaining a history; examining the patient; pulse oximetry; ordering and review of studies; arranging urgent treatment with development of a management plan; evaluation of patient's response to treatment; frequent reassessment; and, discussions with other providers. This critical care time was performed to assess and manage the high probability of imminent, life-threatening deterioration that could result in multi-organ failure. It was exclusive of separately billable procedures and treating other patients? PFSH All Active Problems (Updated 07/17/24 @ 05:14 by Danielle Singh MD) Acute hypoxemic respiratory failure (Acute) Acute hypercapnic respiratory failure (Acute) COPD exacerbation (Acute) CKD (chronic kidney disease) stage 3, GFR 30-59 ml/min (Chronic) COPD with hypoxia (Acute) Frequent unifocal PVCs (Acute) Bilateral hearing loss (Acute) Kidney stones (Chronic) Acute kidney insufficiency (Acute) NAFLD (nonalcoholic fatty liver disease) (Chronic) Elevated BP without diagnosis of hypertension (Acute) COPD (chronic obstructive pulmonary disease) (Chronic) Serrated adenoma of colon (Acute ~07/2020) Prediabetes (Chronic) Tubulovillous adenoma of colon (Chronic) Osteopenia (Chronic) Dexa 06/09 Hyperlipidemia (Chronic) Obesity (Chronic) Medical History Tinea pedis Hydronephrosis with urinary obstruction due to ureteral calculus PONV (postoperative nausea and vomiting) With every anesthetic, even TIVA. Responds well to IV Compazine. BCC (basal cell carcinoma), arm Left upper arm Surgical History History of surgery kidney stone extraction w/ stent History of wisdom tooth extraction S/P colonoscopy (04/02/16) History of bilateral tubal ligation History of section (01/05/83) 01/05/83 and 06/20/84 Family History Mother Hypertension Dementia Atrial fibrillation Father , at 59 of lung cancer Lung cancer Sister Rectal cancer metastasized to liver Hypertension Brother Alcohol abuse Daughter No problems noted. Daughter No problems noted. Maternal Grandfather No problems noted. Maternal Grandmother No problems noted. Paternal Grandfather , in his 70s Myocardial infarction Heart disease Alcohol abuse Paternal Grandmother Emphysema of lung Social History Smoking/Tobacco Use Status: Former Tobacco Use Quit Date: 06/24/13 Pack-years: 90 Tobacco: How many years used: 45 Second Hand Exposure: No Smoking risk assessment performed?: Yes Alcohol Intake: current Alcohol Intake frequency: holidays/special occasions only Alcohol type: hard liquor Drug use: Never Substance use type: does not use Caregiver/Support person: No Household members: spouse Housing: apartment Communication Needs: None Do you need help understanding health information?: Never Pets and animals: Yes Pets and animals: cat(s) and dog(s) Sexually active: Yes Do you think of yourself as: straight/heterosexual Current gender identity: female What is your relationship status?: How often do you talk on the phone with friends or family?: three or more times per week How often do you get together with friends or relatives?: decline to answer How often do you attend voodoo or congregational services?: decline to answer Do you belong to any clubs or organized social groups?: decline to answer Panel score (0-1 are the most socially isolated patients): 2 Duration: < 15 minutes/day Frequency: 1-2 times per week Guerita/Baptist: None Special guerita needs: No Seatbelt use: always Helmet use: Yes Helmet use: always Drive intox or ride w/intox special client bus driver: No Do you feel safe at home: Yes Do you feel safe in your relationship?: Yes Female Reproductive History Menstrual Menopause type: natural History History 2 Para 2 Hx # Term Pregnancies Multiple births Hx # Pregnancies Ectopic pregnancies AB induced Hx Number of Living Children 2 AB spontaneous
[2024-07-16 22:59] LABS: Abs Immature Grans 0.05 10^3/uL (0.0-0.06); Absolute Lymphocyte Count 1.61 10^3/uL (1.2-3.4); Absolute Neutrophil Count 12.12 10^3/uL (1.2-6.7); BE (Venous) 0 mmol/L (-2-3); Basophils % 0.7 %; Eosinophils % 1.9 %; HCO3 (Venous) 27 mmol/L (23-28); HCT 49.7 % (36.0-46.0); HGB 15.7 g/dL (11.2-15.7); Immature Grans % 0.3 %; Lymphocytes % 10.8 %; MCH 31.7 pg (27.0-33.0); MCHC 31.6 % (32.0-36.0); MCV 100 fL (80-95); MPV 10.3 fL (8.0-11.0); Monocytes % 5.2 %; Neutrophils % 81.1 %; O2 Sat (Venous) 51 %; Platelet Count 278 10^3/uL (130-400); RBC 4.95 10^6/uL (3.93-5.22); RDW 13.2 % (11.7-14.6); RDW-SD 49.1 fL; TCO2 (Venous) 25 mmol/L (24-29); WBC 14.94 10^3/uL (4.4-10.8); pH (Venous) 7.25 (7.31-7.41); pO2 (Venous) 30 mmHg
[2024-07-16 23:00] LABS: pCO2 (Venous) 63 mmHg (41-51)
[2024-07-16 23:01] LABS: Absolute Eosinophil Count 0.28 10^3/uL (0.0-0.7); Absolute Monocyte Count 0.78 10^3/uL (0.1-0.8)
[2024-07-16] MEDS: Albuterol/Ipratropium 3 ML UPD VIAL UPD ×2 (23:09)
[2024-07-16] MEDS: methylPREDNISolone SUCC 125 MG VIAL IVP (23:10)
[2024-07-16] MEDS: LORazepam 1 MG TAB PO (23:11)
[2024-07-16 23:17] LABS: INR 0.9 (0.9-1.1); PTT Activated 23.5 sec (20.6-30.2); Prothrombin Time 9.4 sec (9.1-11.1)
[2024-07-16 23:26] LABS: ALT 21 U/L (14-59); AST 15 U/L (15-37); Albumin 3.9 g/dL (3.4-5.0); Alkaline Phosphatase 140 U/L (46-116); Anion Gap 5.9 mmol/L (3-11); BUN 20 mg/dL (7-18); Bilirubin, Total 0.38 mg/dL (0.2-1.0); CO2 30.1 mmol/L (21.0-32.0); CREATININE 1.2 mg/dL (0.55-1.02); Calcium 9.1 mg/dL (8.5-10.1); Chloride 106 mmol/L (98-107); Estimated GFR 48.39 (mL/min/1.73m2); Glucose 170 mg/dL (74-106); NT-proBNP 199 pg/mL (<300); Potassium 4.3 mmol/L (3.5-5.1); Sodium 142 mmol/L (136-145); Troponin I 10 ng/L (<or=51)
[2024-07-16 23:28] LABS: D-Dimer 395 ng/mlFEU (<500)
--- NOTE | 2024-07-16 23:37 | DI.RAD_ITS ---
Exam(s) XR PORTABLE CHEST AP EXAM: XR PORTABLE CHEST AP CLINICAL HISTORY: SOB. TECHNIQUE: 2D digital imaging was performed. COMPARISON: CT CT CHEST LUNG CANCER SCREEN from 04/01/2024 CR,XR XR PORTABLE CHEST AP from 05/07/2024 CR XR CHEST 2V PA LATERAL from 05/08/2024 FINDINGS: Single AP portable view. Healed left-sided 7th and 8th rib fractures are again noted. Heart size is upper normal. The mediastinum is not widened. Lungs are clear. No infiltrates nor obvious pleural effusions. Diaphragm based density behind the left side of the heart again noted has been shown to be benign fat on prior CT scan March 2024. IMPRESSION: No acute pulmonary findings on this single AP portable view of the chest. DATA REPOSITORY: RADIATION DOSE DELIVERED:
[2024-07-17] VITALS (76 sets, daily range): BP systolic 113–222; BP diastolic 63–136; PULSE 82–109; RESP 4–31; TEMP 36.1–36.8; O2SAT 89–97
--- NOTE | 2024-07-17 00:04 | DI.VRAD_ITS ---
PROCEDURE INFORMATION: Exam: XR Chest Exam date and time: 07/16/2024 23:36 Age: 69 years old Clinical indication: Shortness of breath; Patient HX: SOB TECHNIQUE: Imaging protocol: Radiologic exam of the chest. Views: 1 view. COMPARISON: CR XR CHEST 2V PA LATERAL 05/08/2024 09:31 FINDINGS: Lungs: Mild hyperinflation without airspace consolidation. Pleural spaces: No pleural effusion. No pneumothorax. Heart/Mediastinum: Upper limits of normal. Bones/joints: Chronic left rib deformities, similar to prior. IMPRESSION: Mild hyperinflation without airspace consolidation. Dictated and Authenticated by: Joann Escalante MD. Ordering:JUNAID Santos MD
[2024-07-17] MEDS: AZITHROMYCIN 500 MG in Normal Saline 250 ML 250 MG IVPB ×2 (00:05→22:52)
[2024-07-17 00:22] LABS: Troponin I 21 ng/L (<or=51)
[2024-07-17 00:34] LABS: COVID-19 PCR Negative (Negative); Influenza A PCR Negative (Negative); Influenza B PCR Negative (Negative); RSV PCR Negative (Negative)
[2024-07-17 00:35] LABS: Source Nasopharynx
[2024-07-17] MEDS: dexmedeTOMidine IN 0.9 % NACL 400 MCG/100 ML BTL IV (00:38)
[2024-07-17 01:21] LABS: BE (Venous) -5 mmol/L (-2-3); HCO3 (Venous) 22 mmol/L (23-28); O2 Sat (Venous) 88 %; TCO2 (Venous) 20 mmol/L (24-29); pCO2 (Venous) 49 mmHg (41-51); pH (Venous) 7.27 (7.31-7.41); pO2 (Venous) 56 mmHg
[2024-07-17 01:41] LABS: Troponin I 27 ng/L (<or=51)
[2024-07-17] MEDS: Albuterol 2.5 MG/3 ML INH SOLN VIAL UPD ×3 (01:41→05:06)
[2024-07-17 02:59] LABS: BE (Venous) -5 mmol/L (-2-3); HCO3 (Venous) 22 mmol/L (23-28); O2 Sat (Venous) 89 %; TCO2 (Venous) 20 mmol/L (24-29); pCO2 (Venous) 47 mmHg (41-51); pH (Venous) 7.28 (7.31-7.41); pO2 (Venous) 57 mmHg
--- NOTE | 2024-07-17 06:08 | W.PM.HP.N ---
Date of service: 07/17/24 Time of Service: 05:08 Assessment and Plan Assessment and plan (1) Acute hypoxemic respiratory failure: Status: Acute Assessment and plan: See Acute Hypercapnic Respiratory Failure below. (2) Acute hypercapnic respiratory failure: Status: Acute Assessment and plan: With COPD Exacerbation. Temporary Bipap (given Precedex drip as pt anxious and otherwise did not tolerate the Bipap). Hypercarbia reversed and bipap discontinued and pt contiued to sat well on 1-2 L NC. Will continue supplemental oxygen for now. Started on zithromax alone (pt with PCN allergy). Started on steroids. Of note, the for the of patient's good friend is tomorrow (Saturday), so she would like to be discharged before that, so she can attend that of the of a close friend to support her and be present at the service. (3) COPD exacerbation: Status: Acute Assessment and plan: See Acute Hypercapnic Respiratory Failure above. (4) Obesity: Status: Chronic Assessment and plan: Complicates care and worsens breathing mechanics. Recommend weight loss. Consider nutrition consult. History of Present Illness Narrative: 69-year-old white female with PMH that includes COPD (not on home O2), obesity, CKD3, NAFLD, prediabetes, prehypertension, HLD who presents with shortness of breath. Patient was hospitalized here recently in April for COPD exacerbation which she frequently has. Patient visited her daughter at altitude in [facility] (Jul 05?). She normally has sats from 88 the first day but then increase above 90. This visit assessment for increased. Upon arrival back home (2 days prior to presentation) her saturation improved, but she started developing a cough that worsened to shortness of breath. She called EMS and had sats in the mid 80s on room air. She has been using her albuterol a lot, and EMS also gave her 2 treatments. Upon arrival in the emergency room with a pulse ox of 84% on room air. She was markedly short of breath with marked hypertension and significantly increased work of breathing. She had poor air movement on exam. Her sats improved to 93+ percent on 2 L nasal cannula. Patient specifically denies chest pain, abdominal pain, fever and chills, recent changes in urination, new focal numbness or weakness, leg edema, acute changes in vision or hearing, rashes. In our emergency room, she states was placed on BiPAP (high flow NC not available), but did not tolerate it d/t anxiety (had similar difficulty in the past). She also had severe HTN. So, she was sedated with Precedex which allowed her to tolerate BiPAP and it was efficacious at reversing her hypercarbic respiratory failure. She was diagnosed with COPD exacerbation and started on steroids, Zithromax, and given 2 more Duoneb nebulizer treatments. Her HTN also improved after these treatments. From Patient's ED Course Documentation: Labs reviewed as below, CBC wtih leukocytosis at 14.9, CMP with no actionable abnormalities, VBG with respiratory acidosis pH 7.25 pCO2 63, coags normal, dimer normal, troponins 21. 27 (would not further pursue ACS), BNP normal (not suggestive of acute heart failure). Respiratory viral panel negative. CXR independently reviewed, no focal pneumonia or signifcant pulmonary edema on my view, agree with radiology read below. Repeat VBG on hour after treatment improved, with pCO2 of 49 and PH 7.27. Patient continues with poor air movement and dyspnea and I do feel she would still benefit from biPAP; attempted again and pt is able to tolerate well while on precedex. Subsequent VBG after one hour on biPAP stable. On reassessment she is breathing much more comfortably, good air movement bilaterally. Appears to be sleeping comfortably. Will maintain on BiPAP for an additional hour and continue with albuterol, then trial off biPAP (regrettably no ICU beds here and all other hospitals within ~2.5 hours are capacity). On reassessment pt doing acceptably well off biPAP. Continuing to get q2 albuterol with good effect. Discussed with [facility] hospitalist Dr. Coffey and pt accepted to medicine service for further workup and management. Awaiting admission orders and transfer to the floor. Review of Systems Narrative: Review of Systems See also HPI above. Const: Negative for fever, chills. HENT: Negative for acute hearing changes. Eyes: Negative for acute visual disturbance. Resp: Positive for shortness of breath. CV: Negative for chest pain. Abd: Negative for abdominal pain. GI: Positive for bowel changes- transient constipation that has resolved (related to [place] altitude travel). 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 MSK: Negative for focal weakness. Skin: Negative for rash. Neuro: Negative for numbness. Heme: Negative for leg edema. PFSH All Active Problems Acute hypoxemic respiratory failure (Acute) Acute hypercapnic respiratory failure (Acute) COPD exacerbation (Acute) CKD (chronic kidney disease) stage 3, GFR 30-59 ml/min (Chronic) COPD with hypoxia (Acute) Frequent unifocal PVCs (Acute) Bilateral hearing loss (Acute) Kidney stones (Chronic) Acute kidney insufficiency (Acute) NAFLD (nonalcoholic fatty liver disease) (Chronic) Elevated BP without diagnosis of hypertension (Acute) COPD (chronic obstructive pulmonary disease) (Chronic) Serrated adenoma of colon (Acute ~07/2020) Prediabetes (Chronic) Tubulovillous adenoma of colon (Chronic) Osteopenia (Chronic) Dexa 06/09 Hyperlipidemia (Chronic) Obesity (Chronic) Medical History Tinea pedis Hydronephrosis with urinary obstruction due to ureteral calculus PONV (postoperative nausea and vomiting) With every anesthetic, even TIVA. Responds well to IV Compazine. BCC (basal cell carcinoma), arm Left upper arm Surgical History History of surgery kidney stone extraction w/ stent History of wisdom tooth extraction S/P colonoscopy (04/02/16) History of bilateral tubal ligation History of section (01/05/83) 01/05/83 and 06/20/84 Family History Mother Hypertension Dementia Atrial fibrillation Father , at 59 of lung cancer Lung cancer Sister Rectal cancer metastasized to liver Hypertension Brother Alcohol abuse Daughter No problems noted. Daughter No problems noted. Maternal Grandfather No problems noted. Maternal Grandmother No problems noted. Paternal Grandfather , in his 70s Myocardial infarction Heart disease Alcohol abuse Paternal Grandmother Emphysema of lung Social History Smoking/Tobacco Use Status: Former Tobacco Use Quit Date: 06/24/13 Pack-years: 90 Tobacco: How many years used: 45 Second Hand Exposure: No Smoking risk assessment performed?: Yes Alcohol Intake: current Alcohol Intake frequency: holidays/special occasions only Alcohol type: hard liquor Drug use: Never Substance use type: does not use Caregiver/Support person: No Household members: spouse Housing: apartment Communication Needs: None Do you need help understanding health information?: Never Pets and animals: Yes Pets and animals: cat(s) and dog(s) Sexually active: Yes Do you think of yourself as: straight/heterosexual Current gender identity: female What is your relationship status?: How often do you talk on the phone with friends or family?: three or more times per week How often do you get together with friends or relatives?: decline to answer How often do you attend rastafari or restoration services?: decline to answer Do you belong to any clubs or organized social groups?: decline to answer Panel score (0-1 are the most socially isolated patients): 2 Duration: < 15 minutes/day Frequency: 1-2 times per week Guerita/Jew: None Special guerita needs: No Seatbelt use: always Helmet use: Yes Helmet use: always Drive intox or ride w/intox semi driver: No Do you feel safe at home: Yes Do you feel safe in your relationship?: Yes Female Reproductive History Menstrual Menopause type: natural History History 2 Para 2 Hx # Term Pregnancies Multiple births Hx # Pregnancies Ectopic pregnancies AB induced Hx Number of Living Children 2 AB spontaneous Meds Allergies and Home Medications Allergies Allergy/AdvReac Type Severity Reaction Status Date / Time Penicillins Allergy Severe Hives Verified 05/25/23 17:32 metronidazole (From Flagyl) Allergy Unknown Verified 05/25/23 17:32 adhesive AdvReac REDNESS Verified 05/25/23 17:32 Home Medications ?Medication ?Instructions ?Recorded ?Confirmed ?Type calcium 600 mg (as 1 ea PO DAILY 08/16/17 05/07/24 History carbonate)-vitamin D3 20 mcg (800 unit) tablet albuterol sulfate 90 mcg/actuation 2 inh inhalation Q6H PRN shortness 11/24/21 05/07/24 Rx aerosol inhaler of breath or wheezing #18 grams ibuprofen 400 mg tablet 400 mg PO Q6H PRN pain #20 tabs 04/01/23 05/07/24 Rx umeclidinium 62.5 mcg/actuation 1 inh inhalation DAILY 04/01/23 05/07/24 History blister powder for inhalation (Incruse Ellipta) prednisone 20 mg tablet 20 mg PO DAILY #7 tabs 05/10/24 Rx Exam Narrative Exam Narrative: Constitutional: NAD. Head/Face: NCAT. Eyes: PERRL. Nl appearing eyes. ENT: Nl appearing external ears, nose, and oropharynx. No exudates. Uvula mid-line. Slightly dry mucous membranes. Neck: Supple, non-tender to palpation. No obvious mass. Chest: Chest wall non-tender to palpation. Resp: CTAB. Equal BS, decent air movement when I saw her. No wheezes, rhonchi, crackles, rales. CV: RRR. No rubs, or gallops. Abd/GI: Soft, NTTP. No rebound, guarding, rigidity. No organomegaly or masses palpated. Back/: No spinal tenderness. No CVA tenderness. Skin: Warm & dry. No clinically significant rash noted on exposed skin. MSK/Ext: CARIAS. Non-tender. 5/5 motor in all ext bilaterally. Heme/Lymph: No leg edema. Neuro: A&O. Nl speech. Sensory & Motor grossly intact. Capacity intact. Appropriate judgment. Psych: Appropriate mood, manner, and affect. SIRS Screen: Positive SIRS Criteria (at least 2 of the following): Temp (+ mode) (>101 (38.3), <96.8 (36))- Negative Pulse (>90/min)- Positive (or) Resp (>20/min)- Positive (or) WBC (>12K, <4K) or Bandemia (>10%)- Positive Source of Infection?: None identified, but at risk for URI with COPD exacerbation- added ESR, CRP, Procalcitonin to further guide. Antibiotics Indicated?: Yes for COPD exacerbation- started on zithromax in the ED and continued. Results Imaging Imaging Studies: CXR- mild hyperinflation without consolodation Labs 07/17/24 06:45 07/17/24 06:45 Labs: Laboratory Results - last 24 hr 07/16/24 07/16/24 07/16/24 22:53 23:51 23:57 WBC 14.94 H RBC 4.95 Hgb 15.7 Hct 49.7 H MCV 100 H MCH 31.7 MCHC 31.6 L RDW 13.2 Plt Count 278 MPV 10.3 Immature Gran % 0.3 Neutrophils % 81.1 Lymphocytes % 10.8 Monocytes % 5.2 Eosinophils % 1.9 Basophils % 0.7 Nucleated RBC % 0.0 Absolute Neutrophils 12.12 H Absolute Lymphocytes 1.61 Absolute Monocytes 0.78 Absolute Eosinophils 0.28 Absolute Basophils 0.10 PT 9.4 INR 0.9 APTT 23.5 D-Dimer 395 VBG pH 7.25 L VBG pCO2 63 H* VBG pO2 30 VBG HCO3 27 VBG Total CO2 25 VBG O2 Saturation 51 VBG Base Excess 0 Sodium 142 Potassium 4.3 Chloride 106 Carbon Dioxide 30.1 Anion Gap 5.9 BUN 20 H Creatinine 1.2 H Est GFR (CKD-EPI 2020) 48.39 Glucose 170 H Calcium 9.1 Total Bilirubin 0.38 AST 15 ALT 21 Alkaline Phosphatase 140 H Troponin I 10 21 NT-Pro-B Natriuret Pep 199 Total Protein 8.0 Albumin 3.9 COVID-19 Source Nasopharynx SARS-CoV-2 (PCR) Negative Influenza Type A (PCR) Negative Influenza Type B (PCR) Negative RSV (PCR) Negative 07/17/24 07/17/24 01:18 02:55 WBC RBC Hgb Hct MCV MCH MCHC RDW Plt Count MPV Immature Gran % Neutrophils % Lymphocytes % Monocytes % Eosinophils % Basophils % Nucleated RBC % Absolute Neutrophils Absolute Lymphocytes Absolute Monocytes Absolute Eosinophils Absolute Basophils PT INR APTT D-Dimer VBG pH 7.27 L 7.28 L VBG pCO2 49 47 VBG pO2 56 57 VBG HCO3 22 L 22 L VBG Total CO2 20 L 20 L VBG O2 Saturation 88 89 VBG Base Excess -5 L -5 L Sodium Potassium Chloride Carbon Dioxide Anion Gap BUN Creatinine Est GFR (CKD-EPI 2020) Glucose Calcium Total Bilirubin AST ALT Alkaline Phosphatase Troponin I 27 NT-Pro-B Natriuret Pep Total Protein Albumin COVID-19 Source SARS-CoV-2 (PCR) Influenza Type A (PCR) Influenza Type B (PCR) RSV (PCR) Last Vital Signs Temp 36.1 C L 07/16/24 22:36 Pulse 95 H 07/17/24 04:20 Resp 24 07/17/24 04:20 BP 113/66 07/17/24 04:20 Pulse Ox 93 07/17/24 04:20 Time Spent Time spent with Patient: >75 minutes Time was spent: preparing to see the patient(eg.review tests), obtaining and/or reviewing separately otained hiistory, ordering medications,tests, procedures, referring, communicating with other health youth career specialist, indepentently interpreting results, counseling the patient, care coordination and other
[2024-07-17 07:20] LABS: Abs Immature Grans 0.08 10^3/uL (0.0-0.06); Absolute Basophil Count 0.02 10^3/uL (0.0-0.2); Basophils % 0.1 %; HCT 46.2 % (36.0-46.0); HGB 14.6 g/dL (11.2-15.7); Immature Grans % 0.5 %; Lymphocytes % 1.6 %; MCH 31.7 pg (27.0-33.0); MCHC 31.6 % (32.0-36.0); MCV 100 fL (80-95); MPV 10.6 fL (8.0-11.0); Monocytes % 0.2 %; Neutrophils % 97.6 %; Platelet Count 244 10^3/uL (130-400); RBC 4.61 10^6/uL (3.93-5.22); RDW 13.2 % (11.7-14.6); RDW-SD 48.9 fL; WBC 16.46 10^3/uL (4.4-10.8)
[2024-07-17 07:24] LABS: Anion Gap 12.1 mmol/L (3-11); BUN 24 mg/dL (7-18); CO2 21.9 mmol/L (21.0-32.0); CREATININE 1.5 mg/dL (0.55-1.02); Calcium 9.2 mg/dL (8.5-10.1); Chloride 106 mmol/L (98-107); Estimated GFR 37.03 (mL/min/1.73m2); Glucose 253 mg/dL (74-106); Potassium 4.1 mmol/L (3.5-5.1); Sodium 140 mmol/L (136-145)
[2024-07-17 07:27] LABS: Absolute Lymphocyte Count 0.26 10^3/uL (1.2-3.4); Absolute Monocyte Count 0.03 10^3/uL (0.1-0.8); Absolute Neutrophil Count 16.06 10^3/uL (1.2-6.7)
[2024-07-17 07:32] LABS: Troponin I 25 ng/L (<or=51)
[2024-07-17] MEDS: Enoxaparin 40 MG/0.4 ML SYR SC (08:00)
[2024-07-17] MEDS: predniSONE 20 MG TAB 60 MG PO (08:00)
[2024-07-17] MEDS: Normal Saline Flush 10 ML SYR IVP ×2 (08:00→20:33)
[2024-07-17 08:28] LABS: Procalcitonin < 0.10 ng/mL
[2024-07-17] MEDS: Calcium 600mg/Vit D 200U TAB 1 TAB PO (08:57)
--- NOTE | 2024-07-17 09:04 | INITIAL_ITS ---
Date of service: 07/17/24 Time of Service: 09:04 Care Management Initial Assmt Initial Assessment Reason for Hospitalization: Acute hypercapnic Respiratory Failure Functional Status/Living Situation Patient Presentation: Macy was awake and lying in bed when CM met with her. She is pleasant and easily engages in conversation. Per pt, she is feeling much better. She was hospitalized for Respiratory Failure back in April but this time was different because she felt SOB but states her O2 Sat was in range. Per pt, she has not seen a medical sociologist as an outpatient in many years and would be interested in a referral. Town of Residence: [place] Resides with: Spouse ( Ernst) Significant Other/Family: Local Natural Supports: , Ernst Daughters, Debi and Magdalena She has six grandchildren as well. Employment Status: Retired ([employer]) Instrumental Activities of Daily Living (ADLs): Independent Medications Medication Management: No Issues/Barriers identified Physical Functioning/Mobility Assistive Device: None Advance Directives Advance Directives: Do you have an Advance Directive: N 03/04/20 15:50 AD On File at [facility]: N 03/04/20 15:50 Date Asked 07/16/24 07/16/24 22:46 AD Date Reviewed COLST On File at [facility] COLST Date Scanned Code Status Resuscitation Status Full Code Insurance Coverage/Financial Issues Insurance: [facility] supplement Care Team Visit Care Team Role Provider Type Kalpesh Saucedo Primary Care Provider NON-[facility] STAFF PHYSICIAN Danielle Singh MD Emergency Provider [facility] STAFF PHYSICIAN Gordo Coffey MD Admit Provider [facility] STAFF PHYSICIAN Attending Provider Discharge Potential Discharge Needs: PCP F/U Appt Anticipated Barriers to Discharge: Medical Status Patient/Family Education Needs: Review discharge instructions, discuss Ask Me Three Transportation: Private vehicle Plan: Anticipate Macy will return home once medically cleared. Her will drive her home via private vehicle. She will follow up with her PCP and discharge plan of care. CM will continue to follow. Social Determinants of Health Screening Social Determinants of Health last assessed: 07/17/24 Will the Patient Participate in the Screening?: Yes Do you worry about having a steady place to live?: no Problems where you live: no known problems In the past 12 months, have you had to go without electric, gas, oil or water in your home?: no Have you or anyone in your house had to go without enough food to eat?: no Has lack of transportation kept you from medical appointments or from doing things needed for daily living?: no Has anyone in your life made you feel unsafe or unsupported?: no How hard is it for you to pay for the very basics like food, housing, medical care, and heating? Would you say it is:: Not hard at all Do you want help finding or keeping work or a job?: I do not need or want help If for any reason you need help with day-to-day activities such as bathing, preparing meals, shopping, managing finances, etc., do you get the help you need?: I don?t need any help How often do you feel lonely or isolated from those around you?: Never Do you speak a language other than Kyrgyz at home?: No Does the patient want assistance with any of the above?: No PFSH All Active Problems Acute hypoxemic respiratory failure (Acute) Acute hypercapnic respiratory failure (Acute) COPD exacerbation (Acute) CKD (chronic kidney disease) stage 3, GFR 30-59 ml/min (Chronic) COPD with hypoxia (Acute) Frequent unifocal PVCs (Acute) Bilateral hearing loss (Acute) Kidney stones (Chronic) Acute kidney insufficiency (Acute) NAFLD (nonalcoholic fatty liver disease) (Chronic) Elevated BP without diagnosis of hypertension (Acute) COPD (chronic obstructive pulmonary disease) (Chronic) Serrated adenoma of colon (Acute ~07/2020) Prediabetes (Chronic) Tubulovillous adenoma of colon (Chronic) Osteopenia (Chronic) Dexa 06/09 Hyperlipidemia (Chronic) Obesity (Chronic) Medical History Tinea pedis Hydronephrosis with urinary obstruction due to ureteral calculus PONV (postoperative nausea and vomiting) With every anesthetic, even TIVA. Responds well to IV Compazine. BCC (basal cell carcinoma), arm Left upper arm Surgical History History of surgery kidney stone extraction w/ stent History of wisdom tooth extraction S/P colonoscopy (04/02/16) History of bilateral tubal ligation History of section (01/05/83) 01/05/83 and 06/20/84 Family History Mother Hypertension Dementia Atrial fibrillation Father , at 59 of lung cancer Lung cancer Sister Rectal cancer metastasized to liver Hypertension Brother Alcohol abuse Daughter No problems noted. Daughter No problems noted. Maternal Grandfather No problems noted. Maternal Grandmother No problems noted. Paternal Grandfather , in his 70s Myocardial infarction Heart disease Alcohol abuse Paternal Grandmother Emphysema of lung Social History Smoking/Tobacco Use Status: Former Tobacco Use Quit Date: 06/24/13 Pack-years: 90 Tobacco: How many years used: 45 Second Hand Exposure: No Smoking risk assessment performed?: Yes Alcohol Intake: current Alcohol Intake frequency: holidays/special occasions only Alcohol type: hard liquor Drug use: Never Substance use type: does not use Caregiver/Support person: No Household members: spouse Housing: house Communication Needs: None Do you need help understanding health information?: Never Pets and animals: Yes Pets and animals: cat(s) and dog(s) Sexually active: Yes Do you think of yourself as: straight/heterosexual Current gender identity: female What is your relationship status?: How often do you talk on the phone with friends or family?: three or more times per week How often do you get together with friends or relatives?: decline to answer How often do you attend jew or yazidism services?: decline to answer Do you belong to any clubs or organized social groups?: decline to answer Panel score (0-1 are the most socially isolated patients): 2 Duration: < 15 minutes/day Frequency: 1-2 times per week Guerita/Restoration: None Special guerita needs: No Seatbelt use: always Helmet use: Yes Helmet use: always Drive intox or ride w/intox front end driver: No Do you feel safe at home: Yes Do you feel safe in your relationship?: Yes Female Reproductive History Menstrual Menopause type: natural History History 2 2 Para 2 Hx # Term Pregnancies Multiple births Hx # Pregnancies Ectopic pregnancies AB induced Hx Number of Living Children 2 AB spontaneous
--- NOTE | 2024-07-17 11:13 | W.PC.ACHO ---
Registration Status: Primary Language: Preferred Language: ED Information & Data Chief Complaint SOB 07/16/24 22:55 Triage Note brought in by EMS, hx COPD, 07/16/24 22:36 difficulty breathing this evening, 80's on RA, used rescue inhaler without relief. 1 duoneb by EMS, improved to 96% 1L NC. short of breath and had to stop several times walking to ambulance. afebrile. recent air travel to [place] last week. Chest feels tight Medical / Surgical History (Last Reviewed 07/17/24 @ 06:09 by Gordo Coffey MD) Tinea pedis Hydronephrosis with urinary obstruction due to ureteral calculus PONV (postoperative nausea and vomiting) BCC (basal cell carcinoma), arm (Last Reviewed 07/17/24 @ 06:09 by Gordo Coffey MD) History of surgery History of wisdom tooth extraction S/P colonoscopy (04/02/16) History of bilateral tubal ligation History of section (01/05/83) Most Recent Vital Signs Temperature 36.1 C L 07/16/24 22:36 Temperature Source Temporal Artery Scan 07/16/24 22:36 Pulse 88 07/17/24 06:21 Pulse Rhythm Regular 07/17/24 06:21 Pulse Strength Normal 07/17/24 06:21 Pulse 93 H 07/17/24 04:19 Respiratory Rate 23 07/17/24 06:21 Respiratory Effort Normal, Non-Labored 07/17/24 06:21 Respiratory Depth Normal 07/17/24 06:21 Respiratory Pattern Normal 07/17/24 06:21 Blood Pressure 171/81 H 07/17/24 06:21 Blood Pressure Mean 111 07/17/24 06:21 Blood Pressure Position Supine 07/17/24 06:21 Pulse Oximetry 91 L 07/17/24 06:21 Oxygen Delivery Method Room Air 07/17/24 06:21 Oxygen Flow Rate 0 07/17/24 06:21 Fraction of Inspired Oxygen (FIO2) 21 07/17/24 01:33 Pain Level 0 07/16/24 22:36 Allergies Penicillins Allergy (Severe, Verified 05/25/23 17:32) Hives metronidazole (From Flagyl) Allergy (Unknown, Verified 05/25/23 17:32) pt. reports taking at same time as PCN adhesive Adverse Reaction (Verified 05/25/23 17:32) REDNESS Precautions Isolation Standard precaution 07/16/24 22:44 Active Medications Generic Name Dose Route Start Last Admin Trade Name Freq PRN Reason Stop Dose Admin Albuterol Sulfate 2.5 mg 07/17/24 01:36 07/17/24 05:06 Albuterol 2.5 Mg/3 Ml Inh Soln Vial UPD 2.5 mg Q1H PRN PRN Administration IV IV Catheter Type [Right Diffusics Forearm] Diagnostics 07/17/24 07/17/24 07/17/24 Range/Units 06:45 02:55 01:18 WBC Pending (4.4-10.8) 10^3/uL RBC Pending (3.93-5.22) 10^6/uL Hgb Pending (11.2-15.7) g/dL Hct Pending (36.0-46.0) % MCV Pending (80-95) fL MCH Pending (27.0-33.0) pg MCHC Pending (32.0-36.0) % RDW Pending (11.7-14.6) % Plt Count Pending (130-400) 10^3/uL MPV Pending (8.0-11.0) fL Immature Gran % Pending % Neutrophils % Pending % Lymphocytes % Pending % Monocytes % Pending % Eosinophils % Pending % Basophils % Pending % Nucleated RBC % (0.0-0.3) % Absolute Neutrophils Pending (1.2-6.7) 10^3/uL Absolute Lymphocytes Pending (1.2-3.4) 10^3/uL Absolute Monocytes Pending (0.1-0.8) 10^3/uL Absolute Eosinophils Pending (0.0-0.7) 10^3/uL Absolute Basophils Pending (0.0-0.2) 10^3/uL PT (9.1-11.1) sec INR (0.9-1.1) APTT (20.6-30.2) sec D-Dimer (<500) ng/mlFEU VBG pH 7.28 L 7.27 L (7.31-7.41) VBG pCO2 47 49 (41-51) mmHg VBG pO2 57 56 mmHg VBG HCO3 22 L 22 L (23-28) mmol/L VBG Total CO2 20 L 20 L (24-29) mmol/L VBG O2 Saturation 89 88 % VBG Base Excess -5 L -5 L (-2-3) mmol/L Sodium Pending (136-145) mmol/L Potassium Pending (3.5-5.1) mmol/L Chloride Pending (98-107) mmol/L Carbon Dioxide Pending (21.0-32.0) mmol/L Anion Gap Pending (3-11) mmol/L BUN Pending (7-18) mg/dL Creatinine Pending (0.55-1.02) mg/dL Est GFR (CKD-EPI 2020) Pending (mL/min/1.73m2) Glucose Pending (74-106) mg/dL Calcium Pending (8.5-10.1) mg/dL Total Bilirubin (0.2-1.0) mg/dL AST (15-37) U/L ALT (14-59) U/L Alkaline Phosphatase (46-116) U/L Troponin I Pending 27 (<or=51) ng/L NT-Pro-B Natriuret Pep (<300) pg/mL Total Protein (6.4-8.2) g/dL Albumin (3.4-5.0) g/dL COVID-19 Source SARS-CoV-2 (PCR) (Negative) Influenza Type A (PCR) (Negative) Influenza Type B (PCR) (Negative) RSV (PCR) (Negative) 07/16/24 07/16/24 07/16/24 Range/Units 23:57 23:51 22:53 WBC 14.94 H (4.4-10.8) 10^3/uL RBC 4.95 (3.93-5.22) 10^6/uL Hgb 15.7 (11.2-15.7) g/dL Hct 49.7 H (36.0-46.0) % MCV 100 H (80-95) fL MCH 31.7 (27.0-33.0) pg MCHC 31.6 L (32.0-36.0) % RDW 13.2 (11.7-14.6) % Plt Count 278 (130-400) 10^3/uL MPV 10.3 (8.0-11.0) fL Immature Gran % 0.3 % Neutrophils % 81.1 % Lymphocytes % 10.8 % Monocytes % 5.2 % Eosinophils % 1.9 % Basophils % 0.7 % Nucleated RBC % 0.0 (0.0-0.3) % Absolute Neutrophils 12.12 H (1.2-6.7) 10^3/uL Absolute Lymphocytes 1.61 (1.2-3.4) 10^3/uL Absolute Monocytes 0.78 (0.1-0.8) 10^3/uL Absolute Eosinophils 0.28 (0.0-0.7) 10^3/uL Absolute Basophils 0.10 (0.0-0.2) 10^3/uL PT 9.4 (9.1-11.1) sec INR 0.9 (0.9-1.1) APTT 23.5 (20.6-30.2) sec D-Dimer 395 (<500) ng/mlFEU VBG pH 7.25 L (7.31-7.41) VBG pCO2 63 H* (41-51) mmHg VBG pO2 30 mmHg VBG HCO3 27 (23-28) mmol/L VBG Total CO2 25 (24-29) mmol/L VBG O2 Saturation 51 % VBG Base Excess 0 (-2-3) mmol/L Sodium 142 (136-145) mmol/L Potassium 4.3 (3.5-5.1) mmol/L Chloride 106 (98-107) mmol/L Carbon Dioxide 30.1 (21.0-32.0) mmol/L Anion Gap 5.9 (3-11) mmol/L BUN 20 H (7-18) mg/dL Creatinine 1.2 H (0.55-1.02) mg/dL Est GFR (CKD-EPI 2020) 48.39 (mL/min/1.73m2) Glucose 170 H (74-106) mg/dL Calcium 9.1 (8.5-10.1) mg/dL Total Bilirubin 0.38 (0.2-1.0) mg/dL AST 15 (15-37) U/L ALT 21 (14-59) U/L Alkaline Phosphatase 140 H (46-116) U/L Troponin I 21 10 (<or=51) ng/L NT-Pro-B Natriuret Pep 199 (<300) pg/mL Total Protein 8.0 (6.4-8.2) g/dL Albumin 3.9 (3.4-5.0) g/dL COVID-19 Source Nasopharynx SARS-CoV-2 (PCR) Negative (Negative) Influenza Type A (PCR) Negative (Negative) Influenza Type B (PCR) Negative (Negative) RSV (PCR) Negative (Negative) Intake and Output - 24 Hour Total 07/16/24 22:33 thru 07/17/24 05:03 Intake Total 271.037 Balance 271.037 Weight 95.254 kg Intake: IV 271.037 Falls Risk Assessment History of Falls No History 07/16/24 22:44 Contributing Factors No Factors 07/16/24 22:44 Ambulatory Aids Independent 07/16/24 22:44 Tubes/Lines W/no contributing factors 07/16/24 22:44 Gait Evaluation No gait disturbance 07/16/24 22:44 Cognition No cognitive impairment 07/16/24 22:44 Fall Total Score 10 07/16/24 22:44 Level of Risk Standard/Low Risk 07/16/24 22:44 Problems (Last Reviewed 07/17/24 @ 06:09 by Gordo Coffey MD) Acute hypoxemic respiratory failure (Acute) Acute hypercapnic respiratory failure (Acute) COPD exacerbation (Acute) Obesity (Chronic) v v v v v v v v v Sending and/or Receiving Nurses: Please use comment section below to note any information pertinent to the patient hand-off not included above. Information / Comments: Report received from: Macy in ED given to Maribel HOOKS
--- NOTE | 2024-07-17 15:10 | CHAPLAIN ---
Macy and I remembered each other from her admission in April. Her daugher, Lily Waldron, is a nurse at [employer] and Macy said Lily had just spoken to her earlier by phone. She seems to be well support by family and said she is feeling better than last night.
[2024-07-17] MEDS: Acetaminophen 325 MG TAB PO (17:03)
[2024-07-18 00:02] VITALS: BP 134/68; PULSE 86; RESP 15; TEMP 36.2; O2SAT 93
[2024-07-18 03:51] VITALS: BP 143/73; PULSE 82; RESP 15; TEMP 36.5; O2SAT 96
--- NOTE | 2024-07-18 05:20 | RESPIRATORY ---
0520: BiPAP machine pulled out from patient's room.
[2024-07-18 07:16] LABS: Platelet Count 260 10^3/uL (130-400)
[2024-07-18 07:58] VITALS: BP 154/78; PULSE 72; RESP 18; TEMP 36.6; O2SAT 97
[2024-07-18] MEDS: Enoxaparin 40 MG/0.4 ML SYR SC (09:08)
[2024-07-18] MEDS: predniSONE 20 MG TAB 60 MG PO (09:08)
[2024-07-18] MEDS: Calcium 600mg/Vit D 200U TAB 1 TAB PO (09:09)
[2024-07-18] MEDS: Normal Saline Flush 10 ML SYR IVP (09:09)
[2024-07-18 11:58] LABS: Anion Gap 6.6 mmol/L (3-11); BUN 34 mg/dL (7-18); CO2 27.4 mmol/L (21.0-32.0); CREATININE 1.2 mg/dL (0.55-1.02); Calcium 10.3 mg/dL (8.5-10.1); Chloride 107 mmol/L (98-107); Estimated GFR 48.39 (mL/min/1.73m2); Glucose 126 mg/dL (74-106); Potassium 4.6 mmol/L (3.5-5.1); Sodium 141 mmol/L (136-145)
[2024-07-18 12:03] LABS: Hemoglobin A1C 6.1 % (<5.7)
[2024-07-18 12:27] VITALS: BP 168/81; PULSE 76; RESP 24; TEMP 36.8; O2SAT 94
--- NOTE | 2024-07-18 13:29 | W.PM.DS.N ---
Date of service: 07/18/24 Time of Service: 13:29 DS: Diagnosis Discharge Diagnosis (1) Acute hypoxemic respiratory failure: Status: Acute (2) Acute hypercapnic respiratory failure: Status: Acute (3) COPD exacerbation: Status: Acute (4) Obesity: Status: Chronic Discharge Plan Disposition Patient Disposition: Home Condition: Improving Discharge Details Reason For Visit: Hypercarbic Respiratory Failure, COPD Exacerbatio Admit Date/Time: 07/17/24 06:07 Admit Provider: Gordo Coffey Attending Provider: Gordo Coffey Primary Care Provider: Kalpesh Saucedo Hospital Course Hospital Course: 69 yo F with history of COPD, CKD 3a who presented with acute shortness of breath and cough after returning from a trip to visit her daughter in [place]. She was hypoxic with SpO2 in the mid 80s and initial VGB showed pCO2 of 63. She initially required BiPAP with precedex to allow her to tolerate non-invasive ventilation. Her procalcitonin was not elevated. Her hypercarbia resolved with this and she stabilized on room air by later in the first day of admission. She was stable overnight and was discharged to complete a course of prednisone and azithromycin. Her sugars were high on prednisone, which is normal for her. Her A1c was 6.1% c/w pre-diabetes, a diagnosis she had previously recieved. Her creatinine was around her baseline at 1.2. Calcium was noted 10.3 on BMP on the day of discharge, though it was normal at 9.1-2 on the first two levels. This should be checked at follow up. She did not have chest pain or EKG changes. Her troponin was not elevated but she did have a significant delta in from 10 to 27 then trended down to 25. Cardiac assessment and risk factor modification is deferred to her primary care. Home Meds and New Rx's Prescriptions: New azithromycin 250 mg tablet 250 mg PO DAILY Qty: 3 0RF Continued albuterol sulfate 90 mcg/actuation HFA aerosol inhaler 2 inh inhalation Q6H PRN (Reason: shortness of breath or wheezing) Qty: 18 4RF Anoro Ellipta 62.5-25 mcg/actuation blister with device 1 inh inhalation DAILY ibuprofen 400 mg tablet 400 mg PO Q6H PRN (Reason: pain) Qty: 20 0RF Changed prednisone 20 mg Tablet See Taper PO DAILY Qty: 7 0RF Taper: Prednisone 20mg taper 40 mg Daily for 2 Days and 0 Hour 20 mg Daily for 2 Days and 0 Hour 10 mg Daily for 2 Days and 0 Hour Discontinued calcium carbonate-vitamin D3 1 EACH tablet 1 ea PO DAILY Discharge Instructions Instructions: Exacerbation of COPD (DC) Additional Instructions: finish the prednisone and azithromycin Your calcium was a little high. Stop the calcium and vitamin D for now. Activity:: Activity as Tolerated Equipment/Supplies:: No Equipment Needed Diet:: As Tolerated Discharge Orders Discharge Orders: Discharge Order (Routine); Ordered 07/18/24 Ordered By: Rubio De La Rosa DS: Summary Time Spent with Patient providing and/or coordinating discharge services: Greater than 30 minutes Status at Discharge Functional status at discharge: independent ambulation Overall status at discharge: patient is progressing back to baseline Mental Status: mental status grossly normal Speech and Movement: speech and movement normal Mood: congruent mood Affect: normal affect Quality:SDOH Health Related Social Needs: No Data to Display Exam Narrative Exam Narrative: General: Alert, dyspneic, speaking in full sentences. Head: Normocephalic, atraumatic Cardiac: ?RRR, no murmurs appreciated Resp: CTAB, some prolonged expiration, no rales/wheezes now Abd: ?Non-distended Extremities: ?No deformities.? No peripheral edema. Psych Mental Status: mental status grossly normal Speech and Movement: speech and movement normal Mood: congruent mood Affect: normal affect DS: Data Vitals/I&O Vitals and I&O: Vital Signs Temperature 36.8 C 07/18/24 12:27 Temperature Source Temporal Artery Scan 07/18/24 12:27 Pulse 76 07/18/24 12:27 Pulse Rhythm Regular 07/17/24 07:29 Pulse Strength Normal 07/17/24 06:21 Pulse 88 07/17/24 07:16 Respiratory Rate 24 07/18/24 12:27 Respiratory Effort Normal 07/17/24 07:29 Respiratory Depth Normal 07/17/24 07:29 Respiratory Pattern Normal 07/17/24 07:29 Blood Pressure 168/81 H 07/18/24 12:27 Blood Pressure Mean 123 07/17/24 07:16 Blood Pressure Position Supine 07/17/24 06:21 Pulse Oximetry 94 07/18/24 12:27 Oxygen Delivery Method Room Air 07/18/24 12:27 Oxygen Flow Rate 0 07/18/24 12:27 Fraction of Inspired Oxygen (FIO2) 21 07/17/24 01:33 Pain Level 4 07/17/24 17:03 Comment RN Notified 07/17/24 20:08 Intake & Output 07/17/24 07/18/24 07/18/24 23:59 11:59 23:59 Intake Total 250 / 250 Output Total 375 / 675 1150 / 1150 Balance -375 / -403.963 -900 / -900 Intake: IV 250 / 250 Output: Urine 375 / 675 1150 / 1150 Other: Urine Color Yellow Yellow Urine Appearance Clear Clear Urine Odor Normal Data Completed and Pending Labs on day of discharge: Labs from last 24 hours 07/18/24 07/18/24 11:40 06:00 Plt Count 260 Sodium 141 Potassium 4.6 Chloride 107 Carbon Dioxide 27.4 Anion Gap 6.6 BUN 34 H Creatinine 1.2 H Est GFR (CKD-EPI 2020) 48.39 Glucose 126 H Hemoglobin A1c 6.1 H Calcium 10.3 H PFSH All Active Problems Acute hypoxemic respiratory failure (Acute) Acute hypercapnic respiratory failure (Acute) COPD exacerbation (Acute) CKD (chronic kidney disease) stage 3, GFR 30-59 ml/min (Chronic) COPD with hypoxia (Acute) Frequent unifocal PVCs (Acute) Bilateral hearing loss (Acute) Kidney stones (Chronic) Acute kidney insufficiency (Acute) NAFLD (nonalcoholic fatty liver disease) (Chronic) Elevated BP without diagnosis of hypertension (Acute) COPD (chronic obstructive pulmonary disease) (Chronic) Serrated adenoma of colon (Acute ~07/2020) Prediabetes (Chronic) Tubulovillous adenoma of colon (Chronic) Osteopenia (Chronic) Dexa 06/09 Hyperlipidemia (Chronic) Obesity (Chronic) Medical History Tinea pedis Hydronephrosis with urinary obstruction due to ureteral calculus PONV (postoperative nausea and vomiting) With every anesthetic, even TIVA. Responds well to IV Compazine. BCC (basal cell carcinoma), arm Left upper arm Surgical History History of surgery kidney stone extraction w/ stent History of wisdom tooth extraction S/P colonoscopy (04/02/16) History of bilateral tubal ligation History of section (01/05/83) 01/05/83 and 06/20/84 Family History Mother Hypertension Dementia Atrial fibrillation Father , at 59 of lung cancer Lung cancer Sister Rectal cancer metastasized to liver Hypertension Brother Alcohol abuse Daughter No problems noted. Daughter No problems noted. Maternal Grandfather No problems noted. Maternal Grandmother No problems noted. Paternal Grandfather , in his 70s Myocardial infarction Heart disease Alcohol abuse Paternal Grandmother Emphysema of lung Social History Smoking/Tobacco Use Status: Former Tobacco Use Quit Date: 06/24/13 Pack-years: 90 Tobacco: How many years used: 45 Second Hand Exposure: No Smoking risk assessment performed?: Yes Alcohol Intake: current Alcohol Intake frequency: holidays/special occasions only Alcohol type: hard liquor Drug use: Never Substance use type: does not use Caregiver/Support person: No Household members: spouse Housing: house Communication Needs: None Do you need help understanding health information?: Never Pets and animals: Yes Pets and animals: cat(s) and dog(s) Sexually active: Yes Do you think of yourself as: straight/heterosexual Current gender identity: female What is your relationship status?: How often do you talk on the phone with friends or family?: three or more times per week How often do you get together with friends or relatives?: decline to answer How often do you attend sikhism or taoism services?: decline to answer Do you belong to any clubs or organized social groups?: decline to answer Panel score (0-1 are the most socially isolated patients): 2 Duration: < 15 minutes/day Frequency: 1-2 times per week Guerita/Pentecostalism: None Special guerita needs: No Seatbelt use: always Helmet use: Yes Helmet use: always Drive intox or ride w/intox car pick up driver: No Do you feel safe at home: Yes Do you feel safe in your relationship?: Yes Female Reproductive History Menstrual Menopause type: natural History History 2 Para 2 Hx # Term Pregnancies Multiple births Hx # Pregnancies Ectopic pregnancies AB induced Hx Number of Living Children 2 AB spontaneous Time Spent with Patient Time Spent with Patient: <45 minutes Time was spent: preparing to see the patient(eg.review tests), obtaining and/or reviewing separately otained hiistory, ordering medications,tests, procedures, referring, communicating with other health health care social worker, indepentently interpreting results, counseling the patient and care coordination
--- NOTE | 2024-07-20 07:29 | NUR.NOTE ---
Access chart to reconcile EKG orders with EKG's in [place]. Duplicate order cancelled. Nursing Note:
== END 2024-07-18 14:20 | disposition home or self-care (01) ==
LOC: ER 07-17 06:13 → MS 07-17 07:28
PROVIDERS: Family Medicine; Admitting Provider Emergency Medicine; Emergency Provider Student in an Organized Health Care Education/Training Program; PCP Physician Assistant; Visit Provider Emergency Medicine
DX: J44.1 Chronic obstructive pulmonary disease with (acute) exacerbation (principal); J96.01 Acute respiratory failure with hypoxia; J96.02 Acute respiratory failure with hypercapnia; E66.9 Obesity, unspecified; Z68.32 Body mass index [BMI] 32.0-32.9, adult; Z79.899 Other long term (current) drug therapy; D72.829 Elevated white blood cell count, unspecified; R73.03 Prediabetes; N18.30 Chronic kidney disease, stage 3 unspecified; I49.3 Ventricular premature depolarization; K76.0 Fatty (change of) liver, not elsewhere classified; R03.0 Elevated blood-pressure reading, without diagnosis of hypertension; E78.5 Hyperlipidemia, unspecified; M85.80 Other specified disorders of bone density and structure, unspecified site
CPT/HCPCS: 00123; 36415; 80048; 80053; 82805; 84145; 87637; 93005; 94640; 96365; 96366; 96368; 96372; 96375; 99291; J1650; 71045; 83036; 83880; 84484; 85025; 85049; 85379; 85610; 85730; 93010; 99223; 99239; G0378; J0456; J2919; J7512; J7613; J7620

== ENCOUNTER 2024-08-12 01:49 | Outpatient (CLI) | payer MEDICARE, SELFPAY ==
--- NOTE | 2024-08-12 12:57 | DI.MAMMO_ITS ---
Exam(s) MAMMO SCREENING EXAM: MAMMO SCREENING CLINICAL HISTORY: Screening, Z12.31 TECHNIQUE: Bilateral full field digital CC and MLO mammographic images were obtained with 3D tomosyn thesis and utilizing computer aided detection (CAD). COMPARISON: Available for comparison. FINDINGS: Masses/Architectural Distortion: There are small scattered nodule seen in both breasts. No suspiciou s nodules are seen. No areas of architectural distortion are seen. There is a biopsy marker again s een in the right breast. Microcalcifications: No suspicious pleomorphic-type are seen. Skin Thickening/Nipple Retraction: None. IMPRESSION: 1. No significant interval change with no specific features of malignancy noted. 2. Unless there is more urgent need, screening mammography is recommended, as per [place] [employer] guidelines. BI-RADS Category 2 - Benign Findings Breast Density - Category B - Scattered areas of fibroglandular density Breast density category C or D implies that the patient has dense breast tissue. Dense breast tissue is very common and is not abnormal but dense breast tissue can make it harder to find cancer on a ma mmogram. Also, dense breast tissue may increase their breast cancer risk. This information about the result of the mammogram report was provided to the patient to raise their awareness. Use this report when you speak with the patient about their risks for breast cancer, which includes their family hist ory. At that time, you may recommend for more screening tests (Ultrasound or MRI) as they might be us eful based on their risk. A negative radiographic report should not delay biopsy if a dominant or clinically suspicious mass is present. Up to ten percent of cancers are not identified on mammography. A negative report may reinforce clinical impression. Adenosis and dense breasts may obscure an underlying neoplasm. False positive reports average 6 to 10%. Patient will receive a letter notifying them of these results.
== END 2024-08-12 02:09 ==
LOC: DI 01:49
PROVIDERS: PCP Physician Assistant; Visit Provider Physician Assistant
DX: Z12.31 Encounter for screening mammogram for malignant neoplasm of breast (principal); R92.323 Mammographic fibroglandular density, bilateral breasts; D24.1 Benign neoplasm of right breast; D24.2 Benign neoplasm of left breast
CPT/HCPCS: 77063; 77067

== ENCOUNTER → 2024-08-13 09:35 | Outpatient (BNVA) | payer MEDICARE, SELFPAY | PROVIDERS: PCP Physician Assistant; Referring Provider Physician Assistant; Visit Provider Physical Therapy Assistant | DX: Z12.11 Encounter for screening for malignant neoplasm of colon (principal); Z86.0100 Personal history of colon polyps, unspecified; Z80.0 Family history of malignant neoplasm of digestive organs ==

== ENCOUNTER 2024-09-01 06:13 | Day surgery (SDC) | payer MEDICARE, SELFPAY ==
[2024-09-01 06:36] VITALS: BP 143/91; PULSE 77; RESP 16; TEMP 36.4; O2SAT 93
[2024-09-01] MEDS: Lactated Ringers 1,000 ML 80 ML IV (07:01)
--- NOTE | 2024-09-01 07:29 | W.ANESPRE ---
General Info Date of Service Date Performed: 09/01/24 Height: 5 ft 7 in Weight: 98.8 kg Body Mass Index (BMI): 34.1 Surgical Procedure: Operation Date: 09/01/24 07:35 Proposed Procedure Side Surgeon p Colonoscopy Jack Pierre MD Actual Procedure Side Surgeon p Colonoscopy Not Applicable Jack Pierre MD Pre-Op Diagnosis Post-Op Diagnosis hx of polyps Meds Allergies and Home Medications Allergies Allergy/AdvReac Type Severity Reaction Status Date / Time Penicillins Allergy Severe Hives Verified 09/01/24 06:44 metronidazole (From Flagyl) Allergy Unknown Unknown Verified 09/01/24 06:44 adhesive AdvReac REDNESS Verified 09/01/24 06:44 Home Medication ?Medication ?Instructions ?Recorded albuterol sulfate 90 mcg/actuation 2 inh inhalation Q6H PRN shortness 11/24/21 aerosol inhaler of breath or wheezing #18 grams umeclidinium 62.5 mcg-vilanterol 1 inh inhalation DAILY 07/18/24 25 mcg/actuation powdr for inhalation (Anoro Ellipta) calcium 600 mg (as carbonate)-vit 1 tab PO DAILY 08/07/24 D3 5 mcg (200 unit)-minerals tablet estradiol 0.01% (0.1 mg/gram) 1 appful vaginal DAILY 08/07/24 vaginal cream bisacodyl 5 mg tablet,delayed 5 mg PO ONCE #4 tabs 08/13/24 release (Dulcolax (bisacodyl)) polyethylene glycol 3350 17 17 g PO ONCE #238 grams 08/13/24 gram/dose oral powder Current Visit Medications: Current Medications Generic Name Dose Route Start Last Admin Trade Name Freq PRN Reason Stop Dose Admin Ringer's Solution 1,000 mls @ 80 mls/hr 09/01/24 06:00 09/01/24 07:01 IV 09/01/24 23:59 80 mls/hr INFUSION CLEMENTE Administration IV Miscellaneous Supplies 1 each 09/01/24 06:00 Iv Access IV 09/01/24 23:59 DIRECTED CLEMENTE Sodium Chloride 0 ml 09/01/24 06:00 Normal Saline Flush 10 Ml Syr IV 09/01/24 23:59 PRN PRN Sodium Chloride 0 ml 09/01/24 06:00 Normal Saline 10 Ml Vial IJ 09/01/24 23:59 DIRECTED PRN Sterile Water 0 ml 09/01/24 06:00 Water,Injection,Sterile 10 Ml Vial IJ 09/01/24 23:59 DIRECTED PRN PFSH Active Problems Active Problems: Problem Status Onset Code COPD exacerbation Acute J44.1 CKD (chronic kidney disease) stage 3, GFR 30-59 ml/min Chronic N18.30 COPD with hypoxia Acute J44.9 Frequent unifocal PVCs Acute I49.3 Bilateral hearing loss Acute H91.93 Kidney stones Chronic N20.0 Acute kidney insufficiency Acute N28.9 Nuclear sclerotic cataract of left eye Resolved H25.12 Posterior subcapsular age-related cataract, right eye Resolved H25.041 Nuclear sclerotic cataract of right eye Resolved H25.11 NAFLD (nonalcoholic fatty liver disease) Chronic K76.0 Elevated BP without diagnosis of hypertension Acute R03.0 COPD (chronic obstructive pulmonary disease) Chronic J44.9 Serrated adenoma of colon Acute ~07/2020 D12.6 Prediabetes Chronic R73.03 Tubulovillous adenoma of colon Chronic D12.6 Osteopenia Chronic M85.80 Hyperlipidemia Chronic E78.5 Obesity Chronic Medical History Medical History Tinea pedis Hydronephrosis with urinary obstruction due to ureteral calculus PONV (postoperative nausea and vomiting) With every anesthetic, even TIVA. Responds well to IV Compazine. BCC (basal cell carcinoma), arm Left upper arm Surgical History Surgical History History of urologic surgery Per pt. states she had part of her bowel used as a graft to make a ureter. History of surgery kidney stone extraction w/ stent History of wisdom tooth extraction S/P colonoscopy (04/02/16) History of bilateral tubal ligation History of section (01/05/83) 01/05/83 and 06/20/84 Tobacco Smoking/Tobacco Use Status: Former Tobacco Use Passive smoking exposure: Yes Second hand exposure: No Alcohol Alcohol Intake: current Alcohol intake frequency: holidays/special occasions only Alcohol type: hard liquor Substance Use Substance use: Never Substance use type: does not use Prental History History 2 Para 2 Hx # Term Pregnancies Multiple births Hx # Pregnancies Ectopic pregnancies AB induced Hx Number of Living Children 2 AB spontaneous Vital Signs and Lab Results Vital Signs Most Recent Vital Signs in EMR: Most Recent Vital Signs Temp Pulse Resp BP Pulse Ox 36.4 C L 77 16 143/91 H 93 09/01/24 06:36 09/01/24 06:36 09/01/24 06:36 09/01/24 06:36 09/01/24 06:36 Lab Results Blood Type / Crossmatch: No Data to Display Complete Blood Count: No Data to Display Complete Metabolic Panel: No Data to Display Liver Function Panel: No Data to Display Coagulation Panel: No Data to Display Cardiac Panel: No Data to Display Arterial Blood Gas: No Data to Display Venous Blood Gas: No Data to Display Pancreas Panel: No Data to Display Thyroid Panel: No Data to Display Infectious Disease: No Data to Display Blood Cultures: No Data to Display Toxicology Panel: No Data to Display Imaging and Studies Imaging and Studies Study information below may be from another EMR and interpreted by another provider. Please see original notes in EMR for more complete details. EKG Summary: 10/2020: Sinus rhythm...normal P axis, V-rate 60- 99 Pulmonary Function Summary: 11/2020: Mild obstructive airways disease, no bronchodilator response. The diffusion capacity maneuver did not meet acceptability criteria by ATS. Anesthesia Assessment and Plan Anesthesia History Personal History: PONV Family History: No Family History of Anesthesia Complications Exercise Tolerance Exercise Tolerance: Metabolic Equivalents>4 Pertinent Negatives Pertinent Negatives: No Symptoms of GERD Cardiac & Pulmonary Exam Cardiac Exam: Normal S1/S2 Heart Sounds Pulmonary Exam: Clear Bilateral Breath Sounds (Decreased bases. Recent pneumonia (June). Reactive lung disease.) Implantable Cardiac Device Does patient have a Pacemaker or an ICD?: No Airway Exam Known Difficult Airway: No Mallampati Class: 2 Mouth Opening: Normal (> 3cm) Thyromental Distance: Greater than 3 cm Neck Range of Motion: Full ROM Neck Circumference: Thick Teeth Condition: Normal Dentition ASA Classification ASA Score: ASA 3 Emergency Case?: No NPO Status NPO Status: NPO Clears >2 hours, Solids >8 hours Anesthesia Plan Resuscitation Status: Full Code Anesthesia Technique: General Anesthesia Airway Planned: Natural Airway Monitors Used: Standard Monitors
[2024-09-01 07:31] VITALS: BMI 34.1
--- NOTE | 2024-09-01 08:30 | BOWEL_PTH ---
PATIENT: Macy Zhang LOC: [facility] U#:[id number] AGE/SX: 69/F ROOM: RE09/01/[address]: Jack Pierre : 1955 BED: DIS: 09/01/2024 SPEC #: [id number] RECD: 09/01/24 12:18 STATUS: PAOLO RE #: [id number] CHIQUI: 09/01/24 08:[address]: Jack Pierre DEPT: Surgical Specimen RECD BY: Alisa Hicks ENTERED: 09/01/24 12:20 SP TYPE: Bowel OTHR DR: Kalpesh Saucedo Tissues: 1 - BIOPSY BOWEL Procedures: GROSS AND MICRO LEVEL 4 Comments: [id number]
--- NOTE | 2024-09-01 08:45 | W.COLOREPORT ---
Date of service: 09/01/24 Time of Service: 08:46 Colonoscopy Report Procedure Description: PROCEDURES PERFORMED: 1. Colonoscopy with hot snare polypectomy 2. Fulguration/destruction/ablation of colon polyp PREOPERATIVE DIAGNOSIS: Surveillance colonoscopy, colon polyps POSTOPERATIVE DIAGNOSIS: Adenomatous polyps, pandiverticulosis, grade 1 internal hemorrhoids SURGEON: Toya Pierre MD INDICATION for procedure: The patient is a 69-year-old woman who has a personal history of colon polyps, her sister had colon cancer, she is due for surveillance. She has no symptoms but has a complex intra-abdominal/pelvic surgical history(ureter reconstruction with bowel conduit). FINDINGS: Just above the cecum and the ascending colon a 3-5 mm sessile polyp was ablated with the tip of the hot snare. Further along just proximal to the hepatic flexure area 7-10 mm sessile polyp was removed with hot snare technique. There are pandiverticular changes throughout the entire colon. No active diverticulitis. In the sigmoid colon there is notable fibrosis and it is somewhat technical to navigate. Grade 1 internal hemorrhoids are present. SURVEILLANCE interval/FOLLOW-UP: Because of the family history, the personal history and the findings today, repeat another colonoscopy in 3 years. SPECIMENS: yes EBL: Minimal COMPLICATIONS: None QUALITY of prep: Excellent Procedure in detail: The patient gave written consent and was in agreement with the indications, the potential risks as well as the benefits of the procedure. They were taken to the endoscopy suite and laid in the left lateral decubitus position. A timeout was performed and anesthesia was administered which was tolerated well. I started the procedure. Digital rectal and visual examination was performed and grossly within normal limits. A well-lubricated flexible colonoscope was then introduced and passed without any notable difficulty all the way to the cecum identified by the ileocecal valve. I was not able to identify the appendiceal orifice reliably due to the angles but I was confident I was in the cecum. The scope was then slowly withdrawn with the above-noted findings. The patient tolerated the procedure well and was taken to the PACU in hemodynamically stable condition.
--- NOTE | 2024-09-01 08:51 | W.PM.DSUDISC ---
Date of service: 09/01/24 Discharge Plan Disposition Patient Disposition: Home Discharge Details Attending Provider: Jack Pierre Primary Care Provider: Kalpesh Saucedo Home Meds and New Rx's Prescriptions: No Action bisacodyl [Dulcolax (bisacodyl)] 5 mg tablet,delayed release (DR/EC) 5 mg PO ONCE Qty: 4 0RF Rx Instructions: Take per colonoscopy instructions provided by ordering providers office polyethylene glycol 3350 17 gram/dose powder 17 g PO ONCE Qty: 238 0RF Rx Instructions: Take per colonoscopy instructions provided by ordering providers office albuterol sulfate 90 mcg/actuation HFA aerosol inhaler 2 inh inhalation Q6H PRN (Reason: shortness of breath or wheezing) Qty: 18 4RF estradiol 0.01 % (0.1 mg/gram) cream 1 appful vaginal DAILY Rx Instructions: for 14 days calcium carbonate-vit D3-min 600 mg calcium- 200 unit tablet 1 tab PO DAILY Anoro Ellipta 62.5-25 mcg/actuation blister with device 1 inh inhalation DAILY Discharge Instructions Additional Instructions: FINDINGS: Some polyps were found and removed again. This is why we keep doing the colonoscopies. Repeat in 3 years. Stand Alone Forms: Anesthesia Discharge Inst., Colonoscopy Post Instructions, Laine Belle (DSFrankie) Activity:: Activity as Tolerated Diet:: As Tolerated
[2024-09-01 08:54] VITALS: BP 175/89; PULSE 81; RESP 20; TEMP 36.4; O2SAT 97
[2024-09-01] MEDS: Albuterol/Ipratropium 3 ML UPD VIAL UPD (09:06)
--- NOTE | 2024-09-01 09:21 | ANES.POST_ITS ---
Postoperative Evaluation Date, Time and Location Date Performed: 09/01/24 Time Performed: 09:23 Patient Location: Day Surgery Unit Vital Signs Most Recent Imported Vital Signs: Most Recent Vital Signs Temp Pulse Resp BP Pulse Ox 36.4 C L 81 20 175/89 H 97 09/01/24 08:54 09/01/24 08:54 09/01/24 08:54 09/01/24 08:54 09/01/24 08:54 Pain Score Most Recent Pain Score: Most Recent Pain Score Pain Level 0 09/01/24 08:54 Assessment Mental Status: Awake (Alert & Oriented to Patient Baseline) Airway and Respiratory Function: Patent airway with normal (patient baseline) respiratory exam Cardiovascular Function: Hemodynamically Stable Hydration Status: Adequately Hydrated Nausea & Vomiting: No Nausea or Vomiting Pain: Pt. Denies Any Pain Peripheral Nerve Block: Patient did not receive a nerve block Postoperative Comments:: Breathing treatment given in post-op area. No SOB, No Beatrice OWENS, [employer]OC[employer]
[2024-09-01 09:30] VITALS: BP 176/74; PULSE 83; RESP 16; TEMP 36.1; O2SAT 93
== END 2024-09-01 09:48 | disposition home or self-care (01) ==
PROVIDERS: PCP Physician Assistant; Visit Provider Student in an Organized Health Care Education/Training Program
PROC: 0DJD8ZZ Inspection of Lower Intestinal Tract, Via Natural or Artificial Opening Endoscopic (ICD-10-PCS; CPT 45378; principal; 2024-09-01 07:30)
DX: Z12.11 Encounter for screening for malignant neoplasm of colon (principal); Z86.0101 Personal history of adenomatous and serrated colon polyps; Z80.0 Family history of malignant neoplasm of digestive organs; D12.2 Benign neoplasm of ascending colon; K64.0 First degree hemorrhoids; K57.30 Diverticulosis of large intestine without perforation or abscess without bleeding
CPT/HCPCS: 45385; 88305; J1100; J2003; J2704; J7620

== ENCOUNTER → 2024-10-21 12:58 | Outpatient (BNVA) | payer MEDICARE, SELFPAY | PROVIDERS: PCP Physician Assistant; Referring Provider Physician Assistant; Visit Provider Physician Assistant Surgical | DX: J44.1 Chronic obstructive pulmonary disease with (acute) exacerbation (principal); J96.01 Acute respiratory failure with hypoxia | CPT/HCPCS: 94618; 99215 ==

== ENCOUNTER 2024-10-26 02:26 | Outpatient (CLI) | payer MEDICARE, SELFPAY ==
[2024-10-26] MEDS: Levalbuterol HFA 15 GM INH 4 PUFF IH (11:13)
[2024-10-26] MEDS: Inhaler, Assist Device 1 EACH MC (11:13)
--- NOTE | 2024-10-26 21:31 | W.PFT ---
Date of service: 10/26/24 Time of Service: 09:55 Pulmonary Function Test Result Indications: COPD Interpretation Spirometry: There is moderate airflow limitation. No significant bronchodilator response. Lung Volumes: Normal lung volumes Diffusion Capacity: Reduced diffusion Airway Pressure: Normal airways resistance Impression Moderate airflow obstruction with a reduced diffusion. Clinical Correlation therefore is recommended.
== END 2024-10-26 02:27 | disposition home or self-care (01) ==
LOC: RT 02:27
PROVIDERS: PCP Physician Assistant; Visit Provider Student in an Organized Health Care Education/Training Program
DX: J44.89 Other specified chronic obstructive pulmonary disease (principal)
CPT/HCPCS: 94060; 94726; 94729

== ENCOUNTER → 2025-01-20 12:38 | Outpatient (BNVA) | payer MEDICARE, SELFPAY | PROVIDERS: PCP Physician Assistant; Referring Provider Physician Assistant; Visit Provider Physician Assistant Surgical | DX: J44.1 Chronic obstructive pulmonary disease with (acute) exacerbation (principal); G47.33 Obstructive sleep apnea (adult) (pediatric); Z87.891 Personal history of nicotine dependence | CPT/HCPCS: 99214; G0296 ==

== ENCOUNTER 2025-04-06 02:16 | Outpatient (CLI) | payer MEDICARE, SELFPAY ==
--- NOTE | 2025-04-06 07:30 | DI.CTLCSR_ITS ---
Exam(s) CT CHEST LUNG CANCER SCREEN EXAM: CT CHEST LUNG CANCER SCREEN CLINICAL HISTORY: Screening for lung cancer,former cigarette smoker, z87.891 TECHNIQUE: Imaging Protocol: Axial computed tomography images with coronal and sagittal reformatted images were created and reviewed. Low dose screening protocol. COMPARISON: No exams were available for comparison FINDINGS: Tracheobronchial tree: Mild bronchiectasis in the right middle lobe and lingula in the regions of scarring. No mucus plugging. Mediastinum and Millicent: No dominant adenopathy or fluid collection. Pulmonary parenchyma: No consolidation or dominant measurable mass. Smpb-ff-vvyasude emphysematous changes, greater in the upper lobes. Scarring at the inferior right middle lobe and lingula. Mild medial right upper lobe scarring. Lung Nodules: Stable scattered micro nodules in the right upper and lower lobes. The largest nodule is in the right middle lobe measuring 4 x 5 millimeters. Pleura: No effusion. No pneumothorax. Heart: The heart is not dilated. Mild coronary artery calcifications are seen. No pericardial effusion. Aorta: Thoracic aorta non-dilated. Upper abdomen: Unremarkable. Bones: Old rib fractures are again noted. Soft Tissues: Unremarkable. IMPRESSION: No suspicious pulmonary nodules. Lung RADS Cat 2 - Benign Appearance / Behavior: Nodules with a very low likelihood of becoming a clinically active cancer due to size or lack of growth Lung-RADS 1.0 CATEGORIES: Category 0 - Prior chest CT exam(s) being located for comparison. Category 1 - Annual screening in 12 months. No nodules or definitely benign nodules. Category 2 - Annual screening in 12 months. Benign appearance. Nodules with low likelihood of becoming active cancer. Category 3 - 6-month follow-up. Probably benign. Short-term follow-up suggested. Nodules with low likelihood of becoming active cancer. Category 4A - 3-month follow-up and CT/PET if >8 mm in size. Suspicious finding. Findings which require additional testing. Category 4B - Findings which require additional testing and tissue sampling. Category 4X - Category 3 or 4 nodules with additional features or imaging findings that increases the suspicion of malignancy. Modifier S- Potentially clinically significant findings (non lung cancer) RADIATION DOSE DELIVERED: 101.63mGy.cm Total DLP DATA REPOSITORY: All CT scans at this facility are submitted to the National Radiology Data Registry (NRDR) Dose Index Registry (DIR) with the [employer] ([employer]). RADIATION OPTIMIZATION: All CT scans at this facility use at least one of these dose optimization techniques: automated exposure control; mA and/or kV adjustment per patient size (includes targeted exams where dose is matched to clinical indication); or iterative reconstruction.
== END 2025-04-06 02:36 ==
LOC: DI 02:16
PROVIDERS: PCP Physician Assistant; Visit Provider Physician Assistant Surgical
DX: Z12.2 Encounter for screening for malignant neoplasm of respiratory organs (principal); Z87.891 Personal history of nicotine dependence
CPT/HCPCS: 71271